=== PATIENT | male | born 1945 | race Caucasian/White ===

== ENCOUNTER → 2020-06-19 15:06 | Outpatient (BNVA) | payer BC, SELFPAY | PROVIDERS: PCP Internal Medicine; Visit Provider Urology | DX: N32.81 Overactive bladder (principal); N40.1 Benign prostatic hyperplasia with lower urinary tract symptoms; Z91.030 Bee allergy status; Z12.5 Encounter for screening for malignant neoplasm of prostate | CPT/HCPCS: 51798 ==

== ENCOUNTER → 2020-07-23 15:45 | Outpatient (BNVA) | payer BC, SELFPAY | PROVIDERS: PCP Internal Medicine; Referring Provider Internal Medicine; Visit Provider Urology | DX: Z76.89 Persons encountering health services in other specified circumstances (principal) ==

== ENCOUNTER 2020-08-12 15:25 | Outpatient (REF) | payer MEDICARE, SELFPAY ==
--- NOTE | 2020-08-12 16:40 | XR_ITS ---
EXAMINATION: XR CHEST CLINICAL INFORMATION: Nicotine dependence. COMPARISON: Chest x-ray 08/22/2019. CT chest 09/02/2018 TECHNIQUE: 2 views of the chest were obtained. FINDINGS: Stable multiple small calcified granulomas in the lung bilaterally. There is no acute change. There is no focal airspace opacities. No pulmonary vascular congestion. No pleural effusion. Heart size is normal. Cardiac and mediastinal contours are normal. Multilevel degenerative spondylosis spine XR/XR chest 2V IMPRESSION: No acute abnormality of chest.
== END 2020-08-12 15:26 | disposition home or self-care (01) ==
LOC: HO.XRAY 15:25
PROVIDERS: PCP Internal Medicine; Visit Provider Internal Medicine
DX: D86.0 Sarcoidosis of lung (principal); F17.200 Nicotine dependence, unspecified, uncomplicated; R05 Cough
CPT/HCPCS: 71046; 99212

== ENCOUNTER 2020-09-17 08:03 | Outpatient (REF) | payer MEDICARE, SELFPAY ==
[2020-09-17 11:21] LABS: Hematocrit 46.4 % (42-52); Hemoglobin 15.1 g/dl (14.0-18.0); Mean Corpuscular HGB Conc 32.5 g/dl (31.0-36.0); Mean Corpuscular Volume 89.2 fL (80-98); Mean Platelet Volume 10.3 fL (9.4-12.4); Platelet Count 238 X10*3/uL (160-400); Red Cell Distribution Width 13.3 % (11.0-16.0); White Blood Count 7.6 X10*3/uL (4.8-10.8)
[2020-09-17 11:22] LABS: Estimated Average Glucose 114 mg/dL; Hemoglobin A1C 150.0097 umol/L; Hemoglobin A1c % 5.6 %
[2020-09-17 12:30] LABS: Alanine Aminotransferase 28 U/L (0-40); Albumin Level 4.2 g/dL (3.5-5.0); Alkaline Phosphatase 69 U/L (39-117); Anion Gap 13 (12-20); Aspartate Amino Transferase 27 U/L (5-37); Bilirubin Total 0.8 mg/dL (0.0-1.0); Blood Urea Nitrogen 18 mg/dL (9-16); Calcium 8.7 mg/dL (8.4-10.2); Carbon Dioxide 27 mmol/L (22-29); Chloride 105 mmol/L (96-108); Cholesterol 174 mg/dL; Estimated Glomerular Filt Rate > 60; Glucose Fasting 113 mg/dL (60-99); HDL Cholesterol 43 mg/dL; LDL Cholesterol Calculated 108 mg/dl; Sodium 141 mmol/L (135-145); Total Protein 7.6 g/dL (6.5-8.0); Triglycerides 118 mg/dL
== END 2020-09-17 08:04 | disposition home or self-care (01) ==
LOC: HO.HMGCLDS 08:03
PROVIDERS: PCP Internal Medicine; Visit Provider Internal Medicine
DX: E78.5 Hyperlipidemia, unspecified (principal); R73.9 Hyperglycemia, unspecified; R05 Cough; D86.0 Sarcoidosis of lung
CPT/HCPCS: 36415; 80053; 80061; 83036; 85027

== ENCOUNTER 2020-11-20 10:51 | Outpatient (REF) | payer MEDICARE, SELFPAY ==
[2020-11-20 14:15] LABS: Alanine Aminotransferase 22 U/L (0-40); Albumin Level 4.1 g/dL (3.5-5.0); Alkaline Phosphatase 64 U/L (39-117); Anion Gap 16 (12-20); Aspartate Amino Transferase 24 U/L (5-37); Bilirubin Total 0.5 mg/dL (0.0-1.0); Blood Urea Nitrogen 16 mg/dL (9-16); Calcium 8.4 mg/dL (8.4-10.2); Carbon Dioxide 25 mmol/L (22-29); Chloride 102 mmol/L (96-108); Estimated Glomerular Filt Rate > 60; Glucose Random 95 mg/dL (60-115); Potassium 3.8 mmol/L (3.3-5.1); Sodium 139 mmol/L (135-145); Total Protein 7.2 g/dL (6.5-8.0)
== END 2020-11-20 10:52 | disposition home or self-care (01) ==
LOC: HO.HMGCLDS 10:51
PROVIDERS: PCP Internal Medicine; Visit Provider Internal Medicine
DX: I10 Essential (primary) hypertension (principal)
CPT/HCPCS: 36415; 80053

== ENCOUNTER → 2021-02-12 12:49 | Outpatient (BNVA) | payer MEDICARE, SELFPAY | PROVIDERS: PCP Internal Medicine; Visit Provider Urology | DX: N40.1 Benign prostatic hyperplasia with lower urinary tract symptoms (principal); N32.81 Overactive bladder | CPT/HCPCS: 51798; 99212 ==

== ENCOUNTER → 2021-03-10 13:04 | Outpatient (BNVA) | payer MEDICARE, SELFPAY | PROVIDERS: PCP Internal Medicine; Visit Provider Internal Medicine | DX: J44.9 Chronic obstructive pulmonary disease, unspecified (principal); R05 Cough; F17.200 Nicotine dependence, unspecified, uncomplicated | CPT/HCPCS: 99212 ==

== ENCOUNTER 2021-03-24 06:39 | Outpatient (REF) | payer MEDICARE, SELFPAY ==
[2021-03-24 11:52] LABS: Alanine Aminotransferase 21 U/L (0-40); Albumin Level 4.2 g/dL (3.5-5.0); Alkaline Phosphatase 63 U/L (39-117); Anion Gap 12 (12-20); Aspartate Amino Transferase 26 U/L (5-37); Blood Urea Nitrogen 16 mg/dL (9-16); Calcium 9.2 mg/dL (8.4-10.2); Carbon Dioxide 26 mmol/L (22-29); Chloride 106 mmol/L (96-108); Estimated Glomerular Filt Rate > 60; Glucose Fasting 100 mg/dL (60-99); Potassium 4.3 mmol/L (3.3-5.1); Sodium 140 mmol/L (135-145); Total Protein 7.4 g/dL (6.5-8.0)
[2021-03-24 11:53] LABS: Estimated Average Glucose 114 mg/dL; Hemoglobin A1c % 5.6 %
== END 2021-03-24 06:40 | disposition home or self-care (01) ==
LOC: HO.HMGCLDS 06:39
PROVIDERS: PCP Internal Medicine; Visit Provider Internal Medicine
DX: I10 Essential (primary) hypertension (principal); J44.9 Chronic obstructive pulmonary disease, unspecified; M25.512 Pain in left shoulder; R73.9 Hyperglycemia, unspecified
CPT/HCPCS: 36415; 80053; 83036

== ENCOUNTER 2021-04-11 10:00 | Outpatient (RCR) | payer MEDICARE, SELFPAY ==
--- NOTE | 2021-03-07 11:59 | MHC.PT.EP ---
[facility] [place] [facility] [place] [facility] [place] Office [address] Luciana Reyna [address] [phone] F: [phone] F: [phone] F: [phone] F: [phone] Physical Therapy Plan of Care Date of Evaluation: Date of Surgery: Diagnosis: L shoulder pain. Assessment: Pt is a 75 y/0 male referred to PT for eval and treat of L shoulder pain who presents with signs and sx consistent with L shoulder dysfunction resulting in decreased tolerance and ability to perform reaching a high shelf, dressing pullovers, performing yard work, reaching his neck and back for hygiene/ dressing and carrying objects of weight as well as disturbed sleep secondary to decreased L UE strength and ROM, decreased scapular and thoracic posture, increased tissue tension, TTP of anterior L shoulder and L mid trap area, and pain. Pt is deemed an appropriate candidate to receive skilled PT in order to address his physical limitations to improve his functional ability. Frequency and Duration: The patient will be seen 1 x / wk x 8 wks. Short Term Goals: initiate HEP with evidence of compliance. improve baseline pain with shoulder activity to < 5/10; initial 8/10. Card Checker Goals: I with HEP. Pt will be able to dress pullovers with managed pain; initial: 8/10. Symmetrical shoulder flexion achieved. Pt will be able to place objects on high shelf with managed Sx. Initial: unable. Treatment Plan: Modalities to reduce pain, spasms and effusion. Manual therapy to restore motion and function. Therapeutic exercise to improve strength and flexibility. Neuromuscular re-education for posture and balance. Therapeutic activities to return to functional activities of daily living. Electronically signed by: Andrew Cherry PT. Please sign and return to therapist. Thank you for your referral.
--- NOTE | 2021-04-11 11:17 | MHC.PT.DC ---
[facility] [place] Office [place] Office [place] Office [address] Luciana Reyna [address] [phone] F: [phone] F: [phone] F: [phone] F: [phone] Physical Therapy Discharge Report Diagnosis: L shoulder pain. Date of Surgery: Date of Evaluation: 03/07/21 Date of Discharge: 04/11/21 Treatments to Date: 6 Cancellations to Date: No Shows to Date: Discharge Status: Patient Elected to Stop Recommend MD Follow-up Discharge Summary: Mike was an active participant in therapy in clinic but inconsistent with HEP. Pt requested DC today and is considering orthopedic mgt for his symptom. pt was able to achieve his short term goal w/ some progress toward detention goals. pt has been educated regarding cont basic HEP. Electronically signed by: Andrew Cherry PT. Please sign and return to therapist. Thank you for your referral.
== END 2021-04-11 11:18 | disposition home or self-care (01) ==
LOC: HO.PTCHIC 10:00
PROVIDERS: PCP Internal Medicine; Visit Provider Internal Medicine
DX: M25.512 Pain in left shoulder (principal)
CPT/HCPCS: 97033; 97110; 97140; 97161

== ENCOUNTER 2021-04-18 10:37 | Outpatient (REF) | payer MEDICARE, SELFPAY ==
--- NOTE | ~2021-04-18 | XR_ITS ---
EXAMINATION: XR SHOULDER , LEFT CLINICAL INFORMATION: Pain COMPARISON: None available at the time of this dictation. TECHNIQUE: AP external rotation, Grashey, scapular Y, and axillary views of the shoulder. FINDINGS: BONES: There is no fracture or dislocation, no osteolytic or osteoblastic lesion. JOINTS: Glenohumeral joint is properly positioned. 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 SOFT TISSUE AND INCLUDED LUNG: Normal. XR/XR shoulder LT min 2V IMPRESSION: Except for mild DJD of the AC joint, exam is normal.
== END 2021-04-18 10:38 | disposition home or self-care (01) ==
LOC: HO.XRAY 10:37
PROVIDERS: PCP Internal Medicine; Visit Provider Physician Assistant
DX: M75.102 Unspecified rotator cuff tear or rupture of left shoulder, not specified as traumatic (principal)
CPT/HCPCS: 73030; 99202; J1040

== ENCOUNTER 2021-06-07 14:09 | Inpatient (IN) | payer MEDICARE, SELFPAY ==
[2021-06-07 14:46] VITALS: BP 135/72; PULSE 52; RESP 18; TEMP 36.9; O2SAT 99; BMI 29.6
--- NOTE | 2021-06-07 15:15 | PC.NURSE ---
[facility] contacted, PT was seen in the community and is voluntary [facility] bedsearch.
--- NOTE | 2021-06-07 15:52 | ED.PSYCH ---
HPI - Psych General Chief Complaint: Psychiatric Symptoms Stated Complaint: CRISIS Source: patient Mode of arrival: ambulatory Limitations: language barrier (Nicaraguan) History of Present Illness HPI Narrative: 76-year-old [place] male presents for anxiety, depression, and suicidal ideation with plan to hang himself. Patient stopped his psychiatric meds over the summer because he was unable to obtain a new psychiatrist, as his old psychiatrist retired. MD complaint: suicidal ideation and feels depressed Onset (ago): month(s) Duration: getting worse History of same: Yes Relieving factors: none Context: not taking psychiatric medications Associated psychiatric symptoms: depression, suicidal ideation and other (Insomnia) Treatments prior to arrival: placed on mental health hold If self harm: admits thoughts of self harm and has plan Related Data Home Medications Medication Instructions Recorded Confirmed latanoprost 0.005 % eye drops 1 drp OPHTHALMIC (EYE) BEDTIME 07/23/20 06/07/21 fluticasone propionate 50 2 spray INTRANASAL DAILY 05/22/21 06/07/21 mcg/actuation nasal spray,suspension nicotine 21 mg/24 hr daily 1 patch TRANSDERMAL DAILY 06/07/21 06/07/21 transdermal patch oxybutynin chloride 10 mg 10 mg PO BEDTIME 06/07/21 06/07/21 tablet,extended release 24 hr Previous Rx's Medication Instructions Recorded metoprolol succinate 100 mg 100 mg PO DAILY #90 tab 07/31/20 tablet,extended release 24 hr prazosin 2 mg capsule 2 mg PO BEDTIME #90 cap 07/31/20 citalopram 10 mg tablet 10 mg PO DAILY #90 tab 09/12/20 trazodone 100 mg tablet 200 mg PO BEDTIME #180 tab 09/12/20 ProAir HFA 90 mcg/actuation 2 inh INHALATION Q6H PRN #8.5 g NS 01/01/21 aerosol inhaler (albuterol sulfate) hydrochlorothiazide 25 mg tablet 25 mg PO QAM #90 tab 03/10/21 amlodipine 10 mg-benazepril 40 mg 1 cap PO DAILY #90 cap 04/17/21 capsule Allergies Allergy/AdvReac Type Severity Reaction Status Date / Time bee pollen [BEE STINGS] Allergy Severe ANAPHYLAXIS Verified 05/22/21 08:55 Review of Systems Review of Systems: Constitutional: No Fever, No Chills ENT/Mouth: No Ear Pain, No Nasal Congestion, No sore throat Eyes: No Eye Pain, No Swelling, No Redness Cardiovascular: No Chest Pain, No SOB Respiratory: No Cough, No Sputum, No Dyspnea Gastrointestinal: No Nausea, No Vomiting, No Diarrhea, No Hematochezia, No Melena Genitourinary: No Dysuria, No Urinary Frequency, No Hematuria Musculoskeletal: No Myalgias Skin: No Skin Lesions, No rash Neuro: No Weakness, No Numbness, No Paresthesias, No Dizziness, No Headache Psych: positive Anxiety, positive Depression, positive SI Heme/Lymph: No Lymphadenopathy Endocrine: No Polyuria, No Polydipsia Yes all other systems are reviewed and are negative PMFSH Past Medical History Attestation statement: The following information was validated with the patient. Source: old records reviewed Medical History Annual physical exam COPD (chronic obstructive pulmonary disease) Cough Depression ETOH abuse Hepatic steatosis History of alcohol abuse HTN (hypertension) Hyperglycemia Hyperlipemia Left shoulder pain Overweight Pulmonary sarcoidosis Smoker Surgical History H/O colonoscopy Social History Social History Housing: House Alcohol intake: unknown Patient Tobacco Use Status: Current everyday Tobacco user Tobacco use type: Cigarette Cigarettes Per Day: 2 e-Cigarette/Vaping Use: Never Used Use of substances other than those prescribed or required for medical reasons: Unknown Advance Directives: No Advance Directives Information Provided: Yes Advance Directives on File: No Current occupational status: retired Current occupation: rt handed Physical Exam Vital Signs: Vital Signs: Last Vital Signs Temp 98.5 F 06/07/21 14:46 Pulse 56 06/07/21 21:45 Resp 16 06/07/21 20:00 BP 141/71 H 06/07/21 21:45 Pulse Ox 99 06/07/21 14:46 Body Mass Index 29.6 Appearance: Alert. Oriented X3. Moderate psychiatric distress. Eyes: Pupils equal, round and reactive to light. Sclera nonicteric. ENT: Pharynx normal. Tardive tongue movements. Neck: Normal inspection. Neck supple. CVS: Normal heart rate and rhythm. Pulses normal. Respiratory: No respiratory distress. Breath sounds normal. Abdomen: Soft and nontender. Skin: Skin warm and dry. Normal skin color. Normal skin turgor. Extremities: No lower extremity edema. Moves all extremities against resistance. Gait well balanced well coordinated. Neuro: No motor deficit. No sensory deficit. Cranial nerves 2-12 intact. Course Course Course Narrative: 76-year-old male, [place]araguan speaking, able to understand some Luxembourger, is at bedside translating. Patient has not taken any psychiatric medications that were prescribed to him since summer, his psychiatrist retired and he was unable to obtain a new provider. states that he has not been able to sleep over the past month, he increasingly anxious and depressed. Patient reported to his that he had a plan to kill himself by hanging. N consult completed in the [facility], patient arrived on a Section 12 bed search. I ordered psychiatric consult to establish care so patient could possibly become an established patient to obtain his medications. Labs are unremarkable. Physician observation started at this time 1:00 a.[address]. sign out to Dr. Armendariz. MDM - Psych Differential Diagnosis Differential diagnosis: Likely acute psychosis, suicidal ideation, depression, acute anxiety and post-traumatic stress disorder Medical Records Attestation: I reviewed the patient's medical records. Lab Data Attestation: I reviewed the patient's lab results. Result diagrams: 06/07/21 16:11 06/07/21 16:11 Labs: Lab Results 06/07/21 06/07/21 06/07/21 Range/Units 16:11 16:11 16:11 WBC 7.8 (4.8-10.8) X10*3/uL RBC 4.76 (4.60-5.80) X10*6/uL Hgb 14.4 (14.0-18.0) g/dl Hct 41.0 L (42-52) % MCV 86.1 (80-98) fL MCH 30.3 (27.0-33.0) pg MCHC 35.1 (31.0-36.0) g/dl RDW 13.2 (11.0-16.0) % Plt Count 210 (160-400) X10*3/uL MPV 9.8 (9.4-12.4) fL Immature Gran % (Auto) 0.4 (0.0-0.4) % Neut % (Auto) 58.9 (45-73) % Lymph % (Auto) 30.2 (20-40) % [place] % (Auto) 8.1 (2-11) % Eos % (Auto) 1.9 (0-4) % Baso % (Auto) 0.5 (0-2) % Lymph # (Auto) 2.4 (1.2-4.9) X10*3/uL [place] # (Auto) 0.6 (0.1-1.2) X10*3/uL Eos # (Auto) 0.2 (0.0-0.4) X10*3/uL Baso # (Auto) 0.0 (0.0-0.2) X10*3/uL Abs Immat Gran (auto) 0.03 (0.00-0.03) X10*3/uL Absolute Neuts (auto) 4.6 (2.0-8.3) X10*3/uL Absolute Nucleated RBC 0.000 (0.0-0.012) X10*3/uL Nucleated RBC % (auto) 0.0 (0.0-0.2) /100WBC Sodium 138 (135-145) mmol/L Potassium 4.0 (3.3-5.1) mmol/L Chloride 106 (96-108) mmol/L Carbon Dioxide 22 (22-29) mmol/L Anion Gap 14 (12-20) BUN 22 H (9-16) mg/dL Creatinine 1.12 (0.5-1.4) mg/dL Estim Creat Clear Calc 61.5 Estimated GFR > 60 Random Glucose 119 H (60-115) mg/dL Calcium 9.3 (8.4-10.2) mg/dL Total Bilirubin 0.6 (0.0-1.0) mg/dL AST 21 (5-37) U/L ALT 23 (0-40) U/L Alkaline Phosphatase 63 (39-117) U/L Total Protein 7.2 (6.5-8.0) g/dL Albumin 4.0 (3.5-5.0) g/dL Urine Color Urine Appearance Urine pH (5.0-8.0) Ur Specific [place] (1.005-1.025) Urine Protein (NEG-TRACE) MG/DL Urine Glucose (UA) (NEG) MG/DL Urine Ketones (NEG) MG/DL Urine Blood (NEG) Urine Nitrite (NEG) Ur Leukocyte Esterase (NEG) Salicylates < 5.0 L (15-30) mg/dL Urine Opiates Screen (Not Detect) Urine Fentanyl Screen (Not Detect) Acetaminophen < 1 (<30) mcg/mL Ur Barbiturates Screen (Not Detect) Ur Phencyclidine Scrn (Not Detect) Ur Amphetamines Screen (Not Detect) U Benzodiazepines Scrn (Not Detect) Urine Cocaine Screen (Not Detect) U Marijuana (THC) Screen (Not Detect) Ethyl Alcohol < 10 mg/dL COVID-19 ([facility]) (Negative) COVID-19 Clin Com 06/07/21 06/07/21 06/08/21 Range/Units 16:11 17:24 00:30 WBC (4.8-10.8) X10*3/uL RBC (4.60-5.80) X10*6/uL Hgb (14.0-18.0) g/dl Hct (42-52) % MCV (80-98) fL MCH (27.0-33.0) pg MCHC (31.0-36.0) g/dl RDW (11.0-16.0) % Plt Count (160-400) X10*3/uL MPV (9.4-12.4) fL Immature Gran % (Auto) (0.0-0.4) % Neut % (Auto) (45-73) % Lymph % (Auto) (20-40) % [place] % (Auto) (2-11) % Eos % (Auto) (0-4) % Baso % (Auto) (0-2) % Lymph # (Auto) (1.2-4.9) X10*3/uL [place] # (Auto) (0.1-1.2) X10*3/uL Eos # (Auto) (0.0-0.4) X10*3/uL Baso # (Auto) (0.0-0.2) X10*3/uL Abs Immat Gran (auto) (0.00-0.03) X10*3/uL Absolute Neuts (auto) (2.0-8.3) X10*3/uL Absolute Nucleated RBC (0.0-0.012) X10*3/uL Nucleated RBC % (auto) (0.0-0.2) /100WBC Sodium (135-145) mmol/L Potassium (3.3-5.1) mmol/L Chloride (96-108) mmol/L Carbon Dioxide (22-29) mmol/L Anion Gap (12-20) BUN (9-16) mg/dL Creatinine (0.5-1.4) mg/dL Estim Creat Clear Calc Estimated GFR Random Glucose (60-115) mg/dL Calcium (8.4-10.2) mg/dL Total Bilirubin (0.0-1.0) mg/dL AST (5-37) U/L ALT (0-40) U/L Alkaline Phosphatase (39-117) U/L Total Protein (6.5-8.0) g/dL Albumin (3.5-5.0) g/dL Urine Color YELLOW Urine Appearance CLEAR Urine pH 6.0 (5.0-8.0) Ur Specific [place] <= 1.005 (1.005-1.025) Urine Protein NEG (NEG-TRACE) MG/DL Urine Glucose (UA) NEG (NEG) MG/DL Urine Ketones NEG (NEG) MG/DL Urine Blood NEG (NEG) Urine Nitrite NEG (NEG) Ur Leukocyte Esterase NEG (NEG) Salicylates (15-30) mg/dL Urine Opiates Screen Not Detected (Not Detect) Urine Fentanyl Screen Not Detected (Not Detect) Acetaminophen (<30) mcg/mL Ur Barbiturates Screen Not Detected (Not Detect) Ur Phencyclidine Scrn Not Detected (Not Detect) Ur Amphetamines Screen Not Detected (Not Detect) U Benzodiazepines Scrn Not Detected (Not Detect) Urine Cocaine Screen Not Detected (Not Detect) U Marijuana (THC) Screen Not Detected (Not Detect) Ethyl Alcohol mg/dL COVID-19 ([facility]) Negative (Negative) COVID-19 Clin Com See Note ECG Data Attestation: I personally reviewed and interpreted this ECG as follows: ECG interpretation date: 06/07/21 ECG interpretation time: 16:36 Prior ECG tracings: available for review Interpretation: Vent. rate 55 BPM GA interval 198 ms QRS duration 88 ms QT/QTc 472/451 ms P-R-T axes -9 53 42 Sinus bradycardia Otherwise normal ECG No previous ECGs available Prior EKG April 04, 2019. No significant changes. Discharge Plan Discharge Clinical Impression: Acute psychosis, Acute anxiety Depression Qualifiers: Depression Type: major depressive disorder Major depression recurrence: recurrent Active/Remission status: currently active Major depression episode severity: severe Psychotic features: without psychotic features Qualified Code(s): F33.2 - Major depressive disorder, recurrent severe without psychotic features Prescriptions: No Action metoprolol succinate 100 mg tablet extended release 24 hr 100 mg PO DAILY Qty: 90 RF: 3 prazosin 2 mg capsule 2 mg PO BEDTIME Qty: 90 RF: 3 albuterol sulfate [ProAir HFA] 90 mcg/actuation HFA aerosol inhaler 2 inh inhalation Q6H PRN (Reason: shortness of breath or wheezing) Qty: 8.5 RF: 2 hydrochlorothiazide 25 mg tablet 25 mg PO QAM Qty: 90 RF: 3 amlodipine-benazepril 10-40 mg capsule 1 cap PO DAILY Qty: 90 RF: 3 nicotine 21 mg/24 hr Patch 24 Hour 1 patch TRANSDERMAL DAILY RF: 0 oxybutynin chloride 10 mg tablet extended release 24hr 10 mg PO BEDTIME RF: 0 citalopram 10 mg tablet 10 mg PO DAILY Qty: 90 RF: 3 trazodone 100 mg tablet 200 mg PO BEDTIME Qty: 180 RF: 3 fluticasone propionate 50 mcg/actuation spray,suspension 2 spray intranasal DAILY RF: 0 latanoprost 0.005 % drops 1 drp ophthalmic (eye) BEDTIME RF: 0
--- NOTE | 2021-06-07 15:59 | ECG_ITS ---
Test Reason : Med clearance Blood Pressure : / mmHG Vent. Rate : 055 BPM Atrial Rate : 055 BPM P-R Int : 198 ms QRS Dur : 088 ms QT Int : 472 ms P-R-T Axes : -09 053 042 degrees QTc Int : 451 ms Sinus bradycardia Prolonged QT Borderline ECG No significant changes seen Referred By: Deborah Hdz Electronically Signed By:ERIC CARTER MD
[2021-06-07 16:16] LABS: MANUAL DIFF FLAG NO
[2021-06-07 16:18] LABS: Basophils Percent Auto 0.5 % (0-2); Eosinophils Absolute Auto 0.2 X10*3/uL (0.0-0.4); Eosinophils Percent Auto 1.9 % (0-4); Hemoglobin 14.4 g/dl (14.0-18.0); Imm Gran Abs Auto 0.03 X10*3/uL (0.00-0.03); Imm Gran Pct Auto 0.4 % (0.0-0.4); Lymphocytes Absolute Auto 2.4 X10*3/uL (1.2-4.9); Lymphocytes Percent Auto 30.2 % (20-40); Mean Corpuscular HGB Conc 35.1 g/dl (31.0-36.0); Mean Corpuscular Hemoglobin 30.3 pg (27.0-33.0); Mean Corpuscular Volume 86.1 fL (80-98); Mean Platelet Volume 9.8 fL (9.4-12.4); Monocytes Absolute Auto 0.6 X10*3/uL (0.1-1.2); Monocytes Percent Auto 8.1 % (2-11); Neutrophils Absolute Auto 4.6 X10*3/uL (2.0-8.3); Neutrophils Percent Auto 58.9 % (45-73); Platelet Count 210 X10*3/uL (160-400); Red Blood Count 4.76 X10*6/uL (4.60-5.80); Red Cell Distribution Width 13.2 % (11.0-16.0); White Blood Count 7.8 X10*3/uL (4.8-10.8)
[2021-06-07 16:32] LABS: COVID-19 Test Negative (Negative); IDNOW Serial# 08D9AD1C
[2021-06-07 16:33] LABS: Ethanol < 10 mg/dL
[2021-06-07 16:38] LABS: Alanine Aminotransferase 23 U/L (0-40); Alkaline Phosphatase 63 U/L (39-117); Anion Gap 14 (12-20); Aspartate Amino Transferase 21 U/L (5-37); Bilirubin Total 0.6 mg/dL (0.0-1.0); Blood Urea Nitrogen 22 mg/dL (9-16); Calcium 9.3 mg/dL (8.4-10.2); Carbon Dioxide 22 mmol/L (22-29); Chloride 106 mmol/L (96-108); Creatinine Clr Calc Pharmacy 61.5; Estimated Glomerular Filt Rate > 60; Glucose Random 119 mg/dL (60-115); Sodium 138 mmol/L (135-145); Total Protein 7.2 g/dL (6.5-8.0)
[2021-06-07 16:48] LABS: Acetaminophen LAB < 1 mcg/mL (<30); Salicylate < 5.0 mg/dL (15-30)
[2021-06-07 17:51] LABS: Amphetamine Screen Urine Not Detected (Not Detect); Barbiturates, Urine Not Detected (Not Detect); Benzodiazepines Screen Urine Not Detected (Not Detect); Cannabinoid Screen Urine Not Detected (Not Detect); Cocaine Screen Urine Not Detected (Not Detect); Fentanyl, urine Not Detected (Not Detect); Opiate Screen Urine Not Detected (Not Detect); Phencyclidine Screen Urine Not Detected (Not Detect)
[2021-06-07 20:00] VITALS: BP 141/71; PULSE 56; RESP 16
[2021-06-07] MEDS: traZODone HCL 100 MG TABLET 200 MG PO (20:43)
[2021-06-07 21:45] VITALS: BP 141/71; PULSE 56
[2021-06-07] MEDS: Prazosin HCL 1 MG CAPSULE 2 MG PO (21:45)
[2021-06-07] MEDS: Latanoprost 0.005 % Ophth Sol 2.5 ML DROPS 1 DROP EYE-BOTH (21:51)
[2021-06-08 00:44] LABS: Appearance Urine CLEAR; Color Urine YELLOW; Glucose Urine UA NEG (NEG); Leukocyte Esterase Urine NEG (NEG); Nitrite Urine NEG (NEG); Specific Gravity - Urine <= 1.005 (1.005-1.025); Urine Blood NEG (NEG); Urine Ketones NEG (NEG); Urine Protein NEG (NEG-TRACE)
[2021-06-08 06:46] VITALS: BP 140/70; PULSE 58; RESP 16; TEMP 37.2; O2SAT 97
--- NOTE | 2021-06-08 06:46 | PC.NURSE ---
Pt slept thru the night with occassional bathroom trips. steady gait, inpt bedsearch.
[2021-06-08 08:52] VITALS: BP 106/65; PULSE 72
[2021-06-08] MEDS: Nicotine 21 MG PATCH.TD24 TRANSDERMA (08:52)
[2021-06-08] MEDS: Metoprolol Succinate ER 100 MG TAB.ER.24H PO (08:52)
[2021-06-08] MEDS: Escitalopram Oxalate 5 MG TABLET PO (08:52)
[2021-06-08] MEDS: lisinopriL 40 MG TABLET PO (08:52)
[2021-06-08] MEDS: hydroCHLOROthiazide 25 MG TABLET PO (08:52)
[2021-06-08 08:53] VITALS: BP 106/65; PULSE 72
[2021-06-08] MEDS: amLODIPine Besylate 10 MG TABLET PO (08:53)
--- NOTE | 2021-06-08 11:24 | P.CNPS_ITS ---
History of Present Illness Date of Service: 06/08/21 Chief Complaint: PARANOIA Reason for Consult: medication Requesting physician: Deborah Hdz Sources of Information: patient interviewed, chart reviewed and crisis/core team assessment reviewed HPI Narrative: 76 y.o. Male who carries a diagnosis of schizoaffective disorder He presented to [facility] crisis at [address] [place] [address] after his called to request an assessment due to SI with plan to hang self with rope, paranoia, hyposomnia, and agitation in context of non-adherence to medication. Per , pt stopped his psychiatric meds over the summer and she has had to supervise him 15/03 as she worries about him harming himself or others, difficult to re-direct or calm. I evaluated the pt this morning with Latvian speaking park interpreter and upon interview he reports he is in the hospital because he has not been taking his medication for 6 months because his doctor retired. Says ?before, I was okay, I took latuda for my brain,? it has been ?very tough to find new doctor? but has an appointment with a new psychiatrist in [place] on July 30. Reports he needs to find a new medication because latuda is ?too expensive,? no longer covered by insurance. Reports he does not drink or smoke tobacco anymore since his doctor told him to quit a few yr ago, ?too much alcohol.? Says if he is going for a walk and sees ?lights are flashing, I feel scared,? thinks people are coming for him, but he doesnt know who. Says he sometimes sees a car outside his house with lights that go on and off during the day and it scares him. Reports his mood is ?depressed.? Sleep is ?okay,? thinks he gets about 5-6 hours of sleep. Energy in the day is low, feels ?tired.? Denies anger or agitation. Says he feels safe. I spoke with Mike?s , Chioma. She reports her was diagnosed with schizophrenia 30 yr ago and he has worsening anxiety and paranoia off his medication. Says when pt ?sees some lights in the neighborhood, he thinks people put the lights on to scare him.? He feels triggered ?when he sees people doing something or people touching him or coming close to him, its very painful.? He saw a napkin in their fence and perseverated on this, ?why did they put it there?? Per , ?something that is normal and nothing for him looks like something against him.? He asks to always keep blinds closed. She denies that pt is aggressive or violent but he has made statements such as ?im gonna take a brick and smash the door? of his neighbor?s house. Per , pt presents as energetic but ?sometimes he complains he is tired.? Sleep is disrupted by paranoid ideations, feeling ?scared? at night. Appetite and self care are good. Per , pt was non-adherent with psychiatry appointments during the pandemic, ran out of medication at the beginning of the summer and called Dr. disla but he said pt was already discharged. Reports ?he was doing good? on latuda, but since insurance got switched from [employer] to Medicare, it is no longer covered. She denies being concerned with pt?s memory and says when he is med adherent he as ?very little anxiety.?? Past Psychiatric History: Past medications: Celexa 10 mg QAM (last filled 05/05/21), prazosin 2 mg QHS (last filled 04/17/21), trazodone 200 mg QHS (last filled 04/07/21). Also reports he was on latuda, but has not had this in a year due to insurance not covering it, per he did very well on this medication. Remote hx of taking risperdal, zyprexa (metabolic side effects but did reasonably well), abilify, geodon, haldol, perphenazine 16 mg QHS, klonopin, effexor. -Hx of multiple psych hospitalizations, last at [facility] in 08/2020 for insomnia, paranoia, bizarre behaviors, and HI towards [facility] pharmacy staff. Hx of IPLOC at [facility] in 2018. -First inpatient admission was at [facility] in 12/1999, brought to the ED due to threatening to harm or possibly kill a co-worker with a hammer, had not been sleeping. 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 He was re-hospitalized at [facility] in 2006, brought in due to threatening neighbors, had arrived home from a walk to find his garage ?a mess? and believed his neighbors were responsible. Hx of alcohol abuse. -Per chart, pt had hx of difficulty getting along with people and maintaining employment due to conflict with coworkers i.e. thinking coworkers are making fun of him, playing tricks on him. -Hx of OP psychiatry, initially saw Dr. Daniel Chase and later saw Dr. Disla. He was discharged from Dr. Disla?s care due to poor attendance during the pandemic and Dr. Disla did not take him back, as he is set to retire. Medical Evaluation Reviewed: Yes [facility] Medical History Annual physical exam COPD (chronic obstructive pulmonary disease) Cough Depression ETOH abuse Hepatic steatosis History of alcohol abuse HTN (hypertension) Hyperglycemia Hyperlipemia Left shoulder pain Overweight Pulmonary sarcoidosis Smoker Narrative: -PCP is Dr. Mary Gonzalez, [facility] -Hx of hypertension. Surgical History H/O colonoscopy Social History: -Pt lives with , Servando ( 43 yrs). Housing is rep ortedly safe and stable and he is able to return. 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 -He was born in [place]. Has one brother in [place] and a 30-year-old daughter. Parents . -Graduated high school. 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 Substance History: -Tobacco: quit smoking cigarettes 1 week ago, had been 3 cigarettes a day -ETOH: reports hx of daily drinking but stopped a few yr ago because his doctor told him his liver was ?getting bigger and bigger. Trauma History: -Denies Diagnostics Vital Signs (24Hr): Vital Signs - 24 hr 06/07/21 14:46 06/07/21 20:00 06/07/21 21:45 Temperature 98.5 F Pulse Rate 52 56 56 Respiratory Rate 18 16 Blood Pressure 135/72 141/71 H 141/71 H Pulse Oximetry 99 06/08/21 06:46 06/08/21 08:52 06/08/21 08:53 Temperature 99 F Pulse Rate 58 72 72 Respiratory Rate 16 Blood Pressure 140/70 H 106/65 106/65 Pulse Oximetry 97 Body Mass Index 29.6 Labs Results: 06/07/21 16:11 06/07/21 16:11 Labs: Laboratory Results - last 48 hr 06/07/21 06/07/21 06/07/21 16:11 16:11 16:11 WBC 7.8 RBC 4.76 Hgb 14.4 Hct 41.0 L MCV 86.1 MCH 30.3 MCHC 35.1 RDW 13.2 Plt Count 210 MPV 9.8 Immature Gran % (Auto) 0.4 Neut % (Auto) 58.9 Lymph % (Auto) 30.2 [place] % (Auto) 8.1 Eos % (Auto) 1.9 Baso % (Auto) 0.5 Lymph # (Auto) 2.4 [place] # (Auto) 0.6 Eos # (Auto) 0.2 Baso # (Auto) 0.0 Abs Immat Gran (auto) 0.03 Absolute Neuts (auto) 4.6 Absolute Nucleated RBC 0.000 Nucleated RBC % (auto) 0.0 Sodium 138 Potassium 4.0 Chloride 106 Carbon Dioxide 22 Anion Gap 14 BUN 22 H Creatinine 1.12 Estim Creat Clear Calc 61.5 Estimated GFR > 60 Random Glucose 119 H Calcium 9.3 Total Bilirubin 0.6 AST 21 ALT 23 Alkaline Phosphatase 63 Total Protein 7.2 Albumin 4.0 Urine Color Urine Appearance Urine pH Ur Specific [place] Urine Protein Urine Glucose (UA) Urine Ketones Urine Blood Urine Nitrite Ur Leukocyte Esterase Salicylates < 5.0 L Urine Opiates Screen Urine Fentanyl Screen Acetaminophen < 1 Ur Barbiturates Screen Ur Phencyclidine Scrn Ur Amphetamines Screen U Benzodiazepines Scrn Urine Cocaine Screen U Marijuana (THC) Screen Ethyl Alcohol < 10 COVID-19 ([facility]) COVID-19 Clin Com 06/07/21 06/07/21 06/08/21 16:11 17:24 00:30 WBC RBC Hgb Hct MCV MCH MCHC RDW Plt Count MPV Immature Gran % (Auto) Neut % (Auto) Lymph % (Auto) [place] % (Auto) Eos % (Auto) Baso % (Auto) Lymph # (Auto) [place] # (Auto) Eos # (Auto) Baso # (Auto) Abs Immat Gran (auto) Absolute Neuts (auto) Absolute Nucleated RBC Nucleated RBC % (auto) Sodium Potassium Chloride Carbon Dioxide Anion Gap BUN Creatinine Estim Creat Clear Calc Estimated GFR Random Glucose Calcium Total Bilirubin AST ALT Alkaline Phosphatase Total Protein Albumin Urine Color YELLOW Urine Appearance CLEAR Urine pH 6.0 Ur Specific [place] <= 1.005 Urine Protein NEG Urine Glucose (UA) NEG Urine Ketones NEG Urine Blood NEG Urine Nitrite NEG Ur Leukocyte Esterase NEG Salicylates Urine Opiates Screen Not Detected Urine Fentanyl Screen Not Detected Acetaminophen Ur Barbiturates Screen Not Detected Ur Phencyclidine Scrn Not Detected Ur Amphetamines Screen Not Detected U Benzodiazepines Scrn Not Detected Urine Cocaine Screen Not Detected U Marijuana (THC) Screen Not Detected Ethyl Alcohol COVID-19 ([facility]) Negative COVID-19 Clin Com See Note Mental Status Exam Mental Status Exam Narrative: A&O. In hospital attire, good hygiene, normal body habitus. Lying in bed, reading a newspaper. Good eye contact, attentive. Appears to have oral/ facial involuntary movement, unclear etiology. Calm, cooperative, engaged. Non- pressured speech, spontaneous with regular rate and rhythm, normal volume and prosody. No prolonged speech latency or dysarthria. Mood is ?depressed,? affect is animated at times. Denies SI/SIB/HI upon inquiry. Denies A/VH but endorses paranoid delusional thought content. Thoughts are perseverative, persecutory. No known cognitive or memory impairment. Insight is fair and adequate, judgment is impaired. Medications Medications Current Medications Acetaminophen (Acetaminophen 325 Mg Tablet) 650 mg PO Q6H PRN PRN Reason: pain, headache Albuterol Sulfate (Albuterol Sulfate 90 Mcg 8 Gm Inhaler) 2 puff INHALE Q6H PRN PRN Reason: shortness of breath or wheezing Amlodipine Besylate (Amlodipine Besylate 10 Mg Tablet) 10 mg PO DAILY [facility] Last Admin: 06/08/21 08:53 Dose: 10 mg Documented by: Escitalopram Oxalate (Escitalopram Oxalate 5 Mg Tablet) 5 mg PO DAILY [facility] Last Admin: 06/08/21 08:52 Dose: 5 mg Documented by: Fluticasone Propionate (Fluticasone Propionate Nasal 16 Gm [place]) 2 spray NOSTRIL-B DAILY [facility] Last Admin: 06/08/21 08:54 Dose: Not Given Documented by: Hydrochlorothiazide (Hydrochlorothiazide 25 Mg Tablet) 25 mg PO DAILY [facility]; Protocol Last Admin: 06/08/21 08:52 Dose: 25 mg Documented by: Latanoprost (Latanoprost 0.005 % Ophth Susana 2.5 Ml Drops) 1 drop EYE-BOTH BEDTIME [facility] Last Admin: 06/07/21 21:51 Dose: 1 drop Documented by: Lisinopril (Lisinopril 40 Mg Tablet) 40 mg PO DAILY [facility]; Protocol Last Admin: 06/08/21 08:52 Dose: 40 mg Documented by: Metoprolol Succinate (Metoprolol Succinate Er 100 Mg Tab.Er.24h) 100 mg PO DAILY [facility]; Protocol Last Admin: 06/08/21 08:52 Dose: 100 mg Documented by: Nicotine (Nicotine 21 Mg Patch.Td24) 21 mg TRANSDERMA DAILY [facility] Last Admin: 06/08/21 08:52 Dose: 21 mg Documented by: Oxybutynin Chloride (Oxybutynin Chloride Er 5 Mg Tab.Er.24) 10 mg PO BEDTIME [facility] Last Admin: 06/07/21 20:41 Dose: 10 mg Documented by: Prazosin HCl (Prazosin Hcl 1 Mg Capsule) 2 mg PO BEDTIME [facility]; Protocol Last Admin: 06/07/21 21:45 Dose: 2 mg Documented by: Trazodone HCl (Trazodone Hcl 100 Mg Tablet) 200 mg PO BEDTIME [facility] Last Admin: 06/07/21 20:43 Dose: 200 mg Documented by: Allergies Allergies Allergy/AdvReac Type Severity Reaction Status Date / Time bee pollen [BEE STINGS] Allergy Severe ANAPHYLAXIS Verified 05/22/21 08:55 Assessment & Plan Assessment & Plan (1) Schizoaffective disorder, depressive type: Status: Acute Code(s): F25.1 - Schizoaffective disorder, depressive type Assessment and Plan: 76 y.o. Male who carries a diagnosis of bipolar I disorder. He presented to [facility] crisis at [address] [place] [address] after his called to request an assessment due to SI with plan to hang self with rope, paranoia, hyposomnia, and agitation in context of non-adherence to medication. Per , pt stopped his psychiatric meds over the summer. He was on latuda and had been stable on this but insurance is no longer covering and pt no longer has a psychiatrist due to missing appointments over the pandemic. ED provider restarted prazosin, escitalopram, and trazodone per pharmacy records. Will admit inpatient and re-start AAP. Reviewed past med trials, prior to latuda pt was on zyprexa, apparently res ponded well but had metabolic side effects. Plan: -Continue monitoring medically. Patient is currently medically cleared. -Patient cannot leave AGAINST MEDICAL ADVICE. -Care Team evaluation for bed search. initial treatments ordered collateral history obtained Greater than 50% of the session was spent on counseling and/or coordination of care
--- NOTE | 2021-06-08 11:38 | PC.NURSE ---
pt currently in shower
[2021-06-08 12:07] VITALS: BP 131/61; PULSE 57; RESP 18; TEMP 36.8; O2SAT 98
--- NOTE | 2021-06-08 14:18 | PC.NURSE ---
report given to s1
--- NOTE | 2021-06-08 15:14 | PC.NURSE ---
Report received. Pt resting comfortably in room at current, no complaints at this time, calm and cooperative. Awaiting pending transfer to S1.
[2021-06-08 18:00] VITALS: BP 150/72; PULSE 63; RESP 20; TEMP 36.8; O2SAT 97
[2021-06-08 20:34] VITALS: BP 150/72; PULSE 63
[2021-06-08] MEDS: Prazosin HCL 1 MG CAPSULE 2 MG PO (20:34)
[2021-06-08] MEDS: traZODone HCL 100 MG TABLET 200 MG PO (20:34)
[2021-06-08] MEDS: Latanoprost 0.005 % Ophth Sol 2.5 ML DROPS 1 DROP EYE-BOTH (20:35)
[2021-06-09] MEDS: hydrOXYzine HCL 25 MG TABLET PO (02:06)
[2021-06-09] MEDS: traZODone HCL 50 MG TABLET PO (02:06)
[2021-06-09] MEDS: Escitalopram Oxalate 5 MG TABLET PO (08:25)
[2021-06-09] MEDS: amLODIPine Besylate 10 MG TABLET PO (08:25)
[2021-06-09] MEDS: hydroCHLOROthiazide 25 MG TABLET PO (08:26)
[2021-06-09] MEDS: lisinopriL 40 MG TABLET PO (08:26)
[2021-06-09] MEDS: Metoprolol Succinate ER 100 MG TAB.ER.24H PO (08:26)
[2021-06-09 09:24] VITALS: BP 139/66; PULSE 69; RESP 18; TEMP 36.6; O2SAT 97
[2021-06-09] MEDS: Nicotine 21 MG PATCH.TD24 TRANSDERMA (12:02)
[2021-06-09] MEDS: Fluticasone Propionate Nasal 16 GM SPRAY 2 SPRAY NOSTRIL-B (12:03)
--- NOTE | 2021-06-09 13:04 | HO.PSYADMNOT ---
HPI Date of Service: 06/09/21 Chief Complaint: PARANOIA Sources of Information: patient interviewed, chart reviewed and crisis/core team assessment reviewed HPI Subjective Notes: Conditional Voluntary Narrative: The patient is a 76-year-old male, from [place], , with good social support referred from the crisis Center at in in [place] since his called crisis due to exacerbation of psychotic symptoms and he could not afford Latuda that used to work for him. As per the crisis assessment, the patient reports of paranoia, ideas of reference, sporadically during examinations and according to his , a sporadic disorganized behavior. He was assessed by crisis and transferring to this facility for psychiatric stabilization. On interview, the patient was pleasant and cooperative, he admitted that he has not been taking medications for several months since his insurance would not cover the Latuda and it was too expensive for him. Also he reported that he psychiatrist retired and he could not find another prescriber. The nursing staff reported that last night he could not sleep, he took trazodone 200 mg and Atarax and he barely slept. We discussed risks, benefits, side-effects and alternatives and he agreed to start a low dose of Zyprexa to target psychosis and poor sleep. He is fully aware of the possibility of metabolic syndrome. Past Psychiatric History: Past medications: Celexa 10 mg QAM (last filled 05/05/21), prazosin 2 mg QHS (last filled 04/17/21), trazodone 200 mg QHS (last filled 04/07/21). Also reports he was on latuda, but has not had this in a year due to insurance not covering it, per he did very well on this medication. Remote hx of taking risperdal, zyprexa (metabolic side effects but did reasonably well), abilify, geodon, haldol, perphenazine 16 mg QHS, klonopin, effexor. -Hx of multiple psych hospitalizations, last at [facility] in 08/2020 for insomnia, paranoia, bizarre behaviors, and HI towards [facility] pharmacy staff. Hx of IPLOC at [facility] in 2018. -First inpatient admission was at [facility] in 12/1999, brought to the ED due to threatening to harm or possibly kill a co-worker with a hammer, had not been sleeping. 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 He was re-hospitalized at [facility] in 2006, brought in due to threatening neighbors, had arrived home from a walk to find his garage ?a mess? and believed his neighbors were responsible. Hx of alcohol abuse. -Per chart, pt had hx of difficulty getting along with people and maintaining employment due to conflict with coworkers i.e. thinking coworkers are making fun of him, playing tricks on him. -Hx of OP psychiatry, initially saw Dr. Daniel Chase and later saw Dr. Ghosh. He was discharged from Dr. Ghosh?s care due to poor attendance during the pandemic and Dr. Ghosh did not take him back, as he is set to retire. Medical Evaluation Reviewed: Yes [facility] Medical History Annual physical exam COPD (chronic obstructive pulmonary disease) Cough Depression ETOH abuse Hepatic steatosis History of alcohol abuse HTN (hypertension) Hyperglycemia Hyperlipemia Left shoulder pain Overweight Pulmonary sarcoidosis Smoker Surgical History H/O colonoscopy Family History: Denies Social History: -Pt lives with , Servando ( 43 yrs). Housing is reportedly safe and stable and he is able to return. 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 -He was born in [place]. Has one brother in [place] and a 30-year-old daughter. Parents . -Graduated high school. 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 Substance History: Admitted past use of alcohol in the past Trauma History: -Denies Diagnostics Vital Signs (24Hr): Vital Signs - 24 hr 06/08/21 18:00 06/08/21 20:34 06/09/21 09:24 Temperature 98.3 F 97.8 F Pulse Rate 63 63 69 Respiratory Rate 20 18 Blood Pressure 150/72 H 150/72 H 139/66 Pulse Oximetry 97 97 Body Mass Index 29.6 Labs Results: 06/07/21 16:11 06/07/21 16:11 Labs: Laboratory Results - last 48 hr 06/07/21 06/07/21 06/07/21 16:11 16:11 16:11 WBC 7.8 RBC 4.76 Hgb 14.4 Hct 41.0 L MCV 86.1 MCH 30.3 MCHC 35.1 RDW 13.2 Plt Count 210 MPV 9.8 Immature Gran % (Auto) 0.4 Neut % (Auto) 58.9 Lymph % (Auto) 30.2 [place] % (Auto) 8.1 Eos % (Auto) 1.9 Baso % (Auto) 0.5 Lymph # (Auto) 2.4 [place] # (Auto) 0.6 Eos # (Auto) 0.2 Baso # (Auto) 0.0 Abs Immat Gran (auto) 0.03 Absolute Neuts (auto) 4.6 Absolute Nucleated RBC 0.000 Nucleated RBC % (auto) 0.0 Sodium 138 Potassium 4.0 Chloride 106 Carbon Dioxide 22 Anion Gap 14 BUN 22 H Creatinine 1.12 Estim Creat Clear Calc 61.5 Estimated GFR > 60 Random Glucose 119 H Calcium 9.3 Total Bilirubin 0.6 AST 21 ALT 23 Alkaline Phosphatase 63 Total Protein 7.2 Albumin 4.0 Urine Color Urine Appearance Urine pH Ur Specific [place] Urine Protein Urine Glucose (UA) Urine Ketones Urine Blood Urine Nitrite Ur Leukocyte Esterase Salicylates < 5.0 L Urine Opiates Screen Urine Fentanyl Screen Acetaminophen < 1 Ur Barbiturates Screen Ur Phencyclidine Scrn Ur Amphetamines Screen U Benzodiazepines Scrn Urine Cocaine Screen U Marijuana (THC) Screen Ethyl Alcohol < 10 COVID-19 ([facility]) COVID-19 Clin Com 06/07/21 06/07/21 06/08/21 16:11 17:24 00:30 WBC RBC Hgb Hct MCV MCH MCHC RDW Plt Count MPV Immature Gran % (Auto) Neut % (Auto) Lymph % (Auto) [place] % (Auto) Eos % (Auto) Baso % (Auto) Lymph # (Auto) [place] # (Auto) Eos # (Auto) Baso # (Auto) Abs Immat Gran (auto) Absolute Neuts (auto) Absolute Nucleated RBC Nucleated RBC % (auto) Sodium Potassium Chloride Carbon Dioxide Anion Gap BUN Creatinine Estim Creat Clear Calc Estimated GFR Random Glucose Calcium Total Bilirubin AST ALT Alkaline Phosphatase Total Protein Albumin Urine Color YELLOW Urine Appearance CLEAR Urine pH 6.0 Ur Specific [place] <= 1.005 Urine Protein NEG Urine Glucose (UA) NEG Urine Ketones NEG Urine Blood NEG Urine Nitrite NEG Ur Leukocyte Esterase NEG Salicylates Urine Opiates Screen Not Detected Urine Fentanyl Screen Not Detected Acetaminophen Ur Barbiturates Screen Not Detected Ur Phencyclidine Scrn Not Detected Ur Amphetamines Screen Not Detected U Benzodiazepines Scrn Not Detected Urine Cocaine Screen Not Detected U Marijuana (THC) Screen Not Detected Ethyl Alcohol COVID-19 ([facility]) Negative COVID-19 Clin Com See Note Meds/Allergies Meds Home Medications Acetaminophen (Acetaminophen 325 Mg Tablet) 650 mg PO Q6H PRN PRN Reason: pain, headache Al Hydroxide/Mg Hydroxide (Magnesium Hydrox/Alum Hydrox 30 Ml Oral.Susp) 30 ml PO Q6H PRN PRN Reason: Heartburn/Nausea Albuterol Sulfate (Albuterol Sulfate 90 Mcg 8 Gm Inhaler) 2 puff INHALE Q6H PRN PRN Reason: shortness of breath or wheezing Amlodipine Besylate (Amlodipine Besylate 10 Mg Tablet) 10 mg PO DAILY [facility] Last Admin: 06/09/21 08:25 Dose: 10 mg Documented by: Escitalopram Oxalate (Escitalopram Oxalate 5 Mg Tablet) 5 mg PO DAILY [facility] Last Admin: 06/09/21 08:25 Dose: 5 mg Documented by: Fluticasone Propionate (Fluticasone Propionate Nasal 16 Gm [place]) 2 spray NOSTRIL-B DAILY [facility] Last Admin: 06/09/21 12:03 Dose: 2 spray Documented by: Hydrochlorothiazide (Hydrochlorothiazide 25 Mg Tablet) 25 mg PO DAILY [facility]; Protocol Last Admin: 06/09/21 08:26 Dose: 25 mg Documented by: Hydroxyzine HCl (Hydroxyzine Hcl 25 Mg Tablet) 25 mg PO Q6H PRN PRN Reason: Anxiety Last Admin: 06/09/21 02:06 Dose: 25 mg Documented by: Latanoprost (Latanoprost 0.005 % Ophth Susana 2.5 Ml Drops) 1 drop EYE-BOTH BEDTIME [facility] Last Admin: 06/08/21 20:35 Dose: 1 drop Documented by: Lisinopril (Lisinopril 40 Mg Tablet) 40 mg PO DAILY [facility]; Protocol Last Admin: 06/09/21 08:26 Dose: 40 mg Documented by: Magnesium Hydroxide (Milk Of Magnesia 30 Ml Oral.Susp) 30 ml PO DAILY PRN PRN Reason: Constipation Metoprolol Succinate (Metoprolol Succinate Er 100 Mg Tab.Er.24h) 100 mg PO DAILY [facility]; Protocol Last Admin: 06/09/21 08:26 Dose: 100 mg Documented by: Nicotine (Nicotine 21 Mg Patch.Td24) 21 mg TRANSDERMA DAILY [facility] Last Admin: 06/09/21 12:02 Dose: 21 mg Documented by: Oxybutynin Chloride (Oxybutynin Chloride Er 5 Mg Tab.Er.24) 10 mg PO BEDTIME [facility] Last Admin: 06/08/21 20:35 Dose: 10 mg Documented by: Prazosin HCl (Prazosin Hcl 1 Mg Capsule) 2 mg PO BEDTIME [facility]; Protocol Last Admin: 06/08/21 20:34 Dose: 2 mg Documented by: Trazodone HCl (Trazodone Hcl 100 Mg Tablet) 200 mg PO BEDTIME [facility] Last Admin: 06/08/21 20:34 Dose: 200 mg Documented by: Trazodone HCl (Trazodone Hcl 50 Mg Tablet) 50 mg PO BEDTIME PRN PRN Reason: Insomnia Last Admin: 06/09/21 02:06 Dose: 50 mg Documented by: Allergies Allergies Allergy/AdvReac Type Severity Reaction Status Date / Time bee pollen [BEE STINGS] Allergy Severe ANAPHYLAXIS Verified 05/22/21 08:55 Mental Status Exam Mental Status Exam Patient Appearance: Well Grooomed Patient Orientation: Person and Situation Level of Consciousness: Awake and Appropriate Patient Behavior: Appropriate and Cooperative Mood Description: Calm Affect Description: Constricted Patient Cognition Impaired: No Ability to Follow Directions: Good Speech Pattern: Appropriate Hallucinations: None Delusions: Paranoid Ideation Thought Process: Goal Oriented and Linear Thought Content: positive for Circumstantial Depressive Symptoms: Increased Anxiety Judgement: Fair Assessment & Plan Assessment & Plan (1) Schizoaffective disorder, depressive type: Status: Acute Code(s): F25.1 - Schizoaffective disorder, depressive type Assessment and Plan: The patient is a 76-year-old male from [place], with good social support with a past history of schizoaffective disorder depressed type who was referred to the crisis Center due to exacerbation of psychotic symptoms in the context of not having a follow-up appointment with his psychiatrist and 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 He has been noncompliant with medications for more than a year. He was readmitted into this facility and he agreed on the plan below. Plan 1. Start Zyprexa 5 mg p.o. q.h.s. to target insomnia and psychosis. 2. Continue other medications. 3. Gather collateral information. Reason for continued inpatient stay Substantial Risk for: harm to self, harm to others, stable for discharge, rapid decompensation and med/psych decompensation
[2021-06-09 18:00] VITALS: BP 150/72; PULSE 69; RESP 16; TEMP 36.2; O2SAT 98
[2021-06-09] MEDS: OLANZapine 5 MG TABLET PO (20:40)
[2021-06-09 20:41] VITALS: BP 150/72; PULSE 59
[2021-06-09] MEDS: Prazosin HCL 1 MG CAPSULE 2 MG PO (20:41)
[2021-06-09] MEDS: traZODone HCL 100 MG TABLET 200 MG PO (20:42)
[2021-06-09] MEDS: Latanoprost 0.005 % Ophth Sol 2.5 ML DROPS 1 DROP EYE-BOTH (20:42)
[2021-06-10 06:00] VITALS: BP 141/66; PULSE 71; TEMP 34.1; O2SAT 98
[2021-06-10 07:32] LABS: Estimated Average Glucose 108 mg/dL; Hemoglobin A1c % 5.4 %
[2021-06-10 07:33] LABS: Anion Gap 10 (12-20); Blood Urea Nitrogen 19 mg/dL (9-16); Calcium 9.1 mg/dL (8.4-10.2); Carbon Dioxide 27 mmol/L (22-29); Chloride 108 mmol/L (96-108); Cholesterol 141 mg/dL; Creatinine Clr Calc Pharmacy 68.3; Estimated Glomerular Filt Rate > 60; Glucose Random 102 mg/dL (60-115); HDL Cholesterol 36 mg/dL; LDL Cholesterol Calculated 79 mg/dl; Potassium 4.2 mmol/L (3.3-5.1); Sodium 141 mmol/L (135-145); Triglycerides 133 mg/dL
[2021-06-10 08:29] VITALS: BP 141/66; PULSE 71
[2021-06-10] MEDS: Escitalopram Oxalate 5 MG TABLET PO (08:29)
[2021-06-10] MEDS: Metoprolol Succinate ER 100 MG TAB.ER.24H PO (08:29)
[2021-06-10] MEDS: hydroCHLOROthiazide 25 MG TABLET PO (08:29)
[2021-06-10 08:30] VITALS: BP 141/66; PULSE 71
[2021-06-10] MEDS: amLODIPine Besylate 10 MG TABLET PO (08:30)
[2021-06-10] MEDS: lisinopriL 40 MG TABLET PO (08:30)
[2021-06-10] MEDS: Nicotine 21 MG PATCH.TD24 TRANSDERMA (08:31)
[2021-06-10] MEDS: Fluticasone Propionate Nasal 16 GM SPRAY 2 SPRAY NOSTRIL-B (08:42)
[2021-06-10 09:06] VITALS: BP 141/66; PULSE 71; TEMP 35.7; O2SAT 98
--- NOTE | 2021-06-10 15:05 | HO.PSYCHPN ---
Subjective Subjective Date of Service: 06/10/21 Reason For Visit: PARANOIA Subjective Notes: Conditional Voluntary Interim History: The nursing staff reported patient slept well. On interview, the patient denies auditory hallucinations he is pleasant and cooperative Medication Compliance: Yes Side effects from medications: No Attending Groups: Intermittent Review of Systems Acute medical concerns: No Medical Review of Systems: unchanged Mental Status Exam Mental Status Exam Patient Appearance: Disheveled Patient Orientation: Person Level of Consciousness: Awake Patient Behavior: Cooperative Mood Description: Constricted Affect Description: Calm Ability to Follow Directions: Good Speech Pattern: Clear Hallucinations: Auditory Delusions: Paranoid Ideation Thought Process: Intact Thought Content: positive for Circumstantial Judgement: Fair Diagnostics Vital Signs (24Hr): Vital Signs - 24 hr 06/09/21 18:00 06/09/21 20:41 06/10/21 06:00 Temperature 97.1 F 93.3 F L Pulse Rate 69 59 71 Respiratory Rate 16 Blood Pressure 150/72 H 150/72 H 141/66 H Pulse Oximetry 98 98 06/10/21 08:29 06/10/21 08:30 06/10/21 09:06 Temperature 96.3 F L Pulse Rate 71 71 71 Respiratory Rate Blood Pressure 141/66 H 141/66 H 141/66 H Pulse Oximetry 98 Body Mass Index 29.6 Labs Results: 06/07/21 16:11 06/10/21 07:07 Labs: Laboratory Results - last 48 hr 06/10/21 06/10/21 07:07 07:07 Sodium 141 Potassium 4.2 Chloride 108 Carbon Dioxide 27 Anion Gap 10 L BUN 19 H Creatinine 1.01 Estim Creat Clear Calc 68.3 Estimated GFR > 60 Random Glucose 102 Estimat Average Glucose 108 Hemoglobin A1c % 5.4 Calcium 9.1 Triglycerides 133 Cholesterol 141 LDL Cholesterol, Calc 79 HDL Cholesterol 36 Medications Medications Current Medications Acetaminophen (Acetaminophen 325 Mg Tablet) 650 mg PO Q6H PRN PRN Reason: pain, headache Al Hydroxide/Mg Hydroxide (Magnesium Hydrox/Alum Hydrox 30 Ml Oral.Susp) 30 ml PO Q6H PRN PRN Reason: Heartburn/Nausea Albuterol Sulfate (Albuterol Sulfate 90 Mcg 8 Gm Inhaler) 2 puff INHALE Q6H PRN PRN Reason: shortness of breath or wheezing Amlodipine Besylate (Amlodipine Besylate 10 Mg Tablet) 10 mg PO DAILY [facility] Last Admin: 06/10/21 08:30 Dose: 10 mg Documented by: Escitalopram Oxalate (Escitalopram Oxalate 5 Mg Tablet) 5 mg PO DAILY [facility] Last Admin: 06/10/21 08:29 Dose: 5 mg Documented by: Fluticasone Propionate (Fluticasone Propionate Nasal 16 Gm [place]) 2 spray NOSTRIL-B DAILY [facility] Last Admin: 06/10/21 08:42 Dose: 2 spray Documented by: Hydrochlorothiazide (Hydrochlorothiazide 25 Mg Tablet) 25 mg PO DAILY [facility]; Protocol Last Admin: 06/10/21 08:29 Dose: 25 mg Documented by: Hydroxyzine HCl (Hydroxyzine Hcl 25 Mg Tablet) 25 mg PO Q6H PRN PRN Reason: Anxiety Last Admin: 06/09/21 02:06 Dose: 25 mg Documented by: Latanoprost (Latanoprost 0.005 % Ophth Susana 2.5 Ml Drops) 1 drop EYE-BOTH BEDTIME [facility] Last Admin: 06/09/21 20:42 Dose: 1 drop Documented by: Lisinopril (Lisinopril 40 Mg Tablet) 40 mg PO DAILY [facility]; Protocol Last Admin: 06/10/21 08:30 Dose: 40 mg Documented by: Magnesium Hydroxide (Milk Of Magnesia 30 Ml Oral.Susp) 30 ml PO DAILY PRN PRN Reason: Constipation Metoprolol Succinate (Metoprolol Succinate Er 100 Mg Tab.Er.24h) 100 mg PO DAILY [facility]; Protocol Last Admin: 06/10/21 08:29 Dose: 100 mg Documented by: Nicotine (Nicotine 21 Mg Patch.Td24) 21 mg TRANSDERMA DAILY [facility] Last Admin: 06/10/21 08:31 Dose: 21 mg Documented by: Olanzapine (Olanzapine 5 Mg Tablet) 5 mg PO BEDTIME [facility] Last Admin: 06/09/21 20:40 Dose: 5 mg Documented by: Oxybutynin Chloride (Oxybutynin Chloride Er 5 Mg Tab.Er.24) 10 mg PO BEDTIME [facility] Last Admin: 06/09/21 20:40 Dose: 10 mg Documented by: Prazosin HCl (Prazosin Hcl 1 Mg Capsule) 2 mg PO BEDTIME [facility]; Protocol Last Admin: 06/09/21 20:41 Dose: 2 mg Documented by: Trazodone HCl (Trazodone Hcl 100 Mg Tablet) 200 mg PO BEDTIME [facility] Last Admin: 06/09/21 20:42 Dose: 200 mg Documented by: Trazodone HCl (Trazodone Hcl 50 Mg Tablet) 50 mg PO BEDTIME PRN PRN Reason: Insomnia Last Admin: 06/09/21 02:06 Dose: 50 mg Documented by: Allergies Allergies Allergy/AdvReac Type Severity Reaction Status Date / Time bee pollen [BEE STINGS] Allergy Severe ANAPHYLAXIS Verified 05/22/21 08:55 Assessment & Plan Assessment & Plan (1) Schizoaffective disorder, depressive type: Status: Acute Code(s): F25.1 - Schizoaffective disorder, depressive type Assessment and Plan: The patient is a 76-year-old male from [place], with good social support with a past history of schizoaffective disorder depressed type who was referred to the crisis Center due to exacerbation of psychotic symptoms in the context of not having a follow-up appointment with his psychiatrist and 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 He has been noncompliant with medications for more than a year. He was readmitted into this facility and he agreed on the plan below. Plan 1. Start Zyprexa 5 mg p.o. q.h.s. to target insomnia and psychosis. 2. Continue other medications. 3. Gather collateral information. I spent minutes with the patient and/or on the patient floor today, greater than?50% of which was spent counseling/coordinating care. Reason for contiued inpatient stay Substantial Risk for: inability to function, rapid decompensation and med/psych decompensation
[2021-06-10 20:28] VITALS: PULSE 98; RESP 20; TEMP 36.3; O2SAT 92
[2021-06-10] MEDS: OLANZapine 5 MG TABLET PO (20:29)
[2021-06-10 20:30] VITALS: BP 174/79; PULSE 59
[2021-06-10] MEDS: Prazosin HCL 1 MG CAPSULE 2 MG PO (20:30)
[2021-06-10] MEDS: traZODone HCL 100 MG TABLET 200 MG PO (20:31)
[2021-06-10] MEDS: Latanoprost 0.005 % Ophth Sol 2.5 ML DROPS 1 DROP EYE-BOTH (20:32)
[2021-06-11 06:00] VITALS: BP 141/65; PULSE 67; RESP 16; TEMP 36.4; O2SAT 98
[2021-06-11] MEDS: Nicotine 21 MG PATCH.TD24 TRANSDERMA (08:25)
[2021-06-11 08:27] VITALS: BP 141/65; PULSE 67
[2021-06-11] MEDS: hydroCHLOROthiazide 25 MG TABLET PO (08:27)
[2021-06-11] MEDS: amLODIPine Besylate 10 MG TABLET PO (08:27)
[2021-06-11 08:28] VITALS: BP 141/65; PULSE 67
[2021-06-11] MEDS: lisinopriL 40 MG TABLET PO (08:28)
[2021-06-11] MEDS: Fluticasone Propionate Nasal 16 GM SPRAY 2 SPRAY NOSTRIL-B (08:28)
[2021-06-11 08:29] VITALS: BP 141/65; PULSE 67
[2021-06-11] MEDS: Metoprolol Succinate ER 100 MG TAB.ER.24H PO (08:29)
[2021-06-11] MEDS: Escitalopram Oxalate 5 MG TABLET PO (09:06)
--- NOTE | 2021-06-11 15:21 | HO.PSYCHPN ---
Subjective Subjective Date of Service: 06/11/21 Reason For Visit: PARANOIA Subjective Notes: Conditional Voluntary Interim History: The nursing staff reports that the patient has been pleasant and cooperative. Occupational therapy staff reported that her [place] score 12/30 in Chinese. On interview, the patient denies side effects with Zyprexa, he denies active auditory hallucinations or paranoia. His blood work showed normal hemoglobin A1c and cholesterol within normal limits. Medication Compliance: Yes Side effects from medications: No Attending Groups: No Review of Systems Acute medical concerns: No Medical Review of Systems: unchanged Mental Status Exam Mental Status Exam Patient Appearance: Well Grooomed Patient Orientation: Person, Place and Situation Level of Consciousness: Awake and Appropriate Patient Behavior: Cooperative Mood Description: Calm Affect Description: Calm Patient Cognition Impaired: No Ability to Follow Directions: Good Speech Pattern: Clear Memory Description: Intact Hallucinations: None Delusions: Not Present Thought Process: Goal Oriented Judgement: Fair Diagnostics Vital Signs (24Hr): Vital Signs - 24 hr 06/10/21 20:28 06/10/21 20:30 06/11/21 06:00 Temperature 97.4 F 97.6 F Pulse Rate 98 59 67 Respiratory Rate 20 16 Blood Pressure 174/79 H 141/65 H Pulse Oximetry 92 98 06/11/21 08:27 06/11/21 08:28 06/11/21 08:29 Temperature Pulse Rate 67 67 67 Respiratory Rate Blood Pressure 141/65 H 141/65 H 141/65 H Pulse Oximetry Body Mass Index 29.6 Labs Results: 06/07/21 16:11 06/10/21 07:07 Labs: Laboratory Results - last 48 hr 06/10/21 06/10/21 07:07 07:07 Sodium 141 Potassium 4.2 Chloride 108 Carbon Dioxide 27 Anion Gap 10 L BUN 19 H Creatinine 1.01 Estim Creat Clear Calc 68.3 Estimated GFR > 60 Random Glucose 102 Estimat Average Glucose 108 Hemoglobin A1c % 5.4 Calcium 9.1 Triglycerides 133 Cholesterol 141 LDL Cholesterol, Calc 79 HDL Cholesterol 36 Medications Medications Current Medications Acetaminophen (Acetaminophen 325 Mg Tablet) 650 mg PO Q6H PRN PRN Reason: pain, headache Al Hydroxide/Mg Hydroxide (Magnesium Hydrox/Alum Hydrox 30 Ml Oral.Susp) 30 ml PO Q6H PRN PRN Reason: Heartburn/Nausea Albuterol Sulfate (Albuterol Sulfate 90 Mcg 8 Gm Inhaler) 2 puff INHALE Q6H PRN PRN Reason: shortness of breath or wheezing Amlodipine Besylate (Amlodipine Besylate 10 Mg Tablet) 10 mg PO DAILY [facility] Last Admin: 06/11/21 08:27 Dose: 10 mg Documented by: Escitalopram Oxalate (Escitalopram Oxalate 5 Mg Tablet) 5 mg PO DAILY [facility] Last Admin: 06/11/21 09:06 Dose: 5 mg Documented by: Fluticasone Propionate (Fluticasone Propionate Nasal [address]) 2 spray NOSTRIL-B DAILY [facility] Last Admin: 06/11/21 08:28 Dose: 2 spray Documented by: Hydrochlorothiazide (Hydrochlorothiazide 25 Mg Tablet) 25 mg PO DAILY [facility]; Protocol Last Admin: 06/11/21 08:27 Dose: 25 mg Documented by: Hydroxyzine HCl (Hydroxyzine Hcl 25 Mg Tablet) 25 mg PO Q6H PRN PRN Reason: Anxiety Last Admin: 06/09/21 02:06 Dose: 25 mg Documented by: Latanoprost (Latanoprost 0.005 % Ophth Susana 2.5 Ml Drops) 1 drop EYE-BOTH BEDTIME [facility] Last Admin: 06/10/21 20:32 Dose: 1 drop Documented by: Lisinopril (Lisinopril 40 Mg Tablet) 40 mg PO DAILY [facility]; Protocol Last Admin: 06/11/21 08:28 Dose: 40 mg Documented by: Magnesium Hydroxide (Milk Of Magnesia 30 Ml Oral.Susp) 30 ml PO DAILY PRN PRN Reason: Constipation Metoprolol Succinate (Metoprolol Succinate Er 100 Mg Tab.Er.24h) 100 mg PO DAILY [facility]; Protocol Last Admin: 06/11/21 08:29 Dose: 100 mg Documented by: Nicotine (Nicotine 21 Mg Patch.Td24) 21 mg TRANSDERMA DAILY [facility] Last Admin: 06/11/21 08:25 Dose: 21 mg Documented by: Olanzapine (Olanzapine 5 Mg Tablet) 5 mg PO BEDTIME [facility] Last Admin: 06/10/21 20:29 Dose: 5 mg Documented by: Oxybutynin Chloride (Oxybutynin Chloride Er 5 Mg Tab.Er.24) 10 mg PO BEDTIME [facility] Last Admin: 06/10/21 20:29 Dose: 10 mg Documented by: Prazosin HCl (Prazosin Hcl 1 Mg Capsule) 2 mg PO BEDTIME [facility]; Protocol Last Admin: 06/10/21 20:30 Dose: 2 mg Documented by: Trazodone HCl (Trazodone Hcl 100 Mg Tablet) 200 mg PO BEDTIME [facility] Last Admin: 06/10/21 20:31 Dose: 200 mg Documented by: Trazodone HCl (Trazodone Hcl 50 Mg Tablet) 50 mg PO BEDTIME PRN PRN Reason: Insomnia Last Admin: 06/09/21 02:06 Dose: 50 mg Documented by: Allergies Allergies Allergy/AdvReac Type Severity Reaction Status Date / Time bee pollen [BEE STINGS] Allergy Severe ANAPHYLAXIS Verified 05/22/21 08:55 Assessment & Plan Assessment & Plan (1) Schizoaffective disorder, depressive type: Status: Acute Code(s): F25.1 - Schizoaffective disorder, depressive type Assessment and Plan: The patient is a 76-year-old male from [place], with good social support with a past history of schizoaffective disorder depressed type who was referred to the crisis Center due to exacerbation of psychotic symptoms in the context of not having a follow-up appointment with his psychiatrist and 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 He has been noncompliant with medications for more than a year. He was readmitted into this facility and he agreed on the plan below. Plan 1. Continue Zyprexa 5 mg p.o. q.h.s. to target insomnia and psychosis. 2. Continue other medications. 3. Gather collateral information. 4. Possible discharge for next Wednesday I spent minutes with the patient and/or on the patient floor today, greater than?50% of which was spent counseling/coordinating care. Reason for contiued inpatient stay Substantial Risk for: inability to function, rapid decompensation and med/psych decompensation
[2021-06-11 18:00] VITALS: BP 159/72; PULSE 62; RESP 19; TEMP 36.6; O2SAT 97
[2021-06-11 20:53] VITALS: BP 159/72; PULSE 62
[2021-06-11] MEDS: Prazosin HCL 1 MG CAPSULE 2 MG PO (20:53)
[2021-06-11] MEDS: traZODone HCL 100 MG TABLET 200 MG PO (20:55)
[2021-06-11] MEDS: OLANZapine 5 MG TABLET PO (20:55)
[2021-06-11] MEDS: Latanoprost 0.005 % Ophth Sol 2.5 ML DROPS 1 DROP EYE-BOTH (20:56)
[2021-06-12 06:00] VITALS: BP 119/64; PULSE 60; RESP 16; TEMP 36.1; O2SAT 97
[2021-06-12 07:00] VITALS: BMI 29.6
[2021-06-12] MEDS: hydroCHLOROthiazide 25 MG TABLET PO (09:13)
[2021-06-12 09:14] VITALS: BP 119/64; PULSE 60
[2021-06-12] MEDS: lisinopriL 40 MG TABLET PO (09:14)
[2021-06-12] MEDS: Metoprolol Succinate ER 100 MG TAB.ER.24H PO (09:14)
[2021-06-12 09:15] VITALS: BP 119/64; PULSE 60
[2021-06-12] MEDS: amLODIPine Besylate 10 MG TABLET PO (09:15)
[2021-06-12] MEDS: Escitalopram Oxalate 5 MG TABLET PO (09:15)
[2021-06-12] MEDS: Nicotine 21 MG PATCH.TD24 TRANSDERMA (09:16)
[2021-06-12] MEDS: Fluticasone Propionate Nasal 16 GM SPRAY 2 SPRAY NOSTRIL-B (09:19)
--- NOTE | 2021-06-12 12:04 | P.PNPSI_ITS ---
Subjective Subjective Date of Service: 06/12/21 Reason For Visit: PARANOIA Subjective Notes: Conditional Voluntary Interim History: The nursing staff reported that the patient slept well, he has good appetite and he is pretty independent. Occupational therapies reported that he is physically well and he has participated in some groups. There is minimal language barrier. The psychologist social scheduled a family meeting for tomorrow. On interview, the patient denies new symptoms he denies auditory hallucinations, he denies over sedation with Zyprexa. Medication Compliance: Yes Side effects from medications: No Attending Groups: Yes Review of Systems Acute medical concerns: No Medical Review of Systems: unchanged Mental Status Exam Mental Status Exam Patient Appearance: Well Grooomed Patient Orientation: Person and Situation Level of Consciousness: Awake and Appropriate Patient Behavior: Cooperative Mood Description: Constricted Affect Description: Constricted Patient Cognition Impaired: Yes Ability to Follow Directions: Good Speech Pattern: Clear Hallucinations: None Delusions: Not Present Thought Process: Goal Oriented and Linear Thought Content: positive for Circumstantial Judgement: Fair Diagnostics Vital Signs (24Hr): Vital Signs - 24 hr 06/11/21 18:00 06/11/21 20:53 06/12/21 06:00 Temperature 97.9 F 97.0 F Pulse Rate 62 62 60 Respiratory Rate 19 16 Blood Pressure 159/72 H 159/72 H 119/64 Pulse Oximetry 97 97 06/12/21 09:14 06/12/21 09:15 Temperature Pulse Rate 60 60 Respiratory Rate Blood Pressure 119/64 119/64 Pulse Oximetry Body Mass Index 29.6 Labs Results: 06/07/21 16:11 06/10/21 07:07 Medications Medications Current Medications Acetaminophen (Acetaminophen 325 Mg Tablet) 650 mg PO Q6H PRN PRN Reason: pain, headache Al Hydroxide/Mg Hydroxide (Magnesium Hydrox/Alum Hydrox 30 Ml Oral.Susp) 30 ml PO Q6H PRN PRN Reason: Heartburn/Nausea Albuterol Sulfate (Albuterol Sulfate 90 Mcg 8 Gm Inhaler) 2 puff INHALE Q6H PRN PRN Reason: shortness of breath or wheezing Amlodipine Besylate (Amlodipine Besylate 10 Mg Tablet) 10 mg PO DAILY [facility] Last Admin: 06/12/21 09:15 Dose: 10 mg Documented by: Escitalopram Oxalate (Escitalopram Oxalate 5 Mg Tablet) 5 mg PO DAILY [facility] Last Admin: 06/12/21 09:15 Dose: 5 mg Documented by: Fluticasone Propionate (Fluticasone Propionate Nasal 16 Gm [place]) 2 spray NOSTRIL-B DAILY [facility] Last Admin: 06/12/21 09:19 Dose: 2 spray Documented by: Hydrochlorothiazide (Hydrochlorothiazide 25 Mg Tablet) 25 mg PO DAILY [facility]; Protocol Last Admin: 06/12/21 09:13 Dose: 25 mg Documented by: Hydroxyzine HCl (Hydroxyzine Hcl 25 Mg Tablet) 25 mg PO Q6H PRN PRN Reason: Anxiety Last Admin: 06/09/21 02:06 Dose: 25 mg Documented by: Latanoprost (Latanoprost 0.005 % Ophth Susana 2.5 Ml Drops) 1 drop EYE-BOTH BEDTIME [facility] Last Admin: 06/11/21 20:56 Dose: 1 drop Documented by: Lisinopril (Lisinopril 40 Mg Tablet) 40 mg PO DAILY [facility]; Protocol Last Admin: 06/12/21 09:14 Dose: 40 mg Documented by: Magnesium Hydroxide (Milk Of Magnesia 30 Ml Oral.Susp) 30 ml PO DAILY PRN PRN Reason: Constipation Metoprolol Succinate (Metoprolol Succinate Er 100 Mg Tab.Er.24h) 100 mg PO DAILY [facility]; Protocol Last Admin: 06/12/21 09:14 Dose: 100 mg Documented by: Nicotine (Nicotine 21 Mg Patch.Td24) 21 mg TRANSDERMA DAILY [facility] Last Admin: 06/12/21 09:16 Dose: 21 mg Documented by: Olanzapine (Olanzapine 5 Mg Tablet) 5 mg PO BEDTIME [facility] Last Admin: 06/11/21 20:55 Dose: 5 mg Documented by: Oxybutynin Chloride (Oxybutynin Chloride Er 5 Mg Tab.Er.24) 10 mg PO BEDTIME [facility] Last Admin: 06/11/21 20:54 Dose: 10 mg Documented by: Prazosin HCl (Prazosin Hcl 1 Mg Capsule) 2 mg PO BEDTIME [facility]; Protocol Last Admin: 06/11/21 20:53 Dose: 2 mg Documented by: Trazodone HCl (Trazodone Hcl 100 Mg Tablet) 200 mg PO BEDTIME [facility] Last Admin: 06/11/21 20:55 Dose: 200 mg Documented by: Trazodone HCl (Trazodone Hcl 50 Mg Tablet) 50 mg PO BEDTIME PRN PRN Reason: Insomnia Last Admin: 06/09/21 02:06 Dose: 50 mg Documented by: Allergies Allergies Allergy/AdvReac Type Severity Reaction Status Date / Time bee pollen [BEE STINGS] Allergy Severe ANAPHYLAXIS Verified 05/22/21 08:55 Assessment & Plan Assessment & Plan (1) Schizoaffective disorder, depressive type: Status: Acute Code(s): F25.1 - Schizoaffective disorder, depressive type Assessment and Plan: The patient is a 76-year-old male from [place], with good social support with a past history of schizoaffective disorder depressed type who was referred to the crisis Center due to exacerbation of psychotic symptoms in the context of not having a follow-up appointment with his psychiatrist and 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 He has been noncompliant with medications for more than a year. He was readmitted into this facility and he agreed on the plan below. Plan 1. Continue Zyprexa 5 mg p.o. q.h.s. to target insomnia and psychosis. 2. Continue other medications. 3. Gather collateral information. 4. Possible discharge for next Wednesday I spent minutes with the patient and/or on the patient floor today, greater than?50% of which was spent counseling/coordinating care. Reason for contiued inpatient stay Substantial Risk for: inability to function, rapid decompensation and med/psych decompensation
[2021-06-12 19:45] VITALS: BP 137/63; PULSE 62; RESP 18; TEMP 36.8; O2SAT 97
[2021-06-12 20:29] VITALS: BP 137/65; PULSE 62
[2021-06-12] MEDS: traZODone HCL 100 MG TABLET 200 MG PO (20:29)
[2021-06-12] MEDS: OLANZapine 5 MG TABLET PO (20:29)
[2021-06-12] MEDS: Prazosin HCL 1 MG CAPSULE 2 MG PO (20:29)
[2021-06-12] MEDS: Latanoprost 0.005 % Ophth Sol 2.5 ML DROPS 1 DROP EYE-BOTH (20:31)
[2021-06-13] VITALS (7 sets, daily range): BP systolic 134–142; BP diastolic 67–84; PULSE 58–70; RESP 18; TEMP 36.6–37.1; O2SAT 97
[2021-06-13] MEDS: amLODIPine Besylate 10 MG TABLET PO (10:22)
[2021-06-13] MEDS: hydroCHLOROthiazide 25 MG TABLET PO (10:23)
[2021-06-13] MEDS: lisinopriL 40 MG TABLET PO (10:23)
[2021-06-13] MEDS: Nicotine 21 MG PATCH.TD24 TRANSDERMA (10:24)
[2021-06-13] MEDS: Metoprolol Succinate ER 100 MG TAB.ER.24H PO (10:29)
[2021-06-13] MEDS: Escitalopram Oxalate 5 MG TABLET PO (10:51)
[2021-06-13] MEDS: Fluticasone Propionate Nasal 16 GM SPRAY 2 SPRAY NOSTRIL-B (10:52)
--- NOTE | 2021-06-13 11:21 | HO.PSYCHPN ---
Subjective Subjective Date of Service: 06/13/21 Reason For Visit: PARANOIA Subjective Notes: Conditional Voluntary Interim History: The nursing staff has reported that the patient has been cooperative, denies delusions but he is anxious with very loud peers. The public health social worker arranged a family meeting with his and she agreed on the plan of a nearly discharge. This moment the patient denies new symptoms he is content with Zyprexa 5 mg p.o. q.h.s. under is no evidence of psychotic symptoms at this moment Medication Compliance: Yes Side effects from medications: No Attending Groups: Yes Review of Systems Acute medical concerns: No Medical Review of Systems: unchanged Review of Systems Review of Systems Yes all other systems are reviewed and are negative Mental Status Exam Mental Status Exam Patient Appearance: Well Grooomed Patient Orientation: Person, Place and Situation Level of Consciousness: Awake and Appropriate Patient Behavior: Appropriate and Cooperative Mood Description: Calm Affect Description: Constricted Patient Cognition Impaired: No Ability to Follow Directions: Good Speech Pattern: Clear Memory Description: Intact Hallucinations: None Delusions: Not Present Thought Process: Goal Oriented Thought Content: positive for Intact Judgement: Fair Diagnostics Vital Signs (24Hr): Vital Signs - 24 hr 06/12/21 19:45 06/12/21 20:29 06/13/21 06:00 Temperature 98.2 F 98 F Pulse Rate 62 62 70 Respiratory Rate 18 18 Blood Pressure 137/63 137/65 Pulse Oximetry 97 97 06/13/21 10:22 06/13/21 10:23 06/13/21 10:29 Temperature Pulse Rate 70 70 70 Respiratory Rate Blood Pressure 134/84 134/84 134/84 Pulse Oximetry Body Mass Index 29.6 Labs Results: 06/07/21 16:11 06/10/21 07:07 Medications Medications Current Medications Acetaminophen (Acetaminophen 325 Mg Tablet) 650 mg PO Q6H PRN PRN Reason: pain, headache Al Hydroxide/Mg Hydroxide (Magnesium Hydrox/Alum Hydrox 30 Ml Oral.Susp) 30 ml PO Q6H PRN PRN Reason: Heartburn/Nausea Albuterol Sulfate (Albuterol Sulfate 90 Mcg 8 Gm Inhaler) 2 puff INHALE Q6H PRN PRN Reason: shortness of breath or wheezing Amlodipine Besylate (Amlodipine Besylate 10 Mg Tablet) 10 mg PO DAILY [facility] Last Admin: 06/13/21 10:22 Dose: 10 mg Documented by: Escitalopram Oxalate (Escitalopram Oxalate 5 Mg Tablet) 5 mg PO DAILY [facility] Last Admin: 06/13/21 10:51 Dose: 5 mg Documented by: Fluticasone Propionate (Fluticasone Propionate Nasal 16 Gm [place]) 2 spray NOSTRIL-B DAILY [facility] Last Admin: 06/13/21 10:52 Dose: 2 spray Documented by: Hydrochlorothiazide (Hydrochlorothiazide 25 Mg Tablet) 25 mg PO DAILY [facility]; Protocol Last Admin: 06/13/21 10:23 Dose: 25 mg Documented by: Hydroxyzine HCl (Hydroxyzine Hcl 25 Mg Tablet) 25 mg PO Q6H PRN PRN Reason: Anxiety Last Admin: 06/09/21 02:06 Dose: 25 mg Documented by: Latanoprost (Latanoprost 0.005 % Ophth Susana 2.5 Ml Drops) 1 drop EYE-BOTH BEDTIME [facility] Last Admin: 06/12/21 20:31 Dose: 1 drop Documented by: Lisinopril (Lisinopril 40 Mg Tablet) 40 mg PO DAILY [facility]; Protocol Last Admin: 06/13/21 10:23 Dose: 40 mg Documented by: Magnesium Hydroxide (Milk Of Magnesia 30 Ml Oral.Susp) 30 ml PO DAILY PRN PRN Reason: Constipation Metoprolol Succinate (Metoprolol Succinate Er 100 Mg Tab.Er.24h) 100 mg PO DAILY [facility]; Protocol Last Admin: 06/13/21 10:29 Dose: 100 mg Documented by: Nicotine (Nicotine 21 Mg Patch.Td24) 21 mg TRANSDERMA DAILY [facility] Last Admin: 06/13/21 10:24 Dose: 21 mg Documented by: Olanzapine (Olanzapine 5 Mg Tablet) 5 mg PO BEDTIME [facility] Last Admin: 06/12/21 20:29 Dose: 5 mg Documented by: Oxybutynin Chloride (Oxybutynin Chloride Er 5 Mg Tab.Er.24) 10 mg PO BEDTIME [facility] Last Admin: 06/12/21 20:29 Dose: 10 mg Documented by: Prazosin HCl (Prazosin Hcl 1 Mg Capsule) 2 mg PO BEDTIME [facility]; Protocol Last Admin: 06/12/21 20:29 Dose: 2 mg Documented by: Trazodone HCl (Trazodone Hcl 100 Mg Tablet) 200 mg PO BEDTIME [facility] Last Admin: 06/12/21 20:29 Dose: 200 mg Documented by: Trazodone HCl (Trazodone Hcl 50 Mg Tablet) 50 mg PO BEDTIME PRN PRN Reason: Insomnia Last Admin: 06/09/21 02:06 Dose: 50 mg Documented by: Allergies Allergies Allergy/AdvReac Type Severity Reaction Status Date / Time bee pollen [BEE STINGS] Allergy Severe ANAPHYLAXIS Verified 05/22/21 08:55 Assessment & Plan Assessment & Plan (1) Schizoaffective disorder, depressive type: Status: Acute Code(s): F25.1 - Schizoaffective disorder, depressive type Assessment and Plan: The patient is a 76-year-old male from [place], with good social support with a past history of schizoaffective disorder depressed type who was referred to the crisis Center due to exacerbation of psychotic symptoms in the context of not having a follow-up appointment with his psychiatrist and 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 He has been noncompliant with medications for more than a year. He was readmitted into this facility and he agreed on the plan below. Plan 1. Continue Zyprexa 5 mg p.o. q.h.s. to target insomnia and psychosis. 2. Continue other medications. 3. Gather collateral information. 4. Diischarge for next Wednesday I spent minutes with the patient and/or on the patient floor today, greater than?50% of which was spent counseling/coordinating care. Reason for contiued inpatient stay Substantial Risk for: inability to function, rapid decompensation and med/psych decompensation
[2021-06-13] MEDS: Prazosin HCL 1 MG CAPSULE 2 MG PO (20:24)
[2021-06-13] MEDS: Latanoprost 0.005 % Ophth Sol 2.5 ML DROPS 1 DROP EYE-BOTH (20:24)
[2021-06-13] MEDS: OLANZapine 5 MG TABLET PO (20:25)
[2021-06-13] MEDS: traZODone HCL 100 MG TABLET 200 MG PO (20:25)
[2021-06-14 08:41] VITALS: BP 120/65; PULSE 65
[2021-06-14] MEDS: hydroCHLOROthiazide 25 MG TABLET PO (08:41)
[2021-06-14] MEDS: lisinopriL 40 MG TABLET PO (08:41)
[2021-06-14 08:42] VITALS: BP 120/65; PULSE 65
[2021-06-14] MEDS: amLODIPine Besylate 10 MG TABLET PO (08:42)
[2021-06-14] MEDS: Escitalopram Oxalate 5 MG TABLET PO (08:43)
[2021-06-14] MEDS: Fluticasone Propionate Nasal 16 GM SPRAY 2 SPRAY NOSTRIL-B (08:43)
[2021-06-14 08:54] VITALS: BP 120/65; PULSE 65; RESP 14; TEMP 36.9; O2SAT 97
[2021-06-14 09:02] VITALS: BP 120/65; PULSE 65
[2021-06-14] MEDS: Nicotine 21 MG PATCH.TD24 TRANSDERMA (09:02)
[2021-06-14] MEDS: Metoprolol Succinate ER 100 MG TAB.ER.24H PO (09:02)
--- NOTE | 2021-06-14 13:14 | HO.PSYCHPN ---
Subjective Subjective Date of Service: 06/14/21 Reason For Visit: PARANOIA Interim History: The nursing staff has reported that the patient has been cooperative, denies delusions. He is eager for DC Wednesday. He complains of chronic neck pain. Requested a cream for it. This moment the patient denies new symptoms he is content with Zyprexa 5 mg p.o. q.h.s. under is no evidence of psychotic symptoms at this moment Medication Compliance: Yes Side effects from medications: No Attending Groups: Yes Review of Systems Review of Systems Constitutional: No Fever, No Chills ENT/Mouth: No Ear Pain, No Nasal Congestion, No sore throat Eyes: No Eye Pain, No Swelling, No Redness Cardiovascular: No Chest Pain, No SOB Respiratory: No Cough, No Sputum, No Dyspnea Gastrointestinal: No Nausea, No Vomiting, No Diarrhea, No Hematochezia, No Melena Genitourinary: No Dysuria, No Urinary Frequency, No Hematuria Musculoskeletal: No Myalgias. Chronic neck pain Skin: No Skin Lesions, No rash Neuro: No Weakness, No Numbness, No Paresthesias, No Dizziness, No Headache Psych: positive Anxiety, positive Depression, positive SI Heme/Lymph: No Lymphadenopathy Endocrine: No Polyuria, No Polydipsia Yes all other systems are reviewed and are negative Mental Status Exam Mental Status Exam Narrative: A&O. good hygiene, normal body habitus. Good eye contact, attentive. Appears to have oral/ facial involuntary movement, unclear etiology. Calm, cooperative, engaged. Non-pressured speech, spontaneous with regular rate and rhythm, normal volume and prosody. No prolonged speech latency or dysarthria. Mood is ?good,? affect is full range. Denies SI/SIB/HI upon inquiry. Denies A/VH. Thoughts are not delusional. No known cognitive or memory impairment. Insight is fair and adequate. Patient Appearance: Well Grooomed Patient Orientation: Person, Place and Situation Level of Consciousness: Awake and Appropriate Patient Behavior: Appropriate and Cooperative Mood Description: Calm Affect Description: Constricted Patient Cognition Impaired: No Ability to Follow Directions: Good Speech Pattern: Clear Memory Description: Intact Judgement: Fair Diagnostics Vital Signs (24Hr): Vital Signs - 24 hr 06/13/21 20:23 06/13/21 20:24 06/14/21 08:41 Temperature 98.7 F Pulse Rate 58 58 65 Respiratory Rate 18 Blood Pressure 142/67 H 142/67 H 120/65 Pulse Oximetry 97 06/14/21 08:42 06/14/21 08:54 06/14/21 09:02 Temperature 98.5 F Pulse Rate 65 65 65 Respiratory Rate 14 Blood Pressure 120/65 120/65 120/65 Pulse Oximetry 97 Body Mass Index 29.6 Labs Results: 06/07/21 16:11 06/10/21 07:07 Medications Medications Current Medications Acetaminophen (Acetaminophen 325 Mg Tablet) 650 mg PO Q6H PRN PRN Reason: pain, headache Al Hydroxide/Mg Hydroxide (Magnesium Hydrox/Alum Hydrox 30 Ml Oral.Susp) 30 ml PO Q6H PRN PRN Reason: Heartburn/Nausea Albuterol Sulfate (Albuterol Sulfate 90 Mcg 8 Gm Inhaler) 2 puff INHALE Q6H PRN PRN Reason: shortness of breath or wheezing Amlodipine Besylate (Amlodipine Besylate 10 Mg Tablet) 10 mg PO DAILY [facility] Last Admin: 06/14/21 08:42 Dose: 10 mg Documented by: Escitalopram Oxalate (Escitalopram Oxalate 5 Mg Tablet) 5 mg PO DAILY [facility] Last Admin: 06/14/21 08:43 Dose: 5 mg Documented by: Fluticasone Propionate (Fluticasone Propionate Nasal 16 Gm [place]) 2 spray NOSTRIL-B DAILY [facility] Last Admin: 06/14/21 08:43 Dose: 2 spray Documented by: Hydrochlorothiazide (Hydrochlorothiazide 25 Mg Tablet) 25 mg PO DAILY [facility]; Protocol Last Admin: 06/14/21 08:41 Dose: 25 mg Documented by: Hydroxyzine HCl (Hydroxyzine Hcl 25 Mg Tablet) 25 mg PO Q6H PRN PRN Reason: Anxiety Last Admin: 06/09/21 02:06 Dose: 25 mg Documented by: Latanoprost (Latanoprost 0.005 % Ophth Susana 2.5 Ml Drops) 1 drop EYE-BOTH BEDTIME [facility] Last Admin: 06/13/21 20:24 Dose: 1 drop Documented by: Lisinopril (Lisinopril 40 Mg Tablet) 40 mg PO DAILY [facility]; Protocol Last Admin: 06/14/21 08:41 Dose: 40 mg Documented by: Magnesium Hydroxide (Milk Of Magnesia 30 Ml Oral.Susp) 30 ml PO DAILY PRN PRN Reason: Constipation Metoprolol Succinate (Metoprolol Succinate Er 100 Mg Tab.Er.24h) 100 mg PO DAILY [facility]; Protocol Last Admin: 06/14/21 09:02 Dose: 100 mg Documented by: Nicotine (Nicotine 21 Mg Patch.Td24) 21 mg TRANSDERMA DAILY [facility] Last Admin: 06/14/21 09:02 Dose: 21 mg Documented by: Olanzapine (Olanzapine 5 Mg Tablet) 5 mg PO BEDTIME [facility] Last Admin: 06/13/21 20:25 Dose: 5 mg Documented by: Oxybutynin Chloride (Oxybutynin Chloride Er 5 Mg Tab.Er.24) 10 mg PO BEDTIME [facility] Last Admin: 06/13/21 20:25 Dose: 10 mg Documented by: Prazosin HCl (Prazosin Hcl 1 Mg Capsule) 2 mg PO BEDTIME [facility]; Protocol Last Admin: 06/13/21 20:24 Dose: 2 mg Documented by: Trazodone HCl (Trazodone Hcl 100 Mg Tablet) 200 mg PO BEDTIME [facility] Last Admin: 06/13/21 20:25 Dose: 200 mg Documented by: Trazodone HCl (Trazodone Hcl 50 Mg Tablet) 50 mg PO BEDTIME PRN PRN Reason: Insomnia Last Admin: 06/09/21 02:06 Dose: 50 mg Documented by: Trolamine Salicylate/Aloe Vera (Trolamine Salicylate 10%/Aloe Cream 35.4 Gm) 1 appl TOPICAL TID PRN PRN Reason: NECK PAIN Allergies Allergies Allergy/AdvReac Type Severity Reaction Status Date / Time bee pollen [BEE STINGS] Allergy Severe ANAPHYLAXIS Verified 05/22/21 08:55 Assessment & Plan Assessment & Plan (1) Schizoaffective disorder, depressive type: Status: Acute Code(s): F25.1 - Schizoaffective disorder, depressive type Assessment and Plan: The patient is a 76-year-old male from [place], with good social support with a past history of schizoaffective disorder depressed type who was referred to the crisis Center due to exacerbation of psychotic symptoms. He has been noncompliant with medications for more than a year. He was readmitted into this facility and he agreed on the plan below. Plan Chronic neck pain will give Aspercreme. 1. Continue Zyprexa 5 mg p.o. q.h.s. to target insomnia and psychosis. 2. Continue other medications. Disposition per primary team I spent minutes with the patient and/or on the patient floor today, greater than?50% of which was spent counseling/coordinating care. Reason for contiued inpatient stay Substantial Risk for: harm to others, inability to function and rapid decompensation
[2021-06-14 20:31] VITALS: BP 149/73; PULSE 63; RESP 18; TEMP 37; O2SAT 98
[2021-06-14 20:33] VITALS: BP 149/73; PULSE 63
[2021-06-14] MEDS: traZODone HCL 100 MG TABLET 200 MG PO (20:33)
[2021-06-14] MEDS: Prazosin HCL 1 MG CAPSULE 2 MG PO (20:33)
[2021-06-14] MEDS: Latanoprost 0.005 % Ophth Sol 2.5 ML DROPS 1 DROP EYE-BOTH (20:35)
[2021-06-14] MEDS: OLANZapine 5 MG TABLET PO (20:35)
[2021-06-15 07:38] VITALS: BP 139/76; PULSE 69
[2021-06-15] MEDS: amLODIPine Besylate 10 MG TABLET PO (07:38)
[2021-06-15 07:39] VITALS: BP 139/76; PULSE 69
[2021-06-15] MEDS: Escitalopram Oxalate 5 MG TABLET PO (07:39)
[2021-06-15] MEDS: Metoprolol Succinate ER 100 MG TAB.ER.24H PO (07:39)
[2021-06-15] MEDS: hydroCHLOROthiazide 25 MG TABLET PO (07:39)
[2021-06-15 07:40] VITALS: BP 139/76; PULSE 69
[2021-06-15] MEDS: lisinopriL 40 MG TABLET PO (07:40)
[2021-06-15] MEDS: Fluticasone Propionate Nasal 16 GM SPRAY 2 SPRAY NOSTRIL-B (07:40)
[2021-06-15] MEDS: Nicotine 21 MG PATCH.TD24 TRANSDERMA (07:41)
[2021-06-15 08:49] VITALS: BP 139/76; PULSE 80; RESP 18; TEMP 37.1; O2SAT 16
--- NOTE | 2021-06-15 19:22 | HO.PSYCHPN ---
Subjective Subjective Date of Service: 06/15/21 Reason For Visit: PARANOIA Interim History: The nursing staff has reported that the patient has been cooperative, denies delusions. Doing well. No complaints today. Denies SI/HI. He is pleasant and cooperative. He is content with Zyprexa 5 mg p.o. q.h.s. with no evidence of psychotic symptoms at this moment Review of Systems Review of Systems Constitutional: No Fever, No Chills ENT/Mouth: No Ear Pain, No Nasal Congestion, No sore throat Eyes: No Eye Pain, No Swelling, No Redness Cardiovascular: No Chest Pain, No SOB Respiratory: No Cough, No Sputum, No Dyspnea Gastrointestinal: No Nausea, No Vomiting, No Diarrhea, No Hematochezia, No Melena Genitourinary: No Dysuria, No Urinary Frequency, No Hematuria Musculoskeletal: No Myalgias. Chronic neck pain Skin: No Skin Lesions, No rash Neuro: No Weakness, No Numbness, No Paresthesias, No Dizziness, No Headache Psych: positive Anxiety, positive Depression, positive SI Heme/Lymph: No Lymphadenopathy Endocrine: No Polyuria, No Polydipsia Yes all other systems are reviewed and are negative Mental Status Exam Mental Status Exam Narrative: A&O. good hygiene, normal body habitus. Good eye contact, attentive. Appears to have oral/ facial involuntary movement, unclear etiology. Calm, cooperative, engaged. Non-pressured speech, spontaneous with regular rate and rhythm, normal volume and prosody. No prolonged speech latency or dysarthria. Mood is ?good,? affect is full range. Denies SI/SIB/HI upon inquiry. Denies A/VH. Thoughts are not delusional. No known cognitive or memory impairment. Insight is fair and adequate. Patient Appearance: Well Grooomed Patient Orientation: Person, Place and Situation Level of Consciousness: Awake and Appropriate Patient Behavior: Appropriate and Cooperative Mood Description: Calm Affect Description: Constricted Patient Cognition Impaired: No Ability to Follow Directions: Good Speech Pattern: Clear Memory Description: Intact Diagnostics Vital Signs (24Hr): Vital Signs - 24 hr 06/14/21 20:31 06/14/21 20:33 06/15/21 07:38 Temperature 98.6 F Pulse Rate 63 63 69 Respiratory Rate 18 Blood Pressure 149/73 H 149/73 H 139/76 Pulse Oximetry 98 06/15/21 07:39 06/15/21 07:40 06/15/21 08:49 Temperature 98.7 F Pulse Rate 69 69 80 Respiratory Rate 18 Blood Pressure 139/76 139/76 139/76 Pulse Oximetry 16 L Body Mass Index 29.6 Labs Results: 06/07/21 16:11 06/10/21 07:07 Medications Medications Current Medications Acetaminophen (Acetaminophen 325 Mg Tablet) 650 mg PO Q6H PRN PRN Reason: pain, headache Al Hydroxide/Mg Hydroxide (Magnesium Hydrox/Alum Hydrox 30 Ml Oral.Susp) 30 ml PO Q6H PRN PRN Reason: Heartburn/Nausea Albuterol Sulfate (Albuterol Sulfate 90 Mcg 8 Gm Inhaler) 2 puff INHALE Q6H PRN PRN Reason: shortness of breath or wheezing Amlodipine Besylate (Amlodipine Besylate 10 Mg Tablet) 10 mg PO DAILY [facility] Last Admin: 06/15/21 07:38 Dose: 10 mg Documented by: Escitalopram Oxalate (Escitalopram Oxalate 5 Mg Tablet) 5 mg PO DAILY [facility] Last Admin: 06/15/21 07:39 Dose: 5 mg Documented by: Fluticasone Propionate (Fluticasone Propionate Nasal 16 Gm [place]) 2 spray NOSTRIL-B DAILY [facility] Last Admin: 06/15/21 07:40 Dose: 2 spray Documented by: Hydrochlorothiazide (Hydrochlorothiazide 25 Mg Tablet) 25 mg PO DAILY [facility]; Protocol Last Admin: 06/15/21 07:39 Dose: 25 mg Documented by: Hydroxyzine HCl (Hydroxyzine Hcl 25 Mg Tablet) 25 mg PO Q6H PRN PRN Reason: Anxiety Last Admin: 06/09/21 02:06 Dose: 25 mg Documented by: Latanoprost (Latanoprost 0.005 % Ophth Susana 2.5 Ml Drops) 1 drop EYE-BOTH BEDTIME [facility] Last Admin: 06/14/21 20:35 Dose: 1 drop Documented by: Lisinopril (Lisinopril 40 Mg Tablet) 40 mg PO DAILY [facility]; Protocol Last Admin: 06/15/21 07:40 Dose: 40 mg Documented by: Magnesium Hydroxide (Milk Of Magnesia 30 Ml Oral.Susp) 30 ml PO DAILY PRN PRN Reason: Constipation Metoprolol Succinate (Metoprolol Succinate Er 100 Mg Tab.Er.24h) 100 mg PO DAILY [facility]; Protocol Last Admin: 06/15/21 07:39 Dose: 100 mg Documented by: Nicotine (Nicotine 21 Mg Patch.Td24) 21 mg TRANSDERMA DAILY [facility] Last Admin: 06/15/21 07:41 Dose: 21 mg Documented by: Olanzapine (Olanzapine 5 Mg Tablet) 5 mg PO BEDTIME [facility] Last Admin: 06/14/21 20:35 Dose: 5 mg Documented by: Oxybutynin Chloride (Oxybutynin Chloride Er 5 Mg Tab.Er.24) 10 mg PO BEDTIME [facility] Last Admin: 06/14/21 20:33 Dose: 10 mg Documented by: Prazosin HCl (Prazosin Hcl 1 Mg Capsule) 2 mg PO BEDTIME [facility]; Protocol Last Admin: 06/14/21 20:33 Dose: 2 mg Documented by: Trazodone HCl (Trazodone Hcl 100 Mg Tablet) 200 mg PO BEDTIME [facility] Last Admin: 06/14/21 20:33 Dose: 200 mg Documented by: Trazodone HCl (Trazodone Hcl 50 Mg Tablet) 50 mg PO BEDTIME PRN PRN Reason: Insomnia Last Admin: 06/09/21 02:06 Dose: 50 mg Documented by: Trolamine Salicylate/Aloe Vera (Trolamine Salicylate 10%/Aloe Cream 35.4 Gm) 1 appl TOPICAL TID PRN PRN Reason: NECK PAIN Last Admin: 06/15/21 15:58 Dose: 1 appl Documented by: Allergies Allergies Allergy/AdvReac Type Severity Reaction Status Date / Time bee pollen [BEE STINGS] Allergy Severe ANAPHYLAXIS Verified 05/22/21 08:55 Assessment & Plan Assessment & Plan (1) Schizoaffective disorder, depressive type: Status: Acute Code(s): F25.1 - Schizoaffective disorder, depressive type Assessment and Plan: The patient is a 76-year-old male from [place], with good social support with a past history of schizoaffective disorder depressed type who was referred to the crisis Center due to exacerbation of psychotic symptoms. He has been noncompliant with medications for more than a year. He was readmitted into this facility and he agreed on the plan below. Plan Chronic neck pain will give Aspercreme. 1. Continue Zyprexa 5 mg p.o. q.h.s. to target insomnia and psychosis. 2. Continue other medications. Disposition per primary team I spent minutes with the patient and/or on the patient floor today, greater than?50% of which was spent counseling/coordinating care. Reason for contiued inpatient stay Substantial Risk for: inability to function and rapid decompensation
[2021-06-15] MEDS: traZODone HCL 100 MG TABLET 200 MG PO (20:05)
[2021-06-15] MEDS: OLANZapine 5 MG TABLET PO (20:06)
[2021-06-15 20:09] VITALS: BP 148/69; PULSE 62
[2021-06-15] MEDS: Latanoprost 0.005 % Ophth Sol 2.5 ML DROPS 1 DROP EYE-BOTH (20:09)
[2021-06-15] MEDS: Prazosin HCL 1 MG CAPSULE 2 MG PO (20:09)
[2021-06-15 20:55] VITALS: BP 148/69; PULSE 62; RESP 17; TEMP 36.7; O2SAT 97
[2021-06-16 06:00] VITALS: BP 145/72; PULSE 71; RESP 14; TEMP 36.4; O2SAT 96
--- NOTE | 2021-06-16 06:52 | P.DS_ITS ---
DS: Providers Provider Date of Service: 06/16/21 Date of admission: 06/08/21 15:03 Date of discharge: 06/16/21 Primary care physician: Mary Gonzalez MD Attending physician on discharge: Janak Ash DS: Diagnosis Discharge Diagnosis (1) Schizoaffective disorder, depressive type: Status: Acute DS: Medications Discharge Medications Home Medications: Home Medications Medication Instructions Recorded Confirmed latanoprost 0.005 % eye drops 1 drp OPHTHALMIC (EYE) BEDTIME 07/23/20 06/07/21 fluticasone propionate 50 2 spray INTRANASAL DAILY 05/22/21 06/07/21 mcg/actuation nasal spray,suspension nicotine 21 mg/24 hr daily 1 patch TRANSDERMAL DAILY 06/07/21 06/07/21 transdermal patch oxybutynin chloride 10 mg 10 mg PO BEDTIME 06/07/21 06/07/21 tablet,extended release 24 hr Previous Rx's Medication Instructions Recorded metoprolol succinate 100 mg 100 mg PO DAILY #90 tab 07/31/20 tablet,extended release 24 hr prazosin 2 mg capsule 2 mg PO BEDTIME #90 cap 07/31/20 citalopram 10 mg tablet 10 mg PO DAILY #90 tab 09/12/20 trazodone 100 mg tablet 200 mg PO BEDTIME #180 tab 09/12/20 ProAir HFA 90 mcg/actuation 2 inh INHALATION Q6H PRN #8.5 g NS 01/01/21 aerosol inhaler (albuterol sulfate) hydrochlorothiazide 25 mg tablet 25 mg PO QAM #90 tab 03/10/21 amlodipine 10 mg-benazepril 40 mg 1 cap PO DAILY #90 cap 04/17/21 capsule Mental Status Exam Mental Status Exam Patient Appearance: Well Grooomed Patient Orientation: Person and Situation Level of Consciousness: Awake and Appropriate Patient Behavior: Appropriate and Cooperative Mood Description: Calm Affect Description: Relaxed Patient Cognition Impaired: No Ability to Follow Directions: Good Speech Pattern: Clear Hallucinations: None Delusions: Not Present Thought Process: Goal Oriented and Linear Judgement: Fair Data Data Completed and Pending Completed studies during hospitalization [Text1]: 06/10/21 06/10/21 07:07 07:07 Sodium 141 Potassium 4.2 Chloride 108 Carbon Dioxide 27 Anion Gap 10 L BUN 19 H Creatinine 1.01 Estim Creat Clear Calc 68.3 Estimated GFR > 60 Random Glucose 102 Estimat Average Glucose 108 Hemoglobin A1c % 5.4 Calcium 9.1 Triglycerides 133 Cholesterol 141 LDL Cholesterol, Calc 79 HDL Cholesterol 36 DS: Summary Hospital Course Hospital Course: The patient was initially admitted for psychotic symptoms in the context of known compliance due to poor access to Latuda due to the high cost of the co- payment. The patient has not been taking antipsychotics for more than a year. Please see details of HPI on admission note regarding his psychosis. On admission, the patient reported sporadic auditory hallucinations, increased anxiety and paranoia. We discussed risks benefits, side-effects and alternatives and since the patient has tried Zyprexa in the past and the co- payment of his medications no he agreed to started. We started Zyprexa titrated up to 5 mg p.o. q.h.s. with no evidence of side effects and remark improvement of his psychosis. When he was admitted, with several family meetings, we used Bengali interpreters since the patient's Turkish was not very good. The patient improved, his psychotic symptoms resolved and he was able to contract for safety. He was content with Zyprexa. Since there were no safety concerns discharge planning was discussed Time spent discussing smoking cessation with patient: 3 to 10 minutes Status at Discharge Cognitive/behavioral status at discharge: At baseline Functional status at discharge: independent ambulation Overall status at discharge: patient is back to baseline Time Spent with Patient Time attestation: Total time spent providing and/or coordinating discharge services: Discharge Plan Discharge Patient Disposition: Home, Self-Care Discharge Diagnosis: Schizoaffective disorder Referrals: Vicki Nickerson LCSW [Other] - 06/20/21 5:00 pm (Your appointment with Vicki is 06/20/21 at 5:00PM. ) Sarah Reynolds [Other] - 07/30/21 (Your appointment with Sarah Reynolds is 07/30/21. ) Mary Gonzalez MD [Primary Care Provider] - 1 Week Discharge Medications: New olanzapine 5 mg Tablet 5 mg PO BEDTIME 30 Days Qty: 30 RF: 0 trazodone 100 mg Tablet 200 mg PO BEDTIME 30 Days Qty: 60 RF: 0 escitalopram oxalate 5 mg Tablet 5 mg PO DAILY 30 Days Qty: 30 RF: 0 Aspercreme with Aloe 10 % Cream 1 appl topical TID PRN (Reason: NECK PAIN) 30 Days Qty: 35.4 RF: 0 Continued metoprolol succinate 100 mg tablet extended release 24 hr 100 mg PO DAILY Qty: 90 RF: 3 hydrochlorothiazide 25 mg tablet 25 mg PO QAM Qty: 90 RF: 3 amlodipine-benazepril 10-40 mg capsule 1 cap PO DAILY Qty: 90 RF: 3 oxybutynin chloride 10 mg tablet extended release 24hr 10 mg PO BEDTIME RF: 0 nicotine 21 mg/24 hr Patch 24 Hour 1 patch TRANSDERMAL DAILY Qty: 28 RF: 0 albuterol sulfate [ProAir HFA] 90 mcg/actuation HFA aerosol inhaler 2 inh inhalation Q6H PRN (Reason: shortness of breath or wheezing) 30 Days Qty: 8.5 RF: 2 prazosin 2 mg capsule 2 mg PO BEDTIME Qty: 90 RF: 3 fluticasone propionate 50 mcg/actuation spray,suspension 2 spray intranasal DAILY RF: 0 latanoprost 0.005 % drops 1 drp ophthalmic (eye) BEDTIME RF: 0 Discontinued citalopram 10 mg tablet 10 mg PO DAILY Qty: 90 RF: 3 trazodone 100 mg tablet 200 mg PO BEDTIME Qty: 180 RF: 3 Discharge Orders: Discharge Order (Routine); Ordered 06/16/21 Ordered By: Janak Ash Diet: advance to usual diet Activity on Discharge: As tolerated Stand Alone Forms: Patient Portal Discharge page Care Plan Goals: Current team plans already achieved in the unit Health Concerns: Continue treatment with his outpatient PCP Plan of Treatment: The patient was referred to medication management as an outpatient. Assessment: The patient is an elderly male with a long history of schizoaffective disorder depressed type, who was admitted into the facility for exacerbation of psychosis in the context of noncompliance with Latuda. The co-payment of this medication was several 100 dollars and he could not afford it. We change to Zyprexa with for improvement. Since the patient did not have safety concerns discharge planning when discussed
[2021-06-16] MEDS: Nicotine 21 MG PATCH.TD24 TRANSDERMA (07:59)
[2021-06-16 08:00] VITALS: BP 145/72; PULSE 71; PULSE 72
[2021-06-16] MEDS: amLODIPine Besylate 10 MG TABLET PO (08:00)
[2021-06-16] MEDS: Metoprolol Succinate ER 100 MG TAB.ER.24H PO (08:00)
[2021-06-16] MEDS: hydroCHLOROthiazide 25 MG TABLET PO (08:00)
[2021-06-16 08:01] VITALS: BP 145/72; PULSE 71
[2021-06-16] MEDS: lisinopriL 40 MG TABLET PO (08:01)
[2021-06-16] MEDS: Escitalopram Oxalate 5 MG TABLET PO (08:01)
[2021-06-16] MEDS: Fluticasone Propionate Nasal 16 GM SPRAY 2 SPRAY NOSTRIL-B (08:21)
--- NOTE | 2021-06-16 17:34 | PC.NURSE ---
Patient and reviewed all d/c instructions together including medications and follow up appointments. All belongings were checked and accounted for. Patient and both verbalized understanding of instructions. Patient was dressed appropriately for d/c. Alert and Oriented. VSS. No c/o pain/discomfort. Patient stated he was glad to go home so my will do back rub. Patient and were escorted to front of hospital by staff member.
== END 2021-06-16 17:34 | disposition home or self-care (01) | DRG 885 ==
LOC: HO.ED 06-08 15:18 → HO.PGERI 06-08 15:21
PROVIDERS: Nurse Practitioner Family; Admitting Provider Psychiatry & Neurology Psychiatry; Emergency Provider Internal Medicine; PCP Internal Medicine; Visit Provider Psychiatry & Neurology Psychiatry
DX: F25.1 Schizoaffective disorder, depressive type (principal); R45.851 Suicidal ideations; F17.210 Nicotine dependence, cigarettes, uncomplicated; Z71.6 Tobacco abuse counseling; Z20.822 Contact with and (suspected) exposure to COVID-19; Z79.51 Long term (current) use of inhaled steroids; Z79.899 Other long term (current) drug therapy
CPT/HCPCS: 36415; 80048; 80053; 80061; 80143; 80179; 80307; 81003; 82077; 83036; 85025; 87635; 93005; 99285

== ENCOUNTER 2021-08-08 09:16 | Outpatient (REF) | payer MEDICARE, SELFPAY ==
[2021-08-08 10:48] LABS: Prostate Specific Antigen 0.18 ng/mL (<0.05-4.0)
== END 2021-08-08 09:17 | disposition home or self-care (01) ==
LOC: HO.LAB 09:16
PROVIDERS: PCP Internal Medicine; Visit Provider Urology
DX: Z12.5 Encounter for screening for malignant neoplasm of prostate (principal); N40.1 Benign prostatic hyperplasia with lower urinary tract symptoms
CPT/HCPCS: 36415; 84153

== ENCOUNTER → 2021-08-13 12:48 | Outpatient (BNVA) | payer MEDICARE, SELFPAY | PROVIDERS: PCP Internal Medicine; Visit Provider Urology | DX: N32.81 Overactive bladder (principal) | CPT/HCPCS: 51798; 99212 ==

== ENCOUNTER → 2021-09-09 10:55 | Outpatient (BNVA) | payer MEDICARE, SELFPAY | PROVIDERS: PCP Internal Medicine; Visit Provider Internal Medicine | DX: J44.9 Chronic obstructive pulmonary disease, unspecified (principal); R05.9 Cough, unspecified; F17.210 Nicotine dependence, cigarettes, uncomplicated | CPT/HCPCS: 99212 ==

== ENCOUNTER 2021-11-11 08:37 | Outpatient (REF) | payer MEDICARE, SELFPAY ==
[2021-11-11 11:42] LABS: Hematocrit 47.4 % (42.0-52.0); Hemoglobin 15.8 g/dl (14.0-18.0); Mean Corpuscular HGB Conc 33.3 g/dl (31.0-36.0); Mean Corpuscular Volume 87.1 fL (80.0-98.0); Mean Platelet Volume 10.5 fL (9.4-12.4); Platelet Count 212 X10*3/uL (160-400); Red Blood Count 5.44 X10*6/uL (4.60-5.80); Red Cell Distribution Width 13.5 % (11.0-16.0); White Blood Count 6.5 X10*3/uL (4.8-10.8)
[2021-11-11 11:58] LABS: Estimated Average Glucose 114 mg/dL; Hemoglobin A1c % 5.6 %
[2021-11-11 12:05] LABS: Alanine Aminotransferase 22 U/L (0-40); Albumin Level 4.1 g/dL (3.5-5.0); Alkaline Phosphatase 71 U/L (39-117); Anion Gap 14 (12-20); Aspartate Amino Transferase 21 U/L (5-37); Bilirubin Total 0.9 mg/dL (0.0-1.0); Blood Urea Nitrogen 16 mg/dL (9-16); Calcium 9.3 mg/dL (8.4-10.2); Carbon Dioxide 26 mmol/L (22-29); Chloride 106 mmol/L (96-108); Cholesterol 187 mg/dL; Estimated Glomerular Filt Rate > 60; Glucose Fasting 103 mg/dL (60-99); HDL Cholesterol 38 mg/dL; LDL Cholesterol Calculated 101 mg/dl; Sodium 142 mmol/L (135-145); Total Protein 7.5 g/dL (6.5-8.0); Triglycerides 244 mg/dL
== END 2021-11-11 08:38 | disposition home or self-care (01) ==
LOC: HO.HMGCLDS 08:37
PROVIDERS: PCP Internal Medicine; Visit Provider Internal Medicine
DX: E66.3 Overweight (principal); E78.5 Hyperlipidemia, unspecified; I10 Essential (primary) hypertension; R73.9 Hyperglycemia, unspecified
CPT/HCPCS: 36415; 80053; 80061; 83036; 85027

== ENCOUNTER → 2022-02-19 09:26 | Outpatient (BNVA) | payer MEDICARE, SELFPAY | PROVIDERS: PCP Internal Medicine; Visit Provider Urology | DX: N32.81 Overactive bladder (principal); N40.1 Benign prostatic hyperplasia with lower urinary tract symptoms; N13.8 Other obstructive and reflux uropathy | CPT/HCPCS: 99212 ==

== ENCOUNTER → 2022-03-03 11:11 | Outpatient (BNVA) | payer MEDICARE, SELFPAY | PROVIDERS: PCP Internal Medicine; Visit Provider Internal Medicine | DX: J44.9 Chronic obstructive pulmonary disease, unspecified (principal); R05.9 Cough, unspecified; F17.210 Nicotine dependence, cigarettes, uncomplicated | CPT/HCPCS: 99212 ==

== ENCOUNTER 2022-03-26 07:25 | Outpatient (REF) | payer MEDICARE, SELFPAY ==
[2022-03-26 11:47] LABS: Alanine Aminotransferase 23 U/L (0-40); Albumin Level 4.1 g/dL (3.5-5.0); Alkaline Phosphatase 67 U/L (39-117); Anion Gap 14 (12-20); Aspartate Amino Transferase 24 U/L (5-37); Bilirubin Total 0.7 mg/dL (0.0-1.0); Blood Urea Nitrogen 17 mg/dL (9-16); Calcium 8.7 mg/dL (8.4-10.2); Carbon Dioxide 24 mmol/L (22-29); Chloride 107 mmol/L (96-108); Cholesterol 163 mg/dL; Estimated Glomerular Filt Rate > 60; Glucose Fasting 111 mg/dL (60-99); HDL Cholesterol 38 mg/dL; LDL Cholesterol Calculated 87 mg/dl; Sodium 141 mmol/L (135-145); Total Protein 7.3 g/dL (6.5-8.0); Triglycerides 192 mg/dL
[2022-03-26 11:50] LABS: Estimated Average Glucose 111 mg/dL; Hemoglobin A1c % 5.5 %
[2022-03-26 11:52] LABS: PSA,Total (Free>4and<10) 0.13 ng/mL (0.00-4.00)
[2022-03-26 12:09] LABS: Creatinine Urine 120.97 mg/dL; Microalbum/Creatinine Ratio Ur 4.9 ug/mg cr
== END 2022-03-26 07:26 | disposition home or self-care (01) ==
LOC: HO.HMGCLDS 07:25
PROVIDERS: PCP Internal Medicine; Visit Provider Internal Medicine
DX: Z12.5 Encounter for screening for malignant neoplasm of prostate (principal); I10 Essential (primary) hypertension; R73.9 Hyperglycemia, unspecified; E78.5 Hyperlipidemia, unspecified
CPT/HCPCS: 36415; 80053; 80061; 82043; 83036; 84153

== ENCOUNTER → 2022-08-20 09:58 | Outpatient (BNVA) | payer MEDICARE, SELFPAY | PROVIDERS: PCP Internal Medicine; Visit Provider Urology | DX: N32.81 Overactive bladder (principal) | CPT/HCPCS: 51798; 99212 ==

== ENCOUNTER → 2022-09-07 11:17 | Outpatient (BNVA) | payer MEDICARE, SELFPAY | PROVIDERS: PCP Internal Medicine; Visit Provider Internal Medicine | DX: R05.9 Cough, unspecified (principal); J44.9 Chronic obstructive pulmonary disease, unspecified; D86.0 Sarcoidosis of lung; F17.210 Nicotine dependence, cigarettes, uncomplicated; Z79.899 Other long term (current) drug therapy | CPT/HCPCS: 99212 ==

== ENCOUNTER 2022-09-16 08:15 | Outpatient (REF) | payer MEDICARE, SELFPAY ==
[2022-09-16 12:08] LABS: Alanine Aminotransferase 33 U/L (0-40); Albumin Level 4.1 g/dL (3.5-5.0); Alkaline Phosphatase 61 U/L (39-117); Anion Gap 15 (12-20); Aspartate Amino Transferase 31 U/L (5-37); Bilirubin Total 0.8 mg/dL (0.0-1.0); Blood Urea Nitrogen 17 mg/dL (9-16); Calcium 9.2 mg/dL (8.4-10.2); Carbon Dioxide 25 mmol/L (22-29); Chloride 106 mmol/L (96-108); Cholesterol 179 mg/dL; Estimated Glomerular Filt Rate > 60; Glucose Fasting 101 mg/dL (60-99); HDL Cholesterol 38 mg/dL; LDL Cholesterol Calculated 95 mg/dl; Sodium 142 mmol/L (135-145); Total Protein 7.3 g/dL (6.5-8.0); Triglycerides 232 mg/dL
[2022-09-16 12:31] LABS: Estimated Average Glucose 111 mg/dL; Hemoglobin A1C 150.6251 umol/L; Hemoglobin A1c % 5.5 %
== END 2022-09-16 08:16 | disposition home or self-care (01) ==
LOC: HO.HMGCLDS 08:15
PROVIDERS: PCP Internal Medicine; Visit Provider Internal Medicine
DX: E66.3 Overweight (principal); I10 Essential (primary) hypertension; R73.9 Hyperglycemia, unspecified; E78.5 Hyperlipidemia, unspecified
CPT/HCPCS: 36415; 80053; 80061; 83036

== ENCOUNTER → 2023-02-18 10:16 | Outpatient (BNVA) | payer MEDICARE, SELFPAY | PROVIDERS: Visit Provider Urology | DX: N40.1 Benign prostatic hyperplasia with lower urinary tract symptoms (principal); N13.8 Other obstructive and reflux uropathy; N32.81 Overactive bladder; R35.1 Nocturia; Z79.01 Long term (current) use of anticoagulants | CPT/HCPCS: 51798; 99212 ==

== ENCOUNTER 2023-03-15 13:49 | Outpatient (AMB) | payer MEDICARE, SELFPAY ==
--- NOTE | 2023-03-15 13:50 | A.OFFVIS_ITS ---
Intake Vital Signs 03/15/23 13:51 Height 5 ft 8 in Weight 210 lb 8.663 oz BMI 32.0 BP 122/76 Blood Pressure Location Lt brachial Position Sitting Pulse 78 Pulse Source Pulse Oximeter Pulse Oximetry (%) 96 Oxygen Delivery Method Room Air Intake Visit Reasons: Cough follow-up Intake Note: Pt reports that everything is going well. Allergies bee pollen [BEE STINGS] Allergy (Severe, Verified 03/15/23 14:07) ANAPHYLAXIS Medication List - Last Reconciled 03/15/23 by Cortney Dominguez MD amlodipine-benazepril 10-40 mg 1 cap PO DAILY escitalopram oxalate 5 mg PO DAILY hydrochlorothiazide 25 mg PO QAM latanoprost 0.005% 1 drp ophthalmic (eye) BEDTIME metoprolol succinate ER 100 mg PO DAILY olanzapine 10 mg PO BEDTIME oxybutynin chloride ER 10 mg PO BEDTIME 90 days prazosin 6 mg PO BEDTIME ProAir HFA 90 mcg/actuation (albuterol sulfate) 2 inhalations inhalation Q6H PRN 30 days NS trazodone 200 mg (2 x 100 mg) PO BEDTIME 30 days trolamine salicylate-aloe vera 10 % (Aspercreme with Aloe) 1 appl topical TID PRN 30 days umeclidinium-vilanterol 62.5-25 mcg/actuation (Anoro Ellipta) 1 inh inhalation DAILY HPI Cough follow-up HPI Details This [age] years old very pleasant gentleman comes for his follow-up after 6 months. He continues to smoke 4-5 cigarettes a day with history of smoking throughout his adult life. He does have mild to moderate degree of obstructive airway disorder which is under controlled with the current medication. He has been using ANORO a lipped a 1 inhalation d, and ProAir only once in a while. He claims that breathing has remained. Very stable He is main complaint is only occasional cough without much mucus. He does get short of breath if he walks up stairs or walks fast on the level ground, but he usually walks at a slow pace anyway. [facility] Medical History Annual physical exam COPD (chronic obstructive pulmonary disease) Cough Depression ETOH abuse Hepatic steatosis History of alcohol abuse HTN (hypertension) Hyperglycemia Hyperlipemia Left shoulder pain Overweight Pulmonary sarcoidosis Smoker Surgical History H/O colonoscopy Social History Household Members: Spouse Housing: House Do you presently have visiting nurse or other home services: No Alcohol intake: unknown Patient Tobacco Use Status: Current everyday Tobacco user Tobacco use type: Cigarette Cigarettes Per Day: 5 e-Cigarette/Vaping Use: Never Used Second Hand Smoke Exposure: No service: No Current occupational status: retired Current occupation: rt handed Sexual orientation: Straight/Heterosexual Cognitive needs: No Hearing needs: No Vision needs: Yes Review of Systems Const All systems reviewed & are unremarkable except as noted in HPI and below Eyes Reports no additional complaints ENT Reports no additional complaints Card Denies chest pain, Denies irregular heart rhythm and Denies leg edema Resp Reports as per HPI GI Reports no additional complaints Reports urinary incontinence (CONTROLLED WITH MED) Skin/Breast Reports system reviewed and no additional complaints, except as documented Neuro Reports no additional complaints Psych Reports depression (MILD CONTROLLED) Endo Reports no additional complaints Physical Exam Vital Signs: Last Vital Signs Pulse 78 03/15/23 13:51 BP 122/76 03/15/23 13:51 Pulse Ox 96 03/15/23 13:51 Oxygen Delivery Method Room Air 03/15/23 13:51 BMI result Body Mass Index 32.0 Const General: comfortable, no acute distress, alert and awake Orientation/consciousness: patient oriented x3 HEENT Head: Yes normal to inspection General nose exam: No nasal polyps present and No nasal discharge present Face and sinus: Yes sinuses nontender Mouth: oropharynx normal Throat: Yes posterior oropharynx normal Eyes General: appearance normal, both eyes and all related structures Neck Neck: Yes normal visual inspection, Yes no lymphadenopathy, Yes trachea midline and Yes no JVD Thyroid: Thyroid normal Chest Chest palpation & inspection: normal inspection of the chest, normal palpation of entire chest wall and no tenderness Resp Other: PERCUSSION NOTE RESONANT, BREATH SOUNDS ARE EQUAL ON BOTH SIDES, MODERATELY DISTANT WITH PROLONGED EXPIRATORY PHASE. HAS A FEW WHEEZES ON THE RIGHT LOWER LOBE AREA . Cardio Palpation: normal PMI Rate: regular rate Rhythm: regular rhythm Heart sounds: no gallops and no murmurs Peripheral pulses: Peripheral pulses 2+ throughout GI Palpation (GI): Soft to palpation, nontender, No hepatosplenomegaly present and no masses Auscultation: normal bowel sounds Back/Spine/Pelvis Thoracic/Lumbar Spine: thoracic and lumbar spine normal to inspection Skin General skin exam: no rashes or lesions noted Neuro General: patient oriented x3 and no focal motor deficits Cranial nerves: Yes CN's II-XII intact bilaterally Extrem General: Yes normal to inspection, Yes no clubbing, cyanosis or edema and Yes no calf tenderness Psych Appearance: grossly normal and well kempt Speech and movement: Normal speech and movement present Assessment & Plan Assessment & Plan (1) Smoker: Comment: SMOKES ABOUT 5 CIGARETTES A DAY. TALKED TO HIM AT GREAT LENGTH. ADVISED TO QUIT COMPLETELY BUT HE WANTS TO SMOKE AT LEAST A FEW CIGARETTES PER DAY FOR HIS ENJOYMENT. LAST CHEST X-RAY IN JULY 2020 WAS NORMAL. HE IS INTERESTED IN JOINING THE ANNUAL LUNG SCREENING PROGRAM. Code(s): F17.200 - Nicotine dependence, unspecified, uncomplicated (2) Cough: Comment: MOSTLY AM COUGH , SECONDARY TO PHARYNGEAL IRRITATION BY, SMOKING AND ALSO MOUTH BREATHING DURING THE NIGHT. ADVISED TO USE SOME STEAM INHALATION IN THE SHOWER IN THE MORNING, USE PROAIR 2 PUFFS Q 4-6 HOURS P.R.N.IF COUGH IS PERSISTANT . ALSO ADD MUCINEX 400 MG B.I.D.. STRESSED THAT HE HAS TO QUIT SMOKING COMPLETELY BEFORE HIS COUGH WILL GO AWAY. Code(s): R05 - Cough (3) COPD (chronic obstructive pulmonary disease): Comment: MILD TO MODERATE DEGREE OF CHRONIC OBSTRUCTIVE PULMONARY DISEASE, SECONDARY TO HIS SMOKING. CURRENTLY SYMPTOMS ARE FAIRLY WELL CONTROLLED,EXCEPT FOR COUGH . TX: CONT. USING ANORO ELLIPTA 1 INHALATION DAILY.( SCRIPT RENEWED ) AND PROAIR 2 PUFFS Q 4-6 HOURS ONLY P.R.N. * NO NEED TO USE TRELEGY Code(s): J44.9 - Chronic obstructive pulmonary disease, unspecified (4) Pulmonary sarcoidosis: Comment: HE HAS MINIMAL, SARCOIDOSIS HAS REMAINED VERY STABLE OVER THE YEARS, NO EXTRA TREATMENT NEEDED. Code(s): D86.0 - Sarcoidosis of lung Orders: Referrals Thoracic Surgery Referral F17.200 - Nicotine dependence, unspecified, uncomplicated, J44.9 - Chronic obstructive pulmonary disease, unspecified Medications: New umeclidinium-vilanterol 62.5-25 mcg/actuation (Anoro Ellipta) 1 inh inhalation DAILY 60 ea 5RF COPD 30 days Coding Level of Care Code Est Pt Level 3 (16618) Diagnoses Smoker F17.200 Cough R05 COPD (chronic obstructive pulmonary disease) J44.9 Pulmonary sarcoidosis D86.0
[2023-03-15 13:51] VITALS: BP 122/76; PULSE 78; O2SAT 96; BMI 32.0
== END 2023-03-15 14:06 | disposition home or self-care (01) ==
PROVIDERS: PCP Internal Medicine; Visit Provider Internal Medicine
DX: F17.200 Nicotine dependence, unspecified, uncomplicated (principal); R05.9 Cough, unspecified; J44.9 Chronic obstructive pulmonary disease, unspecified; D86.0 Sarcoidosis of lung
CPT/HCPCS: 99213

== ENCOUNTER → 2023-03-15 13:49 | Outpatient (BNVA) | payer MEDICARE, SELFPAY | PROVIDERS: PCP Internal Medicine; Visit Provider Internal Medicine | DX: J44.9 Chronic obstructive pulmonary disease, unspecified (principal); R05.9 Cough, unspecified; D86.0 Sarcoidosis of lung; F17.210 Nicotine dependence, cigarettes, uncomplicated | CPT/HCPCS: 99212 ==

== ENCOUNTER 2023-03-17 08:02 | Outpatient (REF) | payer MEDICARE, SELFPAY ==
[2023-03-17 11:10] LABS: MANUAL DIFF FLAG NO
[2023-03-17 11:36] LABS: Basophils Percent Auto 0.6 % (0-2); Eosinophils Absolute Auto 0.2 X10*3/uL (0.0-0.4); Eosinophils Percent Auto 2.4 % (0-4); Hematocrit 46.4 % (42.0-52.0); Hemoglobin 15.3 g/dl (14.0-18.0); Imm Gran Abs Auto 0.02 X10*3/uL (0.00-0.03); Imm Gran Pct Auto 0.3 % (0.0-0.4); Lymphocytes Absolute Auto 2.6 X10*3/uL (1.2-4.9); Lymphocytes Percent Auto 39.1 % (20-40); Mean Corpuscular Hemoglobin 28.3 pg (27.0-33.0); Mean Corpuscular Volume 85.9 fL (80.0-98.0); Mean Platelet Volume 10.2 fL (9.4-12.4); Monocytes Absolute Auto 0.6 X10*3/uL (0.1-1.2); Neutrophils Absolute Auto 3.2 x10*3/uL (2.0-8.3); Neutrophils Percent Auto 48.6 % (45-73); Platelet Count 189 X10*3/uL (160-400); Red Cell Distribution Width 14.6 % (11.0-16.0); White Blood Count 6.6 X10*3/uL (4.8-10.8)
[2023-03-17 11:43] LABS: Estimated Average Glucose 114 mg/dL; Hemoglobin A1C 151.2387 umol/L; Hemoglobin A1c % 5.6 %
[2023-03-17 12:01] LABS: Alanine Aminotransferase 39 U/L (0-40); Albumin Level 4.2 g/dL (3.5-5.0); Alkaline Phosphatase 66 U/L (39-117); Anion Gap 11 (12-20); Aspartate Amino Transferase 36 U/L (5-37); Bilirubin Total 1.2 mg/dL (0.0-1.0); Blood Urea Nitrogen 20 mg/dL (9-16); Calcium 9.3 mg/dL (8.4-10.2); Carbon Dioxide 29 mmol/L (22-29); Chloride 104 mmol/L (96-108); Cholesterol 150 mg/dL; Estimated Glomerular Filt Rate > 60; Glucose Fasting 101 mg/dL (60-99); HDL Cholesterol 40 mg/dL; LDL Cholesterol Calculated 85 mg/dl; Potassium 4.2 mmol/L (3.3-5.1); Sodium 140 mmol/L (135-145); Total Protein 7.8 g/dL (6.5-8.0); Triglycerides 126 mg/dL
[2023-03-17 12:21] LABS: TSH reflex Free T4 2.45 uIU/mL (0.32-4.0)
== END 2023-03-17 08:03 | disposition home or self-care (01) ==
LOC: HO.HMGCLDS 08:02
PROVIDERS: PCP Internal Medicine; Visit Provider Internal Medicine
DX: D86.0 Sarcoidosis of lung (principal); E66.3 Overweight; E78.5 Hyperlipidemia, unspecified; I10 Essential (primary) hypertension; R73.9 Hyperglycemia, unspecified
CPT/HCPCS: 36415; 80053; 80061; 83036; 84443; 85025

== ENCOUNTER 2023-03-24 09:54 | Outpatient (AMB) | payer MEDICARE, SELFPAY ==
--- NOTE | 2023-03-24 09:58 | MHC.PC.OV ---
Vital Signs 03/24/23 10:01 BP 108/62 Blood Pressure Location Rt brachial Position Sitting Pulse 88 Pulse Source Pulse Oximeter Pulse Oximetry (%) 98 Oxygen Delivery Method Room Air Intake Visit Reasons: PE Allergies bee pollen [BEE STINGS] Allergy (Severe, Verified 03/24/23 10:00) ANAPHYLAXIS Medication List - Last Reconciled 03/24/23 by Mary Gonzalez MD amlodipine-benazepril 10-40 mg 1 cap PO DAILY escitalopram oxalate 5 mg PO DAILY hydrochlorothiazide 25 mg PO QAM latanoprost 0.005% 1 drp ophthalmic (eye) BEDTIME metoprolol succinate ER 100 mg PO DAILY olanzapine 10 mg PO BEDTIME oxybutynin chloride ER 10 mg PO BEDTIME 90 days prazosin 6 mg PO BEDTIME ProAir HFA 90 mcg/actuation (albuterol sulfate) 2 inhalations inhalation Q6H PRN 30 days NS trazodone 200 mg (2 x 100 mg) PO BEDTIME 30 days trolamine salicylate-aloe vera 10 % (Aspercreme with Aloe) 1 appl topical TID PRN 30 days umeclidinium-vilanterol 62.5-25 mcg/actuation (Anoro Ellipta) 1 inh inhalation DAILY umeclidinium-vilanterol 62.5-25 mcg/actuation (Anoro Ellipta) 1 inh inhalation DAILY 30 days Tobacco use date assessed: 09/24/22 Fall risk assessment: No Falls in past year Last assessed Fall Risk: 03/24/23 Dental Screening Dental Screen Date: 03/24/23 Did you have a dental visit in the last 12 months?: No Did you have a dental problem in the last 6 months where you did not have access to dental care?: No Was dental information given to patient?: No HPI PE HPI Details Pt presents for PE. PFSH Medical History Annual physical exam COPD (chronic obstructive pulmonary disease) Cough Depression ETOH abuse Hepatic steatosis History of alcohol abuse HTN (hypertension) Hyperglycemia Hyperlipemia Left shoulder pain Overweight Pulmonary sarcoidosis Smoker Surgical History H/O colonoscopy Social History Household Members: Spouse Housing: House Do you presently have visiting nurse or other home services: No Alcohol intake: unknown Patient Tobacco Use Status: Current everyday Tobacco user Tobacco use type: Cigarette Cigarettes Per Day: 5 e-Cigarette/Vaping Use: Never Used Second Hand Smoke Exposure: No service: No Current occupational status: retired Current occupation: rt handed Sexual orientation: Straight/Heterosexual Cognitive needs: No Hearing needs: No Vision needs: Yes Questionnaire Thrive Questionnaire Date Thrive assessed: 09/24/22 MADIHA-7 AMB Questionnaire MADIHA-7 Date MADIHA - 7 assessed: 09/24/22 Source: Developed by Drs. Willie Aggarwal, Paige Pierce, Anup Gan and colleagues, with an educational nadeem from [employer]. Review of Systems Const All systems reviewed & are unremarkable except as noted in HPI and below Reports no additional complaints Eyes Reports no additional complaints ENT Reports no additional complaints Card Reports no additional complaints Resp Reports no additional complaints GI Reports no additional complaints Reports no additional complaints Physical exam (Primary Care) Vital Signs: Last Vital Signs Pulse 88 03/24/23 10:01 BP 108/62 03/24/23 10:01 Pulse Ox 98 03/24/23 10:01 Oxygen Delivery Method Room Air 03/24/23 10:01 Tobacco/Smoking Status: Tobacco use Status Tobacco use date assessed 09/24/22 03/24/23 10:02 Patient Tobacco Use Status Current everyday Tobacco 03/24/23 10:02 Tobacco use type Cigarette 03/24/23 10:02 e-Cigarette/Vaping Use Never Used 03/24/23 10:02 Thrive Assessment: Date of Thrive Assessment Date Thrive assessed 09/24/22 03/24/23 10:02 Const General: no acute distress HENMT Ears: hearing grossly normal bilaterally Mouth: Normal oral and palatal mucosa present Neck Neck: Yes no lymphadenopathy and Yes supple Resp Effort & Inspection: normal respiratory effort Auscultation: clear to auscultation bilaterally Cardio Rhythm: regular rhythm Heart sounds: S1 normal heart sound present and S2 normal heart sound present GI Inspection: Yes normal to inspection Palpation (GI): Soft to palpation Percussion: Yes normal to percussion Auscultation: normal bowel sounds Assessment and Plan Assessment & Plan (1) Annual physical exam: Code(s): Z00.00 - Encounter for general adult medical examination without abnormal findings Plan: WELL-BALANCED AT AGO PHYSICAL ACTIVITY WEIGHT LOSS DISCUSSED WITH THE PATIENT. FOLLOW-UP IN 6 MONTHS WITH A FASTING LABS BEFORE (2) COPD (chronic obstructive pulmonary disease): Comment: MILD TO MODERATE DEGREE OF CHRONIC OBSTRUCTIVE PULMONARY DISEASE, SECONDARY TO HIS SMOKING. Code(s): J44.9 - Chronic obstructive pulmonary disease, unspecified Plan: CONT [place] (3) Hyperglycemia: Comment: ADA diet Code(s): R73.9 - Hyperglycemia, unspecified Plan: A1C is 5.6, cont ADA (4) Hyperlipemia: Code(s): E78.5 - Hyperlipidemia, unspecified Plan: cont low cholesterol diet Orders: Orders Comprehensive [place]. Panel Fast 6 Months E78.5 - Hyperlipidemia, unspecified, I10 - Essential (primary) hypertension, J44.9 - Chronic obstructive pulmonary disease, unspecified, N40.1 - Benign prostatic hyperplasia with lower urinary tract symptoms, R73.9 - Hyperglycemia, unspecified, Z00.00 - Encounter for general adult medical examination without abnormal findings Lipid Panel 6 Months E78.5 - Hyperlipidemia, unspecified, I10 - Essential (primary) hypertension, J44.9 - Chronic obstructive pulmonary disease, unspecified, N40.1 - Benign prostatic hyperplasia with lower urinary tract symptoms, R73.9 - Hyperglycemia, unspecified, Z00.00 - Encounter for general adult medical examination without abnormal findings PSA,Total (Free>4and<10) 6 Months E78.5 - Hyperlipidemia, unspecified, I10 - Essential (primary) hypertension, J44.9 - Chronic obstructive pulmonary disease, unspecified, N40.1 - Benign prostatic hyperplasia with lower urinary tract symptoms, R73.9 - Hyperglycemia, unspecified, Z00.00 - Encounter for general adult medical examination without abnormal findings Complete Blood Count Auto Diff 6 Months E78.5 - Hyperlipidemia, unspecified, I10 - Essential (primary) hypertension, J44.9 - Chronic obstructive pulmonary disease, unspecified, N40.1 - Benign prostatic hyperplasia with lower urinary tract symptoms, R73.9 - Hyperglycemia, unspecified, Z00.00 - Encounter for general adult medical examination without abnormal findings Hemoglobin A1c 6 Months E78.5 - Hyperlipidemia, unspecified, I10 - Essential (primary) hypertension, J44.9 - Chronic obstructive pulmonary disease, unspecified, N40.1 - Benign prostatic hyperplasia with lower urinary tract symptoms, R73.9 - Hyperglycemia, unspecified, Z00.00 - Encounter for general adult medical examination without abnormal findings UA w Microscopic 6 Months E78.5 - Hyperlipidemia, unspecified, I10 - Essential (primary) hypertension, J44.9 - Chronic obstructive pulmonary disease, unspecified, N40.1 - Benign prostatic hyperplasia with lower urinary tract symptoms, R73.9 - Hyperglycemia, unspecified, Z00.00 - Encounter for general adult medical examination without abnormal findings Medications: Discontinued umeclidinium-vilanterol 62.5-25 mcg/actuation (Anoro Ellipta) Discontinued Reason: Doctor's Order 1 inh inhalation DAILY 30 days 60 ea 5RF COPD Coding Level of Care Code Est Pt Prev Care >65y(26446) Diagnoses Annual physical exam Z00.00 COPD (chronic obstructive pulmonary disease) J44.9 Hyperglycemia R73.9 Hyperlipemia E78.5
[2023-03-24 10:01] VITALS: BP 108/62; PULSE 88; O2SAT 98
== END 2023-03-24 10:41 | disposition home or self-care (01) ==
PROVIDERS: Visit Provider Internal Medicine
DX: Z00.00 Encounter for general adult medical examination without abnormal findings (principal); J44.9 Chronic obstructive pulmonary disease, unspecified; R73.9 Hyperglycemia, unspecified; E78.5 Hyperlipidemia, unspecified
CPT/HCPCS: 99397

== ENCOUNTER 2023-05-07 13:09 | Outpatient (AMB) | payer MEDICARE, SELFPAY ==
--- NOTE | 2023-05-07 08:42 | A.OFFVIS_ITS ---
Intake Intake Visit Reasons: LDCT SD Allergies bee pollen [BEE STINGS] Allergy (Severe, Verified 03/24/23 10:00) ANAPHYLAXIS HPI LDCT SD HPI Details Initial visit for this 78yo smoker with a 28PYH. Patient has been smoking since age 21 for 57 years at 1/2ppd. Currently at 1/4ppd. . Denies marijuana use. Denies second hand smoke exposure. Denies exposure to chemicals or substances like asbestos. . Denies known family history of lung cancer. Denies personal history of cancers. Denies chest CT in last year. . Notes travel outside the [place]. [place], [place]. Denies recent respiratory illness or recent hospitalization for respiratory issues. Denies testing positive for COVID. Admits receiving COVID Vaccine. x 3. . History of sarcoidosis - stable not requiring treatment. Denies fever, chills, new/worsening cough, hemoptysis, hoarseness or dysphagia. Denies significant chest pain, significant dyspnea or unintentional weight loss. Patient Lung Cancer Screening Questionnaire reviewed with patient by provider. . Shared Decision Making Completed. Patient meets criteria. Discussed in detail with patient, the risk vs benefit of LDCT screening. Patient consents to proceed with scan. Discussed smoking cessation. [facility] Medical History (Updated 05/07/23 @ 13:19 by Shelby Don PA-C) Schizoaffective disorder, depressive type ETOH abuse HTN (hypertension) Hyperlipemia Pulmonary sarcoidosis COPD (chronic obstructive pulmonary disease) Nicotine dependence, cigarettes, uncomplicated Cough Hyperglycemia Overweight Hepatic steatosis Depression Painful arc syndrome of left shoulder Surgical History (Updated 05/07/23 @ 13:25 by Shelby Don PA-C) History of hernia repair History of cystoscopy H/O colonoscopy Social History (Updated 05/07/23 @ 13:19 by Shelby Don PA-C) Household Members: Spouse Housing: House Do you presently have visiting nurse or other home services: No Alcohol intake: unknown Patient Tobacco Use Status: Current everyday Tobacco user Tobacco use type: Cigarette Cigarettes Per Day: 5 Years Smoked: onset 21yo, 1/2ppd x 58yrs, now 1/4ppd, 28pyh e-Cigarette/Vaping Use: Never Used Second Hand Smoke Exposure: No service: No Current occupational status: retired Current occupation: rt handed Sexual orientation: Straight/Heterosexual Cognitive needs: No Hearing needs: No Vision needs: Yes Assessment & Plan Assessment & Plan (1) Nicotine dependence, cigarettes, uncomplicated: Comment: (current smoker - onset 21yo, 1/2ppd x 58yrs, now 1/4ppd, 28pyh) Code(s): F17.210 - Nicotine dependence, cigarettes, uncomplicated Plan: - SDM visit completed today in office. - Patient meets criteria for LDCT for lung cancer screening purposes and is asymptomatic. - Smoking cessation counseling offered. Patients can always call [phone]. - Will arrange for a LDCT scan of the chest for screening purposes at [facility]. - Risks, benefits, and alternatives were discussed in detail and the patient agrees to proceed. - Risks discussed include but are not limited to: radiation exposure, anxiety during testing and while awaiting results, false negatives, false positives and possibility of additional intervention such as further imaging or surgical procedures for benign disease. - Benefits are obviously detection of lung cancer at an early stage which can lead to improved outcomes. - Discussed the importance of screening program compliance with adherence to yearly LDCT scan as scheduled - or sooner interval scans for personalized screening regimen. - Discussed follow up plan. Our office will send a letter discussing results and if needed set up phone call and office visit based on CT findings. - Patient educated on results categorization and the management decisions for suspicious findings potentially found on the screening LDCT scan. Any patient with a Lung RADS score of 3 or 4 will be reviewed by a multidisciplinary team at [facility] to form a plan of action in regards to scan findings. - If further work up is warranted for a suspicious lung finding this will be followed by the Lung Cancer Screening program in conjunction with the Thoracic Surgery Department at [facility]. - A copy of the office note and LDCT will be sent to the patient's PCP - as well as documentation on any associated further plans of care. - Incidental findings on LDCT are the PCP's responsibility. These findings are indicated with an S finding on the LDCT Assessment. A note discussing the findings will be sent to the PCP who is then responsible for further management. - All questions answered.? Coding Level of Care Code Lung Cancer Screening [id number] Diagnoses Nicotine dependence, cigarettes, uncomplicated F17.210
== END 2023-05-07 13:46 | disposition home or self-care (01) ==
PROVIDERS: PCP Internal Medicine; Visit Provider Physician Assistant Medical
DX: F17.210 Nicotine dependence, cigarettes, uncomplicated (principal)
CPT/HCPCS: G0296

== ENCOUNTER 2023-05-07 13:29 | Outpatient (REF) | payer MEDICARE, SELFPAY ==
--- NOTE | ~2023-05-07 | CT_ITS ---
EXAMINATION: CT CHEST SCREENING CLINICAL INFORMATION: Nicotine dependence. Current smoker. COMPARISON: 09/02/2018. TECHNIQUE: Multidetector volumetric CT imaging of the chest is performed without contrast using low dose technique. Additional 2D coronal and sagittal reformatted images and axial 3D maximum intensity projection (MIP) images are generated on the CT workstation. This CT examination was performed using dose optimization techniques as appropriate, variously including the following: *Automated exposure control *Adjustment of mA and/or kV according to patient size (this includes techniques or standardized protocols for targeted exams where dose is matched to indication/reason for exam; i.e. extremities or head) *Use of iterative reconstruction technique DLP: 72 mGy-cm FINDINGS: LUNGS: The central airways are patent. No dense consolidation. There is dependent atelectasis. Numerous calcified granulomata are present. Scattered bronchial filling defects. There is some motion on the study which limits the evaluation. There are multiple noncalcified small pulmonary nodules again noted. 1. Right upper lobe 0.4 cm nodule on series 5 image 207. This is not definitively seen on prior. There are adjacent tree in bud nodular opacities in this area. 2. Clustered tree-in-bud nodular opacities of the left upper lobe measuring up to 0.5 cm on series 5 image 136. These are not clearly seen on prior due to motion on previous. 3. Right middle lobe 0.3 cm nodule on series 5 image 258. This is likely similar to previous, given the limitations of the studies. MEDIASTINUM: Prominent heart, unchanged. No pericardial effusion. There are prominent mediastinal lymph nodes. This is similar to prior. For instance there is a right paratracheal node measuring 1.3 cm on series 3 image 21. Prominent AP window nodes are present. Suspect prominent hilar lymph nodes as well. CORONARY ARTERY CALCIFICATION: Present. PLEURA: There is no pleural effusion. No pleural mass or thickening. No pneumothorax. AXILLA: No lymphadenopathy. UPPER ABDOMEN: Unremarkable OSSEOUS STRUCTURES: No acute or suspicious osseous abnormality. Mild degenerative changes throughout the spine. CT/CT lung screening IMPRESSION: 1. Multiple small pulmonary nodules are present. Some of these are not clearly seen on the prior study due to motion on the current study. Many of these are associated with tree-in-bud nodular opacities which could be infectious or inflammatory. 2. Prominent mediastinal and hilar lymph nodes are again noted, similar to prior. ASSESSMENT: Lung-RADS category 3: Probably Benign RECOMMENDATION: Short interval 6 month follow up low dose CT chest.
== END 2023-05-07 13:30 | disposition home or self-care (01) ==
LOC: HO.CT 13:29
PROVIDERS: PCP Internal Medicine; Visit Provider Physician Assistant Medical
DX: Z12.2 Encounter for screening for malignant neoplasm of respiratory organs (principal); F17.210 Nicotine dependence, cigarettes, uncomplicated
CPT/HCPCS: 71271; G0296

== ENCOUNTER 2023-09-02 11:41 | Outpatient (REF) | payer MEDICARE, SELFPAY ==
[2023-09-02 13:08] LABS: Appearance Urine Clear; Color Urine Yellow; Glucose Urine UA Negative (Negative); Leukocyte Esterase Urine Negative (Negative); Nitrite Urine Negative (Negative); PH 7.5 (5.0-9.0); Specific Gravity - Urine 1.015 (1.005-1.025); Urine Blood Negative (Negative); Urine Ketones Negative (Negative); Urine Protein Negative (Neg-Trace)
[2023-09-02 13:14] LABS: Bacteria Urine None Seen (None Seen); Hyaline Casts Urine 0-2 /LPF (0-2); RBC Urine 0-2 /HPF (0-2); Squamous Epithelial Cell Urine 0-2 /HPF (0-2); WBC Urine 0-5 /HPF (0-5)
== END 2023-09-02 11:42 | disposition home or self-care (01) ==
LOC: HO.HMGCLDS 11:41
PROVIDERS: PCP Internal Medicine; Visit Provider Urology
DX: N40.1 Benign prostatic hyperplasia with lower urinary tract symptoms (principal); N13.8 Other obstructive and reflux uropathy
CPT/HCPCS: 81001; 87086

== ENCOUNTER 2023-09-20 10:09 | Outpatient (AMB) | payer MEDICARE, SELFPAY ==
[2023-09-20 10:18] VITALS: BP 110/62; PULSE 78; O2SAT 93; BMI 34.4
--- NOTE | 2023-09-20 10:18 | MHC.OFFVIS ---
Intake Vital Signs 09/20/23 10:18 Height 5 ft 8 in Weight 225 lb 15.581 oz BMI 34.4 BP 110/62 Blood Pressure Location Lt brachial Position Sitting Pulse 78 Pulse Source Pulse Oximeter Pulse Oximetry (%) 93 Oxygen Delivery Method Room Air Intake Visit Reasons: cough Intake Note: pt is here for follow up ands states his cough is okay and is using Anoro once daily. 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 Allergies bee pollen [BEE STINGS] Allergy (Severe, Verified 09/20/23 10:46) ANAPHYLAXIS Medication List - Last Reconciled 09/20/23 by Cortney Dominguez MD amlodipine-benazepril 10-40 mg 1 cap PO DAILY escitalopram oxalate 5 mg PO DAILY hydrochlorothiazide 25 mg PO QAM latanoprost 0.005% 1 drp ophthalmic (eye) BEDTIME metoprolol succinate ER 100 mg PO DAILY olanzapine 10 mg PO BEDTIME oxybutynin chloride ER 10 mg PO BEDTIME 90 days prazosin 6 mg PO BEDTIME ProAir HFA 90 mcg/actuation (albuterol sulfate) 2 inhalations inhalation Q6H PRN 30 days NS trazodone 200 mg (2 x 100 mg) PO BEDTIME 30 days trolamine salicylate-aloe vera 10 % (Aspercreme with Aloe) 1 appl topical TID PRN 30 days umeclidinium-vilanterol 62.5-25 mcg/actuation (Anoro Ellipta) 1 inh inhalation DAILY Do you need a note to return to daycare/school/sports/work: No HPI cough HPI Details 78 YEARS OLD 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 FOR 6 MONTHS FOLLOW-UP HE IS BEING FOLLOWED FOR CHRONIC OBSTRUCTIVE PULMONARY DISEASE. OVERALL HAS BEEN VERY STABLE BUT STILL HAS MILD INTERMITTENT COUGH COUGH IS MOSTLY FOLLOWING SMOKING. HE HAS CUT WAY DOWN BUT STILL SMOKING 1-2 CIGARETTES A DAY. HE DENIES ANY WHEEZING.. HE USES ANORO ELLIPTA ONCE A DAY AND HAS NOT NEEDED TO USE THE RESCUE INHALER. [facility]LY [facility] Medical History Schizoaffective disorder, depressive type ETOH abuse HTN (hypertension) Hyperlipemia Pulmonary sarcoidosis COPD (chronic obstructive pulmonary disease) Nicotine dependence, cigarettes, uncomplicated Cough Hyperglycemia Overweight Hepatic steatosis Depression Painful arc syndrome of left shoulder Surgical History History of hernia repair History of cystoscopy H/O colonoscopy Social History Household Members: Spouse Housing: House Do you presently have visiting nurse or other home services: No Alcohol intake: unknown Comment: Amb. Indep. with steady gait. Patient Tobacco Use Status: Current everyday Tobacco user Tobacco use type: Cigarette Cigarettes Per Day: 1 Years Smoked: onset 21yo, 1/2ppd x 58yrs, now 1/4ppd, 28pyh e-Cigarette/Vaping Use: Never Used Second Hand Smoke Exposure: No service: No Current occupational status: retired Current occupation: rt handed Sexual orientation: Straight/Heterosexual Cognitive needs: No Hearing needs: No Vision needs: Yes Review of Systems Const All systems reviewed & are unremarkable except as noted in HPI and below Eyes Reports no additional complaints ENT Reports no additional complaints Card Denies chest pain, Denies irregular heart rhythm and Denies leg edema Resp Reports as per HPI GI Reports no additional complaints Reports urinary incontinence (CONTROLLED WITH MED) Skin/Breast Reports system reviewed and no additional complaints, except as documented Neuro Reports no additional complaints Psych Reports depression (MILD CONTROLLED) Endo Reports no additional complaints Physical Exam Vital Signs: Last Vital Signs Pulse 78 09/20/23 10:18 BP 110/62 09/20/23 10:18 Pulse Ox 93 09/20/23 10:18 Oxygen Delivery Method Room Air 09/20/23 10:18 BMI result Body Mass Index 34.4 Const General: comfortable, no acute distress, alert and awake Orientation/consciousness: patient oriented x3 HEENT Head: Yes normal to inspection General nose exam: No nasal polyps present and No nasal discharge present Face and sinus: Yes sinuses nontender Mouth: oropharynx normal Throat: Yes posterior oropharynx normal Eyes General: appearance normal, both eyes and all related structures Neck Neck: Yes normal visual inspection, Yes no lymphadenopathy, Yes trachea midline and Yes no JVD Thyroid: Thyroid normal Chest Chest palpation & inspection: normal inspection of the chest, normal palpation of entire chest wall and no tenderness Resp Other: PERCUSSION NOTE RESONANT, BREATH SOUNDS ARE EQUAL ON BOTH SIDES, MODERATELY DISTANT WITH PROLONGED EXPIRATORY PHASE. NO WHEEZES OR RHONCHI ARE HEARD TODAY. Cardio Palpation: normal PMI Rate: regular rate Rhythm: regular rhythm Heart sounds: no gallops and no murmurs Peripheral pulses: Peripheral pulses 2+ throughout GI Palpation (GI): Soft to palpation, nontender, No hepatosplenomegaly present and no masses Auscultation: normal bowel sounds Back/Spine/Pelvis Thoracic/Lumbar Spine: thoracic and lumbar spine normal to inspection Skin General skin exam: no rashes or lesions noted Neuro General: patient oriented x3 and no focal motor deficits Cranial nerves: Yes CN's II-XII intact bilaterally Extrem General: Yes normal to inspection, Yes no clubbing, cyanosis or edema and Yes no calf tenderness Psych Appearance: grossly normal and well kempt Speech and movement: Normal speech and movement present Assessment & Plan Assessment & Plan (1) COPD (chronic obstructive pulmonary disease): Comment: (Mild to moderate COPD - secondary to smoking) Remains well controlled and stable Code(s): J44.9 - Chronic obstructive pulmonary disease, unspecified Plan: TX: Anoro Ellipta 1 inhalation daily ProAir HFA 2 puffs Q 4-6 hours only p.r.n. (2) Cough: Comment: (mostly AM cougn, secondary to pharyngeal irritation by smoking and mouth breathing at night - Code(s): R05 - Cough Plan: Advised : Steam inhalation in AM shower advised - Use PROAIR 2 Puffs Q 4-6hrs P.R.N. if cough persists, add Mucinex 400mg BID, quit smoking) (3) Nicotine dependence, cigarettes, uncomplicated: Comment: (current smoker - onset 21yo, 1/2ppd x 57yrs, now 1/4ppd, 28pyh) Claims it is down to 1-2 cigarettes a day. Code(s): F17.210 - Nicotine dependence, cigarettes, uncomplicated Plan: Advise that he should quit completely. (4) Pulmonary sarcoidosis: Comment: (stable - no tx needed) Code(s): D86.0 - Sarcoidosis of lung Plan: as above Coding Level of Care Code Est Pt Level 3 (77601) Diagnoses COPD (chronic obstructive pulmonary disease) J44.9 Cough R05 Nicotine dependence, cigarettes, uncomplicated F17.210 Pulmonary sarcoidosis D86.0
== END 2023-09-20 10:55 | disposition home or self-care (01) ==
PROVIDERS: PCP Internal Medicine; Visit Provider Internal Medicine
DX: J44.9 Chronic obstructive pulmonary disease, unspecified (principal); R05.9 Cough, unspecified; F17.210 Nicotine dependence, cigarettes, uncomplicated; D86.0 Sarcoidosis of lung
CPT/HCPCS: 99213

== ENCOUNTER → 2023-09-20 10:09 | Outpatient (BNVA) | payer MEDICARE, SELFPAY | PROVIDERS: PCP Internal Medicine; Visit Provider Internal Medicine | DX: J44.9 Chronic obstructive pulmonary disease, unspecified (principal); R05.9 Cough, unspecified; D86.0 Sarcoidosis of lung; F17.210 Nicotine dependence, cigarettes, uncomplicated | CPT/HCPCS: 99212 ==

== ENCOUNTER 2023-09-21 07:07 | Outpatient (REF) | payer MEDICARE, SELFPAY ==
[2023-09-21 10:21] LABS: MANUAL DIFF FLAG NO
[2023-09-21 10:29] LABS: Appearance Urine Clear; Color Urine Yellow; Glucose Urine UA Negative (Negative); Leukocyte Esterase Urine Negative (Negative); Nitrite Urine Negative (Negative); Urine Blood Negative (Negative); Urine Ketones Negative (Negative); Urine Protein Negative (Neg-Trace)
[2023-09-21 10:39] LABS: Alanine Aminotransferase 29 U/L (0-40); Albumin Level 4.1 g/dL (3.5-5.0); Alkaline Phosphatase 56 U/L (39-117); Anion Gap 12 (12-20); Aspartate Amino Transferase 28 U/L (5-37); Bilirubin Total 0.8 mg/dL (0.0-1.0); Blood Urea Nitrogen 18 mg/dL (9-16); Calcium 9.2 mg/dL (8.4-10.2); Carbon Dioxide 27 mmol/L (22-29); Chloride 106 mmol/L (96-108); Cholesterol 147 mg/dL (<200); Estimated Glomerular Filt Rate > 60; Glucose Fasting 107 mg/dL (60-99); HDL Cholesterol 41 mg/dL (>40); LDL Cholesterol Calculated 87 mg/dL (<100); Potassium 3.8 mmol/L (3.3-5.1); Sodium 141 mmol/L (135-145); Total Protein 7.7 g/dL (6.5-8.0); Triglycerides 97 mg/dL (<150)
[2023-09-21 10:41] LABS: Bacteria Urine 4+ (None Seen); Basophils Absolute Auto 0.1 X10*3/uL (0.0-0.2); Basophils Percent Auto 0.8 % (0-2); Eosinophils Absolute Auto 0.2 X10*3/uL (0.0-0.4); Eosinophils Percent Auto 2.3 % (0-4); Hematocrit 46.6 % (42.0-52.0); Hemoglobin 15.2 g/dl (14.0-18.0); Hyaline Casts Urine 0-2 /LPF (0-2); Imm Gran Abs Auto 0.01 X10*3/uL (0.00-0.03); Imm Gran Pct Auto 0.2 % (0.0-0.4); Lymphocytes Absolute Auto 2.4 X10*3/uL (1.2-4.9); Lymphocytes Percent Auto 36.2 % (20-40); Mean Corpuscular HGB Conc 32.6 g/dl (31.0-36.0); Mean Corpuscular Hemoglobin 28.5 pg (27.0-33.0); Mean Corpuscular Volume 87.3 fL (80.0-98.0); Mean Platelet Volume 10.6 fL (9.4-12.4); Monocytes Absolute Auto 0.6 X10*3/uL (0.1-1.2); Monocytes Percent Auto 8.5 % (2-11); Neutrophils Absolute Auto 3.4 x10*3/uL (2.0-8.3); Platelet Count 199 X10*3/uL (160-400); RBC Urine 0-2 /HPF (0-2); Red Blood Count 5.34 X10*6/uL (4.60-5.80); Red Cell Distribution Width 13.9 % (11.0-16.0); Squamous Epithelial Cell Urine 0-2 /HPF (0-2); WBC Urine 0-5 /HPF (0-5); White Blood Count 6.6 X10*3/uL (4.8-10.8)
[2023-09-21 10:42] LABS: Estimated Average Glucose 114 mg/dL; Hemoglobin A1c % 5.6 % (<6.0)
[2023-09-21 11:03] LABS: PSA,Total (Free>4and<10) 0.14 ng/mL (0.00-4.00)
== END 2023-09-21 07:08 | disposition home or self-care (01) ==
LOC: HO.HMGCLDS 07:07
PROVIDERS: PCP Internal Medicine; Visit Provider Internal Medicine
DX: Z00.00 Encounter for general adult medical examination without abnormal findings (principal); J44.9 Chronic obstructive pulmonary disease, unspecified; R73.9 Hyperglycemia, unspecified; I10 Essential (primary) hypertension; E78.5 Hyperlipidemia, unspecified; N40.1 Benign prostatic hyperplasia with lower urinary tract symptoms; Z12.5 Encounter for screening for malignant neoplasm of prostate
CPT/HCPCS: 36415; 80053; 80061; 81001; 83036; 84153; 85025

== ENCOUNTER 2023-09-27 10:44 | Outpatient (AMB) | payer MEDICARE, SELFPAY ==
[2023-09-27 11:01] VITALS: BP 116/66; PULSE 56; O2SAT 96; BMI 33.8
--- NOTE | 2023-09-27 11:01 | A.OFFPC_ITS ---
Vital Signs 09/27/23 11:01 Height 5 ft 8 in Weight 222 lb BMI 33.8 BP 116/66 Blood Pressure Location Lt brachial Position Sitting Pulse 56 Pulse Source Pulse Oximeter Pulse Oximetry (%) 96 Oxygen Delivery Method Room Air Intake Visit Reasons: 6 Month follow up HTN Intake Note: Pt is here today for 6 months follow up visit on HTN. Allergies bee pollen [BEE STINGS] Allergy (Severe, Verified 09/27/23 11:01) ANAPHYLAXIS Medication List - Last Reconciled 09/27/23 by Mary Gonzalez MD amlodipine-benazepril 10-40 mg 1 cap PO DAILY escitalopram oxalate 5 mg PO DAILY hydrochlorothiazide 25 mg PO QAM latanoprost 0.005% 1 drp ophthalmic (eye) BEDTIME metoprolol succinate ER 100 mg PO DAILY olanzapine 10 mg PO BEDTIME oxybutynin chloride ER 10 mg PO BEDTIME 90 days prazosin 6 mg PO BEDTIME ProAir HFA 90 mcg/actuation (albuterol sulfate) 2 inhalations inhalation Q6H PRN 30 days NS trazodone 200 mg (2 x 100 mg) PO BEDTIME 30 days trolamine salicylate-aloe vera 10 % (Aspercreme with Aloe) 1 appl topical TID PRN 30 days umeclidinium-vilanterol 62.5-25 mcg/actuation (Anoro Ellipta) 1 inh inhalation DAILY Tobacco use date assessed: 09/27/23 Fall risk assessment: 1 Fall in past year Last assessed Fall Risk: 09/27/23 Dental Screening Dental Screen Date: 09/27/23 Did you have a dental visit in the last 12 months?: No Did you have a dental problem in the last 6 months where you did not have access to dental care?: No Was dental information given to patient?: Patient declined HPI 6 Month follow up HTN HPI Details Pt presents for f/u HTN and hyperlipid, controlled. COPD is stable on Anoro. Patient reports increased urinary frequency at night but denies dysuria, lower abdominal pain. Patient has an appointment in 2 weeks with his urologist. Patient follows up with a psychiatrist for schizoaffective disorder. [facility] Medical History Schizoaffective disorder, depressive type ETOH abuse HTN (hypertension) Hyperlipemia Pulmonary sarcoidosis COPD (chronic obstructive pulmonary disease) Nicotine dependence, cigarettes, uncomplicated Cough Hyperglycemia Overweight Hepatic steatosis Depression Painful arc syndrome of left shoulder Surgical History History of hernia repair History of cystoscopy H/O colonoscopy Social History Household Members: Spouse Housing: House Do you presently have visiting nurse or other home services: No Alcohol intake: unknown Comment: Amb. Indep. with steady gait. Patient Tobacco Use Status: Current everyday Tobacco user Tobacco use type: Cigarette Cigarettes Per Day: 1 Years Smoked: onset 21yo, 1/2ppd x 57yrs, now 1/4ppd, 28pyh e-Cigarette/Vaping Use: Never Used Second Hand Smoke Exposure: No service: No Current occupational status: retired Current occupation: rt handed Sexual orientation: Straight/Heterosexual Cognitive needs: No Hearing needs: No Vision needs: Yes Questionnaire PHQ-9 Over the last 2 weeks, how often have you been bothered by any of the following problems? 1. Little interest or pleasure in doing things: nearly every day 2. Feeling down, depressed, or hopeless: nearly every day 3. Trouble falling or staying asleep, or sleeping too much: several days 4. Feeling tired or having little energy: not at all 5. Poor appetite or overeating: not at all 6. Feeling bad about yourself - or that you are a failure or have let yourself or your family down: not at all 7. Trouble concentrating on things, such as reading the newspaper or watching television: more than half the days 8. Moving or speaking so slowly that other people could have noticed. Or the opposite - being so fidgety or restless that you have been moving around a lot more than usual: more than half the days 9. Thoughts that you would be better off or of hurting yourself in some way: not at all Total score: 11 Depression Screening Interpretation: Positive Depression Screening Done: Yes 16489 - PHQ-9 Billing: Yes Source: Developed by Drs. Willie Aggarwal, Paige Pierce, Anup Gan and colleagues, with an educational nadeem from [employer]. Thrive Questionnaire Date Thrive assessed: 09/27/23 I am a: Patient What is your living situation today?: I have a steady place to live Within the past 12 months, did the food you bought not last and you didn't have the money to get more?: Never true Within the past 12 months, did you worry whether your food would run out before you got money to buy more?: Never true Do you have trouble paying for medicines?: No Do you have trouble getting transportation to medical appointments?: No Do you have trouble paying your heating and electricity bill?: No Do you have trouble taking care of your child, family member or friend?: No Do you have trouble with day-to-day activities such as bathing, preparing meals, shopping, managing finances, etc.?: No Are you currently unemployed and looking for a job?: No Are you interested in more education?: No Please select the resources that you would like help with: None Currently or been in a relationship where the following occur: no concerns reported THRIVE Score: 0 AUDIT C Alcohol Use Questionnaire (AUDIT-C) 1. How often do you have a drink containing alcohol?: 2-3 times a week 2. How many drinks containing alcohol do you have on a typical day when you are drinking?: 1 or 2 3. How often do you have six or more drinks on one occasion?: Never Total Score: 3 MADIHA-7 AMB Questionnaire MADIHA-7 Date MADIHA - 7 assessed: 09/27/23 Feeling nervous, anxious, or on edge: 0 = Not at all Not being able to stop or control worryin = Not at all Worrying too much about different things: 0 = Not at all Trouble relaxin = Not at all Being so restless that it is hard to sit still: 0 = Not at all Becoming easily annoyed or irritable: 0 = Not at all Feeling afraid as if something awful might happen: 0 = Not at all Total MADIHA-7 score (0-4 normal; 5-9 mild; 10-14 moderate; 15-21 severe): 0 Source: Developed by Drs. Willie Aggarwal, Paige Pierce, Anup Gan and colleagues, with an educational nadeem from [employer] Review of Systems Const All systems reviewed & are unremarkable except as noted in HPI and below Reports no additional complaints Eyes Reports no additional complaints ENT Reports no additional complaints Card Reports no additional complaints Resp Reports no additional complaints GI Reports no additional complaints Reports no additional complaints Physical exam (Primary Care) Vital Signs: Last Vital Signs Pulse 56 09/27/23 11:01 BP 116/66 09/27/23 11:01 Pulse Ox 96 09/27/23 11:01 Oxygen Delivery Method Room Air 09/27/23 11:01 BMI result Body Mass Index 33.8 Tobacco/Smoking Status: Tobacco use Status Tobacco use date assessed 09/27/23 09/27/23 11:02 Patient Tobacco Use Status Current everyday Tobacco 09/27/23 11:02 Tobacco use type Cigarette 09/27/23 11:02 e-Cigarette/Vaping Use Never Used 09/27/23 11:02 PHQ-9: PHQ-9 Score PHQ-9: Total score 11 09/27/23 11:23 Depression Screening Interpretation: Positive Thrive Assessment: Date of Thrive Assessment Date Thrive assessed 09/27/23 09/27/23 11:23 Currently or been in a relationship where the following occur: no concerns reported Const General: no acute distress HENMT Head: Yes normal to inspection Face and sinus: Yes normal facial exam Throat: Yes posterior oropharynx normal Neck Neck: Yes no lymphadenopathy and Yes supple Resp Effort & Inspection: normal respiratory effort Auscultation: clear to auscultation bilaterally Cardio Rhythm: regular rhythm Heart sounds: S1 normal heart sound present and S2 normal heart sound present GI Inspection: Yes normal to inspection Palpation (GI): Soft to palpation Percussion: Yes normal to percussion Auscultation: normal bowel sounds Assessment and Plan Assessment & Plan (1) Schizoaffective disorder, depressive type: Comment: Follow-up with Psychiatry Code(s): F25.1 - Schizoaffective disorder, depressive type Plan: Continue current medications (2) COPD (chronic obstructive pulmonary disease): Comment: (Mild to moderate COPD - secondary to smoking) Remains well controlled and stable Code(s): J44.9 - Chronic obstructive pulmonary disease, unspecified Plan: Continue Anoro (3) HTN (hypertension): Code(s): I10 - Essential (primary) hypertension Plan: Continue current medications (4) Hyperlipemia: Code(s): E78.5 - Hyperlipidemia, unspecified Plan: Diet-controlled (5) Hyperglycemia: Comment: ADA diet Code(s): R73.9 - Hyperglycemia, unspecified Plan: A1c is 5.6, ADA diet increase exercise weight loss discussed with the patient follow-up in 6 months with a fasting labs before (6) Overactive bladder: Comment: Oxybutynin Code(s): N32.81 - Overactive bladder Plan: Follow-up with urology Orders: Orders Lipid Panel 6 Months E78.5 - Hyperlipidemia, unspecified, I10 - Essential (primary) hypertension, R73.9 - Hyperglycemia, unspecified Hemoglobin A1c 6 Months E78.5 - Hyperlipidemia, unspecified, I10 - Essential (primary) hypertension, R73.9 - Hyperglycemia, unspecified Comprehensive [place]. Panel Fast 6 Months E78.5 - Hyperlipidemia, unspecified, I10 - Essential (primary) hypertension, R73.9 - Hyperglycemia, unspecified Complete Blood Count Auto Diff 6 Months E78.5 - Hyperlipidemia, unspecified, I10 - Essential (primary) hypertension, R73.9 - Hyperglycemia, unspecified Coding Level of Care Code Est Pt Level 4 (17775) Diagnoses Schizoaffective disorder, depressive type F25.1 COPD (chronic obstructive pulmonary disease) J44.9 HTN (hypertension) I10 Hyperlipemia E78.5 Hyperglycemia R73.9 Overactive bladder N32.81
== END 2023-09-27 11:59 | disposition home or self-care (01) ==
PROVIDERS: PCP Internal Medicine; Visit Provider Internal Medicine
DX: F25.1 Schizoaffective disorder, depressive type (principal); J44.9 Chronic obstructive pulmonary disease, unspecified; I10 Essential (primary) hypertension; E78.5 Hyperlipidemia, unspecified; R73.9 Hyperglycemia, unspecified; N32.81 Overactive bladder
CPT/HCPCS: 99214

== ENCOUNTER 2023-10-19 09:49 | Outpatient (AMB) | payer MEDICARE, SELFPAY ==
--- NOTE | 2023-10-19 09:52 | MHC.OFFVIS ---
Intake Intake Visit Reasons: 6M PVR(Confirmed) Intake Note: Patient is Present for Follow Up PVR Urology Medication: Oxybutynin Antibiotic Allergies: None Blood Thinners: None Confirmed pharmacy: [facility] PVR: 24 Allergies bee pollen [BEE STINGS] Allergy (Severe, Verified 10/19/23 09:58) ANAPHYLAXIS HPI HPI Comments History of Present Illness Details Mike is a pleasant Thai gentleman. He is a patient of Dr. Llamas. He is seen for the following urologic conditions - lower urinary tract symptoms - combination obstructive and irritative Accompanied by Still remains on oxybutynin Nocturia up to 5 times at night dependent on what he drinks Discussed overactive bladder with potential use for Botox Given he is waking 5 times at night plus urgency during the day despite 10 mg oxybutynin will try to add Myrbetriq 25 Lower Urinary Tract Symptoms:??Predominant storage symptoms ?Current visit is for further evaluation of, lower urinary tract symptoms, predominate irritative storage symptoms ? Still smoking.?Current treatment includes oxybutynin 15 mg ? - 05/12 TUIP.?Prior treatments include 06/08 medication, alpha blockers, flomax/tamsulosin ? 07/09 alpha rich, terazosin 5mg, oxybutynin with dry mouth ?Prostate Symptom Score 07/09 Moderate (9-19), Bother 4 ? 10/12 , Moderate (9-19), Bother 3.?Symptoms include weak stream, nocturia (>2), and are progressing.?Results from testing include? cystoscopy? no abnormality seen 07/09 - small prostate, mild trabeculation ?Prior Prostate Score moderate.?PSA 06/08 , < 2.5, 04/13 0.13 ?Prostate volume 30-50gm.?Testing at next visit will include bladder scan [facility] Medical History Schizoaffective disorder, depressive type ETOH abuse HTN (hypertension) Hyperlipemia Pulmonary sarcoidosis COPD (chronic obstructive pulmonary disease) Nicotine dependence, cigarettes, uncomplicated Cough Hyperglycemia Overweight Hepatic steatosis Depression Painful arc syndrome of left shoulder Surgical History History of hernia repair History of cystoscopy H/O colonoscopy Social History Household Members: Spouse Housing: House Do you presently have visiting nurse or other home services: No Alcohol intake: unknown Comment: Amb. Indep. with steady gait. Patient Tobacco Use Status: Current everyday Tobacco user Tobacco use type: Cigarette Cigarettes Per Day: 1 Years Smoked: onset 21yo, 1/2ppd x 58yrs, now 1/4ppd, 28pyh e-Cigarette/Vaping Use: Never Used Second Hand Smoke Exposure: No service: No Current occupational status: retired Current occupation: rt handed Sexual orientation: Straight/Heterosexual Cognitive needs: No Hearing needs: No Vision needs: Yes Review of Systems Const Denies chills and Denies fever(s) Card Reports no additional complaints and Denies syncope Resp Denies cough GI Denies abdominal pain and Denies heartburn Reports as per HPI and Denies change in libido Neuro Denies syncope Psych Denies change in libido Endo Denies change in libido Physical Exam Const General: cooperative, healthy appearing, comfortable and no acute distress Orientation/consciousness: patient oriented x3 HEENT Face and sinus: Yes normal facial exam Mouth: moist mucous membranes Neck Neck: Yes normal visual inspection, Yes full ROM and Yes trachea midline Chest Chest palpation & inspection: normal inspection of the chest Resp Effort & Inspection: normal respiratory effort, able to speak in complete sentences and no respiratory distress GI Inspection: Yes normal to inspection Back/Spine/Pelvis Cervical Spine: normal cervical lordosis Thoracic/Lumbar Spine: thoracic and lumbar spine normal to inspection Skin General skin exam: no rashes or lesions noted Neuro General: patient oriented x3, gait normal, tone normal and moves all extremities Extrem General: Yes normal to inspection and Yes capillary refill normal Office Procedures Post Void Residual Post Residual Void Post Void Residual (PVR): 24 [id number] Void Residual by ultrasound Results AMB Urinalysis, Automated UA Leukoctes 0 Flynn/uL Last Edit by MADY Owen on 10/19/23 10:00 UA Nitrite Negative Last Edit by MADY Owen on 10/19/23 10:00 UA Urobilinogen 0.2 mg/dL Last Edit by Homa Allan, RMA on 10/19/23 10:00 UA Protein 0 mg/dL Last Edit by Homa Allan, RMA on 10/19/23 10:00 UA pH 6.0 Last Edit by Homa Allan, RMA on 10/19/23 10:00 UA Blood 0 Kennedy/uL Last Edit by Homa Allan, RMA on 10/19/23 10:00 UA Specific [place] 1.015 Last Edit by Homa Allan, RMA on 10/19/23 10:00 UA Ketone Negative Last Edit by Homa Allan, RMA on 10/19/23 10:00 UA Bilirubin 0 mg/dL Last Edit by Homa Allan, RMA on 10/19/23 10:00 UA Glucose 0 mg/dL Last Edit by Homa Allan, RMA on 10/19/23 10:00 Results Reviewed Results Reviewed: Laboratory Last Values Urine pH (Auto) 6.0 10/19/23 09:59 Specific [place] (Auto) 1.015 10/19/23 09:59 Urine Protein (Auto) 0 mg/dL 10/19/23 09:59 Glucose (UA)(Auto) 0 mg/dL 10/19/23 09:59 Urine Ketones (Auto) Negative 10/19/23 09:59 Urine Blood (Auto) 0 Kennedy/uL 10/19/23 09:59 Urine Nitrite (Auto) Negative 10/19/23 09:59 Urine Bilirubin (Auto) 0 mg/dL 10/19/23 09:59 Urine Urobilinogen (Auto) 0.2 mg/dL 10/19/23 09:59 Leukocyte Esterase (Auto) 0 Flynn/uL 10/19/23 09:59 Assessment & Plan Assessment & Plan (1) Overactive bladder: Comment: Oxybutynin Code(s): N32.81 - Overactive bladder (2) BPH loc w urin obs/LUTS: Code(s): N40.1 - Benign prostatic hyperplasia with lower urinary tract symptoms Plan Four month follow-up Orders: Orders AMB Urinalysis Automated Today Z13.9 - Encounter for screening, unspecified AMB Post Void Residual by ultrasound Today N40.1 - Benign prostatic hyperplasia with lower urinary tract symptoms Medications: New mirabegron ER 25 mg PO DAILY 30 tabs 3RF 30 days N32.81 - Overactive bladder Patient Instructions: Imaging studies, laboratory and physical exam results were discussed and reviewed in detail. No major barriers to patient understanding were identified. An opportunity to ask questions regarding the treatment plan was provided. All questions were answered. The patient expressed understanding and agreement with the above treatment plan. The patient is aware they should contact our office by phone for worsening of their current condition or the appearance of new urologic symptoms. Compliance is encouraged with any medications and followup testing that is ordered. It is a privilege to participate in the urologic care of your patient. If you have any questions or concerns regarding treatment for the above conditions, or other urologic issues, please do not hesitate to contact me. The office telephone contact is [phone]. This note is constructed using voice recognition software. While every effort has been made to ensure accuracy emergency management system director errors may have been included. Yours sincerely, Dr Van Reardon MD, [facility] - Urology Providers of Expert, Compassionate Care for the Genitourinary System Coding Level of Care Code Est Pt Level 4 (62624) Diagnoses Overactive bladder N32.81 BPH loc w urin obs/LUTS N40.1 CPT Codes Post Residual Void - PVR CPT Code: 44170-Phjf Void Residual by ultrasound ([id number])
== END 2023-10-19 10:30 | disposition home or self-care (01) ==
PROVIDERS: PCP Internal Medicine; Visit Provider Urology
DX: N32.81 Overactive bladder (principal); N40.1 Benign prostatic hyperplasia with lower urinary tract symptoms; Z13.9 Encounter for screening, unspecified
CPT/HCPCS: 99214

== ENCOUNTER → 2023-10-19 09:49 | Outpatient (BNVA) | payer MEDICARE, SELFPAY | PROVIDERS: PCP Internal Medicine; Visit Provider Urology | DX: N40.1 Benign prostatic hyperplasia with lower urinary tract symptoms (principal); N32.81 Overactive bladder | CPT/HCPCS: 51798; 81003; 99212 ==

== ENCOUNTER 2023-12-23 09:55 | Outpatient (REF) | payer MEDICARE, SELFPAY ==
--- NOTE | ~2023-12-23 | CT_ITS ---
EXAMINATION: CT CHEST SCREENING CLINICAL INFORMATION: Smoker. The patient is a current smoker with a 56 pack-year history of smoking. COMPARISON: CT chest 05/07/2023. X-ray chest 08/12/2020. TECHNIQUE: Multidetector volumetric CT imaging of the chest is performed on a Siemens SOMATOM Definition scanner without contrast using low dose technique. Additional 2D coronal and sagittal reformatted images and axial 3D maximum intensity projection (MIP) images are generated on the CT workstation. This CT examination was performed using dose optimization techniques as appropriate, variously including the following: *Automated exposure control. *Adjustment of mA and/or kV according to patient size (this includes techniques or standardized protocols for targeted exams where dose is matched to indication/reason for exam; i.e. extremities or head). *Use of iterative reconstruction technique. DLP: 68 mGy-cm FINDINGS: LUNGS: Emphysematous changes are seen along with marked bronchial thickening. Pulmonary Nodules: Multiple calcified pulmonary granulomas are seen. There is a single 4 mm pleural-based right lower lobe nodule that is unchanged (5:165 compare prior 5:201). Previously seen 5 mm right lower lobe nodule now measures 3 mm (5:180 compare prior 5:207). Multiple other pulmonary nodules are present which appear unchanged, none larger than 5 mm in size. Clustered tree-in-bud nodularity in the left upper lobe is unchanged with the largest nodules measuring 3 mm (5:126 compare prior 5:136). Clustered tree-in-bud opacities are also seen in the left lower lobe with the largest measuring 3 to 4 mm in size, unchanged from prior (5:207 compare prior 5:272). MEDIASTINUM: The heart is enlarged. Multiple small mediastinal lymph nodes are present but there is no adenopathy. Poor evaluation of the pulmonary lidia secondary to lack of IV contrast. CORONARY ARTERY CALCIFICATION: Mild. PLEURA: There is no pleural effusion. No pleural mass or thickening. Tiny areas of thin pleural calcification without associated masses seen at the right lung base are unchanged. AXILLA: No lymphadenopathy. UPPER ABDOMEN: There is hepatic steatosis. OSSEOUS STRUCTURES: Unremarkable. CT/CT lung screen follow up IMPRESSION: Multiple pulmonary nodules are present, none larger than 5 mm in size. Emphysema, bronchial thickening, cardiomegaly. ASSESSMENT: Lung-RADS category 2: Benign. RECOMMENDATION: Routine annual low-dose CT screening in 12 months.
== END 2023-12-23 09:56 | disposition home or self-care (01) ==
LOC: HO.CT 09:55
PROVIDERS: PCP Internal Medicine; Visit Provider Physician Assistant Medical
DX: R91.8 Other nonspecific abnormal finding of lung field (principal); F17.210 Nicotine dependence, cigarettes, uncomplicated
CPT/HCPCS: 71250

== ENCOUNTER 2024-02-17 09:39 | Outpatient (AMB) | payer MEDICARE, SELFPAY ==
--- NOTE | 2024-02-17 09:41 | MHC.OFFVIS ---
Intake Visit Reasons: 4M Med Review/PVR(myrbetriq) Intake Note: Patient is present for PVR(myrbetriq) and 4 month med review Urology Medication:oxybutynin,mirabegron Antibiotic Allergy:none Blood Thinner:none Last PVR:24ml Todays PVR: Inside Sales Consultant Required: No Allergies bee pollen [BEE STINGS] Allergy (Severe, Verified 02/17/24 09:46) ANAPHYLAXIS HPI Comments Details: Mike is a pleasant [place] gentleman. He is a patient of Dr. Llamas. He is seen for the following urologic conditions - lower urinary tract symptoms - combination obstructive and irritative Accompanied by Has remained on Myrbetriq and oxybutynin Waking 2 times at night, happy with current situation Transition to [facility] for insurance Many of his symptoms were secondary to alcohol consumption Lower Urinary Tract Symptoms:??Predominant storage symptoms ?Current visit is for further evaluation of, lower urinary tract symptoms, predominate irritative storage symptoms ? Still smoking.?Current treatment includes oxybutynin 15 mg ? - 05/12 TUIP.?Prior treatments include 06/08 medication, alpha blockers, flomax/tamsulosin ? 07/09 alpha rich, terazosin 5mg, oxybutynin with dry mouth ?Prostate Symptom Score 07/09 Moderate (9-19), Bother 4 ? 10/12 , Moderate (9-19), Bother 3.?Symptoms include weak stream, nocturia (>2), and are progressing.?Results from testing include? cystoscopy? no abnormality seen 07/09 - small prostate, mild trabeculation ?Prior Prostate Score moderate.?PSA 06/08 , < 2.5, 04/13 0.13 ?Prostate volume 30-50gm.?Testing at next visit will include bladder scan [facility] Medical History Schizoaffective disorder, depressive type ETOH abuse HTN (hypertension) Hyperlipemia Pulmonary sarcoidosis COPD (chronic obstructive pulmonary disease) Nicotine dependence, cigarettes, uncomplicated Cough Hyperglycemia Overweight Hepatic steatosis Depression Painful arc syndrome of left shoulder Surgical History History of hernia repair History of cystoscopy H/O colonoscopy Social History Household Members: Spouse Housing: House Do you presently have visiting nurse or other home services: No Alcohol intake: unknown Comment: Amb. Indep. with steady gait. Patient Tobacco Use Status: Current everyday Tobacco user Tobacco use type: Cigarette Cigarettes Per Day: 1 Years Smoked: onset 21yo, 1/2ppd x 57yrs, now 1/4ppd, 28pyh e-Cigarette/Vaping Use: Never Used Second Hand Smoke Exposure: No service: No Current occupational status: retired Current occupation: rt handed Sexual orientation: Straight/Heterosexual Cognitive needs: No Hearing needs: No Vision needs: Yes Review of Systems Const All systems reviewed & are unremarkable except as noted in HPI and below Reports no additional complaints Card Reports no additional complaints and Denies syncope Resp Reports no additional complaints GI Reports no additional complaints Reports as per HPI and Denies change in libido Musc Reports no additional complaints Neuro Denies syncope Psych Denies change in libido Endo Denies change in libido Physical Exam Telemedicine evaluation Appropriate responses Regular breathing rate and rhythm Const General: cooperative, healthy appearing, comfortable and no acute distress Orientation/consciousness: patient oriented x3 HEENT Head: Yes normal to inspection Ears: hearing grossly normal bilaterally Face and sinus: Yes normal facial exam Mouth: moist mucous membranes Eyes General: appearance normal, both eyes and all related structures Neck Neck: Yes normal visual inspection Chest Chest palpation & inspection: normal inspection of the chest Resp Effort & Inspection: normal respiratory effort and able to speak in complete sentences GI Inspection: Yes normal to inspection Back/Spine/Pelvis Cervical Spine: normal cervical lordosis Thoracic/Lumbar Spine: thoracic and lumbar spine normal to inspection Skin General skin exam: no rashes or lesions noted Neuro General: patient oriented x3, gait normal, tone normal and moves all extremities Extrem General: Yes normal to inspection and Yes capillary refill normal Results AMB Urinalysis, Automated UA Leukoctes 0 Flynn/uL Last Edit by OSMAR Lechuga on 02/17/24 09:59 UA Nitrite Negative Last Edit by OSMAR Lechuga on 02/17/24 09:59 UA Urobilinogen 0.2 mg/dL Last Edit by OSMAR Lechuga on 02/17/24 09:59 UA Protein 0 mg/dL Last Edit by OSMAR Lechuga on 02/17/24 09:59 UA pH 7.0 Last Edit by OSMAR Lechuga on 02/17/24 09:59 UA Blood 0 Kennedy/uL Last Edit by OSMAR Lechuga on 02/17/24 09:59 UA Specific [place] 1.015 Last Edit by OSMAR Lechuga on 02/17/24 09:59 UA Ketone Negative Last Edit by OSMAR Lechuga on 02/17/24 09:59 UA Bilirubin 0 mg/dL Last Edit by OSMAR Lechuga on 02/17/24 09:59 UA Glucose 0 mg/dL Last Edit by OSMAR Lechuga on 02/17/24 09:59 Results Reviewed Results Reviewed: Laboratory Last Values Urine pH (Auto) 7.0 02/17/24 09:57 Specific [place] (Auto) 1.015 02/17/24 09:57 Urine Protein (Auto) 0 mg/dL 02/17/24 09:57 Glucose (UA)(Auto) 0 mg/dL 02/17/24 09:57 Urine Ketones (Auto) Negative 02/17/24 09:57 Urine Blood (Auto) 0 Kennedy/uL 02/17/24 09:57 Urine Nitrite (Auto) Negative 02/17/24 09:57 Urine Bilirubin (Auto) 0 mg/dL 02/17/24 09:57 Urine Urobilinogen (Auto) 0.2 mg/dL 02/17/24 09:57 Leukocyte Esterase (Auto) 0 Flynn/uL 02/17/24 09:57 Assessment & Plan Assessment & Plan (1) Overactive bladder: Comment: Oxybutynin Code(s): N32.81 - Overactive bladder Category: Medical Plan Six-month follow-up PVR orifice Orders: Orders AMB Urinalysis Automated Today Z13.9 - Encounter for screening, unspecified Medications: Changed From mirabegron ER 25 mg PO DAILY 30 days 30 tabs 3RF To vibegron (Gemtesa) 75 mg PO DAILY 90 days 90 tabs 1RF Refilled oxybutynin chloride ER 10 mg PO BEDTIME 90 days 90 tabs 1RF N32.81 - Overactive bladder Patient Instructions: Imaging studies, laboratory and physical exam results were discussed and reviewed in detail. No major barriers to patient understanding were identified. An opportunity to ask questions regarding the treatment plan was provided. All questions were answered. The patient expressed understanding and agreement with the above treatment plan. The patient is aware they should contact our office by phone for worsening of their current condition or the appearance of new urologic symptoms. Compliance is encouraged with any medications and followup testing that is ordered. It is a privilege to participate in the urologic care of your patient. If you have any questions or concerns regarding treatment for the above conditions, or other urologic issues, please do not hesitate to contact me. The office telephone contact is [phone]. This note is constructed using voice recognition software. While every effort has been made to ensure accuracy capacitor inspector errors may have been included. Yours sincerely, Dr Van Raerdon MD, [facility] - Urology Providers of Expert, Compassionate Care for the Genitourinary System Coding Level of Care Code Est Pt Level 3 (00396) Diagnoses Overactive bladder N32.81
== END 2024-02-17 10:08 | disposition home or self-care (01) ==
PROVIDERS: PCP Internal Medicine; Visit Provider Urology
DX: Z13.9 Encounter for screening, unspecified (principal); N32.81 Overactive bladder
CPT/HCPCS: 99213

== ENCOUNTER → 2024-02-17 09:39 | Outpatient (BNVA) | payer MEDICARE, SELFPAY | PROVIDERS: PCP Internal Medicine; Visit Provider Urology | DX: N32.81 Overactive bladder (principal) | CPT/HCPCS: 81003; 99212 ==

== ENCOUNTER 2024-03-21 10:23 | Outpatient (AMB) | payer MEDICARE, SELFPAY ==
[2024-03-21 10:35] VITALS: BP 130/72; PULSE 72; O2SAT 97; BMI 33.3
--- NOTE | 2024-03-21 10:35 | MHC.OFFVIS ---
Vital Signs 03/21/24 10:35 Height 5 ft 8 in Weight 219 lb 5.759 oz BMI 33.3 BP 130/72 Blood Pressure Location Lt brachial Position Sitting Pulse 72 Pulse Source Pulse Oximeter Pulse Oximetry (%) 97 Oxygen Delivery Method Room Air Intake Visit Reasons: Cough Intake Note: pt is here for follow up and states his breathing is okay Internet Database Specialist Required: No Allergies bee pollen [BEE STINGS] Allergy (Severe, Verified 03/21/24 10:43) ANAPHYLAXIS Medication List - Last Reconciled 03/21/24 by Cortney Dominguez MD amlodipine-benazepril 10-40 mg 1 cap PO DAILY escitalopram oxalate 5 mg PO DAILY hydrochlorothiazide 25 mg PO QAM metoprolol succinate ER 100 mg PO DAILY mirabegron ER 25 mg PO DAILY olanzapine 10 mg PO BEDTIME oxybutynin chloride ER 10 mg PO BEDTIME 90 days prazosin 6 mg PO BEDTIME ProAir HFA 90 mcg/actuation (albuterol sulfate) 2 inhalations inhalation Q6H PRN 30 days NS trazodone 200 mg (2 x 100 mg) PO BEDTIME 30 days umeclidinium-vilanterol 62.5-25 mcg/actuation (Anoro Ellipta) 1 inh inhalation DAILY Do you need a note to return to daycare/school/sports/work: No HPI HPI Cough: Details: 78 YEARS OLD VERY 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 HE IS A [employer] SMOKER, HAS COPD, WHICH REMAINS WELL CONTROLLED. HE IS SMOKING BETWEEN 3-4 CIGARETTES A DAY, HE DOES HAVE INTERMITTENT COUGH , AND MILD SHORTNESS OF BREATH ON WALKING AROUND. WITH THE USE OF ANORO ELLIPTA ONCE A DAY HE HAS NOT NEEDED TO USE ANY RESCUE INHALER. HAD HIS CT SCAN OF THE CHEST IN DECEMBER OF THIS YEAR, AND IS ASKING IF HE HAS TO CONTINUE TO GETTING ANNUAL CT SCANS. [facility] Medical History Schizoaffective disorder, depressive type ETOH abuse HTN (hypertension) Hyperlipemia Pulmonary sarcoidosis COPD (chronic obstructive pulmonary disease) Nicotine dependence, cigarettes, uncomplicated Cough Hyperglycemia Overweight Hepatic steatosis Depression Painful arc syndrome of left shoulder Surgical History History of hernia repair History of cystoscopy H/O colonoscopy Social History Household Members: Spouse Housing: House Do you presently have visiting nurse or other home services: No Alcohol intake: unknown Comment: Amb. Indep. with steady gait. Patient Tobacco Use Status: Current everyday Tobacco user Tobacco use type: Cigarette Cigarettes Per Day: 1 Years Smoked: onset 21yo, 1/2ppd x 58yrs, now 1/4ppd, 28pyh e-Cigarette/Vaping Use: Never Used Second Hand Smoke Exposure: No service: No Current occupational status: retired Current occupation: rt handed Sexual orientation: Straight/Heterosexual Cognitive needs: No Hearing needs: No Vision needs: Yes Review of Systems Const All systems reviewed & are unremarkable except as noted in HPI and below Eyes Reports no additional complaints ENT Reports no additional complaints Card Denies chest pain, Denies irregular heart rhythm and Denies leg edema Resp Reports as per HPI GI Reports no additional complaints Reports urinary incontinence (CONTROLLED WITH MED) Skin/Breast Reports system reviewed and no additional complaints, except as documented Neuro Reports no additional complaints Psych Reports depression (MILD CONTROLLED) Endo Reports no additional complaints Physical Exam Vital Signs: Last Vital Signs Pulse 72 03/21/24 10:35 BP 130/72 03/21/24 10:35 Pulse Ox 97 03/21/24 10:35 Oxygen Delivery Method Room Air 03/21/24 10:35 BMI result Body Mass Index 33.3 Const General: comfortable, no acute distress, alert and awake Orientation/consciousness: patient oriented x3 HEENT Head: Yes normal to inspection General nose exam: No nasal polyps present and No nasal discharge present Face and sinus: Yes sinuses nontender Mouth: oropharynx normal Throat: Yes posterior oropharynx normal Eyes General: appearance normal, both eyes and all related structures Neck Neck: Yes normal visual inspection, Yes no lymphadenopathy, Yes trachea midline and Yes no JVD Thyroid: Thyroid normal Chest Chest palpation & inspection: normal inspection of the chest, normal palpation of entire chest wall and no tenderness Resp Other: PERCUSSION NOTE RESONANT, BREATH SOUNDS ARE EQUAL ON BOTH SIDES, MODERATELY DISTANT WITH PROLONGED EXPIRATORY PHASE. NO WHEEZES OR RHONCHI ARE HEARD TODAY. Cardio Palpation: normal PMI Rate: regular rate Rhythm: regular rhythm Heart sounds: no gallops and no murmurs Peripheral pulses: Peripheral pulses 2+ throughout GI Palpation (GI): Soft to palpation, nontender, No hepatosplenomegaly present and no masses Auscultation: normal bowel sounds Back/Spine/Pelvis Thoracic/Lumbar Spine: thoracic and lumbar spine normal to inspection Skin General skin exam: no rashes or lesions noted Neuro General: patient oriented x3 and no focal motor deficits Cranial nerves: Yes CN's II-XII intact bilaterally Extrem General: Yes normal to inspection, Yes no clubbing, cyanosis or edema and Yes no calf tenderness Psych Appearance: grossly normal and well kempt Speech and movement: Normal speech and movement present Results Reviewed Results Reviewed: LDCT, OF CHEST, IN DECEMBER 2023 , MULTIPLE PULMONARY NODULES BUT SMALLER THAN 5 MM. I REVIEWED THESE FINDINGS AND EXPLAINED TO THE PATIENT. Assessment & Plan Assessment & Plan (1) Nicotine dependence, cigarettes, uncomplicated: Comment: (current smoker - onset 21yo, 1/2ppd x 57yrs, now 1/4ppd, 28pyh) Claims it is down to 3-4 cigarettes a day. Code(s): F17.210 - Nicotine dependence, cigarettes, uncomplicated Category: Medical Plan: AGAIN TALKED TO HIM ABOUT QUITTING SMOKING COMPLETELY. IT SEEMS TO BE DIFFICULT IN HIS CASE, ADVISE THAT HE SHOULD AT LEAST CUT IT DOWN TO NO MORE THAN 2 CIGARETTES A DAY. CONTINUE HAVING ANNUAL LDCT SCAN OF LUNGS. (2) COPD (chronic obstructive pulmonary disease): Comment: (Mild to moderate COPD - secondary to smoking) Remains well controlled and stable on his current regimen. Code(s): J44.9 - Chronic obstructive pulmonary disease, unspecified Category: Medical Plan: ANORO ELLIPTA 1 INHALATION DAILY PROAIR HFA 2 PUFFS Q 4-6 HOURS ONLY P.R.N. (3) Pulmonary sarcoidosis: Comment: HE HAS PAST HISTORY OF PULMONARY FIBROSIS, CT SCAN OF THE CHEST DOES NOT SHOW ANY ACTIVE DISEASE. Code(s): D86.0 - Sarcoidosis of lung Category: Medical Plan: NO TREATMENT NEEDED Coding Level of Care Code Est Pt Level 3 (38620) Diagnoses Nicotine dependence, cigarettes, uncomplicated F17.210 COPD (chronic obstructive pulmonary disease) J44.9 Pulmonary sarcoidosis D86.0
== END 2024-03-21 10:53 | disposition home or self-care (01) ==
PROVIDERS: PCP Internal Medicine; Visit Provider Internal Medicine
DX: F17.210 Nicotine dependence, cigarettes, uncomplicated (principal); J44.9 Chronic obstructive pulmonary disease, unspecified; D86.0 Sarcoidosis of lung
CPT/HCPCS: 99213

== ENCOUNTER → 2024-03-21 10:23 | Outpatient (BNVA) | payer MEDICARE, SELFPAY | PROVIDERS: PCP Internal Medicine; Visit Provider Internal Medicine | DX: J44.9 Chronic obstructive pulmonary disease, unspecified (principal); D86.0 Sarcoidosis of lung; F17.210 Nicotine dependence, cigarettes, uncomplicated | CPT/HCPCS: 99212 ==

== ENCOUNTER 2024-03-27 08:54 | Outpatient (REF) | payer MEDICARE, SELFPAY ==
[2024-03-27 10:09] LABS: MANUAL DIFF FLAG NO
[2024-03-27 10:13] LABS: Basophils Absolute Auto 0.1 X10*3/uL (0.0-0.2); Basophils Percent Auto 0.9 % (0-2); Eosinophils Absolute Auto 0.1 X10*3/uL (0.0-0.4); Eosinophils Percent Auto 1.7 % (0-4); Hematocrit 46.2 % (42.0-52.0); Hemoglobin 15.6 g/dl (14.0-18.0); Imm Gran Abs Auto 0.02 X10*3/uL (0.00-0.03); Imm Gran Pct Auto 0.3 % (0.0-0.4); Lymphocytes Percent Auto 34.9 % (20-40); Mean Corpuscular HGB Conc 33.8 g/dl (31.0-36.0); Mean Corpuscular Hemoglobin 29.5 pg (27.0-33.0); Mean Corpuscular Volume 87.3 fL (80.0-98.0); Mean Platelet Volume 9.8 fL (9.4-12.4); Monocytes Absolute Auto 0.6 X10*3/uL (0.1-1.2); Monocytes Percent Auto 9.5 % (2-11); Neutrophils Absolute Auto 3.1 x10*3/uL (2.0-8.3); Neutrophils Percent Auto 52.7 % (45-73); Platelet Count 199 X10*3/uL (160-400); Red Blood Count 5.29 X10*6/uL (4.60-5.80); Red Cell Distribution Width 13.6 % (11.0-16.0); White Blood Count 5.8 X10*3/uL (4.8-10.8)
[2024-03-27 10:38] LABS: Alanine Aminotransferase 34 U/L (0-40); Albumin Level 4.2 g/dL (3.5-5.0); Alkaline Phosphatase 51 U/L (39-117); Anion Gap 12 (12-20); Aspartate Amino Transferase 31 U/L (5-37); Bilirubin Total 1.1 mg/dL (0.0-1.0); Blood Urea Nitrogen 16 mg/dL (9-16); Calcium 9.3 mg/dL (8.4-10.2); Carbon Dioxide 27 mmol/L (22-29); Chloride 107 mmol/L (96-108); Cholesterol 158 mg/dL (<200); Estimated Glomerular Filt Rate > 60; Glucose Fasting 114 mg/dL (60-99); HDL Cholesterol 38 mg/dL (>40); LDL Cholesterol Calculated 83 mg/dL (<100); Potassium 3.9 mmol/L (3.3-5.1); Sodium 142 mmol/L (135-145); Total Protein 7.5 g/dL (6.5-8.0); Triglycerides 185 mg/dL (<150)
[2024-03-27 10:50] LABS: Estimated Average Glucose 117 mg/dL; Hemoglobin A1c % 5.7 % (<6.0)
== END 2024-03-27 08:55 | disposition home or self-care (01) ==
LOC: HO.HMGCLDS 08:54
PROVIDERS: PCP Internal Medicine; Visit Provider Internal Medicine
DX: I10 Essential (primary) hypertension (principal); E78.5 Hyperlipidemia, unspecified; R73.9 Hyperglycemia, unspecified
CPT/HCPCS: 36415; 80053; 80061; 83036; 85025

== ENCOUNTER 2024-03-30 08:19 | Outpatient (AMB) | payer MEDICARE, SELFPAY ==
[2024-03-30 08:23] VITALS: BP 118/72; PULSE 55; O2SAT 98; BMI 33.1
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
== END 2024-03-30 09:10 | disposition home or self-care (01) ==
PROVIDERS: PCP Internal Medicine; Visit Provider Internal Medicine
DX: D86.0 Sarcoidosis of lung (principal); I10 Essential (primary) hypertension; J44.9 Chronic obstructive pulmonary disease, unspecified; E78.5 Hyperlipidemia, unspecified; Z00.00 Encounter for general adult medical examination without abnormal findings
CPT/HCPCS: 99397

== ENCOUNTER 2024-07-19 08:12 | Outpatient (REF) | payer MEDICARE, SELFPAY ==
[2024-07-19 09:57] LABS: Appearance Urine Clear; Color Urine Yellow; Glucose Urine UA Negative (Negative); Leukocyte Esterase Urine Negative (Negative); Nitrite Urine Negative (Negative); Specific Gravity - Urine 1.015 (1.005-1.025); Urine Blood Negative (Negative); Urine Ketones Negative (Negative); Urine Protein Negative (Neg-Trace)
[2024-07-19 10:02] LABS: Bacteria Urine None Seen (None Seen); Hyaline Casts Urine 0-2 /LPF (0-2); RBC Urine 0-2 /HPF (0-2); Squamous Epithelial Cell Urine 0-2 /HPF (0-2); WBC Urine 0-5 /HPF (0-5)
[2024-07-19 10:22] LABS: Alanine Aminotransferase 27 U/L (0-40); Anion Gap 14 (12-20); Aspartate Amino Transferase 27 U/L (5-37); Bilirubin Total 0.9 mg/dL (0.0-1.0); Blood Urea Nitrogen 18 mg/dL (9-16); Carbon Dioxide 25 mmol/L (22-29); Chloride 106 mmol/L (96-108); Estimated Glomerular Filt Rate > 60; Glucose Fasting 103 mg/dL (60-99); Potassium 3.8 mmol/L (3.3-5.1); Sodium 141 mmol/L (135-145); Total Protein 7.3 g/dL (6.5-8.0)
[2024-07-19 10:56] LABS: Alkaline Phosphatase 57 U/L (39-117)
== END 2024-07-19 08:13 | disposition home or self-care (01) ==
LOC: HO.HMGCLDS 08:12
PROVIDERS: PCP Internal Medicine; Visit Provider Internal Medicine
DX: Z00.00 Encounter for general adult medical examination without abnormal findings (principal); D86.0 Sarcoidosis of lung; E78.5 Hyperlipidemia, unspecified; I10 Essential (primary) hypertension; J44.9 Chronic obstructive pulmonary disease, unspecified
CPT/HCPCS: 36415; 80053; 81001

== ENCOUNTER 2024-07-27 09:23 | Outpatient (REF) | payer MEDICARE, SELFPAY ==
--- NOTE | ~2024-07-27 | XR_ITS ---
EXAMINATION: XR LUMBOSACRAL SPINE CLINICAL INFORMATION: Low back pain, unspecified M54.50. COMPARISON: CT Abdomen pelvis with contrast 09/02/2017 TECHNIQUE: Three views of the lumbosacral spine. FINDINGS: Normal alignment and lumbar lordosis with mild to moderate multilevel degenerative disc disease with prominent endplate osteophytes. No fracture. XR/XR lumbar spine 2-3V IMPRESSION: Mild to moderate multilevel degenerative disc disease. Electronically signed by: Sonido Guerra MD 09/06/2024 04:49 PM [facility]
== END 2024-07-27 09:24 | disposition home or self-care (01) ==
LOC: HO.HMGCX 09:23
PROVIDERS: PCP Internal Medicine; Visit Provider Internal Medicine
DX: M54.50 Low back pain, unspecified (principal); I10 Essential (primary) hypertension; E78.5 Hyperlipidemia, unspecified; R73.9 Hyperglycemia, unspecified; F25.1 Schizoaffective disorder, depressive type; D86.0 Sarcoidosis of lung; N40.1 Benign prostatic hyperplasia with lower urinary tract symptoms; N13.8 Other obstructive and reflux uropathy
CPT/HCPCS: 72100; 99212

== ENCOUNTER 2024-07-27 09:23 | Outpatient (AMB) | payer MEDICARE, SELFPAY ==
--- NOTE | 2024-07-27 09:28 | A.OFFPC_ITS ---
Vital Signs 07/27/24 09:29 Height 5 ft 8 in Weight 226 lb BMI 34.4 BP 108/66 Blood Pressure Location Lt brachial Position Sitting Pulse 71 Pulse Source Pulse Oximeter Pulse Oximetry (%) 96 Oxygen Delivery Method Room Air Intake Visit Reasons: 4m f/u Intake Note: Pt is here today for 4 months follow up visit. Allergies bee pollen [BEE STINGS] Allergy (Severe, Verified 07/27/24 09:31) ANAPHYLAXIS Medication List - Last Reconciled 07/27/24 by Mary Gonzalez MD amlodipine-valsartan 10-320 mg 1 tab PO DAILY escitalopram oxalate 5 mg PO DAILY hydrochlorothiazide 25 mg PO QAM metoprolol succinate ER 100 mg PO DAILY mirabegron ER 25 mg PO DAILY olanzapine 10 mg PO BEDTIME oxybutynin chloride ER 10 mg PO BEDTIME 90 days prazosin 6 mg PO BEDTIME ProAir HFA 90 mcg/actuation (albuterol sulfate) 2 inhalations inhalation Q6H PRN 30 days NS trazodone 200 mg (2 x 100 mg) PO BEDTIME 30 days umeclidinium-vilanterol 62.5-25 mcg/actuation (Anoro Ellipta) 1 inh inhalation DAILY 90 days Tobacco use date assessed: 07/27/24 Dental Screening Dental Screen Date: 03/30/24 HPI 4m f/u HPI Details Patient presents for the follow-up on hypertension COPD chronic depression stable on current medications. Patient complains of chronic lower back pain worse after a lifting or working in the garden. He denies pain radiating to lower extremities, change in bowel or bladder function, weakness or in extremities PFSH Medical History Schizoaffective disorder, depressive type ETOH abuse HTN (hypertension) Hyperlipemia Pulmonary sarcoidosis COPD (chronic obstructive pulmonary disease) Nicotine dependence, cigarettes, uncomplicated Cough Hyperglycemia Overweight Hepatic steatosis Depression Painful arc syndrome of left shoulder Surgical History History of hernia repair History of cystoscopy H/O colonoscopy Family History Father Glaucoma Mother No problems noted. Social History Household Members: Spouse Housing: House Do you presently have visiting nurse or other home services: No Alcohol intake: unknown Comment: Amb. Indep. with steady gait. Patient Tobacco Use Status: Current everyday Tobacco user Tobacco use type: Cigarette Cigarettes Per Day: 1 Years Smoked: onset 21yo, 1/2ppd x 58yrs, now 1/4ppd, 28pyh e-Cigarette/Vaping Use: Never Used Second Hand Smoke Exposure: No service: No Current occupational status: retired Current occupation: rt handed Sexual orientation: Straight/Heterosexual Cognitive needs: No Hearing needs: No Vision needs: Yes Questionnaire PHQ-9 Over the last 2 weeks, how often have you been bothered by any of the following problems? 4. Feeling tired or having little energy: several days Source: Developed by Drs. Willie Aggarwal, Paige Pierce, Anup Gan and colleagues, with an educational nadeem from [employer]. Thrive Questionnaire Date Thrive assessed: 03/30/24 I am a: Patient What is your living situation today?: I have a steady place to live Within the past 12 months, did the food you bought not last and you didn't have the money to get more?: Often true Within the past 12 months, did you worry whether your food would run out before you got money to buy more?: Never true Do you have trouble paying for medicines?: No Do you have trouble getting transportation to medical appointments?: No Do you have trouble paying your heating and electricity bill?: No Do you have trouble taking care of your child, family member or friend?: I choose not to answer this question Do you have trouble with day-to-day activities such as bathing, preparing meals, shopping, managing finances, etc.?: No Are you currently unemployed and looking for a job?: No Are you interested in more education?: No Please select the resources that you would like help with: None THRIVE Score: 1 MADIHA-7 AMB Questionnaire MADIHA-7 Date MADIHA - 7 assessed: 03/30/24 Source: Developed by Drs. Willie Aggarwal, Paige Pierce, Anup Gan and colleagues, with an educational nadeem from [employer]. Review of Systems Const All systems reviewed & are unremarkable except as noted in HPI and below Eyes Reports no additional complaints ENT Reports no additional complaints Card Reports no additional complaints Resp Reports no additional complaints GI Reports no additional complaints Reports no additional complaints Physical exam (Primary Care) Vital Signs: Last Vital Signs Pulse 71 07/27/24 09:29 BP 108/66 07/27/24 09:29 Pulse Ox 96 07/27/24 09:29 Oxygen Delivery Method Room Air 07/27/24 09:29 BMI result Body Mass Index 34.4 Tobacco/Smoking Status: Tobacco use Status Tobacco use date assessed 07/27/24 07/27/24 09:32 Patient Tobacco Use Status Current everyday Tobacco 07/27/24 09:32 Tobacco use type Cigarette 07/27/24 09:32 e-Cigarette/Vaping Use Never Used 07/27/24 09:32 Thrive Assessment: Date of Thrive Assessment Date Thrive assessed 03/30/24 07/27/24 09:32 Const General: no acute distress HENMT Head: Yes normal to inspection Mouth: Normal oral and palatal mucosa present Neck Neck: Yes supple Resp Effort & Inspection: normal respiratory effort Auscultation: clear to auscultation bilaterally Cardio Rhythm: regular rhythm Heart sounds: S1 normal heart sound present and S2 normal heart sound present GI Inspection: Yes normal to inspection Palpation (GI): Soft to palpation Percussion: Yes normal to percussion Auscultation: normal bowel sounds Back/Spine/Pelvis Other: There is decreased range of motion paraspinal tenderness in lower lumbar region, straight leg rising 90 degrees bilaterally Coding Level of Care Code Est Pt Level 4 (87295) Complex EM visit Add On G2211 Diagnoses Lower back pain M54.50 HTN (hypertension) I10 Hyperlipemia E78.5 Hyperglycemia R73.9 Schizoaffective disorder, depressive type F25.1 Pulmonary sarcoidosis D86.0 BPH loc w urin obs/LUTS N40.1 Assessment & Plan Assessment & Plan (1) Lower back pain: Code(s): M54.50 - Low back pain, unspecified Category: Medical Plan: For chronic lower back pain extra will be obtained patient was giving home exercises and will be referred to physical therapy if agrees (2) HTN (hypertension): Code(s): I10 - Essential (primary) hypertension Category: Medical Plan: Continue current medications (3) Hyperlipemia: Code(s): E78.5 - Hyperlipidemia, unspecified Category: Medical Plan: Continue low-cholesterol diet (4) Hyperglycemia: Comment: ADA diet Code(s): R73.9 - Hyperglycemia, unspecified Category: Medical Plan: Increase physical activity weight loss discussed with the patient follow-up in 4 months with a fasting labs before (5) Schizoaffective disorder, depressive type: Comment: Follow-up with Psychiatry Code(s): F25.1 - Schizoaffective disorder, depressive type Category: Medical Plan: Continue medications follow-up with psychiatry (6) Pulmonary sarcoidosis: Comment: HE HAS PAST HISTORY OF PULMONARY FIBROSIS, CT SCAN OF THE CHEST DOES NOT SHOW ANY ACTIVE DISEASE. Code(s): D86.0 - Sarcoidosis of lung Category: Medical Plan: Follows up with pulmonology (7) BPH loc w urin obs/LUTS: Code(s): N40.1 - Benign prostatic hyperplasia with lower urinary tract symptoms Category: Medical Plan: Check PSA Orders: Orders Comprehensive [place]. Panel Fast 4 Months E78.5 - Hyperlipidemia, unspecified, I10 - Essential (primary) hypertension, R73.9 - Hyperglycemia, unspecified Lipid Panel 4 Months E78.5 - Hyperlipidemia, unspecified, I10 - Essential (primary) hypertension, R73.9 - Hyperglycemia, unspecified Complete Blood Count Auto Diff 4 Months E78.5 - Hyperlipidemia, unspecified, I10 - Essential (primary) hypertension, R73.9 - Hyperglycemia, unspecified Hemoglobin A1c 4 Months N40.1 - Benign prostatic hyperplasia with lower urinary tract symptoms, R73.9 - Hyperglycemia, unspecified PSA,Total (Free>4and<10) 4 Months N40.1 - Benign prostatic hyperplasia with lower urinary tract symptoms, R73.9 - Hyperglycemia, unspecified XR lumbar spine 2-3V Today M54.50 - Low back pain, unspecified
[2024-07-27 09:29] VITALS: BP 108/66; PULSE 71; O2SAT 96; BMI 34.4
--- OUTSIDE RECORDS SUMMARY | 2024-08-02 00:51 | XMS_ITS ---
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 Name Role Phone Mary Gonzalez MD Primary Care Provider Unavaila Petr Zamarripa Unavailable [phone] Allergies No Known Allergies REASON FOR VISIT At Risk Footcare, Painful Nail(s) aggrevated by shoes and causing difficulty standing/walking., Open sore, Skin problem(s) Medications Medication SIG (Take, Route, Frequency, Duration) Notes Start Date End Date Status Myambutol Active traZODone HCl 100 MG 1 tablet at bedtime Orally Once a day for 30 day(s) 06/11/2020 Active Antibiotic Not-Takin g Ammonium Lactate 12 % 1 application Externally Twice a day for 30 days Active amLODIPine Besy-Benazepril HCl 10-40 MG as directed Orally 06/11/2020 Active ProAir HFA Active Prazosin HCl 2 MG 1 capsule at bedtime Orally Once a day for 30 day(s) 06/11/2020 Active oxyBUTYnin Active Metoprolol Succinate ER 100 MG 1 tablet Orally Once a day for 30 day(s) 06/11/2020 Active Latuda 80 MG 1 tablet with food Orally Once a day for 30 day(s) 06/11/2020 Active Latanoprost 0.005 % 1 drop into affected eye in the evening Ophthalmic Once a day Active hydroCHLOROthiazide 25 MG 1 tablet in th morning Orally Once a day for 30 day(s) Active Citalopram Hydrobromide 10 MG 1 tablet Orally Once a day for 30 day(s) 06/11/2020 Active Ciclopirox 8 % 1 application Externally Once a day Active Social History Tobacco Use: Social History Observation Description Date Details (start date - stop date) Current Smoker NA - NA Tobacco Use/Smoking Question Answer Notes Are you a: current smoker How often do you smoke cigarettes? every day How many cigarettes a day do you smoke? 6-10 Alcohol Screen Question Answer Notes Did you have a drink containing alcohol in the p ast year? No Points 0 Interpretation Negative Tobacco use other than smoking: Question Answer Notes Are you an other tobacco user? No Vital Signs Blood pressure systolic 120 mm Hg 01/28/20 24 Blood pressure diastolic 78 mm Hg 024 Height 5 ft 8 in in 01/28/2024 Weight 215 lbs 01/28/2024 BMI 32.69 kg/m2 01/28/2024 Procedures Procedure Date Ordered Date Performed Result Body Sit e 98027-ZQSREJX NAIL, 6 OR MORE 01/28/2024 N/A 76767-THTZ SKIN LESIONS, OVER 4 01/28/2024 N/A Encounters Encounter Location Date Provider Diagnosis [facility] [address] [address] 01/28/2024 Petr Mcelroy Atherosclerosis of [place] artery of both lower extremities, with unspecified presence of clinical manifestation I70.203 ; Ischemic ulcer of left foot, 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 ; Tinea unguium B35.1 ; Pain in right toe(s) M79.674 ; Pain in left toe(s) M79.675 and Xerosis of skin L85.3 Assessments Encounter Date Diagnosis (ICD Code) Assessment Notes Treatment Notes Treatment Clinical Notes Section Notes 01/28/2024 Atherosclerosis of [place] artery of both lower extremities, with unspecified presence of clinical manifestation (ICD-10 - I70.203) 01/28/2024 Ischemic ulcer of left foot, limited to breakdown of skin (ICD-10 - L97.521) 01/28/2024 Tinea unguium (ICD-10 - B35.1) 01/28/2024 Pain in right toe(s) (ICD-10 - M79.674) 01/28/2024 Pain in left toe(s) (ICD-10 - M79.675) 01/28/2024 Xerosis of skin (ICD-10 - L85.3) Plan Of Treatment Pending Test Test Name Order Date [id number]-[id number] NAIL, 6 OR MORE 01/28/2024 48353-NQEU SKIN LESIONS, OVER 4 01/28/20 24 Next Appt Details Follow Up: prn, Reason: Provider Name:Petr V Navi , 08/04/2024 10:00:00 AM, [address] [place], [address], Procedure Notes * Category Sub-Category Detail Notes Debride Nail 6-10 Nail debridement Nail debridem ent performed extensively to reduce/remove overall nail length, girth, thickness, subungual debris, and necrotic tissue, by manual and electrical means through the use of a nail nipper and/or dremel, to more viable healthy nail plate or bed tissue 1-5. Silver nitrate used for any petechial bleeding as necessary. Patient chooses, no pharmaceutical tx (59132) Keratoma Treatment Parring or Cutting o f Benign Hyperkeratotic Lesion(s) 84202 ( >4 Lesions) - The Benign hyperkeratotic lesions, as described above were pared, and/or cut utilizing a sterile #15 blade, tissue nippers, and/or dremel, Q8 Progress Notes * Mike LAMBDOB: [birth year] (78 yo M)Acc No.[id number]:01/28/2024 Progress Note Patient:?Mike Lamb Provider:?Petr Mcelroy DPM :1945???Age:78 Y???Sex:Male Imer e:01/28/2024 Address:[address] [place], [place] [id number] Pcp:Mary Gonzalez MD Subjective: * Chief Complaints: * ???At Risk FootcarePainful N ail(s) aggrevated by shoes and causing difficulty standing/walking.Open soreSkin problem(s) * HPI: ???At Risk footcare:?Pt States Last PCP Visit:?Date?12/13/2023 ???Skin problems:?Treatments:?medication ( AM Lactin ) , states adherence to recommended treatment application , Local care consisting of daily distilled water wound cleanse, topical antibiotic as recommended, application of sterile dressing, offloading/pressure reduction via rest, shoe modification, insert modification, accommodative padding, and surgical debridement.? * ROS:?General/Constitutional:?Nausea?denies.?Vomiting?denies.?Hunger Thirst?denies.?Loss appetite?denies.?Chills?denies.?Fatigue?denies.?Fever?denies.?Night Sweats?denies.?Unexplained weight loss?denies.?Unexplained weight gain?denies.?HEENTM:?Dentures?denies.?Dizziness?denies.?Glasses/contacts?denies.?Retinopathy?de nies.?Blurred/double vision?denies.?TMJ?denies.?Discharge/drainage?denies.?Implants?denies.?Sore throat?denies.?Dental implants?denies.?Hard of hearing ?denies.?Difficulty chewing/swallowing/speaking?denies.?Nose bleeds?denies.?Sore mouth?denies.?Respiratory:?On Oxygen?denies.?Pneumonia/pleurisy?denies.?Bronchitis?denies.?Emphysema?denies.?C oughing?denies.?Cough blood?denies.?Shortness of breath?denies.?Wheezing?denies.?Cardiovascular:?Pacemaker?denies.?MVP?denies.?WPW?denies.?CHF?denies.?Heart attack?denies.?Septal defect?denies.?Rapid beat?denies.?Chest pain ?denies.?Atrial Fib.?denies.?Murmur/Palpitations?denies.?Gastrointestinal:?Hemorrhoids?denies.?Stomach/Abdominal pain?denies.?Dark blood stool?denies.?Irritable bowel ?denies.?Constipation?denies.?Diarrhea?denies.?Hematology:?Swelling?admits.?Clots?denies.?Varicose Veins?denies.?Bruising?denies.?Bleeding problem?denies.?Genitourinary:?Blood urine?denies.?Frequent/Painfu/urination/bladder control?admits.?Kidney stones?denies.?Infection (UTI)?denies.?Nephropathy?denies.?sex trans dis (STD)?denies.?Prostate?denies.?Musculoskeletal:?Hammertoes?admits.?Bunions?denies.?Back Pain?denies.?Muscle Cramps/ Resting?admits.?Muscle cramps / walking?denies.?Generalized aches and pains?denies.?Weakness?denies.?Integ.:?Manzanares?denies.?Scars?denies.?Corns/calluses?admits.?Ingrown nails?admits.?Painful nails?admits.?Open Sores?denies.?Rashes?denies.?Neurologic:?Difficulty sleeping?denies.?Brain disorder?denies.?Numbness?denies.?Balance trouble?denies.?Confusion?denies.?Fainting/blackouts?denies.?Tingling?denies.?Tr emors?denies.? * Medical History:? * Surgical History:?Hernia 200 9biopsy Lip 02/26/21 * Hospitalization/Major Diagno stic Procedure:?[facility] - Anxiety 05/2021 * Family History:?Mother: dece ased, diagnosed with Unspecified essential hypertension.?Father: , diagnosed with Unspecified essential hypertension.? * Social History:?Tobacco Use:?Tobacco Use/Smoking?Are you a:?current smoker ?How often do you smoke cigarettes??every day ?How many cigarettes a day do you smoke??6-10 ?Tobacco use other than smoking?Are you an other tobacco user??No ???Drugs/Alcohol:?Drugs?Have you used drugs other than those for medical reasons in the past 12 months??No ?Alcohol Screen?Did you have a drink containing alcohol in the past year??No ?Points?0 ?Interpretation?Negative ???Miscellaneous:?no Caffeine, 1-2 cups per day. ?Children: yes. ?Exercise: yes, walking. ?Marital status: . 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 * Medications:?TakingMyambutol amLODIPine Besy-Benazepril HCl 10-40 MG Capsule as directed Orally Ciclopirox 8 % Solution 1 application Externally Once a dayCitalopram Hydrobromide 10 MG Tablet 1 tablet Orally Once a dayhydroCHLOROthiazide 25 MG Tablet 1 tablet in the morning Orally Once a dayLatanoprost 0.005 % Solution 1 drop into affected eye in the evening Ophthalmic Once a dayLatuda 80 MG Tablet 1 tablet with food Orally Once a dayMetoprolol Succinate ER 100 MG Tablet Extended Release 24 Hour 1 tablet Orally Once a dayoxyBUTYnin Prazosin HCl 2 MG Capsule 1 capsule at bedtime Orally Once a dayProAir HFA traZODone HCl 100 MG Tablet 1 tablet at bedtime Orally Once a dayAmmonium Lactate 12 % Cream 1 application Externally Twice a dayTaking Myambutol Taking amLODIPine Besy-Benazepril HCl 10-40 MG Capsule as directed Orally Taking Ciclopirox 8 % Solution 1 application Externally Once a dayTaking Citalopram Hydrobromide 10 MG Tablet 1 tablet Orally Once a dayTaking hydroCHLOROthiazide 25 MG Tablet 1 tablet in the morning Orally Once a dayTaking Latanoprost 0.005 % Solution 1 drop into affected eye in the evening Ophthalmic Once a dayTaking Latuda 80 MG Tablet 1 tablet with food Orally Once a dayTaking Metoprolol Succinate ER 100 MG Tablet Extended Release 24 Hour 1 tablet Orally Once a dayTaking oxyBUTYnin Taking Prazosin HCl 2 MG Capsule 1 capsule at bedtime Orally Once a dayTaking ProAir HFA Taking traZODone HCl 100 MG Tablet 1 tablet at bedtime Orally Once a dayTaking Ammonium Lactate 12 % Cream 1 application Externally Twice a dayNot-Taking/PRNAntibiotic Medication List reviewed and reconciled with the patientNot-Taking/PRN Antibiotic Medication List reviewed and reconciled with the patient * Allergies:?N.K.D.A.yes[Aller gies Verified] Objective: * Vitals:?Ht: 5 ft 8 in, Wt:21 5, BMI:32.69, Shoe size:8, BP:120/78 mm Hg. * Examination: ???Vascular: ?DP PULSES:? 0/4, B/L.?PT PULSES:? 1/4, B/L.?CAPILLARY FILL TIME:? delayed, all digits, B/L.?SKIN TEMPERTURE GRADIENT OF THE LOWER EXTERMITIES:? decreased, cool to cool, proximal to distal, B/L.?HAIR GROWTH/TEXTURE/ELASTICITY/TURGOR:? decreased, B/L.?PIGMENTATION:? rubrous, B/L.?EDEMA:? 1/4, non-pitting, without aching pain, B/L, Leg(s), Ankle(s).?Nails: ?NAILS are:?Elongated, overgrown, dystrophic, lytic, greater than 3mm thick, discolored and friable with crumbly malodorous subungual debris, with pain on palpation, TA, T1, T3, T4, T5, T6, T8, T9.?Dermatologic: ?SKIN FINDINGS:? Skin exam reveals Keratotic lesion(s) located at, SUB MTH (s), 1, B/L , SUB MTH (s), 5, B/L , Heel(s), B/L , Skin shows approximately 90-95% LESS, sign(s) of, dryness, scaling, in a stocking fashion, no fissure(s) present, B/L.?ULCER:?NOW shows complete re-epithelialization, Dorsal, T4, LEFT.? Assessment: * Assessment: 1.?Atherosclerosis of [place]qual[place] artery of both lower extremities, with unspecified presence of clinical manifestation - I70.203?2.?Ischemic ulcer of left foot, limited to breakdown of skin - L97.521 (Primary), Acute problem, Stable (1=3),Response to treatment - Improvement?3.?Tinea unguium - B35.1?4.?Pain in right toe(s) - M79.674?5.?Pain in left toe(s) - M79.675?6.?Xerosis of skin - L85.3, Acute problem, Stable (1=3),Response to treatment - Improvement? Plan: * Treatment: 2.?Tinea unguium?Procedure: [id number] NAIL, 6 OR MORE * Procedures:?Debride Nail 6-10:?Nail debridement?Nail debridement performed extensively to reduce/remove overall nail length, girth, thickness, subungual debris, and necrotic tissue, by manual and electrical means through the use of a nail nipper and/or dremel, to more viable healthy nail plate or bed tissue 1-5. Silver nitrate used for any petechial bleeding as necessary. Patient chooses, no pharmaceutical tx (03253).?Keratoma Treatment:?Parring or Cutting of Benign Hyperkeratotic Lesion(s)?36458 ( >4 Lesions) - The Benign hyperkeratotic lesions, as described above were pared, and/or cut utilizing a sterile #15 blade, tissue nippers, and/or dremel, Q8.? * Procedure Codes:?03660 DEBRI DE NAIL, 6 OR MORE, Modifiers: XS 94225 TRIM SKIN LESIONS, OVER 4, Modifiers: XS , Q8 * Preventive Medicine:? ??Counseling:?Discussion:?-13: Office or other outpatient visit for the evaluation and management of an established patient, which required a medically appropriate history and/or examination and LOW level of DECISION MAKING for: 1 STABLE ACUTE UNCOMPLICATED PROBLEM, 2 OR MORE MINOR PROBLEMS, OR 1 STABLE CHRONIC PROBLEM, THAT POSE(S) A LOW RISK FOR MORBIDITY/MORTALITY. The visit on the day of the encounter encompassed interpreting the data and educating the patient as to the nature of their condition, treatment options available according to their individual PMH, meds, allergies, and overall health/living conditions, as well as any potential risks or complications that may occur from a failure to adhere to, and participate in, the recommended course of therapy. The discussion included a complete verbal, and/or written explanation of the examination results, any x-rays taken, the proposed diagnosis, and outline of the treatment plan. A schedule for future care needs was also explained. The patient verbalized an understanding of the instructions at this time and agreed to be an active participant in their treatment. If the patient should think of any questions or concerns after the visit, I have encouraged the patient to call the office.?Ulcer:?PREVENTIVE STRATEGIES were reviewed with the patient to avoid recurrent ulceration. A set of verbal and written instructions regarding proper daily diabetic footcare techniques was discussed and dispensed. The patient is to pay close attention to skin hydration by maintaining proper moisturization through correct water consumption and consistent application of skin lotions/creams/ointments. They are also to perform regular visual and tactile foot inspections for any interruption in skin integrity including cracks, open lesions, and immediately report to the office any sign of infection such as redness/malodor/drainage/swelling. We discussed and recommended practices and procedures regarding regular shoe and insert evaluations for the presence of foreign bodies as well as for any irregular shoe or insert wear. We reinforced the importance for the patient to adhere to wearing their orthopedic shoes and pressure accommodative innersoles whenever walking. We stressed the significant value for the patient to remain consistent concerning their medically prescribed diet, participate in regular nonweight-bearing exercise (seated weights, exercise bike, or swimming), and keep their scheduled at risk foot care podiatric appointments. We also reviewed the possible role for additional Rx foot/leg bracing or surgical intervention when/if medically warranted.?Xerosis:?Given recent successful results to treatment, The patient is to cont the rx cream as directed.? * Follow Up:?prn * Images: * Sign off status: Completed Addendum: * ? true * Provider:?Petr Mcelroy DPM Date:?2023 Generated for Lisa cartwright/Vero/Jeancarlositting on:?08/02/2024 12:51 AM EST History and Physical Notes * HPI (History of Present Illness) Category Sub-Category Detail Notes Category Not es Skin problems Treatments: medication ( AM Lactin ) , states adherence to recommended treatment application , Local care consisting of daily distilled water wound cleanse, topical antibiotic as recommended, application of sterile dressing, offloading/pressure reduction via rest, shoe modification, insert modification, accommodative padding, and surgical debridement At Risk footcare Pt States Last PCP Visit: Date: 12/13/2023 Examination Category Sub-Category Detail Notes Category Not es Dermatologic SKIN FINDINGS: Skin exam reveal s Keratotic lesion(s) located at, SUB MTH (s), 1, B/L , SUB MTH (s), 5, B/L , Heel(s), B/L , Skin shows approximately 90-95% LESS, sign(s) of, dryness, scaling, in a stocking fashion, no fissure(s) present, B/L ULCER: NOW shows complete r e-epithelialization, Dorsal, T4, LEFT Vascular DP PULSES(B): 0/4, B/L PT PULSES(B): 1/4, B/L CAPILLARY FILL TIME: delayed, all digits , B/L TEMPERTURE GRADIENT(C): decreased, cool to cool, proximal to distal, B/L TROPHIC CONDITION-TEXTURE/ELASTICITY/TURGOR/HAIR GROWTH(B): decreased, B/L EDEMA(C): 1/4, non-pitting, wi thout aching pain, B/L, Leg(s), Ankle(s) PIGMENTATION: rubrous, B/L Nails NAILS are: Elongated, overg rown, dystrophic, lytic, greater than 3mm thick, discolored and friable with crumbly malodorous subungual debris, with pain on palpation, TA, T1, T3, T4, T5, T6, T8, T9
--- OUTSIDE RECORDS SUMMARY | 2024-08-02 00:51 | XMS_ITS ---
Author Organization [facility] Address [address] [place] [address] Care Team Providers Care Mica Miner Name Role Phone Mary Gonzalez MD Primary Care Provider Unavaila Petr Zamarripa Unavailable [phone] REASON FOR VISIT buy Formula 7 Encounters Encounter Location Date Provider Diagnosis [address] [address] 01/28/2024 Petr Mcelroy Plan Of Treatment Next Appt Details Provider Name:Petr Mcelroy , 08/04/2024 10:00:00 AM, [address] [place], [address], Progress Notes * Mike LAMBDOB: [birth year] (78 yo M)Acc No.[id number]:01/28/2024 Patient:?Mike Lamb :1945???Age:78 Y???Sex:Male Address:[address] [place] [address], [address] * true * Date:? Generated for Printi ng/Faxing/eTransmitting on:?08/02/2024 12:51 AM EST
--- OUTSIDE RECORDS SUMMARY | 2024-08-02 00:51 | XMS_ITS ---
Author Organization [facility] Address [address] [facility] [place] [address] Care Team Providers Care Ceramic Restorer Name Role Phone Mary Gonzalez MD Primary Care Provider Petr Fontanez Unavailable [phone] Allergies No Known Allergies REASON FOR VISIT At Risk Footcare, Painful Nail(s) aggrevated by shoes and causing difficulty standing/walking. Medications Medication SIG (Take, Route, Frequency, Duration) Notes Start Date End Date Status oxyBUTYnin Active Ammonium Lactate 12 % 1 application Externally Twice a day for 30 days Active traZODone HCl 100 MG 1 tablet at bedtime Orally Once a day for 30 day(s) 06/11/2020 Active ProAir HFA Active Prazosin HCl 2 MG 1 capsule at bedtime Orally Once a day for 30 day(s) 06/11/2020 Active hydroCHLOROthiazide 25 MG 1 tablet in morning Orally Once a day for 30 day(s) Active Citalopram Hydrobromide 10 MG 1 tablet Orally Once a day for 30 day(s) 06/11/2020 Active Metoprolol Succinate ER 100 MG 1 tablet Orally Once a day for 30 day(s) 06/11/2020 Active Latuda 80 MG 1 tablet with food Orally Once a day for 30 day(s) 06/11/2020 Active Latanoprost 0.005 % 1 drop into affected eye in the evening Ophthalmic Once a day Active Myambutol Active Antibiotic Not-Takin g Ciclopirox 8 % 1 application Externally Once a day Active amLODIPine Besy-Benazepril HCl 10-40 MG as directed Orally 06/11/2020 Active Social History Tobacco Use: Social History [...] Signs Blood pressure systolic 120 mm Hg 04/28/20 24 Blood pressure diastolic 78 mm Hg 024 Height 5 ft 8 in in 04/28/2024 Weight 215 lbs 04/28/2024 BMI 32.69 kg/m2 04/28/2024 Procedures Procedure Date Ordered Date Performed Result Body Sit e 41963-GIJGCUZ NAIL, 6 OR MORE 04/28/2024 N/A 21647-CKIL SKIN LESIONS, OVER 4 04/28/2024 N/A Encounters Encounter Location Date Provider Diagnosis [facility] [address] [address] 04/28/2024 Petr Mcelroy Atherosclerosis of [place] artery of both lower extremities, with unspecified presence of clinical manifestation I70.203 ; Tinea unguium B35.1 ; Pain in right toe(s) M79.674 and Pain in left toe(s) M79.675 Assessments Encounter Date Diagnosis (ICD Code) Assessment Notes Treatment Notes Treatment Clinical Notes Section Notes 04/28/2024 Atherosclerosis of [place] artery of both lower extremities, with unspecified presence of clinical manifestation (ICD-10 - I70.203) 04/28/2024 Tinea unguium (ICD-10 - B35.1) 04/28/2024 Pain in right toe(s) (ICD-10 - M79.674) 04/28/2024 Pain in left toe(s) (ICD-10 - M79.675) Plan Of Treatment Pending Test Test Name Order Date 43030-EVAAANU NAIL, 6 OR MORE 04/28/2024 64099-URWZ SKIN LESIONS, OVER 4 04/28/20 24 Next Appt Details Follow Up: prn, Reason: Provider Name:Petr Mcelroy , 08/04/2024 10:00:00 AM, [address] [place], [address], Procedure Notes * Category Sub-Category Detail Notes Debride Nail 6-10 Nail debridement Performance o f this nail treatment by a nonprofessional would put this patients foot and overall health at risk. Therefore, nail debridement was performed extensively to reduce/remove overall nail length, girth, thickness, subungual debris, and necrotic tissue, by manual and/or electrical means through the use of a nail nipper and/or dremel-type crystal grinder, to a more viable healthy nail plate or bed tissue 6-10. Silver nitrate used for any petechial bleeding as necessary. Definitive antifungal treatment options have been reviewed and discussed with the patient. The patient chooses, no pharmaceutical tx - 41144 Keratoma Treatment Parring or Cutting o f Benign Hyperkeratotic Lesion(s) (-57) More than 4 Lesions - The Benign hyperkeratotic lesions, as described above were pared, and/or cut utilizing a sterile 15 blade, tissue nippers, and/or dremel - 26764 , Q8 Progress Notes * Mike LAMBDOB: [birth year] (79 yo M)Acc No.[id number]:04/28/2024 Progress Note Patient:?Peter Lambzard Provider:Kevin Mcelroy DPM :1945???Age:79 Y???Sex:Male Imer e:04/28/2024 Address:[address] [place], [place] [id number] Pcp:Mary Gonzalez MD Subjective: * Chief Complaints: * ???At Risk FootcarePainful N ail(s) aggrevated by shoes and causing difficulty standing/walking. * HPI: ???At Risk footcare:?Pt States Last PCP Visit:?Date?04/14/2024 * ROS:?General/Constitutional:?Nausea?denies.?Vomiting?denies.?Hunger Thirst?denies.?Loss appetite?denies.?Chills?denies.?Fatigue?denies.?Fever?denies.?Night Sweats?denies.?Unexplained weight loss?denies.?Unexplained [...] 9biopsy Lip 02/26/21 * Hospitalization/Major Diagno stic Procedure:?C - Anxiety 05/2021 * Family History:?Mother: dece [...] yes, walking. ?Marital status: . 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 * Medications:?TakingMyambutol amLODIPine Besy-Benazepril HCl 10-40 MG [...] * Examination: ???Vascular: ?DP PULSES:? 0/4, B/L.?PT PULSES:?0/4, B/L.?CAPILLARY FILL TIME:? delayed, all digits, B/L.?SKIN TEMPERTURE GRADIENT OF THE LOWER EXTERMITIES:? decreased, cool to cool, proximal to distal, B/L.?HAIR GROWTH/TEXTURE/ELASTICITY/TURGOR:? decreased, B/L.?PIGMENTATION:? rubrous, B/L.?EDEMA:? 1/4, non-pitting, without aching pain, B/L, Leg(s), Ankle(s).?CLAUDICATION:?denies, B/L.?REST PAIN:?denies, B/L.?Nails: ?NAILS are:?Elongated, overgrown, dystrophic, lytic, greater than 3mm thick, discolored and friable with crumbly malodorous subungual debris, with pain on palpation, TA, T1, T3, T4, T5, T6, T8, T9.?Dermatologic: ?SKIN FINDINGS:? Skin exam reveals Keratotic lesion(s) located at, SUB MTH (s), 1, B/L , SUB MTH (s), 5, B/L , Heel(s), B/L.? Assessment: * Assessment: 1.?Tinea unguium - B35.1?2.? Atherosclerosis of [place] artery of both lower extremities, with unspecified presence of clinical manifestation - I70.203?3.?Pain in right toe(s) - M79.674?4.?Pain in left toe(s) - M79.675? Plan: * Treatment: 2.?Atherosclerosis of [place] artery of both lower extremities, with unspecified presence of clinical manifestation?Procedure: 41244-QQIF SKIN LESIONS, OVER 4 * Procedures:?Debride Nail 6-10:?Nail debridement?Performance of this nail treatment by a nonprofessional would put this patients foot and overall health at risk. Therefore, nail debridement was performed extensively to reduce/remove overall nail length, girth, thickness, subungual debris, and necrotic tissue, by manual and/or electrical means through the use of a nail nipper and/or dremel-type crystal grinder, to a more viable healthy nail plate or bed tissue 6-10. Silver nitrate used for any petechial bleeding as necessary. Definitive antifungal treatment options have been reviewed and discussed with the patient. The patient chooses, no pharmaceutical tx - 83958.?Keratoma Treatment:?Parring or Cutting of Benign Hyperkeratotic Lesion(s)?(-57) More than 4 Lesions - The Benign hyperkeratotic lesions, as described above were pared, and/or cut utilizing a sterile 15 blade, tissue nippers, and/or dremel - 93851 , Q8.? * Procedure Codes:?08121 DEBRI DE NAIL, 6 OR MORE, Modifiers: XS 65078 TRIM SKIN LESIONS, OVER 4, Modifiers: XS , Q8 * Follow Up:?prn * Images: * Sign off status: Completed true * Provider:?Petr Mcelroy DPM Date:?2023 Generated for Lisa cartwright/Vero/Katarina on:?08/02/2024 12:51 AM EST History and Physical Notes * HPI (History of Present Illness) Category Sub-Category Detail Notes Category Not es At Risk footcare Pt States Last PCP Visit: Date: 4 Examination Category Sub-Category Detail Notes Category Not es Dermatologic SKIN FINDINGS: Skin exam reveal s Keratotic lesion(s) located at, SUB MTH (s), 1, B/L , SUB MTH (s), 5, B/L , Heel(s), B/L Vascular DP PULSES(B): 0/4, B/L PT PULSES(B): 0/4, B/L CAPILLARY FILL TIME: delayed, all digits , B/L TEMPERTURE GRADIENT(C): decreased, cool to cool, proximal to distal, B/L TROPHIC CONDITION-TEXTURE/ELASTICITY/TURGOR/HAIR GROWTH(B): decreased, B/L EDEMA(C): 1/4, non-pitting, wi thout aching pain, B/L, Leg(s), Ankle(s) CLAUDICATION(C): denies, B/L REST PAIN: denies, B/L PIGMENTATION: rubrous, B/L Nails NAILS are: Elongated, overg rown, dystrophic, lytic, greater than 3mm thick, discolored and friable with crumbly malodorous subungual debris, with pain on palpation, TA, T1, T3, T4, T5, T6, T8, T9
--- OUTSIDE RECORDS SUMMARY | 2024-08-02 00:51 | XMS_ITS | Patient Health Record ---
Author Organization [facility] Address [address] [place] [address] Care Team Providers Care Preparator Name Role Phone Mary Gonzalez MD Primary Care Provider Unavaila Petr Zamarripa Unavailable [phone] Allergies No Known Allergies Reason For Referral No Information Medications Medication SIG (Take, Route, Frequency, Duration) Notes Start Date End Date Status Myambutol Active hydroCHLOROthiazide 25 MG 1 tablet in th e morning Orally Once a day for 30 day(s) Active Citalopram Hydrobromide 10 MG 1 tablet Orally Once a day for 30 day(s) 06/11/2020 Active Ciclopirox 8 % 1 application Externally Once a day Active amLODIPine Besy-Benazepril HCl 10-40 MG as directed Orally 06/11/2020 Active oxyBUTYnin Active Metoprolol Succinate ER 100 MG 1 tablet Orally Once a day for 30 day(s) 06/11/2020 Active Latuda 80 MG 1 tablet with food Orally Once a day for 30 day(s) 06/11/2020 Active Latanoprost 0.005 % 1 drop into affected eye in the evening Ophthalmic Once a day Active Ammonium Lactate 12 % 1 application Externally Twice a day for 30 days Active traZODone HCl 100 MG 1 tablet at bedtime Orally Once a day for 30 day(s) 06/11/2020 Active ProAir HFA Active Prazosin HCl 2 MG 1 capsule at bedtime Orally Once a day for 30 day(s) 06/11/2020 Active Antibiotic Not-Takin g Immunizations Vaccine Route Administration Date Status Comme nts COVID-19 Pfizer BioNTech Vaccine Unknown 06/25/2021 Administered 1st 11/28/20 2nd 12/19/20 Influenza Unknown 05/26/2022 Administered Social History Tobacco Use: Social History Observation [...] Are you an other tobacco user? No Problems Problem Type SNOMED Code ICD Code Onset Dates Problem Status W/U Status Risk Notes Problem Atherosclerosis of [place] arteries of the extremities ([id number]) Atherosclerosis of [place] artery of both lower extremities, with unspecified presence of clinical manifestation (I70.203) Active confirmed Vital Signs Blood pressure diastolic 78 mm Hg 04/28/2024 Height 5 ft 8 in in 04/28/2024 Blood pressure systolic 120 mm Hg 04/28/2024 Weight 215 lbs 04/28/2024 BMI 32.69 kg/m2 04/28/2024 Procedures Procedure Date Ordered Date Performed Result Body Sit e 06577-WUPJQON NAIL, 6 OR MORE 10/22/2023 N/A 43611- Debride <25 sq cm 10/22/2023 N/A 55471-VXYP SKIN LESIONS, OVER 4 10/22/2023 N/A 93876-OCCOYLY NAIL, 6 OR MORE 01/28/2024 N/A 58932-LCTY SKIN LESIONS, OVER 4 01/28/2024 N/A 03491-GSJSYOW NAIL, 6 OR MORE 04/28/2024 N/A 11760-CFRY SKIN LESIONS, OVER 4 04/28/2024 N/A Encounters Encounter Location Date Provider Diagnosis [facility] [address] [place] [address] 10/22/2023 Petr Mcelroy Atherosclerosis of [place] artery of both lower extremities, with unspecified presence of clinical manifestation I70.203 ; Tinea unguium B35.1 ; Pain in right toe(s) M79.674 ; Pain in left toe(s) M79.675 ; Ischemic ulcer of left foot, 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 and Xerosis of skin L85.[address] [address] 01/28/2024 Petr Mcelroy Atherosclerosis of [place] artery of both lower extremities, with unspecified presence of clinical manifestation I70.203 ; Ischemic ulcer of left foot, 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 ; Tinea unguium B35.1 ; Pain in right toe(s) M79.674 ; Pain in left toe(s) M79.675 and Xerosis of skin L85.[address] [address] 04/28/2024 Petr Mcelroy Atherosclerosis of [place] artery of both lower extremities, with unspecified presence of clinical manifestation I70.203 ; Tinea unguium B35.1 ; Pain in right toe(s) M79.674 and Pain in left toe(s) M79.[address] [address] 08/24/2023 Petr Mcelroy [address] [address] 01/28/2024 Petr Mcelroy Assessments Encounter Date Diagnosis (ICD Code) Assessment Notes Treatment Notes Treatment Clinical Notes Section Notes 10/22/2023 Tinea unguium (ICD-10 - B35.1) 10/22/2023 Atherosclerosis of [place] artery of both lower extremities, with unspecified presence of clinical manifestation (ICD-10 - I70.203) 01/28/2024 Atherosclerosis of sob[place] artery of both lower extremities, with unspecified presence of clinical manifestation (ICD-10 - I70.203) 01/28/2024 Ischemic ulcer of left foot, limited to breakdown of skin (ICD-10 - L97.521) 04/28/2024 Tinea unguium (ICD-10 - B35.1) 04/28/2024 Atherosclerosis of sob[place] artery of both lower extremities, with unspecified presence of clinical manifestation (ICD-10 - I70.203) 04/28/2024 Pain in right toe(s) (ICD-10 - M79.674) 01/28/2024 Tinea unguium (ICD-10 - B35.1) 10/22/2023 Pain in right toe(s) (ICD-10 - M79.674) 10/22/2023 Pain in left toe(s) (ICD-10 - M79.675) 04/28/2024 Pain in left toe(s) (ICD-10 - M79.675) 01/28/2024 Pain in right toe(s) (ICD-10 - M79.674) 01/28/2024 Pain in left toe(s) (ICD-10 - M79.675) 10/22/2023 Ischemic ulcer of left foot, limited to breakdown of skin (ICD-10 - L97.521) Response to treatment Patient Educated with: WOUND CARE INSTRUCTIONS. pdf (WOUND CARE INSTRUCTIONS. pdf) 01/28/2024 Xerosis of skin (ICD-10 - L85.3) 10/22/2023 Xerosis of skin (ICD-10 - L85.3) Plan Of Treatment Pending Test Test Name Order Date 66751-VQWAZPW NAIL, 6 OR MORE 08/27/2020 95195-SNESEBZ NAIL, 6 OR MORE 11/26/2020 95068-PQBYDUM NAIL, 6 OR MORE 02/28/2021 56037-WEHVAJM NAIL, 6 OR MORE 05/30/2021 86432-RMUJLOB NAIL, 6 OR MORE 09/02/2021 90873-KZYXYBJ NAIL, 6 OR MORE 12/02/2021 05525-LCTMBFT NAIL, 6 OR MORE 03/06/2022 34777-VQDNTJJ NAIL, 6 OR MORE 06/09/2022 70883-KUKPAHV NAIL, 6 OR MORE 09/15/2022 06418-TBFQGUA NAIL, 6 OR MORE 12/15/2022 95321-ZCXPPEA NAIL, 6 OR MORE 03/16/2023 49042-KCYWAQS NAIL, 6 OR MORE 06/15/2023 23068-MMJLEEW NAIL, 6 OR MORE 10/22/2023 53394-WLEBMMH NAIL, 6 OR MORE 01/28/2024 38779-FKNQVLM NAIL, 6 OR MORE 04/28/2024 72576- Debride <25 sq cm 10/22/2023 18683-XNAN SKIN LESIONS, OVER 4 04/28/20 77736-BVNV SKIN LESIONS, OVER 4 01/28/20 24 65066-QJKD SKIN LESIONS, OVER 4 10/22/19 23923-FEMI SKIN LESIONS, OVER 4 06/15/20 37862-NVIL SKIN LESIONS, OVER 4 03/16/20 23 17216-GTAC SKIN LESIONS, OVER 4 12/16/19 25169-RZGH SKIN LESIONS, OVER 4 09/15/19 Next Appt Details Provider Name:Petr Mcelroy , 08/04/2024 10:00:00 AM, [address] [place] [address], [address], Insurance Providers Payer Name Payer Address Payer Phone Subscriber Number Group Number Insured Name Patient Relationship to Insured Coverage Start Date Coverage End Date A[employer] Medicare Complete [address] [address] [place] [address] [id number] Mike Higgins Self - patient is the insured Medical (General) History Medical History History ICD Code Depression High blood pressure Vascular Phlebitis fungus Surgical History Surgery Date(Month/Year) Hernia 2009 biopsy Lip 02/26/21 Hospitalization History Reason Date(Month/Year) [facility] [place] - Anxiety 05/2021
== END 2024-07-27 10:01 | disposition home or self-care (01) ==
PROVIDERS: PCP Internal Medicine; Visit Provider Internal Medicine
DX: M54.50 Low back pain, unspecified (principal); F25.1 Schizoaffective disorder, depressive type; D86.0 Sarcoidosis of lung; I10 Essential (primary) hypertension; E78.5 Hyperlipidemia, unspecified; R73.9 Hyperglycemia, unspecified; N40.1 Benign prostatic hyperplasia with lower urinary tract symptoms

== ENCOUNTER 2024-08-01 09:34 | Outpatient (AMB) | payer MEDICARE, SELFPAY ==
--- NOTE | 2024-08-01 09:42 | A.OFFVIS_ITS ---
Intake Visit Reasons: 6M PVR Follow Up Intake Note: Patient is present for 6M/PVR Urology Medication:OXYBUTYNIN,MIRABEGRON Antibiotic Allergy:NONE Blood Thinner:NONE Last PVR:24ML'S Todays PVR: Director Data Analytics Required: No Allergies bee pollen [BEE STINGS] Allergy (Severe, Verified 08/01/24 09:43) ANAPHYLAXIS HPI Comments Details: Mike is a pleasant [place]ian gentleman. He is a patient of Dr. Llamas. He is seen for the following urologic conditions - lower urinary tract symptoms - combination obstructive and irritative Accompanied by Has remained on Myrbetriq and oxybutynin PVR 24 cc Does wake 4 times at night Controlled during the day Continue current medications Lower Urinary Tract Symptoms:??Predominant storage symptoms ?Current visit is for further evaluation of, lower urinary tract symptoms, predominate irritative storage symptoms ? Still smoking.?Current treatment includes oxybutynin 15 mg ? - 05/12 TUIP.?Prior treatments include 06/08 medication, alpha blockers, flomax/tamsulosin ? 07/09 alpha rich, terazosin 5mg, oxybutynin with dry mouth ?Prostate Symptom Score 07/09 Moderate (9-19), Bother 4 ? 10/12 , Moderate (9-19), Bother 3.?Symptoms include weak stream, nocturia (>2), and are progressing.?Results from testing include? cystoscopy? no abnormality seen 07/09 - small prostate, mild trabeculation ?Prior Prostate Score moderate.?PSA 06/08 , < 2.5, 04/13 0.13 ?Prostate volume 30-50gm.?Testing at next visit will include bladder scan [facility] Medical History Schizoaffective disorder, depressive type ETOH abuse HTN (hypertension) Hyperlipemia Pulmonary sarcoidosis COPD (chronic obstructive pulmonary disease) Nicotine dependence, cigarettes, uncomplicated Cough Hyperglycemia Overweight Hepatic steatosis Depression Painful arc syndrome of left shoulder Surgical History History of hernia repair History of cystoscopy H/O colonoscopy Family History Father Glaucoma Mother No problems noted. Social History Household Members: Spouse Housing: House Do you presently have visiting nurse or other home services: No Alcohol intake: unknown Comment: Amb. Indep. with steady gait. Patient Tobacco Use Status: Current everyday Tobacco user Tobacco use type: Cigarette Cigarettes Per Day: 1 Years Smoked: onset 21yo, 1/2ppd x 58yrs, now 1/4ppd, 28pyh e-Cigarette/Vaping Use: Never Used Second Hand Smoke Exposure: No service: No Current occupational status: retired Current occupation: rt handed Sexual orientation: Straight/Heterosexual Cognitive needs: No Hearing needs: No Vision needs: Yes Review of Systems Const Denies chills and Denies fever(s) Card Reports no additional complaints and Denies syncope Resp Denies cough GI Denies abdominal pain and Denies heartburn Reports as per HPI and Denies change in libido Neuro Denies syncope Psych Denies change in libido Endo Denies change in libido Physical Exam Const General: cooperative, healthy appearing, comfortable and no acute distress Orientation/consciousness: patient oriented x3 HEENT Face and sinus: Yes normal facial exam Mouth: moist mucous membranes Neck Neck: Yes normal visual inspection, Yes full ROM and Yes trachea midline Chest Chest palpation & inspection: normal inspection of the chest Resp Effort & Inspection: normal respiratory effort, able to speak in complete sentences and no respiratory distress GI Inspection: Yes normal to inspection Back/Spine/Pelvis Cervical Spine: normal cervical lordosis Thoracic/Lumbar Spine: thoracic and lumbar spine normal to inspection Skin General skin exam: no rashes or lesions noted Neuro General: patient oriented x3, gait normal, tone normal and moves all extremities Extrem General: Yes normal to inspection and Yes capillary refill normal Results AMB Urinalysis, Automated UA Leukoctes 0 Flynn/uL Last Edit by OSMAR Lechuga on 08/01/24 10:05 UA Nitrite Negative Last Edit by OSMAR Lechuga on 08/01/24 10:05 UA Urobilinogen 0.2 mg/dL Last Edit by OSMAR Lechuga on 08/01/24 10:0 5 UA Protein 0 mg/dL Last Edit by OSMAR Lechuga on 08/01/24 10:05 UA pH 6.0 Last Edit by OSMAR Lechuga on 08/01/24 10:05 UA Blood 0 Kennedy/uL Last Edit by OSMAR Lechuga on 08/01/24 10:05 UA Specific Goodspring 1.015 Last Edit by OSMAR Lechuga on 08/01/24 10: 05 UA Ketone Negative Last Edit by OSMAR Lechuga on 08/01/24 10:05 UA Bilirubin 0 mg/dL Last Edit by OSMAR Lechuga on 08/01/24 10:05 UA Glucose 0 mg/dL Last Edit by OSMAR Lechuga on 08/01/24 10:05 Results Reviewed Results Reviewed: Laboratory Last Values Urine pH (Auto) 6.0 08/01/24 10:04 Specific Goodspring (Auto) 1.015 08/01/24 10:04 Urine Protein (Auto) 0 mg/dL 08/01/24 10:04 Glucose (UA)(Auto) 0 mg/dL 08/01/24 10:04 Urine Ketones (Auto) Negative 08/01/24 10:04 Urine Blood (Auto) 0 Kennedy/uL 08/01/24 10:04 Urine Nitrite (Auto) Negative 08/01/24 10:04 Urine Bilirubin (Auto) 0 mg/dL 08/01/24 10:04 Urine Urobilinogen (Auto) 0.2 mg/dL 08/01/24 10:04 Leukocyte Esterase (Auto) 0 Flynn/uL 08/01/24 10:04 Assessment & Plan Assessment & Plan (1) Overactive bladder: Comment: Oxybutynin Code(s): N32.81 - Overactive bladder Category: Medical (2) BPH loc w urin obs/LUTS: Code(s): N40.1 - Benign prostatic hyperplasia with lower urinary tract symptoms Category: Medical Plan Six-month follow-up Orders: Orders AMB Urinalysis Automated Today Z13.9 - Encounter for screening, unspecified Medications: Refilled oxybutynin chloride ER 10 mg PO BEDTIME 90 days 90 tabs 1RF N32.81 - Overactive bladder mirabegron ER 25 mg PO DAILY 90 tabs 1RF Patient Instructions: Imaging studies, laboratory and physical exam results were discussed and reviewed in detail. No major barriers to patient understanding were identified. An opportunity to ask questions regarding the treatment plan was provided. All questions were answered. The patient expressed understanding and agreement with the above treatment plan. The patient is aware they should contact our office by phone for worsening of their current condition or the appearance of new urologic symptoms. Compliance is encouraged with any medications and followup testing that is ordered. It is a privilege to participate in the urologic care of your patient. If you have any questions or concerns regarding treatment for the above conditions, or other urologic issues, please do not hesitate to contact me. The office telephone contact is [phone]. This note is constructed using voice recognition software. While every effort has been made to ensure accuracy enterprise resource planner errors may have been included. Yours sincerely, Dr Van Reardon MD, [facility]rology Providers of Expert, Compassionate Care for the Genitourinary System Coding Level of Care Code Est Pt Level 3 (26050) Diagnoses Overactive bladder N32.81 BPH loc w urin obs/LUTS N40.1
== END 2024-08-01 10:19 | disposition home or self-care (01) ==
PROVIDERS: PCP Internal Medicine; Visit Provider Urology
DX: N32.81 Overactive bladder (principal); N40.1 Benign prostatic hyperplasia with lower urinary tract symptoms; Z13.9 Encounter for screening, unspecified
CPT/HCPCS: 99213

== ENCOUNTER → 2024-08-01 09:34 | Outpatient (BNVA) | payer MEDICARE, SELFPAY | PROVIDERS: PCP Internal Medicine; Visit Provider Urology | DX: N40.1 Benign prostatic hyperplasia with lower urinary tract symptoms (principal); N32.81 Overactive bladder | CPT/HCPCS: 81003; 99212 ==

== ENCOUNTER 2024-09-21 10:24 | Outpatient (AMB) | payer BC, SELFPAY ==
--- NOTE | 2024-09-21 10:37 | A.OFFVIS_ITS ---
Vital Signs 09/21/24 10:38 Height 5 ft 8 in Weight 223 lb 12.307 oz BMI 34.0 BP 110/70 Blood Pressure Location Lt brachial Position Sitting Pulse 64 Pulse Source Pulse Oximeter Pulse Oximetry (%) 96 Oxygen Delivery Method Room Air Intake Visit Reasons: Cough Intake Note: pt is here for follow up and states some coughing with some short of breath Chemistry Technologist Required: No Allergies bee pollen [BEE STINGS] Allergy (Severe, Verified 09/26/24 09:02) ANAPHYLAXIS Medication List - Last Reconciled 09/26/24 by Cortney Dominguez MD amlodipine-valsartan 10-320 mg 1 tab PO DAILY escitalopram oxalate 5 mg PO DAILY hydrochlorothiazide 25 mg PO QAM metoprolol succinate ER 100 mg PO DAILY mirabegron ER 25 mg PO DAILY olanzapine 10 mg PO BEDTIME oxybutynin chloride ER 10 mg PO BEDTIME 90 days prazosin 6 mg PO BEDTIME ProAir HFA 90 mcg/actuation (albuterol sulfate) 2 inhalations inhalation Q6H PRN 30 days NS trazodone 200 mg (2 x 100 mg) PO BEDTIME 30 days umeclidinium-vilanterol 62.5-25 mcg/actuation (Anoro Ellipta) 1 inh inhalation DAILY 90 days Do you need a note to return to daycare/school/sports/work: No HPI HPI Cough: Details: This 79 years old gentleman is here for his routine 4 months follow-up. He is quite pleasant and happy, denies any significant complaint of cough. He still gets short of breath on walking up hill or if he walks fast. Has had no recent respiratory infection. Continue to use his Anoro Ellipta once a day and ProAir only once in a while. PENDING SALE TO [facility] Medical History Schizoaffective disorder, depressive type ETOH abuse HTN (hypertension) Hyperlipemia Pulmonary sarcoidosis COPD (chronic obstructive pulmonary disease) Nicotine dependence, cigarettes, uncomplicated Cough Hyperglycemia Overweight Hepatic steatosis Depression Painful arc syndrome of left shoulder Surgical History History of hernia repair History of cystoscopy H/O colonoscopy Family History Father Glaucoma Mother No problems noted. Social History Household Members: Spouse Housing: House Do you presently have visiting nurse or other home services: No Alcohol intake: unknown Comment: Amb. Indep. with steady gait. Patient Tobacco Use Status: Current everyday Tobacco user Tobacco use type: Cigarette Cigarettes Per Day: 3 Years Smoked: onset 21yo, 1/2ppd x 58yrs, now 1/4ppd, 28pyh e-Cigarette/Vaping Use: Never Used Second Hand Smoke Exposure: No service: No Current occupational status: retired Current occupation: rt handed Sexual orientation: Straight/Heterosexual Cognitive needs: No Hearing needs: No Vision needs: Yes Review of Systems Const All systems reviewed & are unremarkable except as noted in HPI and below Eyes Reports no additional complaints ENT Reports no additional complaints Card Denies chest pain, Denies irregular heart rhythm and Denies leg edema Resp Reports as per HPI GI Reports no additional complaints Reports urinary incontinence (CONTROLLED WITH MED) Skin/Breast Reports system reviewed and no additional complaints, except as documented Neuro Reports no additional complaints Psych Reports depression (MILD CONTROLLED) Endo Reports no additional complaints Physical Exam Vital Signs: Last Vital Signs Pulse 64 09/21/24 10:38 BP 110/70 09/21/24 10:38 Pulse Ox 96 09/21/24 10:38 Oxygen Delivery Method Room Air 09/21/24 10:38 BMI result Body Mass Index 34.0 Const General: comfortable, no acute distress, alert and awake Orientation/consciousness: patient oriented x3 HEENT Head: Yes normal to inspection General nose exam: No nasal polyps present and No nasal discharge present Face and sinus: Yes sinuses nontender Mouth: oropharynx normal Throat: Yes posterior oropharynx normal Eyes General: appearance normal, both eyes and all related structures Neck Neck: Yes normal visual inspection, Yes no lymphadenopathy, Yes trachea midline and Yes no JVD Thyroid: Thyroid normal Chest Chest palpation & inspection: normal inspection of the chest, normal palpation of entire chest wall and no tenderness Resp Other: PERCUSSION NOTE RESONANT, BREATH SOUNDS ARE EQUAL ON BOTH SIDES, MODERATELY DISTANT WITH PROLONGED EXPIRATORY PHASE. LUNGS ARE CLEAR BUT BREATH SOUNDS ARE DISTANT . Cardio Palpation: normal PMI Rate: regular rate Rhythm: regular rhythm Heart sounds: no gallops and no murmurs Peripheral pulses: Peripheral pulses 2+ throughout GI Palpation (GI): Soft to palpation, nontender, No hepatosplenomegaly present and no masses Auscultation: normal bowel sounds Back/Spine/Pelvis Thoracic/Lumbar Spine: thoracic and lumbar spine normal to inspection Skin General skin exam: no rashes or lesions noted Neuro General: patient oriented x3 and no focal motor deficits Cranial nerves: Yes CN's II-XII intact bilaterally Extrem General: Yes normal to inspection, Yes no clubbing, cyanosis or edema and Yes no calf tenderness Psych Appearance: grossly normal and well kempt Speech and movement: Normal speech and movement present Assessment & Plan Assessment & Plan (1) COPD (chronic obstructive pulmonary disease): Comment: (Mild to moderate COPD - secondary to smoking) Remains well controlled and stable on his current regimen. Code(s): J44.9 - Chronic obstructive pulmonary disease, unspecified Category: Medical Plan: CONTINUE TO USE ANORO ELLIPTA 1 INHALATION DAILY. PROAIR HFA 2 PUFFS Q 6 HOURS ONLY P.R.N. (2) Pulmonary sarcoidosis: Comment: HE HAS PAST HISTORY OF PULMONARY FIBROSIS, CT SCAN OF THE CHEST DOES NOT SHOW ANY ACTIVE DISEASE. Code(s): D86.0 - Sarcoidosis of lung Category: Medical Plan: NO ACTIVE TREATMENT FOR THIS (3) Nicotine dependence, cigarettes, uncomplicated: Comment: (current smoker - onset 21yo, 1/2ppd x 57yrs, now 1/4ppd, 28pyh) Claims it is down to 3-4 cigarettes a day. Code(s): F17.210 - Nicotine dependence, cigarettes, uncomplicated Category: Medical Plan: COUNSELED TO KEEP THE CIGARETTES AT MINIMAL. HE IS NOT MOTIVATED TO STOP COMPLETELY. Coding Level of Care Code Est Pt Level 3 (70186) Diagnoses COPD (chronic obstructive pulmonary disease) J44.9 Pulmonary sarcoidosis D86.0 Nicotine dependence, cigarettes, uncomplicated F17.210
[2024-09-21 10:38] VITALS: BP 110/70; PULSE 64; O2SAT 96; BMI 34.0
--- OUTSIDE RECORDS SUMMARY | 2024-09-21 13:56 | XMS_ITS | Patient Health Record ---
Author Organization [facility] Address [address] [place] [address] Care Team Providers Care Nutrition Internship Name Role Phone Mary Gonzalez MD Primary Care Provider Unavaila Petr Zamarripa Unavailable [phone] Allergies No Known Allergies Reason For Referral No Information Medications Medication SIG (Take, Route, Frequency, Duration) Notes Start Date End Date Status Latuda 80 MG 1 tablet with food Orally Once a day for 30 day(s) 06/11/2020 Active Latanoprost 0.005 % 1 drop into affected eye in the evening Ophthalmic Once a day Not-Taking oxyBUTYnin Active Metoprolol Succinate ER 100 MG 1 tablet Orally Once a day for 30 day(s) 06/11/2020 Active ProAir HFA Active Prazosin HCl 2 MG 1 capsule at bedtime Orally Once a day for 30 day(s) 06/11/2020 Active amLODIPine Besy-Benazepril HCl 10-40 MG as directed Orally 06/11/2020 Active Ammonium Lactate 12 % 1 application Externally Twice a day for 30 days Active Myambutol Not-Taking traZODone HCl 100 MG 1 tablet at bedtime Orally Once a day for 30 day(s) 06/11/2020 Active Ciclopirox 8 % 1 application Externally Once a day Not-Taking Antibiotic Not-Takin g hydroCHLOROthiazide 25 MG 1 tablet in th e morning Orally Once a day for 30 day(s) Active Citalopram Hydrobromide 10 MG 1 tablet Orally Once a day for 30 day(s) 06/11/2020 Active Immunizations Vaccine Route Administration Date Status Comme nts COVID-19 [employer] Vaccine Unknown 06/25/2021 Administered 1st 11/28/20 [...] W/U Status Risk Notes Problem Atherosclerosis of [place] arteries of the extremities ([id number]) Atherosclerosis of [place] artery of both lower extremities, with unspecified presence of clinical manifestation (I70.203) Active confirmed Problem Benign essential hypertension (7763518) Essential hypertension (I10) Active confirmed Vital Signs Blood pressure diastolic 80 mm Hg 08/04/2024 Height 5 ft 8 in in 08/04/2024 Blood pressure systolic 120 mm Hg 08/04/2024 Weight 215 lbs 08/04/2024 BMI 32.69 kg/m2 08/04/2024 Procedures Procedure Date Ordered Date Performed Result Body Sit e 05423-IHMRBUW NAIL, 6 OR MORE 10/22/2023 N/A 99142- Debride <25 sq cm 10/22/2023 N/A 79571-CQFR SKIN LESIONS, OVER 4 10/22/2023 N/A 58023-DLPMXVH NAIL, 6 OR MORE 01/28/2024 N/A 79343-FROA SKIN LESIONS, OVER 4 01/28/2024 N/A 29354-TMISBRB NAIL, 6 OR MORE 04/28/2024 N/A 73859-QSSH SKIN LESIONS, OVER 4 04/28/2024 N/A 61809-NDRAIIB NAIL, 6 OR MORE 08/04/2024 N/A 48173-MGAN SKIN LESIONS, OVER 4 08/04/2024 N/A Encounters Encounter Location Date Provider Diagnosis [facility] [address] [place] [address] 10/22/2023 Petr Mcelroy Atherosclerosis of 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 artery of both lower extremities, with unspecified presence of clinical manifestation I70.203 ; Tinea unguium B35.1 ; Pain in right toe(s) M79.674 and Pain in left toe(s) M79.[address] [address] 08/04/2024 Petr Mcelroy Atherosclerosis of [place] artery of both lower extremities, with unspecified presence of clinical manifestation I70.203 ; Tinea unguium B35.1 ; Pain in right toe(s) M79.674 and Pain in left toe(s) M79.[address] [address] 01/28/2024 Petr Mcelroy Assessments Encounter Date Diagnosis (ICD Code) Assessment Notes Treatment Notes Treatment Clinical Notes Section Notes 10/22/2023 Tinea unguium (ICD-10 - B35.1) 10/22/2023 Atherosclerosis of [place] artery of both lower extremities, with unspecified presence of clinical manifestation (ICD-10 - I70.203) 01/28/2024 Atherosclerosis of [place] artery of both lower extremities, with unspecified presence of clinical manifestation (ICD-10 - I70.203) 01/28/2024 Ischemic ulcer of left foot, limited to breakdown of skin (ICD-10 - L97.521) 04/28/2024 Tinea unguium (ICD-10 - B35.1) 04/28/2024 Atherosclerosis of [place] artery of both lower extremities, with unspecified presence of clinical manifestation (ICD-10 - I70.203) 08/04/2024 Tinea unguium (ICD-10 - B35.1) 08/04/2024 Atherosclerosis of [place] artery of both lower extremities, with unspecified presence of clinical manifestation (ICD-10 - I70.203) 04/28/2024 Pain in right toe(s) (ICD-10 - M79.674) 08/04/2024 Pain in right toe(s) (ICD-10 - M79.674) 01/28/2024 Tinea unguium (ICD-10 - B35.1) 10/22/2023 Pain in right toe(s) (ICD-10 - M79.674) 10/22/2023 Pain in left toe(s) (ICD-10 - M79.675) 04/28/2024 Pain in left toe(s) (ICD-10 - M79.675) 08/04/2024 Pain in left toe(s) (ICD-10 - M79.675) [...] Treatment Pending Test Test Name Order Date 12492-QEKWYZI NAIL, 6 OR MORE 08/27/2020 38800-JAUQSHL NAIL, 6 OR MORE 11/26/2020 08622-CFQPCQF NAIL, 6 OR MORE 02/28/2021 26877-DUSBYNG NAIL, 6 OR MORE 05/30/2021 50710-HHJNBRH NAIL, 6 OR MORE 09/02/2021 62956-UPBPOOO NAIL, 6 OR MORE 12/02/2021 72375-RRUMVVX NAIL, 6 OR MORE 03/06/2022 10524-EXRHOJS NAIL, 6 OR MORE 06/09/2022 79938-NAUOJQS NAIL, 6 OR MORE 09/15/2022 11135-CULHCUW NAIL, 6 OR MORE 12/15/2022 75449-JVTPMJN NAIL, 6 OR MORE 03/16/2023 86147-LNYOZHH NAIL, 6 OR MORE 06/15/2023 45303-IMBJQMF NAIL, 6 OR MORE 10/22/2023 72336-BVZZAON NAIL, 6 OR MORE 01/28/2024 94522-QSWBUFC NAIL, 6 OR MORE 04/28/2024 99651-NDUXLDQ NAIL, 6 OR MORE 08/04/2024 77743- Debride <25 sq cm 10/22/2023 01988-JBBK SKIN LESIONS, OVER 4 08/04/20 24 65581-USJC SKIN LESIONS, OVER 4 04/28/20 24 39261-WAYS SKIN LESIONS, OVER 4 01/28/20 24 84672-QMWR SKIN LESIONS, OVER 4 10/22/19 24 63036-OAFJ SKIN LESIONS, OVER 4 06/15/20 23 92348-HNZP SKIN LESIONS, OVER 4 03/16/20 23 61176-MSVW SKIN LESIONS, OVER 4 12/16/19 23 00896-IXAO SKIN LESIONS, OVER 4 09/15/19 23 Next Appt Details Provider Name:Petr Mcelroy , 11/07/2024 10:00:00 AM, [address] [place] [address], [phone], Insurance Providers Payer Name Payer Address Payer Phone Subscriber Number Group Number Insured Name Patient Relationship to Insured Coverage Start Date Coverage End Date A[employer] Medicare Complete [address] [address] [place] [address] [phone] [id number] Mike Higgins Self - patient is the insured Medical (General) History Medical History History ICD Code Depression High blood pressure Vascular Phlebitis fungus Surgical History Surgery Date(Month/Year) Hernia 2009 biopsy Lip 02/26/21 Hospitalization History Reason Date(Month/Year) [facility] [place] - Anxiety 05/2021
--- OUTSIDE RECORDS SUMMARY | 2024-09-21 13:56 | XMS_ITS ---
Author Organization [facility] Address [address] [place] [address] Care Team Providers Care Stem Cleaning Machine Feeder Name Role Phone Mary Gonzalez MD Primary Care Provider Unavaila Petr Zamarripa Unavailable [phone] REASON FOR VISIT buy Formula 7 Encounters Encounter Location Date Provider Diagnosis [address] [address] 01/28/2024 Petr Mcelroy Plan Of Treatment Next Appt Details Provider Name:Petr Mcelroy , 11/07/2024 10:00:00 AM, [address] [place], [address], Progress Notes * Mike LAMBDOB: [birth year] (78 yo M)Acc No.[id number]:01/28/2024 Patient:?Mike Lamb :1945???Age:78 Y???Sex:Male Address:[address] [place] [address], [address] * true * Date:? Generated for Printi ng/Faxing/eTransmitting on:?09/21/2024 01:56 PM EST
--- OUTSIDE RECORDS SUMMARY | 2024-09-21 13:56 | XMS_ITS ---
Author Organization [facility] Address [address] [facility] [place] [address] Care Team Providers Care Basin Operator Name Role Phone Mary Gonzalez MD Primary Care Provider Petr Fontanez Unavailable [phone] Allergies No Known Allergies REASON FOR VISIT [...] an other tobacco user? No Vital Signs Height 5 ft 8 in in 04/28/2024 Weight 215 lbs 04/28/2024 BMI 32.69 kg/m2 04/28/2024 Blood pressure systolic 120 mm Hg 04/28/20 24 Blood pressure diastolic 78 mm Hg 024 Procedures Procedure Date Ordered Date Performed Result Body Sit e 78864-IMGYOGF NAIL, 6 OR MORE 04/28/2024 N/A 85967-YLLU SKIN LESIONS, OVER 4 04/28/2024 N/A Encounters Encounter Location Date Provider Diagnosis [facility] [address] [address] 04/28/2024 Petr Mcelroy Atherosclerosis of [place] artery of both lower extremities, with unspecified presence of clinical manifestation I70.203 ; Tinea unguium B35.1 ; Pain in right toe(s) M79.674 and Pain in left toe(s) M79.675 Assessments Encounter Date Diagnosis (ICD Code) Assessment Notes Treatment Notes Treatment Clinical Notes Section Notes 04/28/2024 Atherosclerosis of [place] artery of both lower extremities, with unspecified presence of clinical manifestation (ICD-10 - I70.203) 04/28/2024 Tinea unguium (ICD-10 - B35.1) 04/28/2024 Pain in right toe(s) (ICD-10 - M79.674) 04/28/2024 Pain in left toe(s) (ICD-10 - M79.675) Plan Of Treatment Pending Test Test Name Order Date 63495-NAENDWU NAIL, 6 OR MORE 04/28/2024 71752-VFQR SKIN LESIONS, OVER 4 04/28/20 24 Next Appt Details Follow Up: prn, Reason: Provider Name:Petr Mcelroy , 11/07/2024 10:00:00 AM, [address] [place], [address], Procedure Notes * Category Sub-Category Detail Notes Debride Nail 6-10 Nail debridement Performance o f this nail treatment by a nonprofessional would put this patients foot and overall health at risk. Therefore, nail debridement was performed extensively to reduce/remove overall nail length, girth, thickness, subungual debris, and necrotic tissue, by manual and/or electrical means through the use of a nail nipper and/or dremel-type tool grinder set up operator gear, to a more viable healthy nail plate or bed tissue 6-10. Silver nitrate used for any petechial bleeding as necessary. Definitive antifungal treatment options have been reviewed and discussed with the patient. The patient chooses, no pharmaceutical tx - 19254 Keratoma Treatment Parring or Cutting o f Benign Hyperkeratotic Lesion(s) (-57) More than 4 Lesions - The Benign hyperkeratotic lesions, as described above were pared, and/or cut utilizing a sterile 15 blade, tissue nippers, and/or dremel - 42420 , Q8 Progress Notes * Mike LAMBDOB: [birth year] (79 yo M)Acc No.[id number]:04/28/2024 Progress Note Patient:?Peter Lambzard Provider:Kevin Mcelroy DPM :1945???Age:79 Y???Sex:Male Imer e:04/28/2024 Address:[address] [place], [place] [id number] Pcp:Mary Gonzalez MD Subjective: * Chief Complaints: [...] yes, walking. ?Marital status: . ?Occupation: Retired-, [employer]. * Medications:?TakingMyambutol amLODIPine Besy-Benazepril HCl 10-40 MG [...] Assessment: 1.?Tinea unguium - B35.1?2.? Atherosclerosis of [place] artery of both lower extremities, with unspecified presence of clinical manifestation - I70.203?3.?Pain in right toe(s) - M79.674?4.?Pain in left toe(s) - M79.675? Plan: * Treatment: 2.?Atherosclerosis of [place] artery of both lower extremities, with unspecified presence of clinical manifestation?Procedure: 56507-ATJU SKIN LESIONS, OVER 4 * Procedures:?Debride Nail 6-10:?Nail debridement?Performance of this nail treatment by a nonprofessional would put this patients foot and overall health at risk. Therefore, nail debridement was performed extensively to reduce/remove overall nail length, girth, thickness, subungual debris, and necrotic tissue, by manual and/or electrical means through the use of a nail nipper and/or dremel-type tool grinder set up operator gear, to a more viable healthy nail plate or bed tissue 6-10. Silver nitrate used for any petechial bleeding as necessary. Definitive antifungal treatment options have been reviewed and discussed with the patient. The patient chooses, no pharmaceutical tx - 19895.?Keratoma Treatment:?Parring or Cutting of Benign Hyperkeratotic Lesion(s)?(-57) More than 4 Lesions - The Benign hyperkeratotic lesions, as described above were pared, and/or cut utilizing a sterile 15 blade, tissue nippers, and/or dremel - 16956 , Q8.? * Procedure Codes:?78042 DEBRI DE NAIL, 6 OR MORE, Modifiers: XS 99279 TRIM SKIN LESIONS, OVER 4, Modifiers: XS , Q8 * Follow Up:?prn * Images: * Sign off status: Completed true * Provider:?Petr Mcelroy DPM Date:?2023 Generated for Lisa cartwright/Vero/Katarina on:?09/21/2024 01:56 PM EST History and Physical Notes * HPI (History of Present Illness) Category Sub-Category Detail Notes Category Not es At Risk footcare Pt States Last PCP Visit: Date: 4 Examination Category Sub-Category Detail Notes Category Not es Dermatologic SKIN FINDINGS: Skin exam reveal s Keratotic lesion(s) located at, SUB MTH (s), 1, B/L , SUB MTH (s), 5, B/L , Heel(s), B/L Vascular DP PULSES (B): 0/4, B/L PT PULSES (B): 0/4, B/L CAPILLARY FILL TIME: delayed, all digits , B/L TEMPERTURE GRADIENT (C): decreased, cool to cool, proximal to distal, B/L TROPHIC CONDITION-TEXTURE/ELASTICITY/TURGOR/HAIR GROWTH (B): decreased, B/L EDEMA (C): 1/4, non-pitting, wi thout aching pain, B/L, Leg(s), Ankle(s) CLAUDICATION (C): denies, B/L REST PAIN: denies, B/L PIGMENTATION: rubrous, B/L Nails NAILS are: Elongated, overg rown, dystrophic, lytic, greater than 3mm thick, discolored and friable with crumbly malodorous subungual debris, with pain on palpation, TA, T1, T3, T4, T5, T6, T8, T9
--- OUTSIDE RECORDS SUMMARY | 2024-09-21 13:57 | XMS_ITS ---
Author Organization [facility] Address [address] [facility] [place] [address] Care Team Providers Care Veterinarian Poultry Name Role Phone Mary Gonzalez MD Primary Care Provider Petr Fontanez Unavailable [phone] Allergies No Known Allergies REASON FOR VISIT At Risk Footcare, Painful Nail(s) aggrevated by shoes and causing difficulty standing/walking. Medications Medication SIG (Take, Route, Frequency, Duration) Notes Start Date End Date Status oxyBUTYnin Active ProAir HFA Active Prazosin HCl 2 MG 1 capsule at bedtime Orally Once a day for 30 day(s) 06/11/2020 Active Ammonium Lactate 12 % 1 [...] the evening Ophthalmic Once a day Not-Taking Metoprolol Succinate ER 100 MG 1 tablet Orally Once a day for 30 day(s) 06/11/2020 Active hydroCHLOROthiazide 25 MG 1 tablet in e morning Orally Once a day for 30 day(s) Active Citalopram Hydrobromide 10 MG 1 tablet Orally Once a day for 30 day(s) 06/11/2020 Active amLODIPine Besy-Benazepril HCl 10-40 MG as directed Orally 06/11/2020 Active Myambutol Not-Taking Ciclopirox 8 % 1 application Externally Once a day Not-Taking Antibiotic Not-[place] g Social History Tobacco Use: Social History Observation Description Date Details (start date - stop date) Current Smoker NA - NA Tobacco Use/Smoking Question Answer Notes Are you a: current smoker How often do you smoke cigarettes? every day How many cigarettes a day do you smoke? 6-10 Tobacco use other than smoking: Question Answer Notes Are you an other tobacco user? No Problems Problem Type SNOMED Code ICD Code Onset Dates Problem Status W/U Status Risk Notes Problem Benign essential hypertension (2574543) Essential hypertension (I10) Active confirmed Vital Signs Height 5 ft 8 in in 08/04/2024 Weight 215 lbs 08/04/2024 BMI 32.69 kg/m2 08/04/2024 Blood pressure systolic 120 mm Hg 08/04/20 24 Blood pressure diastolic 80 mm Hg 024 Procedures Procedure Date Ordered Date Performed Result Body Sit e 30632-PNHYGTM NAIL, 6 OR MORE 08/04/2024 N/A 46970-KGBJ SKIN LESIONS, OVER 4 08/04/2024 N/A Encounters Encounter Location Date Provider Diagnosis [facility] [address] [place] [address] 08/04/2024 Petr Mcelroy Atherosclerosis of [place] artery of both lower extremities, with unspecified presence of clinical manifestation I70.203 ; Tinea unguium B35.1 ; Pain in right toe(s) M79.674 and Pain in left toe(s) M79.675 Assessments Encounter Date Diagnosis (ICD Code) Assessment Notes Treatment Notes Treatment Clinical Notes Section Notes 08/04/2024 Atherosclerosis of [place] artery of both lower extremities, with unspecified presence of clinical manifestation (ICD-10 - I70.203) 08/04/2024 Tinea unguium (ICD-10 - B35.1) 08/04/2024 Pain in right toe(s) (ICD-10 - M79.674) 08/04/2024 Pain in left toe(s) (ICD-10 - M79.675) Plan Of Treatment Pending Test Test Name Order Date 39830-CSMYIBP NAIL, 6 OR MORE 08/04/2024 98940-SOUM SKIN LESIONS, OVER 4 08/04/20 24 Next Appt Details Follow Up: prn, Reason: Provider Name:Petr Mcelroy , 11/07/2024 10:00:00 AM, [address] [place] [address], [phone], Procedure Notes * Category Sub-Category Detail Notes Debride Nail 6-10 Nail debridement Due to the cl inical pathology outlined in the exam findings, performance of this nail treatment is medically necessary as its management by an unskilled/untrained nonprofessional would put this patients foot and overall health at risk. Therefore, debridement to affected nail(s), as described in exam ( TA, T1, T3, T4, T5, T6, T8, T9), was performed exclusively by the physician of record to reduce/remove overall nail length, girth, thickness, subungual debris, and necrotic tissue, by manual and/or electrical means through the use of a nail nipper and/or dremel-type gear grinder, to a more viable healthy nail plate or bed tissue 6-10 nails in total. Silver nitrate was used for any petechial bleeding as necessary. Definitive antifungal treatment options, both pharmaceutical and surgical, have been reviewed and discussed with the patient. The patient solely prefers the use of intermittent/as needed professional debridement services for their nail condition and understands the need for additional periodic treatments to maintain effectiveness in symptomatic relief - 30317 Keratoma Treatment Parring or Cutting o f Benign Hyperkeratotic Lesion(s) (-57) More than 4 Lesions - Due to the at risk nature of the patients medical condition as documented in the exam findings, performance of this keratoderma treatment is medically necessary as its management by an unskilled/untrained nonprofessional would put this patients foot and overall health at risk. Therefore, the benign hyperkeratotic lesions, ( 6) in total, locations as stated and described in the exam ( SUB MTH (s), 1, B/L , SUB MTH (s), 5, B/L ,Plantar, Heel(s), B/L), were pared, and/or cut utilizing a sterile 15 blade, tissue nippers, and/or power dremel instrumentation by the physician of record - 07534, Q8 Progress Notes * Mike LAMBDOB: [birth year] (79 yo M)Acc No.[id number]:08/04/2024 Progress Note Patient:Mike ADDISON Provider:?Petr Mcelroy DPM :1945???Age:79 Y???Sex:Male Imer e:08/04/2024 Address:[address] [place], [place] [id number] Pcp:Mary Gonzalez MD Subjective: * Chief Complaints: * ???At Risk FootcarePainful N ail(s) aggrevated by shoes and causing difficulty standing/walking. * HPI: ???At Risk footcare:?Pt States Last PCP Visit:?Date?07/24/2024 * ROS:?General/Constitutional:?Nausea?denies.?Vomiting?denies.?Hunger Thirst?denies.?Loss appetite?denies.?Chills?denies.?Fatigue?denies.?Fever?denies.?Night Sweats?denies.?Unexplained weight loss?denies.?Unexplained [...] than smoking?Are you an other tobacco user??No ???Miscellaneous:?Caffeine: no, 1-2 cups per day. ?Children: yes. ?Exercise: yes, walking. ?Marital status: . ?Occupation: Retired-, [employer]. * Medications:?TakingamLODIPin e Besy-Benazepril HCl 10-40 MG Capsule as directed Orally Citalopram Hydrobromide 10 MG Tablet 1 tablet Orally Once a day hydroCHLOROthiazide 25 MG Tablet 1 tablet in the morning Orally Once a day Latuda 80 MG Tablet 1 tablet with food Orally Once a day Metoprolol Succinate ER 100 MG Tablet Extended Release 24 Hour 1 tablet Orally Once a day oxyBUTYnin Prazosin HCl 2 MG Capsule 1 capsule at bedtime Orally Once a day ProAir HFA traZODone HCl 100 MG Tablet 1 tablet at bedtime Orally Once a day Ammonium Lactate 12 % Cream 1 application Externally Twice a day Taking amLODIPine Besy-Benazepril HCl 10-40 MG Capsule as directed Orally Taking Citalopram Hydrobromide 10 MG Tablet 1 tablet Orally Once a day Taking hydroCHLOROthiazide 25 MG Tablet 1 tablet in the morning Orally Once a day Taking Latuda 80 MG Tablet 1 tablet with food Orally Once a day Taking Metoprolol Succinate ER 100 MG Tablet Extended Release 24 Hour 1 tablet Orally Once a day Taking oxyBUTYnin Taking Prazosin HCl 2 MG Capsule 1 capsule at bedtime Orally Once a day Taking ProAir HFA Taking traZODone HCl 100 MG Tablet 1 tablet at bedtime Orally Once a day Taking Ammonium Lactate 12 % Cream 1 application Externally Twice a day Not-Taking/PRNMyambutol Ciclopirox 8 % Solution 1 application Externally Once a day Latanoprost 0.005 % Solution 1 drop into affected eye in the evening Ophthalmic Once a day Antibiotic Medication List reviewed and reconciled with the patientNot-Taking/PRN Myambutol Not-Taking/PRN Ciclopirox 8 % Solution 1 application Externally Once a day Not-Taking/PRN Latanoprost 0.005 % Solution 1 drop into affected eye in the evening Ophthalmic Once a day Not-Taking/PRN Antibiotic Medication List reviewed and reconciled with the patient * Allergies:?N.K.D.A.yes[Aller gies Verified] Objective: * Vitals:?Ht: 5 ft 8 in, Wt:21 5, BMI: 32.69, Shoe size:8, BP:120/80mm Hg, Wt-k.52 kg. * Examination: ???Vascular: ?DP PULSES(B):? 0/4, B/L.?PT PULSES(B):?0/4, B/L.?CAPILLARY FILL TIME:? delayed, all digits, B/L.?TROPHIC CONDITION-TEXTURE/ELASTICITY/TURGOR/HAIR GROWTH(B):? decreased,?with sparse to absent hair growth, B/L.?TEMPERTURE GRADIENT(C):? decreased, cool to cool, proximal to distal, B/L.?PIGMENTATION:? rubrous, B/L.?EDEMA(C):? 1/4, non-pitting, without aching pain, B/L, Leg(s), Ankle(s).?CLAUDICATION(C):?denies, B/L.?REST PAIN:?denies, B/L.?Nails: ?NAILS are:?Elongated, overgrown, dystrophic, lytic, greater than 3mm thick, discolored and friable with crumbly malodorous subungual debris, with pain on palpation, TA, T1, T3, T4, T5, T6, T8, T9, all other nails not described with characteristics as possessing mycosis are elongated, overgrown, and dystrophic.?Dermatologic: ?SKIN FINDINGS:? Skin exam reveals Keratotic lesion(s) located at, SUB MTH (s), 1, B/L , SUB MTH (s), 5, B/L ,Plantar, Heel(s), B/L.? Assessment: * Assessment: 1.?Tinea unguium - B35.1???2 .?Atherosclerosis of [place] artery of both lower extremities, with unspecified presence of clinical manifestation - I70.203 (Primary)???3.?Pain in right toe(s) - M79.674???4.?Pain in left toe(s) - M79.675??? Plan: * Treatment: 2.?Tinea unguium?Procedure: 44282-BRSPIBJ NAIL, 6 OR MORE * Procedures:?Debride Nail 6-10:?Nail debridement?Due to the clinical pathology outlined in the exam findings, performance of this nail treatment is medically necessary as its management by an unskilled/untrained nonprofessional would put this patients foot and overall health at risk. Therefore, debridement to affected nail(s), as described in exam (?TA,?T1,?T3,?T4,?T5,?T6,?T8,?T9), was performed exclusively by the physician of record to reduce/remove overall nail length, girth, thickness, subungual debris, and necrotic tissue, by manual and/or electrical means through the use of a nail nipper and/or dremel-type gear grinder, to a more viable healthy nail plate or bed tissue 6- 10 nails in total. Silver nitrate was used for any petechial bleeding as necessary. Definitive antifungal treatment options, both pharmaceutical and surgical, have been reviewed and discussed with the patient. The patient solely prefers the use of intermittent/as needed professional debridement services for their nail condition and understands the need for additional periodic treatments to maintain effectiveness in symptomatic relief - 96424.?Keratoma Treatment:?Parring or Cutting of Benign Hyperkeratotic Lesion(s)?(-57) More than 4 Lesions - Due to the at risk nature of the patients medical condition as documented in the exam findings, performance of this keratoderma treatment is medically necessary as its management by an unskilled/untrained nonprofessional would put this patients foot and overall health at risk. Therefore, the benign hyperkeratotic lesions, ( 6) in total, locations as stated and described in the exam (?SUB MTH (s),?1,?B/L?,?SUB MTH (s),?5,?B/L?,Plantar,?Heel(s),?B/L), were pared, and/or cut utilizing a sterile 15 blade, tissue nippers, and/or power dremel instrumentation by the physician of record - 08420, Q8.? * Procedure Codes:?66316 DEBRI DE NAIL, 6 OR MORE, Modifiers: XS 39355 TRIM SKIN LESIONS, OVER 4, Modifiers: XS , Q8 * Follow Up:?prn * Images: * Sign off status: Completed true * Provider:?Petr Mcelroy DPM Date:?2023 Generated for Lisa cartwright/Vero/Katarina on:?09/21/2024 01:56 PM EST History and Physical Notes * HPI (History of Present Illness) Category Sub-Category Detail Notes Category Not es At Risk footcare Pt States Last PCP Visit: Date: Examination Category Sub-Category Detail Notes Category Not es Dermatologic SKIN FINDINGS: Skin exam reveal s Keratotic lesion(s) located at, SUB MTH (s), 1, B/L , SUB MTH (s), 5, B/L ,Plantar, Heel(s), B/L Vascular DP PULSES (B): 0/4, B/L PT PULSES (B): 0/4, B/L CAPILLARY FILL TIME: delayed, all digits , B/L TEMPERTURE GRADIENT (C): decreased, cool to cool, proximal to distal, B/L TROPHIC CONDITION-TEXTURE/ELASTICITY/TURGOR/HAIR GROWTH (B): decreased, with sparse to absent hair gr owth, B/L EDEMA (C): 1/4, non-pitting, wi thout aching pain, B/L, Leg(s), Ankle(s) CLAUDICATION (C): denies, B/L REST PAIN: denies, B/L PIGMENTATION: rubrous, B/L Nails NAILS are: Elongated, overg rown, dystrophic, lytic, greater than 3mm thick, discolored and friable with crumbly malodorous subungual debris, with pain on palpation, TA, T1, T3, T4, T5, T6, T8, T9, all other nails not described with characteristics as possessing mycosis are elongated, overgrown, and dystrophic
== END 2024-09-21 11:11 | disposition home or self-care (01) ==
PROVIDERS: PCP Internal Medicine; Visit Provider Internal Medicine
DX: J44.9 Chronic obstructive pulmonary disease, unspecified (principal); D86.0 Sarcoidosis of lung; F17.210 Nicotine dependence, cigarettes, uncomplicated
CPT/HCPCS: 99213

== ENCOUNTER 2024-10-13 10:51 | Outpatient (AMB) | payer BC, SELFPAY ==
--- NOTE | 2024-10-13 10:53 | A.OFFVIS_ITS ---
Vital Signs 10/13/24 10:59 Height 5 ft 8 in Weight 224 lb 2 oz BMI 34.1 BP 112/57 L Blood Pressure Location Lt brachial Position Sitting Pulse 96 Pulse Source Pulse Oximeter Pulse Oximetry (%) 97 Oxygen Delivery Method Room Air Intake Visit Reasons: Other intervertebral disc degeneration Intake Note: Pain today 9/10 Roller Mill Operator Required: Yes Roller Mill Operator Language: Bruneian Roller Mill Operator Services: Roller Mill Operator Offered & Declined Roller Mill Operator Name: Spouse Servando Accompanied by: Spouse Allergies bee pollen [BEE STINGS] Allergy (Severe, Verified 09/26/24 09:02) ANAPHYLAXIS Medication List - Last Reconciled 10/13/24 by LOUISE Abernathy amlodipine-valsartan 10-320 mg 1 tab PO DAILY escitalopram oxalate 5 mg PO DAILY hydrochlorothiazide 25 mg PO QAM lurasidone 20 mg PO DAILY metoprolol succinate ER 100 mg PO DAILY mirabegron ER 25 mg PO DAILY olanzapine 5 mg PO BEDTIME oxybutynin chloride ER 10 mg PO BEDTIME 90 days prazosin 6 mg PO BEDTIME ProAir HFA 90 mcg/actuation (albuterol sulfate) 2 inhalations inhalation Q6H PRN 30 days NS trazodone 200 mg (2 x 100 mg) PO BEDTIME 30 days umeclidinium-vilanterol 62.5-25 mcg/actuation (Anoro Ellipta) 1 inh inhalation DAILY 90 days HPI HPI Other intervertebral disc degeneration: Details: Patient is a pleasant 79 years old Bruneian and limited Sammarinese speaking male with history of chronic low back pain, lumbar degenerative disc disease and spondylosis, depression, alcohol abuse and schizoaffective disorder, presents today for low back pain. Denies any recent or past trauma, injury or falls. Patient attributes back pain due to arthritis, garden work and lifting. Back pain is predominantly axial and discogenic with occasional radiation into lower extremities. Pain is present with activities and walking which he rates 9/10 and less severe with rest or lying on his back, rated 2/10. Patient has been managing his pain with topical izis-yzu-tgyysni pain relief creams and occasional Tylenol or Ibuprofen. To this point he has not tried any dedicated c onservative treatment in the forms of physical therapy, chiropractic, acupuncture or injections. Patient is interested to pursue physical therapy as initial steps. Denies any fever or chills, abdominal or groin pain, weakness, footdrop, bladder or bowel dysfunction or saddle anesthesia. Location: Lower back pain with occasional radiation into BLE Duration: Chronic pain for few years Characteristics of symptom or complaint: Aching, stabbing, sharp, stinging, pulling, tiring, radiating, sore, heavy Aggravating or associated factors: Movements, bending, lifting, twisting, ADLs, garden work, cold weather Relieving factors: Ibuprofen, Tylenol, OTC topical creams, heat therapy, rest Treatment: [facility] History Schizoaffective disorder, depressive type ETOH abuse HTN (hypertension) Hyperlipemia Pulmonary sarcoidosis COPD (chronic obstructive pulmonary disease) Nicotine dependence, cigarettes, uncomplicated Cough Hyperglycemia Overweight Hepatic steatosis Depression Painful arc syndrome of left shoulder Surgical History History of hernia repair History of cystoscopy H/O colonoscopy Family History Father Glaucoma Mother No problems noted. Social History (Updated 10/13/24 @ 10:56 by Alexandra Kern) Household Members: Spouse Housing: House Do you presently have visiting nurse or other home services: No Alcohol intake: current Alcohol intake frequency: 0-2 drinks per day Alcohol type: hard liquor Comment: Amb. Indep. with steady gait. Patient Tobacco Use Status: Current everyday Tobacco user Tobacco use type: Cigarette Cigarettes Per Day: 3 Years Smoked: onset 21yo, 1/2ppd x 57yrs, now 1/4ppd, 28pyh e-Cigarette/Vaping Use: Never Used Second Hand Smoke Exposure: No service: No Current occupational status: retired Current occupation: rt handed Sexual orientation: Straight/Heterosexual Cognitive needs: No Hearing needs: No Vision needs: Yes Review of Systems Const All systems reviewed & are unremarkable except as noted in HPI and below Physical Exam Vital Signs: Last Vital Signs Pulse 96 10/13/24 10:59 BP 112/57 L 10/13/24 10:59 Pulse Ox 97 10/13/24 10:59 Oxygen Delivery Method Room Air 10/13/24 10:59 BMI result Body Mass Index 34.1 General: Appears afebrile. Alert and oriented. Mood and affect appropriate. Follows and participates in conversation appropriately. Respiratory effort is unlabored. No cough. Able to transition from sit to stand unassisted. Ambulates with bilaterally normal heel strike and toe off. General: Yes no CVA tenderness Back/Spine/Pelvis Other: Limited lumbar ROM due to pain. Lumbar flexion and extension reproduce mild to moderate pain. Demonstrates 5/5 strength of quadriceps bilaterally as well as flexion/dorsiflexion of bilateral feet against resistance. 2+ pedal pulses bilaterally. Straight leg rise with dorsiflexion is negative bilaterally. +1 patellar and achilles reflexes bilaterally. Facet loading test positive bilaterally. Sonal sign, Antwan?s and Stinchfield tests are negative bilaterally. No groin pain with I/E hip rotations. Valsalva maneuver negative. Back: no CVA tenderness Cervical Spine: cervical ROM normal, No cervical muscular tenderness and No Cervical spine tenderness Thoracic/Lumbar Spine: thoracic and lumbar spine normal to inspection, No Thoracic/lumbar spine scar(s), Lasegue's sign negative, straight leg raise negative bilaterally, pain with thoraco-lumbar ROM, thoraco-lumbar ROM limited, No thoracic spinal tenderness and lumbar spinal tenderness (L4-S1) Pelvis: no buttock tenderness Sacroiliac joints: bilaterally (mild) tender to palpation Extrem General: Yes capillary refill normal, Yes no clubbing, cyanosis or edema and Yes no calf tenderness Results Reviewed Results Reviewed: XR LUMBOSACRAL SPINE 07/27/24 CLINICAL INFORMATION: Low back pain, unspecified M54.50. COMPARISON: CT Abdomen pelvis with contrast 09/02/2017 TECHNIQUE: Three views of the lumbosacral spine. FINDINGS: Normal alignment and lumbar lordosis with mild to moderate multilevel degenerative disc disease with prominent endplate osteophytes. No fracture. IMPRESSION: Mild to moderate multilevel degenerative disc disease. CT scan abdomen and pelvis 09/02/2017 OSSEOUS STRUCTURES: Degenerative spondylosis spine. There is bridging osteophytes of lower thoracic spine and nonbridging endplate spurring of the lumbar spine. Assessment & Plan Assessment & Plan (1) Lower back pain: Code(s): M54.50 - Low back pain, unspecified Category: Medical (2) Lumbar degenerative disc disease: Code(s): M51.369 - Other intervertebral disc degeneration, lumbar region without mention of lumbar back pain or lower extremity pain Category: Medical (3) Lumbar spondylosis: Code(s): M47.816 - Spondylosis without myelopathy or radiculopathy, lumbar region Category: Medical Plan Discussed interventional treatments for chronic low back pain with facetogenic and discogenic pain components, including diagnostic versus therapeutic injections, neuromodulation with Sprint PNS trial and lumbar medial branch RFA procedures. Informational pamphlets provided to patient and family. Patient is hesitant towards interventional treatments at this time and wishes to proceed with physical therapy. Script for PT provided today. All questions and concerns have been answered and patient agreed with the treatment plan. Follow-up in 6-8 weeks?to see response to physical therapy, if no response to physical therapy will consider further interventional strategy. Orders: Orders PT Evaluation and Treatment Today M47.816 - Spondylosis without myelopathy or radiculopathy, lumbar region, M51.369 - Other intervertebral disc degeneration, lumbar region without mention of lumbar back pain or lower extremity pain, M54.50 - Low back pain, unspecified Coding Level of Care Code New Pt Level 4 (79360) Complex EM visit Add On G2211 Diagnoses Lower back pain M54.50 Lumbar degenerative disc disease M51.369 Lumbar spondylosis M47.816
[2024-10-13 10:59] VITALS: BP 112/57; PULSE 96; O2SAT 97; BMI 34.1
--- OUTSIDE RECORDS SUMMARY | 2024-10-13 11:55 | XMS_ITS ---
Author Organization [facility] Address [address] [facility] [place] [address] Care Team Providers Care Freight Delivery Driver Name Role Phone Mary Gonzalez MD Primary Care Provider Petr Fontanez Unavailable [phone] Allergies No Known Allergies REASON FOR VISIT [...] Status Risk Notes Problem Benign essential hypertension (8750238) Essential hypertension (I10) Active confirmed Vital Signs Height 5 ft 8 in in 08/04/2024 Weight 215 lbs 08/04/2024 BMI 32.69 kg/m2 08/04/2024 Blood pressure systolic 120 mm Hg 08/04/20 24 Blood pressure diastolic 80 mm Hg 024 Procedures Procedure Date Ordered Date Performed Result Body Sit e 26560-WURSNUR NAIL, 6 OR MORE 08/04/2024 N/A 97794-OLHV SKIN LESIONS, OVER 4 08/04/2024 N/A Encounters Encounter Location Date Provider Diagnosis [facility] [address] [place] [address] 08/04/2024 Petr Mcelroy Atherosclerosis of [place] artery of both lower extremities, with unspecified presence of clinical manifestation I70.203 ; Tinea unguium B35.1 ; Pain in right toe(s) M79.674 and Pain in left toe(s) M79.675 Assessments Encounter Date Diagnosis (ICD Code) Assessment Notes Treatment Notes Treatment Clinical Notes Section Notes 08/04/2024 Atherosclerosis of [place] artery of both lower extremities, with unspecified presence of clinical manifestation (ICD-10 - I70.203) 08/04/2024 Tinea unguium (ICD-10 - B35.1) 08/04/2024 Pain in right toe(s) (ICD-10 - M79.674) 08/04/2024 Pain in left toe(s) (ICD-10 - M79.675) Plan Of Treatment Pending Test Test Name Order Date 13212-TCGFQBE NAIL, 6 OR MORE 08/04/2024 14622-VZLW SKIN LESIONS, OVER 4 08/04/20 24 Next Appt Details Follow Up: prn, Reason: Provider Name:Petr Mcelroy , 12/26/2024 10:45:00 AM, [address] [place] [address], [phone], Procedure Notes * Category Sub-Category Detail [...] use of a nail nipper and/or dremel-type facing grinder, to a more viable healthy nail [...] to maintain effectiveness in symptomatic relief - 19500 Keratoma Treatment Parring or Cutting o f [...] instrumentation by the physician of record - 77440, Q8 Progress Notes * Mike LAMBDOB: [birth year] (79 yo M)Acc No.[id number]:08/04/2024 Progress Note Patient:Mike ADDISON Provider:?Petr Mcelroy DPM :1945???Age:79 Y???Sex:Male Imer e:08/04/2024 Address:[address] [place], [place] [id number] Pcp:Mary Gonzalez MD Subjective: * Chief Complaints: [...] yes, walking. ?Marital status: . 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 * Medications:?TakingamLODIPin e Besy-Benazepril HCl 10-40 MG [...] Assessment: 1.?Tinea unguium - B35.1???2 .?Atherosclerosis of [place] artery of both lower extremities, with unspecified presence of clinical manifestation - I70.203 (Primary)???3.?Pain in right toe(s) - M79.674???4.?Pain in left toe(s) - M79.675??? Plan: * Treatment: 2.?Tinea unguium?Procedure: 61424-TXNOYUA NAIL, 6 OR MORE * Procedures:?Debride Nail [...] use of a nail nipper and/or dremel-type facing grinder, to a more viable healthy nail [...] to maintain effectiveness in symptomatic relief - 51178.?Keratoma Treatment:?Parring or Cutting of Benign Hyperkeratotic Lesion(s)?(-57) [...] instrumentation by the physician of record - 43633, Q8.? * Procedure Codes:?62401 DEBRI DE NAIL, 6 OR MORE, Modifiers: XS 27212 TRIM SKIN LESIONS, OVER 4, Modifiers: XS , Q8 * Follow Up:?prn * Images: * Sign off status: Completed true * Provider:?Petr Mcelroy DPM Date:?2023 Generated for Lisa cartwright/Vero/Katarina on:?10/13/2024 11:55 AM EST History and Physical Notes * [...]
--- OUTSIDE RECORDS SUMMARY | 2024-10-13 11:55 | XMS_ITS ---
Author Organization [facility] Address [address] [place] [address] Care Team Providers Care Potato Chip Cooker Machine Name Role Phone Mary Gonzalez MD Primary Care Provider Petr Fontanez Unavailable [phone] Allergies No Known Allergies REASON FOR VISIT [...] Ordered Date Performed Result Body Sit e 36273-SQIZOGT NAIL, 6 OR MORE 04/28/2024 N/A 45395-VSXK SKIN LESIONS, OVER 4 04/28/2024 N/A Encounters Encounter Location Date Provider Diagnosis [facility] [address] [address] 04/28/2024 Petr Mcelroy Atherosclerosis of ione artery of both lower extremities, with unspecified presence of clinical manifestation I70.203 ; Tinea unguium B35.1 ; Pain in right toe(s) M79.674 and Pain in left toe(s) M79.675 Assessments Encounter Date Diagnosis (ICD Code) Assessment Notes Treatment Notes Treatment Clinical Notes Section Notes 04/28/2024 Atherosclerosis of ione artery of both lower extremities, with unspecified presence of clinical manifestation (ICD-10 - I70.203) 04/28/2024 Tinea unguium (ICD-10 - B35.1) 04/28/2024 Pain in right toe(s) (ICD-10 - M79.674) 04/28/2024 Pain in left toe(s) (ICD-10 - M79.675) Plan Of Treatment Pending Test Test Name Order Date 50162-IIOKESR NAIL, 6 OR MORE 04/28/2024 64092-HYHL SKIN LESIONS, OVER 4 04/28/20 24 Next Appt Details Follow Up: prn, Reason: Provider Name:Petr Mcelroy , 12/26/2024 10:45:00 AM, [address] [place], [address], Procedure Notes * Category Sub-Category Detail Notes Debride Nail 6-10 Nail debridement Performance o f this nail treatment by a nonprofessional would put this patients foot and overall health at risk. Therefore, nail debridement was performed extensively to reduce/remove overall nail length, girth, thickness, subungual debris, and necrotic tissue, by manual and/or electrical means through the use of a nail nipper and/or dremel-type steel grinder, to a more viable healthy nail plate or bed tissue 6-10. Silver nitrate used for any petechial bleeding as necessary. Definitive antifungal treatment options have been reviewed and discussed with the patient. The patient chooses, no pharmaceutical tx - 22615 Keratoma Treatment Parring or Cutting o f Benign Hyperkeratotic Lesion(s) (-57) More than 4 Lesions - The Benign hyperkeratotic lesions, as described above were pared, and/or cut utilizing a sterile 15 blade, tissue nippers, and/or dremel - 70429 , Q8 Progress Notes * Mike LAMBDOB: [birth year] (79 yo M)Acc No.[id number]:04/28/2024 Progress Note Patient:?Peter Lambzard Provider:Kevin Mcelroy DPM :1945???Age:79 Y???Sex:Male Imer e:04/28/2024 Address:[address] [place], [place] [id number] Pcp:Mary Gonzalez MD Subjective: * Chief Complaints: [...] yes, walking. ?Marital status: . 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 * Medications:?TakingMyambutol amLODIPine Besy-Benazepril HCl 10-40 MG [...] Assessment: 1.?Tinea unguium - B35.1?2.? Atherosclerosis of ione artery of both lower extremities, with unspecified presence of clinical manifestation - I70.203?3.?Pain in right toe(s) - M79.674?4.?Pain in left toe(s) - M79.675? Plan: * Treatment: 2.?Atherosclerosis of ione artery of both lower extremities, with unspecified presence of clinical manifestation?Procedure: 63392-WWEV SKIN LESIONS, OVER 4 * Procedures:?Debride Nail 6-10:?Nail debridement?Performance of this nail treatment by a nonprofessional would put this patients foot and overall health at risk. Therefore, nail debridement was performed extensively to reduce/remove overall nail length, girth, thickness, subungual debris, and necrotic tissue, by manual and/or electrical means through the use of a nail nipper and/or dremel-type steel grinder, to a more viable healthy nail plate or bed tissue 6-10. Silver nitrate used for any petechial bleeding as necessary. Definitive antifungal treatment options have been reviewed and discussed with the patient. The patient chooses, no pharmaceutical tx - 48973.?Keratoma Treatment:?Parring or Cutting of Benign Hyperkeratotic Lesion(s)?(-57) More than 4 Lesions - The Benign hyperkeratotic lesions, as described above were pared, and/or cut utilizing a sterile 15 blade, tissue nippers, and/or dremel - 50000 , Q8.? * Procedure Codes:?39576 DEBRI DE NAIL, 6 OR MORE, Modifiers: XS 64164 TRIM SKIN LESIONS, OVER 4, Modifiers: XS [...]
--- OUTSIDE RECORDS SUMMARY | 2024-10-13 11:55 | XMS_ITS ---
Author Organization [facility] Address [address] [place] [address] Care Team Providers Care Draw Off Worker Name Role Phone Mary Gonzalez MD Primary Care Provider Unavaila Petr Zamarripa [phone] REASON FOR VISIT rs from 11/07/24 Encounters Encounter Location Date Provider Diagnosis [address] [address] 09/21/2024 Petr Mcelroy Plan Of Treatment Next Appt Details Provider Name:Petr Mcelroy , 12/26/2024 10:45:00 AM, [address] [place], [address], Progress Notes * Mike LAMBDOB: [birth year] (79 yo M)Acc No.[id number]:09/21/2024 Patient:?Mike LAMB :1945???Age:79 Y???Sex:Male Address:[address] [place] [address], [address] * true * Date:? Generated for Printi ng/Favivieng/eTransmitting on:?10/13/2024 11:55 AM EST
--- OUTSIDE RECORDS SUMMARY | 2024-10-13 11:55 | XMS_ITS | Patient Health Record ---
Author Organization [facility] Address [address] [facility] [place] [address] Care Team Providers Care Print Developer Name Role Phone Mary Gonzalez MD Primary Care Provider Unavaila Petr Zamraripa Unavailable [phone] Allergies No Known Allergies Reason For Referral [...] Route Administration Date Status Comme nts COVID-19 [employer] Vaccine Unknown 06/25/2021 Administered 1st 11/28/20 [...] W/U Status Risk Notes Problem Atherosclerosis of chitina arteries of the extremities (640292630096345) Atherosclerosis of chitina artery of both lower extremities, with unspecified presence of clinical manifestation (I70.203) Active confirmed Problem Benign essential hypertension (5498120) Essential hypertension (I10) Active confirmed Vital Signs Blood pressure diastolic 80 mm Hg 08/04/2024 Height 5 ft 8 in in 08/04/2024 Blood pressure systolic 120 mm Hg 08/04/2024 Weight 215 lbs 08/04/2024 BMI 32.69 kg/m2 08/04/2024 Procedures Procedure Date Ordered Date Performed Result Body Sit e 20901-AHYXBAL NAIL, 6 OR MORE 10/22/2023 N/A 66021- Debride <25 sq cm 10/22/2023 N/A 82655-FNOK SKIN LESIONS, OVER 4 10/22/2023 N/A 13579-RTSMUVP NAIL, 6 OR MORE 01/28/2024 N/A 15344-HGJW SKIN LESIONS, OVER 4 01/28/2024 N/A 84468-IETWEKE NAIL, 6 OR MORE 04/28/2024 N/A 41176-QGCR SKIN LESIONS, OVER 4 04/28/2024 N/A 21263-CNTHQHC NAIL, 6 OR MORE 08/04/2024 N/A 40625-BUZH SKIN LESIONS, OVER 4 08/04/2024 N/A Encounters Encounter Location Date Provider Diagnosis [facility] [address] [place] [address] 10/22/2023 Petr Mcelroy Atherosclerosis of chitina artery of both lower extremities, with unspecified presence of clinical manifestation I70.203 ; Tinea unguium B35.1 ; Pain in right toe(s) M79.674 ; Pain in left toe(s) M79.675 ; Ischemic ulcer of left foot, 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 and Xerosis of skin L85.[address] [address] 01/28/2024 Petr Mcelroy Atherosclerosis of chitina artery of both lower extremities, with unspecified presence of clinical manifestation I70.203 ; Ischemic ulcer of left foot, 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 ; Tinea unguium B35.1 ; Pain in right toe(s) M79.674 ; Pain in left toe(s) M79.675 and Xerosis of skin L85.[address] [address] 04/28/2024 Petr Mcelroy Atherosclerosis of chitina artery of both lower extremities, with unspecified presence of clinical manifestation I70.203 ; Tinea unguium B35.1 ; Pain in right toe(s) M79.674 and Pain in left toe(s) M79.[address] [address] 08/04/2024 Petr Mcelroy Atherosclerosis of chitina artery of both lower extremities, with unspecified presence of clinical manifestation I70.203 ; Tinea unguium B35.1 ; Pain in right toe(s) M79.674 and Pain in left toe(s) M79.[address] [address] 01/28/2024 Petr Mcelroy [address] [address] 09/21/2024 Petr Mcelroy Assessments Encounter Date Diagnosis (ICD Code) Assessment Notes Treatment Notes Treatment Clinical Notes Section Notes 10/22/2023 Tinea unguium (ICD-10 - B35.1) 10/22/2023 Atherosclerosis of chitina artery of both lower extremities, with unspecified presence of clinical manifestation (ICD-10 - I70.203) 01/28/2024 Atherosclerosis of chitina artery of both lower extremities, with unspecified presence of clinical manifestation (ICD-10 - I70.203) 01/28/2024 Ischemic ulcer of left foot, limited to breakdown of skin (ICD-10 - L97.521) 04/28/2024 Tinea unguium (ICD-10 - B35.1) 04/28/2024 Atherosclerosis of chitina artery of both lower extremities, with unspecified presence of clinical manifestation (ICD-10 - I70.203) 08/04/2024 Tinea unguium (ICD-10 - B35.1) 08/04/2024 Atherosclerosis of chitina artery of both lower extremities, with unspecified [...] Treatment Pending Test Test Name Order Date 76090-CCGXTZY NAIL, 6 OR MORE 08/27/2020 07589-HTJDDGN NAIL, 6 OR MORE 11/26/2020 08817-DCTQNMB NAIL, 6 OR MORE 02/28/2021 91200-TICVWCK NAIL, 6 OR MORE 05/30/2021 69418-NBUOBJX NAIL, 6 OR MORE 09/02/2021 96917-DDGRNYX NAIL, 6 OR MORE 12/02/2021 03230-DGTRVYU NAIL, 6 OR MORE 03/06/2022 10927-VYHCAOK NAIL, 6 OR MORE 06/09/2022 99197-IMJEPZL NAIL, 6 OR MORE 09/15/2022 22950-RKXQHWL NAIL, 6 OR MORE 12/15/2022 95966-DIJWWWN NAIL, 6 OR MORE 03/16/2023 00045-MHUQQOT NAIL, 6 OR MORE 06/15/2023 89269-DMNKFSN NAIL, 6 OR MORE 10/22/2023 07983-OUTMMBJ NAIL, 6 OR MORE 01/28/2024 55956-HRMNTMF NAIL, 6 OR MORE 04/28/2024 85354-LSOORMH NAIL, 6 OR MORE 08/04/2024 62876- Debride <25 sq cm 10/22/2023 61924-XMCH SKIN LESIONS, OVER 4 08/04/20 24 37923-OSNI SKIN LESIONS, OVER 4 04/28/20 24 62764-FDUV SKIN LESIONS, OVER 4 01/28/20 24 86929-WFXZ SKIN LESIONS, OVER 4 10/22/19 24 30180-PNHV SKIN LESIONS, OVER 4 06/15/20 23 45042-ZZOE SKIN LESIONS, OVER 4 03/16/20 23 08849-PLTQ SKIN LESIONS, OVER 4 12/16/19 23 84136-FGMC SKIN LESIONS, OVER 4 09/15/19 23 Next Appt Details Provider Name:Petr Mcelroy , 12/26/2024 10:45:00 AM, [address] [facility], [place], [address], Insurance Providers Payer Name Payer Address Payer Phone Subscriber Number Group Number Insured Name Patient Relationship to Insured Coverage Start Date Coverage End Date [employer] Medicare Complete [address] [address] [place] [address] [phone] [id number] Mike Higgins Self - patient is the insured Medical (General) History Medical History History ICD Code Depression High blood pressure Vascular Phlebitis fungus Surgical History Surgery Date(Month/Year) Hernia 2008 biopsy Lip 02/26/21 Hospitalization History Reason Date(Month/Year) [facility] [place] Anxiety 05/2021
== END 2024-10-13 11:23 | disposition home or self-care (01) ==
PROVIDERS: PCP Internal Medicine; Referring Provider Internal Medicine; Visit Provider Nurse Practitioner Family
DX: M54.50 Low back pain, unspecified (principal); M51.369 Other intervertebral disc degeneration, lumbar region without mention of lumbar back pain or lower extremity pain; M47.816 Spondylosis without myelopathy or radiculopathy, lumbar region
CPT/HCPCS: 99204

== ENCOUNTER → 2024-10-13 10:51 | Outpatient (BNVA) | payer BC, SELFPAY | PROVIDERS: PCP Internal Medicine; Referring Provider Internal Medicine; Visit Provider Nurse Practitioner Family ==

== ENCOUNTER 2024-11-20 07:06 | Outpatient (REF) | payer MEDICARE, SELFPAY ==
[2024-11-20 10:00] LABS: MANUAL DIFF FLAG NO
[2024-11-20 10:12] LABS: Basophils Percent Auto 0.6 % (0-2); Eosinophils Absolute Auto 0.1 X10*3/uL (0.0-0.4); Eosinophils Percent Auto 1.3 % (0-4); Hematocrit 44.8 % (42.0-52.0); Hemoglobin 15.1 g/dl (14.0-18.0); Imm Gran Abs Auto 0.02 X10*3/uL (0.00-0.03); Imm Gran Pct Auto 0.3 % (0.0-0.4); Lymphocytes Absolute Auto 2.5 X10*3/uL (1.2-4.9); Lymphocytes Percent Auto 35.9 % (20-40); Mean Corpuscular HGB Conc 33.7 g/dl (31.0-36.0); Mean Corpuscular Hemoglobin 29.3 pg (27.0-33.0); Monocytes Absolute Auto 0.6 X10*3/uL (0.1-1.2); Monocytes Percent Auto 8.6 % (2-11); Neutrophils Absolute Auto 3.7 x10*3/uL (2.0-8.3); Neutrophils Percent Auto 53.3 % (45-73); Platelet Count 203 X10*3/uL (160-400); Red Blood Count 5.15 X10*6/uL (4.60-5.80); Red Cell Distribution Width 13.9 % (11.0-16.0); White Blood Count 6.9 X10*3/uL (4.8-10.8)
[2024-11-20 10:42] LABS: Estimated Average Glucose 123 mg/dL; Hemoglobin A1c % 5.9 % (<6.0)
[2024-11-20 10:43] LABS: Alanine Aminotransferase 28 U/L (0-40); Alkaline Phosphatase 59 U/L (39-117); Anion Gap 11 (12-20); Aspartate Amino Transferase 29 U/L (5-37); Bilirubin Total 0.9 mg/dL (0.0-1.0); Blood Urea Nitrogen 18 mg/dL (9-16); Calcium 8.9 mg/dL (8.4-10.2); Carbon Dioxide 29 mmol/L (22-29); Chloride 105 mmol/L (96-108); Cholesterol 130 mg/dL (<200); Estimated Glomerular Filt Rate > 60; Glucose Fasting 105 mg/dL (60-99); HDL Cholesterol 39 mg/dL (>40); LDL Cholesterol Calculated 69 mg/dL (<100); Potassium 4.1 mmol/L (3.3-5.1); Sodium 141 mmol/L (135-145); Total Protein 7.4 g/dL (6.5-8.0); Triglycerides 114 mg/dL (<150)
[2024-11-20 10:58] LABS: PSA,Total (Free>4and<10) 0.13 ng/mL (0.00-4.00)
== END 2024-11-20 07:07 | disposition home or self-care (01) ==
LOC: HO.HMGCLDS 07:06
PROVIDERS: PCP Internal Medicine; Visit Provider Internal Medicine
DX: I10 Essential (primary) hypertension (principal); E78.5 Hyperlipidemia, unspecified; R73.9 Hyperglycemia, unspecified; N40.1 Benign prostatic hyperplasia with lower urinary tract symptoms; N13.8 Other obstructive and reflux uropathy; Z12.5 Encounter for screening for malignant neoplasm of prostate
CPT/HCPCS: 36415; 80053; 80061; 83036; 84153; 85025

== ENCOUNTER 2024-11-27 09:51 | Outpatient (AMB) | payer MEDICARE, SELFPAY ==
[2024-11-27 10:05] VITALS: BP 120/76; PULSE 50; RESP 18; TEMP 36.5; O2SAT 97; BMI 33.9
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
--- OUTSIDE RECORDS SUMMARY | 2024-11-27 11:30 | XMS_ITS ---
Author Organization [facility] Address [address] [place] [address] Care Team Providers Care Dewaterer Operator Name Role Phone Mary Gonzalez MD Primary Care Provider Unavaila Petr Zamarripa [phone] REASON FOR VISIT rs from 11/07/24 Encounters Encounter Location Date Provider Diagnosis [address] [address] 09/21/2024 Petr Mcelroy Plan Of Treatment Next Appt Details Provider Name:Petr Mcelroy , 12/26/2024 10:45:00 AM, [address] [place] [address], [phone], Progress Notes * Mike LAMBDOB: [birth year] (79 yo M)Acc No.[id number]:09/21/2024 Patient:?Mike LAMB :1945???Age:79 Y???Sex:Male Address:[address] [place] [address], [address] * true * Date:? Generated for Printi ng/Faxing/eTransmitting on:?11/27/2024 11:30 AM EDT
--- OUTSIDE RECORDS SUMMARY | 2024-11-27 11:31 | XMS_ITS ---
Author Organization [facility] Address [address] [facility] [place] [address] Care Team Providers Care Horser Up Name Role Phone Mary Gonzalez MD Primary Care Provider Petr Fontanez Unavailable [phone] Allergies No Known Allergies REASON FOR VISIT [...] Status Risk Notes Problem Benign essential hypertension (8710188) Essential hypertension (I10) Active confirmed Vital Signs Height 5 ft 8 in in 08/04/2024 Weight 215 lbs 08/04/2024 BMI 32.69 kg/m2 08/04/2024 Blood pressure systolic 120 mm Hg 08/04/20 24 Blood pressure diastolic 80 mm Hg 024 Procedures Procedure Date Ordered Date Performed Result Body Sit e 91883-WGFDIEN NAIL, 6 OR MORE 08/04/2024 N/A 35447-XJNA SKIN LESIONS, OVER 4 08/04/2024 N/A Encounters Encounter Location Date Provider Diagnosis [facility] [place] [address] [place] [address] 08/04/2024 Petr Mcelroy Atherosclerosis of upper mattaponi artery of both lower extremities, with unspecified presence of clinical manifestation I70.203 ; Tinea unguium B35.1 ; Pain in right toe(s) M79.674 and Pain in left toe(s) M79.675 Assessments Encounter Date Diagnosis (ICD Code) Assessment Notes Treatment Notes Treatment Clinical Notes Section Notes 08/04/2024 Atherosclerosis of upper mattap[place] artery of both lower extremities, with unspecified presence of clinical manifestation (ICD-10 - I70.203) 08/04/2024 Tinea unguium (ICD-10 - B35.1) 08/04/2024 Pain in right toe(s) (ICD-10 - M79.674) 08/04/2024 Pain in left toe(s) (ICD-10 - M79.675) Plan Of Treatment Pending Test Test Name Order Date 55238-DSLLDRO NAIL, 6 OR MORE 08/04/2024 80410-OITG SKIN LESIONS, OVER 4 08/04/20 24 Next Appt Details Follow Up: prn, Reason: Provider Name:Petr Mcelroy , 12/26/2024 10:45:00 AM, [address] [place] [address], [phone], Procedure Notes * Category Sub-Category Detail [...] use of a nail nipper and/or dremel-type roll contour grinder, to a more viable healthy nail [...] to maintain effectiveness in symptomatic relief - 72832 Keratoma Treatment Parring or Cutting o f [...] instrumentation by the physician of record - 72913, Q8 Progress Notes * Mike LAMBDOB: [birth year] (79 yo M)Acc No.[id number]:08/04/2024 Progress Note Patient:Mike ADDISON Provider:?Petr Mcelroy DPM :1945???Age:79 Y???Sex:Male Imer e:08/04/2024 Address:[address] [place], [place] [id number] Pcp:Mary Gonzalez MD Subjective: * Chief Complaints: [...] yes, walking. ?Marital status: . 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 * Medications:?TakingamLODIPin e Besy-Benazepril HCl 10-40 MG [...] Assessment: 1.?Tinea unguium - B35.1???2 .?Atherosclerosis of upper mattaponi artery of both lower extremities, with unspecified presence of clinical manifestation - I70.203 (Primary)???3.?Pain in right toe(s) - M79.674???4.?Pain in left toe(s) - M79.675??? Plan: * Treatment: 2.?Tinea unguium?Procedure: 93047-OXKRNKI NAIL, 6 OR MORE * Procedures:?Debride Nail [...] use of a nail nipper and/or dremel-type roll contour grinder, to a more viable healthy nail [...] to maintain effectiveness in symptomatic relief - 66467.?Keratoma Treatment:?Parring or Cutting of Benign Hyperkeratotic Lesion(s)?(-57) [...] instrumentation by the physician of record - 15596, Q8.? * Procedure Codes:?77114 DEBRI DE NAIL, 6 OR MORE, Modifiers: XS 98120 TRIM SKIN LESIONS, OVER 4, Modifiers: XS , Q8 * Follow Up:?prn * Images: * Sign off status: Completed true * Provider:?Petr Mcelroy DPM Date:?2023 Generated for Lisa cartwright/Vero/Katarina on:?11/27/2024 11:31 AM EDT History and Physical Notes * HPI (History [...]
== END 2024-11-27 10:54 | disposition home or self-care (01) ==
LOC: HO.HMCC 09:52
PROVIDERS: PCP Internal Medicine; Visit Provider Internal Medicine
DX: F25.1 Schizoaffective disorder, depressive type (principal); D86.0 Sarcoidosis of lung; J44.9 Chronic obstructive pulmonary disease, unspecified; E78.5 Hyperlipidemia, unspecified; R73.9 Hyperglycemia, unspecified; I10 Essential (primary) hypertension; Z23 Encounter for immunization

== ENCOUNTER → 2024-11-27 09:51 | Outpatient (BNVA) | payer MEDICARE, SELFPAY | PROVIDERS: PCP Internal Medicine; Visit Provider Internal Medicine | DX: I10 Essential (primary) hypertension (principal); E78.5 Hyperlipidemia, unspecified; J44.9 Chronic obstructive pulmonary disease, unspecified; F25.1 Schizoaffective disorder, depressive type; D86.0 Sarcoidosis of lung; R73.9 Hyperglycemia, unspecified; F17.210 Nicotine dependence, cigarettes, uncomplicated; Z23 Encounter for immunization; Z79.899 Other long term (current) drug therapy | CPT/HCPCS: 90471; 90677; 96127; 99212 ==

== ENCOUNTER 2024-12-14 13:00 | Outpatient (RCR) | payer MEDICARE, SELFPAY ==
--- NOTE | 2024-11-21 12:00 | MHC.PT.EP ---
[facility] [place] Office [place] Office [place] Office [address] Luciana Reyna [address] [phone] F: [phone] F: [phone] F: [phone] F: [phone] Physical Therapy Plan of Care Date of Evaluation: 11/21/24 Date of Surgery: Diagnosis: low back pain Assessment: Patient is a 79 year old R handed Martiniquais speaking male who presents with s/s consistent with low back pain. He is retired but enjoys staying active around the house. Patient past medical history includes COPD, HTN, bipolar disorder, and ETOH abuse among other comorbidities. Current impairments include pain, flexibility, posture, ROM, strength, activity tolerance and functional mobility. Functional limitations include decreased ability to stand, walk, lift, bend, shovel and perform household and outdoor chores. Patient is motivated with good rehab potential. Skilled PT will address impairments and functional limitations in order to achieve goals. Frequency and Duration: The patient will be seen 2x/week for 5 weeks Short Term Goals: I with HEP -2 weeks AROM rotation 75% and pain free - 3 weeks 90/90 lacking < 30 b/l - 3 weeks Penitentiary Goals: Oswestry 16% or less - 5 weeks Max pain with daily activities /10 - 5 weeks TTP absent in b/l paraspinals - 5 weeks Able to stand/walk/sit > 1 hour without increased pain - 5 weeks Treatment Plan: Modalities to reduce pain, spasms and effusion. Manual therapy to restore motion and function. Therapeutic exercise to improve strength and flexibility. Neuromuscular re-education for posture and balance. Therapeutic activities to return to functional activities of daily living. Electronically signed by: Chava Chance, PT Please sign and return to therapist. Thank you for your referral.
--- NOTE | 2025-03-02 08:14 | MHC.PT.DC ---
[facility] [place] Office [place] Office [place] Office [address] Luciana Reyna [address] [phone] F: [phone] F: [phone] F: [phone] F: [phone] Physical Therapy Discharge Report Diagnosis: low back pain Date of Surgery: Date of Evaluation: 11/21/24 Date of Discharge: Treatments to Date: 6 Cancellations to Date: No Shows to Date: Discharge Status: Improved Function Independent with HEP Discharge Summary: 12/14/24: pt issued updated HEP. no adverse reactions. s/s stable but with minimal progress. we did discuss lifting mechanics as was his concern. we will d/c to HEP at this time. 12/12/24: pt has been feeling similar at start of PT. without much symptomatic change. i encouraged him to be consistent with HEP. we will discuss plan NV. 12/07; Pt experience dizziness getting off up stepper. Discussed standing first before moving due to pressure changes. Pt performed exs with no increase in pain. 12/05; Pt conts with decreased royt in sit and s/l position. No pain after exs. 11/30;Pt translated today. Instructed HS in sit and supine and instructed him to perform these instead of his ex on the floor. Rosy exs well. NV balance 11/28; Pt rosy exs with v/c and demonstrations. wasn't here today. Pt does a HS exs on floor with bouncing to touch his toes. He demonstrated to me and was told him to DC ex. Patient is a 79 year old R handed Albanian speaking male who presents with s/s consistent with low back pain. He is retired but enjoys staying active around the house. Patient past medical history includes COPD, HTN, bipolar disorder, and ETOH abuse among other comorbidities. Current impairments include pain, flexibility, posture, ROM, strength, activity tolerance and functional mobility. Functional limitations include decreased ability to stand, walk, lift, bend, shovel and perform household and outdoor chores. Patient is motivated with good rehab potential. Skilled PT will address impairments and functional limitations in order to achieve goals. Electronically signed by: Chava Chance, PT Please sign and return to therapist. Thank you for your referral.
== END 2025-03-02 08:15 | disposition home or self-care (01) ==
LOC: HO.PTCHIC 13:00
PROVIDERS: PCP Internal Medicine; Visit Provider Nurse Practitioner Family
DX: M54.50 Low back pain, unspecified (principal); M51.369 Other intervertebral disc degeneration, lumbar region without mention of lumbar back pain or lower extremity pain; M47.816 Spondylosis without myelopathy or radiculopathy, lumbar region
CPT/HCPCS: 97110; 97163

== ENCOUNTER 2025-01-30 09:49 | Outpatient (AMB) | payer MEDICARE, SELFPAY ==
--- NOTE | 2025-01-30 10:00 | MHC.OFFVIS ---
Intake Visit Reasons: Six-month follow-up PVR office Intake Note: Patient is present for 6M/PVR Urology Medication:SILDENAFIL,OXYBUTYNIN,MIRABEGRON Antibiotic Allergy:NONE Blood Thinner:NONE Last PVR:24ML'S Todays PVR:0ML'S Scheduling Assistant Required: No Allergies bee pollen [BEE STINGS] Allergy (Severe, Verified 01/30/25 10:03) ANAPHYLAXIS HPI Comments Details: Mike is a pleasant Vietnamese gentleman. He is a patient of Dr. Llamas. He is seen for the following urologic conditions - lower urinary tract symptoms - combination obstructive and irritative Accompanied by Has remained on Myrbetriq and oxybutynin Today's PVR 0 cc, prior PVR 24 cc Does wake 4 times at night - discussed elevating legs in the afternoon to allow lower leg drainage Controlled during the day Continue current medications PSA low. Does not need to be checked again. Lower Urinary Tract Symptoms:??Predominant storage symptoms ?Current visit is for further evaluation of, lower urinary tract symptoms, predominate irritative storage symptoms ? Still smoking.?Current treatment includes oxybutynin 15 mg ? - 05/12 TUIP.?Prior treatments include 06/08 medication, alpha blockers, flomax/tamsulosin ? 07/09 alpha rich, terazosin 5mg, oxybutynin with dry mouth ?Prostate Symptom Score 07/09 Moderate (9-19), Bother 4 ? 10/12 , Moderate (9-19), Bother 3.?Symptoms include weak stream, nocturia (>2), and are progressing.?Results from testing include? cystoscopy? no abnormality seen 07/09 - small prostate, mild trabeculation ?Prior Prostate Score moderate.?PSA 06/08 , < 2.5, 04/13 0.13 ?Prostate volume 30-50gm.?Testing at next visit will include bladder scan [facility] Medical History Schizoaffective disorder, depressive type ETOH abuse HTN (hypertension) Hyperlipemia Pulmonary sarcoidosis COPD (chronic obstructive pulmonary disease) Nicotine dependence, cigarettes, uncomplicated Cough Hyperglycemia Overweight Hepatic steatosis Depression Painful arc syndrome of left shoulder Surgical History History of hernia repair History of cystoscopy H/O colonoscopy Family History Father Glaucoma Mother No problems noted. Social History Household Members: Spouse Housing: House Do you presently have visiting nurse or other home services: No Alcohol intake: current Alcohol intake frequency: 0-2 drinks per day Alcohol type: hard liquor Comment: Amb. Indep. with steady gait. Patient Tobacco Use Status: Current everyday Tobacco user Tobacco use type: Cigarette Cigarettes Per Day: 3 Years Smoked: onset 21yo, 1/2ppd x 58yrs, now 1/4ppd, 28pyh e-Cigarette/Vaping Use: Never Used Second Hand Smoke Exposure: No service: No Current occupational status: retired Current occupation: rt handed Sexual orientation: Straight/Heterosexual Cognitive needs: No Hearing needs: No Vision needs: Yes Review of Systems Const Denies chills and Denies fever(s) Card Reports no additional complaints and Denies syncope Resp Denies cough GI Denies abdominal pain and Denies heartburn Reports as per HPI and Denies change in libido Neuro Denies syncope Psych Denies change in libido Endo Denies change in libido Physical Exam Const General: cooperative, healthy appearing, comfortable and no acute distress Orientation/consciousness: patient oriented x3 HEENT Face and sinus: Yes normal facial exam Mouth: moist mucous membranes Neck Neck: Yes normal visual inspection, Yes full ROM and Yes trachea midline Chest Chest palpation & inspection: normal inspection of the chest Resp Effort & Inspection: normal respiratory effort, able to speak in complete sentences and no respiratory distress GI Inspection: Yes normal to inspection Back/Spine/Pelvis Cervical Spine: normal cervical lordosis Thoracic/Lumbar Spine: thoracic and lumbar spine normal to inspection Skin General skin exam: no rashes or lesions noted Neuro General: patient oriented x3, gait normal, tone normal and moves all extremities Extrem General: Yes normal to inspection and Yes capillary refill normal Office Procedures Post Void Residual Post Residual Void Post Void Residual (PVR): 0 82869-Jvls Void Residual by ultrasound Results AMB Urinalysis, Automated UA Leukoctes 0 Flynn/uL Last Edit [facility] 01/30/[facility] 10:09 UA Nitrite Negative Last Edit by Ankush Smith, [facility] on 01/30/25 10:09 UA Urobilinogen 0.2 mg/dL Last Edit [facility] on 01/30/25 10:09 UA Protein 0 mg/dL Last Edit by Ankush Smith, [facility] on 01/30/25 10:09 UA pH 6.0 Last Edit by [facility]ush Smith, [facility] on 01/30/25 10:09 UA Blood 0 Kennedy/uL Last Edit by Ankush Smith, [facility] on 01/30/25 10:09 UA Specific [place] 1.015 Last Edit by Ankush Smith, [facility] on 01/30/25 10:09 UA Ketone Negative Last Edit by Ankush Smith, [facility] on 01/30/25 10:09 UA Bilirubin 0 mg/dL Last Edit by Ankush Smith [facility] on 01/30/25 10:09 UA Glucose 0 mg/dL Last Edit by Ankush Smith [facility] on 01/30/25 10:09 Results Reviewed Results Reviewed: Laboratory Last Values Urine pH (Auto) 6.0 01/30/25 10:08 Specific [place] (Auto) 1.015 01/30/25 10:08 Urine Protein (Auto) 0 mg/dL 01/30/25 10:08 Glucose (UA)(Auto) 0 mg/dL 01/30/25 10:08 Urine Ketones (Auto) Negative 01/30/25 10:08 Urine Blood (Auto) 0 Kennedy/uL 01/30/25 10:08 Urine Nitrite (Auto) Negative 01/30/25 10:08 Urine Bilirubin (Auto) 0 mg/dL 01/30/25 10:08 Urine Urobilinogen (Auto) 0.2 mg/dL 01/30/25 10:08 Leukocyte Esterase (Auto) 0 Flynn/uL 01/30/25 10:08 Assessment & Plan Assessment & Plan (1) Overactive bladder: Comment: Oxybutynin Code(s): N32.81 - Overactive bladder Category: Medical (2) BPH loc w urin obs/LUTS: Code(s): N40.1 - Benign prostatic hyperplasia with lower urinary tract symptoms Category: Medical Plan Continue current medications Orders: Orders AMB Urinalysis Automated Today Z13.9 - Encounter for screening, unspecified Medications: Refilled oxybutynin chloride ER 10 mg PO BEDTIME 90 days 90 tabs 1RF N32.81 - Overactive bladder mirabegron ER 25 mg PO DAILY 90 tabs 1RF Patient Instructions: This note is constructed using voice recognition software. While every effort has been made to ensure accuracy inspector technician errors may have been included. Imaging studies, laboratory and physical exam results were discussed and reviewed in detail. No major barriers to patient understanding were identified. An opportunity to ask questions regarding the treatment plan was provided. All questions were answered. The patient expressed understanding and agreement with the above treatment plan. The patient is aware they should contact our office by phone for worsening of their current condition or the appearance of new urologic symptoms. Compliance is encouraged with any medications and followup testing that is ordered. It is a privilege to participate in the urologic care of your patient. If you have any questions or concerns regarding treatment for the above conditions, or other urologic issues, please do not hesitate to contact me. The office telephone contact is [phone]. Sincerely, Dr Van Reardon MD, [facility] - Urology Compassionate Specialist Care for the Genitourinary System Coding Level of Care Code Est Pt Level 3 (03010) Complex EM visit Add On G2211 Diagnoses Overactive bladder N32.81 BPH loc w urin obs/LUTS N40.1 CPT Codes Post Residual Void - PVR CPT Code: 68202-Vdrj Void Residual by ultrasound ([id number])
--- OUTSIDE RECORDS SUMMARY | 2025-01-30 11:00 | XMS_ITS | Patient Health Record ---
Author Organization [facility] Address [address] [place] [address] Care Team Providers Care Automobile Leasing Supervisor Name Role Phone Mary Gonzalez MD Primary Care Provider Unavaila Petr Zamarripa Unavailable [phone] Allergies No Known Allergies Reason For Referral No Information Medications Medication SIG (Take, Route, Frequency, Duration) Notes Start Date End Date Status Ammonium Lactate 12 % 1 application Externally [...] the evening Ophthalmic Once a day Not-Taking ruLXOJVyls-Icsvlshdz-PBJA 10-320-25 MG 1 tablet Orally Once a day Active Ciclopirox 8 % 1 application Externally Once a day Not-Taking Lurasidone HCl Activ e Myambutol Not-Taking oxyBUTYnin Active Metoprolol Succinate ER 100 MG 1 tablet Orally Once a day for 30 day(s) 06/11/2020 Active Latuda 80 MG 1 tablet with food Orally Once a day for 30 day(s) 06/11/2020 Not-Taking Antibiotic Not-Takin g Immunizations Vaccine Route Administration Date Status Comme nts COVID-19 Pfizer BioNTech Vaccine Unknown 06/25/2021 Administered 1st 11/28/20 2nd 12/19/20 Influenza Unknown 05/26/2022 Administered Social History Tobacco Use: Social History Observation Description Date Details (start date - stop date) Current Smoker 12/22/1976 - NA Tobacco use other than smoking: Question Answer Notes Are you an other tobacco user? No Tobacco Control (Standard) Question Answer Notes Tobacco use: Current smoker When did you start smoking? 12/22/1976 How often do you smoke cigarettes? Every day How many cigarettes a day do you smoke? 6-10 How soon after you wake up d o you smoke your first cigarette? 6-30 minutes Are you interested in quitting? Thinking about q uitting Additional Findings: Tobacco user Modera te cigarette smoker (10-19 cigs/day) AUDIT-C (Standard) Question Answer Notes Did you have a drink contain ing alcohol in the past year? Yes How often did you have a dri nk containing alcohol in the past year? 2 to 3 times a week (3 points) How many drinks did you have on a typical day when you were drinking in the past year? 3 or 4 drinks (1 point) How often did you have six o r more drinks on one occasion in the past year? 2 to 4 times a month (2 points) Points 6 Interpretation Positive Problems Problem Type SNOMED Code ICD Code Onset Dates Problem Status W/U Status Risk Notes Problem Atherosclerosis of the [place] arteries of the extremities ([id number]) Atherosclerosis of the [place] artery of both lower extremities, with unspecified presence of clinical manifestation (I70.203) Active confirmed Vital Signs Blood pressure diastolic 60 mm Hg 12/26/2024 Height 5 ft 8 in in 12/26/2024 Blood pressure systolic 130 mm Hg 12/26/2024 Weight 213 lbs 12/26/2024 BMI 32.38 kg/m2 12/26/2024 Procedures Procedure Date Ordered Date Performed Result Body Sit e 98053-BALDSKG NAIL, 6 OR MORE 04/28/2024 N/A 61312-WWCB SKIN LESIONS, OVER 4 04/28/2024 N/A 32976-RNJPQDQ NAIL, 6 OR MORE 08/04/2024 N/A 90571-BYKM SKIN LESIONS, OVER 4 08/04/2024 N/A 30296-VIFSDPH NAIL, 6 OR MORE 12/26/2024 N/A 97773-SHGU SKIN LESIONS, OVER 4 12/26/2024 N/A Encounters Encounter Location Date Provider Diagnosis [address] [address] 04/28/2024 Petr Mcelroy Atherosclerosis of the [place] artery of both lower extremities, with unspecified presence of clinical manifestation I70.203 ; Tinea unguium B35.1 ; Pain in right toe(s) M79.674 and Pain in left toe(s) M79.[address] [address] 08/04/2024 Petr Mcelroy Atherosclerosis of the [place] artery of both lower extremities, with unspecified presence of clinical manifestation I70.203 ; Tinea unguium B35.1 ; Pain in right toe(s) M79.674 and Pain in left toe(s) M79.[address] [address] 12/26/2024 Petr Mcelroy Atherosclerosis of the [place] artery of both lower extremities, with unspecified presence of clinical manifestation I70.203 ; Tinea unguium B35.1 ; Pain in right toe(s) M79.674 and Pain in left toe(s) M79.[address] [address] 09/21/2024 Petr Mcelroy Assessments Encounter Date Diagnosis (ICD Code) Assessment Notes Treatment Notes Treatment Clinical Notes Section Notes 04/28/2024 Tinea unguium (ICD-10 - B35.1) 04/28/2024 Atherosclerosis of the [place] artery of both lower extremities, with unspecified presence of clinical manifestation (ICD-10 - I70.203) 08/04/2024 Tinea unguium (ICD-10 - B35.1) 08/04/2024 Atherosclerosis of the [place] artery of both lower extremities, with unspecified presence of clinical manifestation (ICD-10 - I70.203) 12/26/2024 Tinea unguium (ICD-10 - B35.1) 12/26/2024 Atherosclerosis of the [place] artery of both lower extremities, with unspecified presence of clinical manifestation (ICD-10 - I70.203) 12/26/2024 Pain in right toe(s) (ICD-10 - M79.674) 04/28/2024 Pain in right toe(s) (ICD-10 - M79.674) 08/04/2024 Pain in right toe(s) (ICD-10 - M79.674) 04/28/2024 Pain in left toe(s) (ICD-10 - M79.675) 12/26/2024 Pain in left toe(s) (ICD-10 - M79.675) 08/04/2024 Pain in left toe(s) (ICD-10 - M79.675) Plan Of Treatment Pending Test Test Name Order Date 64647-HYRNLNU NAIL, 6 OR MORE 08/27/2020 47312-OZTMFQL NAIL, 6 OR MORE 11/26/2020 77567-ZOYLXLQ NAIL, 6 OR MORE 02/28/2021 37824-PFDNSWE NAIL, 6 OR MORE 05/30/2021 11770-YBQHVUT NAIL, 6 OR MORE 09/02/2021 92103-WXWBSVU NAIL, 6 OR MORE 12/02/2021 95811-XMGSANM NAIL, 6 OR MORE 03/06/2022 53890-RTFHKCY NAIL, 6 OR MORE 06/09/2022 62578-DQEDVXD NAIL, 6 OR MORE 09/15/2022 38911-KNDTXOA NAIL, 6 OR MORE 12/15/2022 92672-LAUJCAW NAIL, 6 OR MORE 03/16/2023 24832-HKJUTOB NAIL, 6 OR MORE 06/15/2023 22048-LDLVPXK NAIL, 6 OR MORE 10/22/2023 02131-JCHQWEQ NAIL, 6 OR MORE 01/28/2024 69381-NGRJNZS NAIL, 6 OR MORE 04/28/2024 82020-EWVYMMD NAIL, 6 OR MORE 08/04/2024 73955-RIRHWKM NAIL, 6 OR MORE 12/26/2024 09641- Debride <25 sq cm 10/22/2023 54297-AAUK SKIN LESIONS, OVER 4 12/27/19 62251-QVWX SKIN LESIONS, OVER 4 08/04/20 04429-LOJJ SKIN LESIONS, OVER 4 09/06/20 24 01776-DZFD SKIN LESIONS, OVER 4 01/28/20 24 10843-WVSB SKIN LESIONS, OVER 4 10/22/19 28424-NXXT SKIN LESIONS, OVER 4 06/15/20 85599-DYWM SKIN LESIONS, OVER 4 03/16/20 23 87251-SQHH SKIN LESIONS, OVER 4 12/16/19 84853-EBUV SKIN LESIONS, OVER 4 09/15/19 Next Appt Details Provider Name:Petr Mcelroy , 03/30/2025 09:30:00 AM, [address] [place] [address], [phone], Insurance Providers Payer Name Payer Address Payer Phone Subscriber Number Group Number Insured Name Patient Relationship to Insured Coverage Start Date Coverage End Date [employer] 65 Medicare Preferred [address] [place] [address] [id number] Mike Higgins Self - patient is the insured Medical (General) History Medical History History ICD Code Depression High blood pressure Vascular Phlebitis fungus Surgical History Surgery Date(Month/Year) Hernia 2009 biopsy Lip 02/26/21 Hospitalization History Reason Date(Month/Year) C - Anxiety 05/2021
== END 2025-01-30 10:43 | disposition home or self-care (01) ==
LOC: HO.HUSH 09:50
PROVIDERS: PCP Internal Medicine; Visit Provider Urology
DX: N32.81 Overactive bladder (principal); N40.1 Benign prostatic hyperplasia with lower urinary tract symptoms; Z13.9 Encounter for screening, unspecified
CPT/HCPCS: 99213; G2211

== ENCOUNTER → 2025-01-30 09:49 | Outpatient (BNVA) | payer MEDICARE, SELFPAY | PROVIDERS: PCP Internal Medicine; Visit Provider Urology | DX: N40.1 Benign prostatic hyperplasia with lower urinary tract symptoms (principal); N13.8 Other obstructive and reflux uropathy; N32.81 Overactive bladder | CPT/HCPCS: 51798; 81003; 99212 ==

== ENCOUNTER 2025-03-20 10:12 | Outpatient (REF) | payer BC, SELFPAY ==
--- NOTE | ~2025-03-20 | XR_ITS ---
EXAMINATION: XR CHEST 2 VIEWS HISTORY: J40 - Bronchitis, not specified as acute or chronic COMPARISON: Comparison is made with the prior examination dated 08/12/2020. FINDINGS: PA and lateral views of the chest are submitted. The lungs are expanded and clear. There is no pleural effusion, pneumothorax, or pulmonary vascular congestion. The heart is mildly enlarged. The aorta is calcified. There is degenerative disc disease of the spine. XR/XR chest 2V IMPRESSION: Mild cardiomegaly. Clear lungs. Electronically signed by: Willie Lawson MD 03/20/2025 11:21 AM EDT
== END 2025-03-20 10:13 | disposition home or self-care (01) ==
LOC: HO.XRAY 10:12
PROVIDERS: PCP Internal Medicine; Visit Provider Internal Medicine
DX: D86.0 Sarcoidosis of lung (principal); R05.8 Other specified cough; J44.89 Other specified chronic obstructive pulmonary disease; R06.02 Shortness of breath; I10 Essential (primary) hypertension; F17.210 Nicotine dependence, cigarettes, uncomplicated; Z79.3 Long term (current) use of hormonal contraceptives; Z79.899 Other long term (current) drug therapy; Z79.52 Long term (current) use of systemic steroids
CPT/HCPCS: 71046

== ENCOUNTER 2025-03-20 10:12 | Outpatient (AMB) | payer BC, SELFPAY ==
[2025-03-20 10:36] VITALS: BP 102/60; PULSE 67; O2SAT 99; BMI 32.0
--- NOTE | 2025-03-20 10:36 | MHC.OFFVIS ---
Vital Signs 03/20/25 10:36 Height 5 ft 8 in Weight 210 lb 8.663 oz BMI 32.0 BP 102/60 Blood Pressure Location Lt brachial Position Sitting Pulse 67 Pulse Source Pulse Oximeter Pulse Oximetry (%) 99 Oxygen Delivery Method Room Air Intake Visit Reasons: Cough Intake Note: pt is here for follow up and still has a dry hacky cough that is all day, and all night. Allergies bee pollen (BEE STINGS) Allergy (Severe, Verified 03/20/25 10:46) ANAPHYLAXIS Medication List - Last Reconciled 03/20/25 by Cortney Dominguez MD amlodipine-valsartan 10-320 mg 1 tab PO DAILY Anoro Ellipta 62.5-25 mcg/actuation (umeclidinium-vilanterol) 1 inh inhalation DAILY NS cholecalciferol (vitamin D3) 25 mcg PO DAILY escitalopram oxalate 5 mg PO DAILY [fish oil 1,200 daily] hydrochlorothiazide 25 mg PO QAM lurasidone 60 mg PO DAILY magnesium 400 mg PO DAILY metoprolol succinate ER 100 mg PO DAILY mirabegron ER 25 mg PO DAILY oxybutynin chloride ER 10 mg PO BEDTIME 90 days prazosin 4 mg PO BEDTIME ProAir HFA 90 mcg/actuation (albuterol sulfate) 2 inhalations inhalation Q6H PRN 30 days NS sildenafil (Viagra) 50 mg PO DAILY PRN trazodone 200 mg (2 x 100 mg) PO BEDTIME 30 days turmeric root extract 1,000 mg PO DAILY Do you need a note to return to daycare/school/sports/work: No HPI HPI Cough: Details: 79 YEARS OLD VERY PLEASANT AND HAPPY GOING GENTLEMAN. HAS PAST DIAGNOSIS OF PULMONARY SARCOIDOSIS WHICH HAS REMAINED IN ACTIVE. HE IS AN ONGOING SMOKER, CLAIMS THAT HE SMOKES ONLY 2 CIGARETTES A DAY BUT THE INDICATES THAT IT IS MORE THAN THAT. HE DOES HAVE CHRONIC OBSTRUCTIVE PULMONARY DISEASE , WITH ONGOING COUGH AND SLIGHT SHORTNESS OF BREATH. HE USES ANORO ELLIPTA 1 INHALATION DAILY, DOES NOT HAVE ANY RESCUE INHALER ON HAND, HAS BEEN DOING OKAY. BUT NOW FOR THE LAST 1 OR 2 WEEKS HE IS HAVING INCREASED COUGH AND FEELS MORE CONGESTED IN THE UPPER AIRWAYS, HE HAS DIFFICULTY IN EXPECTORATING AND WHEN HE DOES HE BRINGS UP YELLOWISH PHLEGM. DENIES FEVER OR CHILLS. PFSH Medical History Bronchitis Schizoaffective disorder, depressive type ETOH abuse HTN (hypertension) Hyperlipemia Pulmonary sarcoidosis COPD (chronic obstructive pulmonary disease) Nicotine dependence, cigarettes, uncomplicated Cough Hyperglycemia Overweight Hepatic steatosis Depression Painful arc syndrome of left shoulder Surgical History History of hernia repair History of cystoscopy H/O colonoscopy Family History Father Glaucoma Mother No problems noted. Social History Household Members: Spouse Housing: House Do you presently have visiting nurse or other home services: No Alcohol intake: current Alcohol intake frequency: 0-2 drinks per day Alcohol type: hard liquor Comment: Amb. Indep. with steady gait. Patient Tobacco Use Status: Current everyday Tobacco user Tobacco use type: Cigarette Cigarettes Per Day: 2 Years Smoked: onset 21yo, 1/2ppd x 57yrs, now 1/4ppd, 28pyh e-Cigarette/Vaping Use: Never Used Second Hand Smoke Exposure: No service: No Current occupational status: retired Current occupation: rt handed Sexual orientation: Straight/Heterosexual Cognitive needs: No Hearing needs: No Vision needs: Yes Review of Systems Const All systems reviewed & are unremarkable except as noted in HPI and below Eyes Reports no additional complaints ENT Reports no additional complaints Card Denies chest pain, Denies irregular heart rhythm and Denies leg edema Resp Reports as per HPI GI Reports no additional complaints Reports urinary incontinence (CONTROLLED WITH MED) Skin/Breast Reports system reviewed and no additional complaints, except as documented Neuro Reports no additional complaints Psych Reports depression (MILD CONTROLLED) Endo Reports no additional complaints Physical Exam Vital Signs: Last Vital Signs Pulse 67 03/20/25 10:36 BP 102/60 03/20/25 10:36 Pulse Ox 99 03/20/25 10:36 Oxygen Delivery Method Room Air 03/20/25 10:36 BMI result Body Mass Index 32.0 Const General: comfortable, no acute distress, alert and awake Orientation/consciousness: patient oriented x3 HEENT Head: Yes normal to inspection General nose exam: No nasal polyps present and No nasal discharge present Face and sinus: Yes sinuses nontender Mouth: oropharynx normal Throat: Yes posterior oropharynx normal Eyes General: appearance normal, both eyes and all related structures Neck Neck: Yes normal visual inspection, Yes no lymphadenopathy, Yes trachea midline and Yes no JVD Thyroid: Thyroid normal Chest Chest palpation & inspection: normal inspection of the chest, normal palpation of entire chest wall and no tenderness Resp Other: PERCUSSION NOTE RESONANT, BREATH SOUNDS ARE EQUAL ON BOTH SIDES, MODERATELY DISTANT WITH PROLONGED EXPIRATORY PHASE. HAS RASPY SOUNDS IN THE UPPER CHEST. Cardio Palpation: normal PMI Rate: regular rate Rhythm: regular rhythm Heart sounds: no gallops and no murmurs Peripheral pulses: Peripheral pulses 2+ throughout GI Palpation (GI): Soft to palpation, nontender, No hepatosplenomegaly present and no masses Auscultation: normal bowel sounds Back/Spine/Pelvis Thoracic/Lumbar Spine: thoracic and lumbar spine normal to inspection Skin General skin exam: no rashes or lesions noted Neuro General: patient oriented x3 and no focal motor deficits Cranial nerves: Yes CN's II-XII intact bilaterally Extrem General: Yes normal to inspection, Yes no clubbing, cyanosis or edema and Yes no calf tenderness Psych Appearance: grossly normal and well kempt Speech and movement: Normal speech and movement present Assessment & Plan Assessment & Plan (1) Pulmonary sarcoidosis: Comment: HE HAS PAST HISTORY OF PULMONARY FIBROSIS, CT SCAN OF THE CHEST DOES NOT SHOW ANY ACTIVE DISEASE. Code(s): D86.0 - Sarcoidosis of lung Category: Medical Plan: HE IS BEING MONITORED REGULARLY BUT HAS HAD NO ACTIVE DISEASE. (2) COPD (chronic obstructive pulmonary disease): Comment: (Mild to moderate COPD - secondary to smoking) Remains well controlled and stable on his current regimen. However increased cough and congestion for the last 10 days. Without any fever or chills. Has hard time in expectorating, and every now and then he is able to bring up some yellowish phlegm. Code(s): J44.9 - Chronic obstructive pulmonary disease, unspecified Category: Medical Plan: Continue Anoro Ellipta 1 inhalation daily Also prescribed albuterol HFA to use 2 puffs. Q.6 hours PRN Advised to stop smoking because each time he smokes it irritates his bronchial to. Will treat him with a short course of doxycycline 100 bid x 7 days Chest x-ray ordered to rule out any acute pneumonia. (3) Cough: Comment: (mostly AM cougn, secondary to pharyngeal irritation by smoking and mouth breathing at night - As noted under COPD he is having increased cough for the last 10-12 days, Seems to have active tracheobronchitis . Code(s): R05 - Cough Category: Medical Plan: A course of doxycycline 100 b.i.d. for 7 days . Urged him to stop smoking completely or at least cut it down to 2 cigarettes a day (4) Bronchitis: Comment: Increased cough and chest congestion for the last 10-12 days isc/w low-grade tracheobronchitis Code(s): J40 - Bronchitis, not specified as acute or chronic Category: Medical Plan: As under COPD (5) Nicotine dependence, cigarettes, uncomplicated: Comment: (current smoker - onset 21yo, 1/2ppd x 57yrs, now 1/4ppd, 28pyh) Claims it is down to 3-4 cigarettes a day. BUT ACCORDING TO IS MORE THAN THAT. Code(s): F17.210 - Nicotine dependence, cigarettes, uncomplicated Category: Medical Plan: AGAIN URGED TO STOP SMOKING COMPLETELY OR AT LEAST CUT DOWN TO NO MORE THAN 2 CIGARETTES A DAY Orders: Orders XR chest 2V Today D86.0 - Sarcoidosis of lung, J40 - Bronchitis, not specified as acute or chronic, J44.9 - Chronic obstructive pulmonary disease, unspecified, R05 - Cough Coding Level of Care Code Est Pt Level 4 (31686) Diagnoses Pulmonary sarcoidosis D86.0 COPD (chronic obstructive pulmonary disease) J44.9 Cough R05 Bronchitis J40 Nicotine dependence, cigarettes, uncomplicated F17.210
--- OUTSIDE RECORDS SUMMARY | 2025-03-20 11:03 | XMS_ITS | Patient Health Record ---
Author Organization [facility] Address [address] [place] [place] [address] Care Team Providers Care Environmental Maintenance Worker Name Role Phone Mary Gonzalez MD Primary Care Provider Klebera Petr Zamarripa Unavailable [phone] Allergies No Known Allergies Reason For Referral No Information Medications Medication SIG (Take, Route, Frequency, Duration) Notes Start Date End Date Status Ammonium Lactate 12 % 1 application Externally Twice a day; Duration: 30 days Active traZODone HCl 100 MG 1 tablet at bedtime Orally Once a day; Duration: 30 day(s) 06/11/2020 Active ProAir HFA Active Prazosin HCl 2 MG 1 capsule at bedtime Orally Once a day; Duration: 30 day(s) 06/11/2020 Active hydroCHLOROthiazide 25 MG 1 tablet in th e morning Orally Once a day; Duration: 30 day(s) Active Citalopram Hydrobromide 10 MG 1 tablet Orally Once a day; Duration: 30 day(s) 06/11/2020 Active Latanoprost 0.005 % 1 drop into affected eye in the evening Ophthalmic Once a day Not-Taking mbWBZDDyin-Otkwnnvlr-ZESR 10-320-25 MG 1 tablet Orally Once a day Active Ciclopirox 8 % 1 application Externally Once a day Not-Taking Lurasidone HCl Activ e Myambutol Not-Taking oxyBUTYnin Active Metoprolol Succinate ER 100 MG 1 tablet Orally Once a day; Duration: 30 day(s) 06/11/2020 Active Latuda 80 MG 1 tablet with food Orally Once a day; Duration: 30 day(s) 06/11/2020 Not-Taking Antibiotic Not-Takin g Immunizations Vaccine Route Administration Date Status Comme nts Influenza Unknown 05/26/2022 Administered COVID-19 Pfizer BioNTech Vaccine Unknown 06/25/2021 Administered 1st 11/28/20 2nd 12/19/20 Social History Tobacco Use: Social History Observation [...] Problem Status W/U Status Risk Notes Problem Bilateral atherosclerosis of arteries of lower limbs (disorder) ([id number] ) Atherosclerosis of [place] artery of both lower extremities, with unspecified presence of clinical manifestation (I70.203) Active confirmed Vital Signs Blood pressure diastolic 60 mm Hg 12/26/2024 Height 5 ft 8 in in 12/26/2024 Blood pressure systolic 130 mm Hg 12/26/2024 Weight 213 lbs 12/26/2024 BMI 32.38 kg/m2 12/26/2024 Procedures Procedure Date Ordered Date Performed Result Body Sit e 34617-XYAXWOA NAIL, 6 OR MORE 04/28/2024 N/A 71157-BNKJ SKIN LESIONS, OVER 4 04/28/2024 N/A 38766-QOFRCQP NAIL, 6 OR MORE 08/04/2024 N/A 28426-VDFC SKIN LESIONS, OVER 4 08/04/2024 N/A 93044-RVVHGXU NAIL, 6 OR MORE 12/26/2024 N/A 15175-ZDMR SKIN LESIONS, OVER 4 12/26/2024 N/A Encounters Encounter Location Date Provider Diagnosis [address] [address] 04/28/2024 Petr Mcelroy Atherosclerosis of [place] artery of both lower extremities, with unspecified presence of clinical manifestation I70.203 ; Tinea unguium B35.1 ; Pain in right toe(s) M79.674 and Pain in left toe(s) M79.[address] [address] 08/04/2024 Petr Mcelroy Atherosclerosis of [place] artery of both lower extremities, with unspecified presence of clinical manifestation I70.203 ; Tinea unguium B35.1 ; Pain in right toe(s) M79.674 and Pain in left toe(s) M79.[address] [address] 12/26/2024 Petr Mcelroy Atherosclerosis of [place] artery of both lower extremities, with unspecified presence of clinical manifestation I70.203 ; Tinea unguium B35.1 ; Pain in right toe(s) M79.674 and Pain in left toe(s) M79.[address] [address] 09/21/2024 Petr Mcelroy Assessments Encounter Date Diagnosis (ICD Code) Assessment Notes Treatment Notes Treatment Clinical Notes Section Notes 04/28/2024 Tinea unguium (ICD-10 - B35.1) 04/28/2024 Atherosclerosis of [place] artery of both lower extremities, with unspecified presence of clinical manifestation (ICD-10 - I70.203) 08/04/2024 Tinea unguium (ICD-10 - B35.1) 08/04/2024 Atherosclerosis of [place] artery of both lower extremities, with unspecified presence of clinical manifestation (ICD-10 - I70.203) 12/26/2024 Tinea unguium (ICD-10 - B35.1) 12/26/2024 Atherosclerosis of [place] artery of both lower extremities, with unspecified [...] Treatment Pending Test Test Name Order Date 27099-JXMIMXL NAIL, 6 OR MORE 08/27/2020 70589-APNEDOZ NAIL, 6 OR MORE 11/26/2020 07423-IWOAFCK NAIL, 6 OR MORE 02/28/2021 06384-XMYWNHP NAIL, 6 OR MORE 05/30/2021 11936-ORWJKQE NAIL, 6 OR MORE 09/02/2021 00849-WPZYWYJ NAIL, 6 OR MORE 12/02/2021 98998-SJJIPKD NAIL, 6 OR MORE 03/06/2022 61277-UWZUUYQ NAIL, 6 OR MORE 06/09/2022 53226-QDSXLHM NAIL, 6 OR MORE 09/15/2022 04021-RUKNFBV NAIL, 6 OR MORE 12/15/2022 45697-ZZPTYHV NAIL, 6 OR MORE 03/16/2023 96822-OKPDMME NAIL, 6 OR MORE 06/15/2023 92042-SYNUXZS NAIL, 6 OR MORE 10/22/2023 52006-CDYWAES NAIL, 6 OR MORE 01/28/2024 42114-ZTDEYOD NAIL, 6 OR MORE 04/28/2024 70296-LVVTUEY NAIL, 6 OR MORE 08/04/2024 55124-NOJRJWS NAIL, 6 OR MORE 12/26/2024 05582- Debride <25 sq cm 10/22/2023 54772-AMUQ SKIN LESIONS, OVER 4 12/27/19 38920-GTSC SKIN LESIONS, OVER 4 12/13/20 24 03101-CCNC SKIN LESIONS, OVER 4 04/28/20 24 52654-LJUG SKIN LESIONS, OVER 4 01/28/20 24 69195-WMEC SKIN LESIONS, OVER 4 10/22/19 24 74716-OPVI SKIN LESIONS, OVER 4 06/15/20 23 13469-OENH SKIN LESIONS, OVER 4 03/16/20 23 50374-LYQC SKIN LESIONS, OVER 4 12/16/19 31350-FRKS SKIN LESIONS, OVER 4 09/15/19 Next Appt Details Provider Name:Petr Mcelroy , 03/30/2025 09:30:00 AM, [address] [place] [address], [phone], Insurance Providers Payer Name Payer Address Payer Phone Subscriber Number Group Number Insured Name Patient Relationship to Insured Coverage Start Date Coverage End Date [facility] 65 Medicare Preferred [address] [place] [address] [id number] Mike Higgins Self - patient is the insured Medical (General) History Medical History History ICD Code Depression High blood pressure Vascular Phlebitis fungus Surgical History Surgery Date(Month/Year) Hernia 2009 biopsy Lip 02/26/21 Hospitalization History Reason Date(Month/Year) C - Anxiety 05/2021
== END 2025-03-20 10:56 | disposition home or self-care (01) ==
LOC: HO.HPS 10:13
PROVIDERS: PCP Internal Medicine; Visit Provider Internal Medicine
DX: D86.0 Sarcoidosis of lung (principal); J44.9 Chronic obstructive pulmonary disease, unspecified; R05.9 Cough, unspecified; J40 Bronchitis, not specified as acute or chronic; F17.210 Nicotine dependence, cigarettes, uncomplicated
CPT/HCPCS: 99214

== ENCOUNTER → 2025-03-20 11:01 | Outpatient (BNV) | payer BC, SELFPAY | PROVIDERS: PCP Internal Medicine; Visit Provider Radiology Diagnostic Radiology | DX: J40 Bronchitis, not specified as acute or chronic (principal) | CPT/HCPCS: 71046 ==

== ENCOUNTER 2025-04-14 06:34 | Outpatient (REF) | payer BC, SELFPAY ==
--- OUTSIDE RECORDS SUMMARY | 2025-04-14 06:37 | XMS_ITS | Patient Health Record ---
[facility] Organization [facility] Address [address] [facility] [place] [address] Care Team Providers Care Event Organizer Name Role Phone Mary Gonzalez MD Primary Care Provider Unavaila Petr Zamarripa Unavailable [phone] Allergies No Known Allergies Reason For Referral No Information Medications Medication SIG (Take, Route, Frequency, Duration) Notes Start Date End Date Status Metoprolol Succinate ER 100 MG 1 tablet Orally Once a day; Duration: 30 day(s) 06/11/2020 Active Latuda 80 MG 1 tablet with food Orally Once a day; Duration: 30 day(s) 06/11/2020 Not-Taking hydroCHLOROthiazide 25 MG 1 tablet in e morning Orally Once a day; Duration: 30 day(s) Active Antibiotic Not-Takin g Citalopram Hydrobromide 10 MG 1 tablet Orally Once a day; Duration: 30 day(s) 06/11/2020 Active Latanoprost 0.005 % 1 drop into affected eye in the evening Ophthalmic Once a day Not-Taking Prazosin HCl 2 MG 1 capsule at bedtime Orally Once a day; Duration: 30 day(s) 06/11/2020 Active oxyBUTYnin Active ProAir HFA Active opVBQAKgaa-Ftramxpza-BLRA 10-320-25 MG 1 tablet Orally Once a day Active Ciclopirox 8 % 1 application Externally Once a day Not-Taking Lurasidone HCl Activ e Myambutol Not-Taking Ammonium Lactate 12 % 1 application Externally Twice a day; Duration: 30 days Active traZODone HCl 100 MG 1 tablet at bedtime Orally Once a day; Duration: 30 day(s) 06/11/2020 Active Immunizations Vaccine Route Administration Date Status Comme nts Influenza Unknown 05/26/2022 Administered Influenza Unknown 05/23/2024 Administered COVID-19 Pfizer BioNTech Vaccine Unknown 06/25/2021 [...] atherosclerosis of arteries of lower limbs (disorder) ([id number] ) Atherosclerosis of [place] artery of both lower extremities, with unspecified presence of clinical manifestation (I70.203) Active confirmed Vital Signs Blood pressure diastolic 60 mm Hg 03/30/2025 Height 5 ft 8 in in 03/30/2025 Blood pressure systolic 130 mm Hg 03/30/2025 Weight 213 lbs 03/30/2025 BMI 32.38 kg/m2 03/30/2025 Procedures Procedure Date Ordered Date Performed Result Body Sit e 65843-AJBSIKM NAIL, 6 OR MORE 04/28/2024 N/A 47010-SBCG SKIN LESIONS, OVER 4 04/28/2024 N/A 43991-SAUOIIN NAIL, 6 OR MORE 08/04/2024 N/A 22102-OWKS SKIN LESIONS, OVER 4 08/04/2024 N/A 46403-DHOTUMW NAIL, 6 OR MORE 12/26/2024 N/A 43301-NWKR SKIN LESIONS, OVER 4 12/26/2024 N/A 77480-ZJKZXVI NAIL, 6 OR MORE 03/30/2025 N/A 56743-HHQB SKIN LESIONS, OVER 4 03/30/2025 N/A Encounters Encounter Location Date Provider Diagnosis [address] [address] 04/28/2024 Petrfelicita Mcelroy Atherosclerosis of [place] artery of both lower extremities, with unspecified presence of clinical manifestation I70.203 ; Tinea unguium B35.1 ; Pain in right toe(s) M79.674 and Pain in left toe(s) M79.[address] [address] 08/04/2024 Petrfelicita DashNavi Atherosclerosis of [place] artery of both lower extremities, with unspecified presence of clinical manifestation I70.203 ; Tinea unguium B35.1 ; Pain in right toe(s) M79.674 and Pain in left toe(s) M79.[address] [address] 12/26/2024 Petr Mcelroy Atherosclerosis of [place] artery of both lower extremities, with unspecified presence of clinical manifestation I70.203 ; Tinea unguium B35.1 ; Pain in right toe(s) M79.674 and Pain in left toe(s) M79.[address] [address] 03/30/2025 Petr Navi Atherosclerosis of [place] artery of both lower extremities, with unspecified presence of clinical manifestation I70.203 ; Tinea unguium B35.1 ; Pain in right toe(s) M79.674 and Pain in left toe(s) M79.[address] [address] 09/21/2024 Petr Mcelroy Assessments Encounter Date Diagnosis (ICD Code) Assessment Notes Treatment Notes Treatment Clinical Notes Section Notes 04/28/2024 Tinea unguium (ICD-10 - B35.1) 04/28/2024 Atherosclerosis of [place] artery of both lower extremities, with unspecified presence of clinical manifestation (ICD-10 - I70.203) 08/04/2024 Tinea unguium (ICD-10 - B35.1) 08/04/2024 Atherosclerosis of [place] artery of both lower extremities, with unspecified presence of clinical manifestation (ICD-10 - I70.203) 12/26/2024 Tinea unguium (ICD-10 - B35.1) 12/26/2024 Atherosclerosis of [place] artery of both lower extremities, with unspecified presence of clinical manifestation (ICD-10 - I70.203) 03/30/2025 Tinea unguium (ICD-10 - B35.1) 03/30/2025 Atherosclerosis of [place] artery of both lower extremities, with unspecified presence of clinical manifestation (ICD-10 - I70.203) 12/26/2024 Pain in right toe(s) (ICD-10 - M79.674) 03/30/2025 Pain in right toe(s) (ICD-10 - M79.674) 04/28/2024 Pain in right toe(s) (ICD-10 - M79.674) 08/04/2024 Pain in right toe(s) (ICD-10 - M79.674) 04/28/2024 Pain in left toe(s) (ICD-10 - M79.675) 12/26/2024 Pain in left toe(s) (ICD-10 - M79.675) 08/04/2024 Pain in left toe(s) (ICD-10 - M79.675) 03/30/2025 Pain in left toe(s) (ICD-10 - M79.675) Plan Of Treatment Pending Test Test Name Order Date 40319-TZSEZJX NAIL, 6 OR MORE 08/27/2020 54489-MFBWMXM NAIL, 6 OR MORE 11/26/2020 33885-EXUPGDF NAIL, 6 OR MORE 02/28/2021 00744-XZIBRJS NAIL, 6 OR MORE 05/30/2021 28037-XCUGVTZ NAIL, 6 OR MORE 09/02/2021 91148-DRPWZCE NAIL, 6 OR MORE 12/02/2021 60334-YQYYWTR NAIL, 6 OR MORE 03/06/2022 69582-CMGCXGZ NAIL, 6 OR MORE 06/09/2022 07013-FOAAHQC NAIL, 6 OR MORE 09/15/2022 78465-WUASSOD NAIL, 6 OR MORE 12/15/2022 24983-POVOCGO NAIL, 6 OR MORE 03/16/2023 95496-LRVDLCA NAIL, 6 OR MORE 06/15/2023 54925-OHNWNRD NAIL, 6 OR MORE 10/22/2023 18390-FLBEOED NAIL, 6 OR MORE 01/28/2024 93475-TODTXIM NAIL, 6 OR MORE 04/28/2024 06945-XECNFKQ NAIL, 6 OR MORE 08/04/2024 79739-FJZIRXJ NAIL, 6 OR MORE 12/26/2024 07690-ENMVQYX NAIL, 6 OR MORE 03/30/2025 19593- Debride <25 sq cm 10/22/2023 49051-MJON SKIN LESIONS, OVER 4 03/30/20 25 52174-UXUM SKIN LESIONS, OVER 4 12/27/19 25 20406-VBER SKIN LESIONS, OVER 4 08/04/20 24 06423-POZJ SKIN LESIONS, OVER 4 04/28/20 24 18360-HBVP SKIN LESIONS, OVER 4 01/28/20 24 12166-WLJJ SKIN LESIONS, OVER 4 10/22/19 24 07209-IJBQ SKIN LESIONS, OVER 4 06/15/20 23 52750-DTUB SKIN LESIONS, OVER 4 03/16/20 23 23338-TGBY SKIN LESIONS, OVER 4 12/16/19 23 22822-BLCD SKIN LESIONS, OVER 4 09/15/19 Next Appt Details Provider Name:Petr Freddy Mcelroy , 07/17/2025 10:30:00 AM, [address] [facility], [place], [address], Insurance Providers Payer Name Payer Address Payer Phone Subscriber Number Group Number Insured Name Patient Relationship to Insured Coverage Start Date Coverage End Date [facility] 65 Medicare [address] [place] [address] [id number] Mike Higgins Self - patient is the insured Medical (General) History Medical History History ICD Code Depression High blood pressure Vascular Phlebitis fungus Surgical History Surgery Date(Month/Year) Hernia 2008 biopsy Lip 02/26/21 Hospitalization History Reason Date(Month/Year) [facility] [place] - Anxiety 05/2021
[2025-04-14 11:08] LABS: MANUAL DIFF FLAG NO
[2025-04-14 11:15] LABS: Hematocrit 43.7 % (42.0-52.0); Hemoglobin 14.6 g/dl (14.0-18.0); Imm Gran Abs Auto 0.02 X10*3/uL (0.00-0.03); Imm Gran Pct Auto 0.3 % (0.0-0.4); Lymphocytes Absolute Auto 2.2 X10*3/uL (1.2-4.9); Mean Corpuscular HGB Conc 33.4 g/dl (31.0-36.0); Mean Corpuscular Hemoglobin 29.6 pg (27.0-33.0); Mean Corpuscular Volume 88.6 fL (80.0-98.0); NRBC Abs Auto 0.000 X10*3/uL (0.0-0.012); NRBC Pct Auto 0.0 /100WBC (0.0-0.2); Platelet Count 213 X10*3/uL (160-400); Red Blood Count 4.93 X10*6/uL (4.60-5.80); White Blood Count 6.9 X10*3/uL (4.8-10.8)
[2025-04-14 11:47] LABS: Hemoglobin A1C 161.8394 umol/L; Total Hemoglobin (HGBA1C) 3870.5096 umol/L
[2025-04-14 11:58] LABS: Alanine Aminotransferase 24 U/L (0-40); Albumin Level 4.1 g/dL (3.5-5.0); Alkaline Phosphatase 57 U/L (39-117); Anion Gap 14 (12-20); Aspartate Amino Transferase 35 U/L (5-37); Blood Urea Nitrogen 19 mg/dL (9-16); Calcium 8.8 mg/dL (8.4-10.2); Carbon Dioxide 27 mmol/L (22-29); Chloride 104 mmol/L (96-108); Cholesterol 135 mg/dL (<200); Estimated Glomerular Filt Rate 56; HDL Cholesterol 39 mg/dL (>40); Potassium 4.1 mmol/L (3.3-5.1); Sodium 141 mmol/L (135-145); Total Protein 7.3 g/dL (6.5-8.0); Triglycerides 83 mg/dL (<150)
[2025-04-14 12:18] LABS: Prostate Specific Antigen 0.17 ng/mL (<0.05-4.0)
== END 2025-04-14 06:35 | disposition home or self-care (01) ==
LOC: HO.HMGCLDS 06:34
PROVIDERS: Urology; PCP Internal Medicine; Visit Provider Internal Medicine
DX: Z12.5 Encounter for screening for malignant neoplasm of prostate (principal); F25.1 Schizoaffective disorder, depressive type; D86.0 Sarcoidosis of lung; J44.9 Chronic obstructive pulmonary disease, unspecified; E78.5 Hyperlipidemia, unspecified; R73.9 Hyperglycemia, unspecified; I10 Essential (primary) hypertension
CPT/HCPCS: 36415; 80053; 80061; 82043; 82570; 83036; 84153; 85025

== ENCOUNTER 2025-04-19 09:54 | Outpatient (AMB) | payer MEDICARE, SELFPAY ==
--- OUTSIDE RECORDS SUMMARY | 2024-11-07 06:00 | XMS_ITS ---
Author Organization [facility] Address [address] [place] [address] Care Team Providers Care Splitter Operator Name Role Phone Mary Gonzalez MD Primary Care Provider Unavaila Petr Zamarripa Unavailable [phone] Encounters Encounter Location Date Provider Diagnosis [address] [address] 11/07/2024 Petr Mcelroy Plan Of Treatment Next Appt Details Provider Name:Petr Mcelroy , 07/17/2025 10:30:00 AM, [address] [place], [address], Progress Notes * Mike LAMBDOB: [birth year] (80 yo M)Acc No.[id number]:11/07/2024 Progress Note Patient: Terell ARREOLAMike Yang Provider: Margie Mcelroy DPM :1945 A ge:79 Y S ex:Male Date:11/07/2024 Address:[address] [place], [place] [id number] Pcp:Mary Gonzalez MD Subjective: * Chief Complaints: [...] 0 11/07/2024 Generated for Lisa Mcbride on: 0 04/19/2025 11:02 AM EDT
[2025-04-19 10:07] VITALS: BP 106/64; PULSE 64; RESP 20; TEMP 36.8; O2SAT 98; BMI 32.2
--- NOTE | 2025-04-19 10:07 | A.OFFPC_ITS ---
Vital Signs 04/19/25 10:07 Height 5 ft 8 in Weight 212 lb BMI 32.2 BP 106/64 Blood Pressure Location Rt brachial Position Sitting Respiration 20 Pulse 64 Pulse Source Pulse Oximeter Temp 98.2 F Temp Source Oral Pulse Oximetry (%) 98 Oxygen Delivery Method Room Air Intake Visit Reasons: Annual PE Intake Note: Pt is here today for PE. Allergies bee pollen (BEE STINGS) Allergy (Severe, Verified 04/19/25 10:30) ANAPHYLAXIS Medication List - Last Reconciled 04/19/25 by Mary Gonzalez MD albuterol sulfate 90 mcg/actuation (Ventolin HFA) 2 puffs inhalation Q4-6H PRN 30 days amlodipine-valsartan 10-320 mg 1 tab PO DAILY Anoro Ellipta 62.5-25 mcg/actuation (umeclidinium-vilanterol) 1 inh inhalation DAILY NS cholecalciferol (vitamin D3) 25 mcg PO DAILY escitalopram oxalate 5 mg PO DAILY [fish oil 1,200 daily] hydrochlorothiazide 25 mg PO QAM latanoprost 0.005% 1 drp ophthalmic (eye) DAILY lurasidone 60 mg PO DAILY magnesium 400 mg PO DAILY metoprolol succinate ER 100 mg PO DAILY mirabegron ER 25 mg PO DAILY oxybutynin chloride ER 10 mg PO BEDTIME 90 days prazosin 4 mg PO BEDTIME ProAir HFA 90 mcg/actuation (albuterol sulfate) 2 inhalations inhalation Q6H PRN 30 days NS sildenafil (Viagra) 50 mg PO DAILY PRN trazodone 200 mg (2 x 100 mg) PO BEDTIME 30 days turmeric root extract 1,000 mg PO DAILY Tobacco use date assessed: 04/19/25 Fall risk assessment: No Falls in past year Last assessed Fall Risk: 04/19/25 Dental Screening Dental Screen Date: 04/19/25 Did you have a dental visit in the last 12 months?: No Did you have a dental problem in the last 6 months where you did not have access to dental care?: No Was dental information given to patient?: Patient declined HPI Annual PE HPI Details Patient presents for physical PFSH Medical History Bronchitis Schizoaffective disorder, depressive type ETOH abuse HTN (hypertension) Hyperlipemia Pulmonary sarcoidosis COPD (chronic obstructive pulmonary disease) Nicotine dependence, cigarettes, uncomplicated Cough Hyperglycemia Overweight Hepatic steatosis Depression Painful arc syndrome of left shoulder Surgical History History of hernia repair History of cystoscopy H/O colonoscopy Family History Father Glaucoma Mother No problems noted. Social History Household Members: Spouse Housing: House Do you presently have visiting nurse or other home services: No Alcohol intake: current Alcohol intake frequency: 0-2 drinks per day Alcohol type: hard liquor Comment: Amb. Indep. with steady gait. Patient Tobacco Use Status: Current everyday Tobacco user Tobacco use type: Cigarette Cigarettes Per Day: 2 Years Smoked: onset 21yo, 1/2ppd x 57yrs, now 1/4ppd, 28pyh e-Cigarette/Vaping Use: Never Used Second Hand Smoke Exposure: No service: No Current occupational status: retired Current occupation: rt handed Sexual orientation: Straight/Heterosexual Cognitive needs: No Hearing needs: No Vision needs: Yes Questionnaire PHQ-9 Over the last 2 weeks, how often have you been bothered by any of the following problems? 1. Little interest or pleasure in doing things: more than half the days 2. Feeling down, depressed, or hopeless: several days 3. Trouble falling or staying asleep, or sleeping too much: several days 4. Feeling tired or having little energy: more than half the days 5. Poor appetite or overeating: not at all 6. Feeling bad about yourself - or that you are a failure or have let yourself or your family down: several days 7. Trouble concentrating on things, such as reading the newspaper or watching television: several days 8. Moving or speaking so slowly that other people could have noticed. Or the opposite - being so fidgety or restless that you have been moving around a lot more than usual: more than half the days 9. Thoughts that you would be better off or of hurting yourself in some way: more than half the days Total score: 12 Depression Screening Interpretation: Positive (Patient is established with Psychiatry and Psychology) Depression Screening Follow-up: Existing condition and In treatment Depression Screening Done: Yes 71438 - PHQ-9 Billing: Yes Source: Developed by Drs. Willie Aggarwal, Anup Martinez and colleagues, with an educational nadeem from [employer]. Thrive Questionnaire Date Thrive assessed: 04/19/25 I am a: Patient What is your living situation today?: I have a steady place to live Within the past 12 months, did the food you bought not last and you didn't have the money to get more?: Never true Within the past 12 months, did you worry whether your food would run out before you got money to buy more?: Never true Do you have trouble paying for medicines?: No Do you have trouble getting transportation to medical appointments?: No Do you have trouble paying your heating and electricity bill?: No Do you have trouble taking care of your child, family member or friend?: No Do you have trouble with day-to-day activities such as bathing, preparing meals, shopping, managing finances, etc.?: No Are you currently unemployed and looking for a job?: No Are you interested in more education?: No Please select the resources that you would like help with: None THRIVE Score: 0 MADIHA-7 AMB Questionnaire MADIHA-7 Date MADIHA - 7 assessed: 04/19/25 Feeling nervous, anxious, or on edge: 1 = Several days Not being able to stop or control worryin = Several days Worrying too much about different things: 1 = Several days Trouble relaxin = Several days Being so restless that it is hard to sit still: 2 = More than half the days Becoming easily annoyed or irritable: 3 = Nearly every day Feeling afraid as if something awful might happen: 1 = Several days Total MADIHA-7 score (0-4 normal; 5-9 mild; 10-14 moderate; 15-21 severe): 10 Source: Developed by Drs. Willie Aggarwal, Anup Martinez and colleagues, with an educational nadeem from [employer]. MADIHA-7 Assessment Billing MADIHA-7 Assessment Tool: MADIHA-7 Assessment 91164 Review of Systems Const All systems reviewed & are unremarkable except as noted in HPI and below Eyes Reports no additional complaints ENT Reports no additional complaints Card Reports no additional complaints Resp Reports no additional complaints GI Reports no additional complaints Reports no additional complaints Physical exam (Primary Care) Vital Signs: Last Vital Signs Temp 98.2 F 04/19/25 10:07 Pulse 64 04/19/25 10:07 Resp 20 04/19/25 10:07 BP 106/64 04/19/25 10:07 Pulse Ox 98 04/19/25 10:07 Oxygen Delivery Method Room Air 04/19/25 10:07 BMI result Body Mass Index 32.2 Tobacco/Smoking Status: Tobacco use Status Tobacco use date assessed 04/19/25 04/19/25 10:36 Patient Tobacco Use Status Current everyday Tobacco 04/19/25 10:07 Tobacco use type Cigarette 04/19/25 10:07 e-Cigarette/Vaping Use Never Used 04/19/25 10:07 PHQ-9: PHQ-9 Score PHQ-9: Total score 12 04/19/25 10:36 Depression Screening Interpretation: Positive (Patient is established with Psychiatry and Psychology) Depression Screening Follow-up: Existing condition and In treatment Thrive Assessment: Date of Thrive Assessment Date Thrive assessed 04/19/25 04/19/25 10:36 Const General: no acute distress HENMT Head: Yes normal to inspection Ears: TM's normal bilaterally Mouth: Normal oral and palatal mucosa present Eyes General: appearance normal, both eyes and all related structures Neck Neck: Yes no lymphadenopathy and Yes supple Resp Effort & Inspection: normal respiratory effort Auscultation: clear to auscultation bilaterally Cardio Rhythm: regular rhythm Heart sounds: S1 normal heart sound present and S2 normal heart sound present GI Inspection: Yes normal to inspection Palpation (GI): Soft to palpation Percussion: Yes normal to percussion Auscultation: normal bowel sounds Extrem Other: 1+ pitting edema bilaterally Coding Level of Care Code Est Pt Prev Care >65y(02352) Diagnoses Pulmonary sarcoidosis D86.0 COPD (chronic obstructive pulmonary disease) J44.9 Hyperglycemia R73.9 Schizoaffective disorder, depressive type F25.1 HTN (hypertension) I10 Nicotine dependence, cigarettes, uncomplicated F17.210 Additional Codes MADIHA-7 Assessment Billing - MADIHA-7 Assessment Tool: MADIHA-7 Assessment 67794 ([id number]) PHQ-9 - 68283 - PHQ-9 Billing: Yes ([id number]) Assessment & Plan Assessment & Plan (1) Pulmonary sarcoidosis: Comment: HE HAS PAST HISTORY OF PULMONARY FIBROSIS, CT SCAN OF THE CHEST DOES NOT SHOW ANY ACTIVE DISEASE. Code(s): D86.0 - Sarcoidosis of lung Category: Medical Plan: Follow-up with pulmonology continue Anoro (2) COPD (chronic obstructive pulmonary disease): Comment: (Mild to moderate COPD - secondary to smoking) Remains well controlled and stable on his current regimen. However increased cough and congestion for the last 10 days. Without any fever or chills. Has hard time in expectorating, and every now and then he is able to bring up some yellowish phlegm. Code(s): J44.9 - Chronic obstructive pulmonary disease, unspecified Category: Medical Plan: Continue Anoro tobacco quitting discussed with the patient (3) Hyperglycemia: Comment: ADA diet Code(s): R73.9 - Hyperglycemia, unspecified Category: Medical Plan: A1c is 6.0. ADA diet increase exercise weight loss discussed with the patient follow-up in 6 months with a fasting labs before (4) Schizoaffective disorder, depressive type: Comment: Follow-up with Psychiatry Code(s): F25.1 - Schizoaffective disorder, depressive type Category: Medical Plan: Follow-up with psychiatry continue current medications (5) HTN (hypertension): Code(s): I10 - Essential (primary) hypertension Category: Medical Plan: Continue current medications (6) Nicotine dependence, cigarettes, uncomplicated: Comment: (current smoker - onset 21yo, 1/2ppd x 57yrs, now 1/4ppd, 28pyh) Claims it is down to 3-4 cigarettes a day. BUT ACCORDING TO IS MORE THAN THAT. Code(s): F17.210 - Nicotine dependence, cigarettes, uncomplicated Category: Medical Plan: Tobacco quitting discussed Orders: Orders Comprehensive [place]. Panel Fast 1 Year D86.0 - Sarcoidosis of lung, J44.9 - Chronic obstructive pulmonary disease, unspecified, R73.9 - Hyperglycemia, un specified Lipid Panel 1 Year D86.0 - Sarcoidosis of lung, J44.9 - Chronic obstructive pulmonary disease, unspecified, R73.9 - Hyperglycemia, unspecified Complete Blood Count Auto Diff 1 Year D86.0 - Sarcoidosis of lung, J44.9 - Chronic obstructive pulmonary disease, unspecified, R73.9 - Hyperglycemia, unspecified Hemoglobin A1c 1 Year D86.0 - Sarcoidosis of lung, J44.9 - Chronic obstructive pulmonary disease, unspecified, R73.9 - Hyperglycemia, unspecified Medications: Discontinued umeclidinium-vilanterol 62.5-25 mcg/actuation (Anoro Ellipta) Discontinued Reason: Doctor's Order 1 inh inhalation DAILY 90 days 60 ea 5RF copd
--- OUTSIDE RECORDS SUMMARY | 2025-04-19 11:03 | XMS_ITS | Patient Health Record ---
Author Organization [facility] Address [address] [facility] [place] [address] Care Team Providers Care Traffic Control Operator Name Role Phone Mary Gonzalez MD Primary Care Provider Unavaila Petr Zamarripa Unavailable [phone] Allergies No Known Allergies Reason For Referral [...] 06/11/2020 Active oxyBUTYnin Active ProAir HFA Active peEXDJRleb-Injlujrzw-YMOZ 10-320-25 MG 1 tablet Orally Once a [...] atherosclerosis of arteries of lower limbs (disorder) ([id number] ) Atherosclerosis of [place] artery of both lower extremities, with unspecified presence of clinical manifestation (I70.203) Active confirmed Vital Signs Blood pressure diastolic 60 mm Hg 03/30/2025 Height 5 ft 8 in in 03/30/2025 Blood pressure systolic 130 mm Hg 03/30/2025 Weight 213 lbs 03/30/2025 BMI 32.38 kg/m2 03/30/2025 Procedures Procedure Date Ordered Date Performed Result Body Sit e 30397-WAPGCKA NAIL, 6 OR MORE 04/28/2024 N/A 95396-RBUG SKIN LESIONS, OVER 4 04/28/2024 N/A 63778-SKYPKBF NAIL, 6 OR MORE 08/04/2024 N/A 51801-ZYZB SKIN LESIONS, OVER 4 08/04/2024 N/A 02070-HXXGLXN NAIL, 6 OR MORE 12/26/2024 N/A 36599-PDUM SKIN LESIONS, OVER 4 12/26/2024 N/A 88579-ECWKAJN NAIL, 6 OR MORE 03/30/2025 N/A 03594-SXVA SKIN LESIONS, OVER 4 03/30/2025 N/A Encounters Encounter Location Date Provider Diagnosis [address] [address] 04/28/2024 Petrfelicita Mcelroy Atherosclerosis of [place] artery of both lower extremities, with unspecified presence of clinical manifestation I70.203 ; Tinea unguium B35.1 ; Pain in right toe(s) M79.674 and Pain in left toe(s) M79.[address] [address] 08/04/2024 Petrfelicita DashNavi Atherosclerosis of [place] artery of both lower extremities, with unspecified presence of clinical manifestation I70.203 ; Tinea unguium B35.1 ; Pain in right toe(s) M79.674 and Pain in left toe(s) M79.[address] [address] 12/26/2024 Petr Mcelroy Atherosclerosis of [place] artery of both lower extremities, with unspecified presence of clinical manifestation I70.203 ; Tinea unguium B35.1 ; Pain in right toe(s) M79.674 and Pain in left toe(s) M79.[address] [address] 03/30/2025 Petr Navi Atherosclerosis of [place] artery of both lower extremities, with unspecified presence of clinical manifestation I70.203 ; Tinea unguium B35.1 ; Pain in right toe(s) M79.674 and Pain in left toe(s) M79.[address] [address] 09/21/2024 Petr Mcelroy Assessments Encounter Date Diagnosis (ICD Code) Assessment Notes Treatment Notes Treatment Clinical Notes Section Notes 04/28/2024 Tinea unguium (ICD-10 - B35.1) 04/28/2024 Atherosclerosis of [place] artery of both lower extremities, with unspecified presence of clinical manifestation (ICD-10 - I70.203) 08/04/2024 Tinea unguium (ICD-10 - B35.1) 08/04/2024 Atherosclerosis of [place] artery of both lower extremities, with unspecified presence of clinical manifestation (ICD-10 - I70.203) 12/26/2024 Tinea unguium (ICD-10 - B35.1) 12/26/2024 Atherosclerosis of [place] artery of both lower extremities, with unspecified presence of clinical manifestation (ICD-10 - I70.203) 03/30/2025 Tinea unguium (ICD-10 - B35.1) 03/30/2025 Atherosclerosis of [place] artery of both lower extremities, with unspecified [...] Treatment Pending Test Test Name Order Date 37982-IRMQHIJ NAIL, 6 OR MORE 08/27/2020 85730-FQBWGPE NAIL, 6 OR MORE 11/26/2020 26764-CEAQAVG NAIL, 6 OR MORE 02/28/2021 70876-MJXPEOJ NAIL, 6 OR MORE 05/30/2021 83172-IQNIFOY NAIL, 6 OR MORE 09/02/2021 41444-WVQIHNP NAIL, 6 OR MORE 12/02/2021 97561-XAQPNKB NAIL, 6 OR MORE 03/06/2022 20945-VZAOBHH NAIL, 6 OR MORE 06/09/2022 16718-MQXXTJY NAIL, 6 OR MORE 09/15/2022 63723-MQNADLF NAIL, 6 OR MORE 12/15/2022 39179-LHBOLRG NAIL, 6 OR MORE 03/16/2023 73781-ONVXQJT NAIL, 6 OR MORE 06/15/2023 14300-LSEBSSE NAIL, 6 OR MORE 10/22/2023 48329-WMCPVBA NAIL, 6 OR MORE 01/28/2024 35535-OWKOHXJ NAIL, 6 OR MORE 04/28/2024 88862-IRJRRQH NAIL, 6 OR MORE 08/04/2024 04603-BXYELXX NAIL, 6 OR MORE 12/26/2024 37332-TANBEVZ NAIL, 6 OR MORE 03/30/2025 28161- Debride <25 sq cm 10/22/2023 03046-JMRM SKIN LESIONS, OVER 4 03/30/20 25 15834-GRAI SKIN LESIONS, OVER 4 12/27/19 25 95242-RPSH SKIN LESIONS, OVER 4 08/04/20 24 22716-QNHG SKIN LESIONS, OVER 4 04/28/20 24 65937-NEGM SKIN LESIONS, OVER 4 01/28/20 24 85523-ILPY SKIN LESIONS, OVER 4 10/22/19 24 71081-NVMA SKIN LESIONS, OVER 4 06/15/20 23 35409-TEVY SKIN LESIONS, OVER 4 03/16/20 23 87719-BVOH SKIN LESIONS, OVER 4 12/16/19 23 19400-FQPX SKIN LESIONS, OVER 4 09/15/19 Next Appt Details Provider Name:Petr Freddy Mcelroy , 07/17/2025 10:30:00 AM, [address] [facility], [place], [address], Insurance Providers Payer Name Payer Address Payer Phone Subscriber Number Group Number Insured Name Patient Relationship to Insured Coverage Start Date Coverage End Date [facility] 65 Medicare [address] [place] [address] [id number] Mike Higgins Self - patient is the insured Medical (General) History Medical History History ICD Code Depression High blood pressure Vascular Phlebitis fungus Surgical History Surgery Date(Month/Year) Hernia 2008 biopsy Lip 02/26/21 Hospitalization History Reason Date(Month/Year) [facility] [place] - Anxiety 05/2021
== END 2025-04-19 11:15 | disposition home or self-care (01) ==
LOC: HO.HMCC 09:55
PROVIDERS: PCP Internal Medicine; Visit Provider Internal Medicine
DX: Z00.00 Encounter for general adult medical examination without abnormal findings (principal); J44.9 Chronic obstructive pulmonary disease, unspecified; F25.1 Schizoaffective disorder, depressive type; D86.0 Sarcoidosis of lung; R73.9 Hyperglycemia, unspecified; I10 Essential (primary) hypertension; F17.210 Nicotine dependence, cigarettes, uncomplicated

== ENCOUNTER → 2025-04-19 09:54 | Outpatient (BNVA) | payer MEDICARE, SELFPAY | PROVIDERS: PCP Internal Medicine; Visit Provider Internal Medicine | DX: D86.0 Sarcoidosis of lung (principal); J44.9 Chronic obstructive pulmonary disease, unspecified; R73.9 Hyperglycemia, unspecified; F25.1 Schizoaffective disorder, depressive type; I10 Essential (primary) hypertension; F17.210 Nicotine dependence, cigarettes, uncomplicated | CPT/HCPCS: 96127; 99397 ==

== ENCOUNTER 2025-07-12 09:56 | Outpatient (AMB) | payer BC, SELFPAY ==
--- OUTSIDE RECORDS SUMMARY | 2024-11-07 05:00 | XMS_ITS ---
Author Organization [facility] Address [address] [place] [address] Care Team Providers Care Dietitian Research Name Role Phone Mary Gonzalez MD Primary Care Provider Unavaila Petr Zamarripa Unavailable [phone] Encounters Encounter Location Date Provider Diagnosis [facility] [address] [place] [address] 11/07/2024 Petr Mcelroy Plan Of Treatment Next Appt Details Provider Name:Petr Mcelroy , 10/30/2025 10:00:00 AM, [address] [place], [address], Progress Notes * Mike LAMBDOB: [birth year] (80 yo M)Acc No.[id number]:11/07/2024 Progress Note Patient: Terell ARREOLAMike Yang Provider: Margie Mcelroy DPM :1945 A ge:79 Y S ex:Male Date:11/07/2024 Address:[address] [place], [place] [id number] Pcp:Mary Gonzalez MD Subjective: * Chief Complaints: [...] 0 11/07/2024 Generated for Lisa Mcbride on: 1 09/11/2024 02:34 PM EST
[2025-07-12 10:16] VITALS: BP 94/64; PULSE 52; O2SAT 98; BMI 32.0
--- NOTE | 2025-07-12 10:16 | A.OFFVIS_ITS ---
Vital Signs 07/12/25 10:16 Height 5 ft 8 in Weight 210 lb 8.663 oz BMI 32.0 BP 94/64 Blood Pressure Location Lt brachial Position Sitting Pulse 52 Pulse Source Pulse Oximeter Pulse Oximetry (%) 98 Oxygen Delivery Method Room Air Intake Visit Reasons: Cough Intake Note: pt is here for follow up and states he feels good, he is the same Flap Lining Binder Required: No Telecommunications Administrator: Telecommunications Administrator offered & declined Allergies bee pollen (BEE STINGS) Allergy (Severe, Verified 07/12/25 10:40) ANAPHYLAXIS Medication List - Last Reconciled 07/12/25 by Cortney Dominguez MD albuterol sulfate 90 mcg/actuation (Ventolin HFA) 2 puffs inhalation Q4-6H PRN 30 days amlodipine-valsartan 10-320 mg 1 tab PO DAILY Anoro Ellipta 62.5-25 mcg/actuation (umeclidinium-vilanterol) 1 inh inhalation DAILY NS cholecalciferol (vitamin D3) 25 mcg PO DAILY escitalopram oxalate 5 mg PO DAILY [fish oil 1,200 daily] hydrochlorothiazide 25 mg PO QAM latanoprost 0.005% 1 drp ophthalmic (eye) DAILY lurasidone 60 mg PO DAILY magnesium 400 mg PO DAILY metoprolol succinate ER 100 mg PO DAILY mirabegron ER 25 mg PO DAILY oxybutynin chloride ER 10 mg PO BEDTIME 90 days prazosin 4 mg PO BEDTIME ProAir HFA 90 mcg/actuation (albuterol sulfate) 2 inhalations inhalation Q6H PRN 30 days NS sildenafil (Viagra) 50 mg PO DAILY PRN trazodone 200 mg (2 x 100 mg) PO BEDTIME 30 days turmeric root extract 1,000 mg PO DAILY Do you need a note to return to daycare/school/sports/work: No HPI HPI Cough: Details: 80 years old very pleasant gentleman comes for follow-up after 4 months. He is happy to tell me that he is smoking only 1 cigarette a day, He still does have mild intermittent cough but this is less than before. No acute attacks of wheezing. But has some shortness of breath if he climbs stairs or walks fast. He uses Anoro Ellipta 1 inhalation daily regularly and uses Ventolin only once in a while., needs a new prescription. [facility] Medical History Bronchitis Schizoaffective disorder, depressive type ETOH abuse HTN (hypertension) Hyperlipemia Pulmonary sarcoidosis COPD (chronic obstructive pulmonary disease) Nicotine dependence, cigarettes, uncomplicated Cough Hyperglycemia Overweight Hepatic steatosis Depression Painful arc syndrome of left shoulder Surgical History History of hernia repair History of cystoscopy H/O colonoscopy Family History Father Glaucoma Mother No problems noted. Social History Household Members: Spouse Housing: House Do you presently have visiting nurse or other home services: No Alcohol intake: current Alcohol intake frequency: 0-2 drinks per day Alcohol type: hard liquor Comment: Amb. Indep. with steady gait. Patient Tobacco Use Status: Current everyday Tobacco user Tobacco use type: Cigarette Cigarettes Per Day: 1 Years Smoked: onset 21yo, 1/2ppd x 58yrs, now 1/4ppd, 28pyh e-Cigarette/Vaping Use: Never Used Second Hand Smoke Exposure: No service: No Current occupational status: retired Current occupation: rt handed Sexual orientation: Straight/Heterosexual Cognitive needs: No Hearing needs: No Vision needs: Yes Review of Systems Const All systems reviewed & are unremarkable except as noted in HPI and below Eyes Reports no additional complaints ENT Reports no additional complaints Card Denies chest pain, Denies irregular heart rhythm and Denies leg edema Resp Reports as per HPI GI Reports no additional complaints Reports urinary incontinence (CONTROLLED WITH MED) Skin/Breast Reports system reviewed and no additional complaints, except as documented Neuro Reports no additional complaints Psych Reports depression (MILD CONTROLLED) Endo Reports no additional complaints Physical Exam Vital Signs: Last Vital Signs Pulse 52 07/12/25 10:16 BP 94/64 07/12/25 10:16 Pulse Ox 98 07/12/25 10:16 Oxygen Delivery Method Room Air 07/12/25 10:16 BMI result Body Mass Index 32.0 Const General: comfortable, no acute distress, alert and awake Orientation/consciousness: patient oriented x3 HEENT Head: Yes normal to inspection General nose exam: No nasal polyps present and No nasal discharge present Face and sinus: Yes sinuses nontender Mouth: oropharynx normal Throat: Yes posterior oropharynx normal Eyes General: appearance normal, both eyes and all related structures Neck Neck: Yes normal visual inspection, Yes no lymphadenopathy, Yes trachea midline and Yes no JVD Thyroid: Thyroid normal Chest Chest palpation & inspection: normal inspection of the chest, normal palpation of entire chest wall and no tenderness Resp Other: PERCUSSION NOTE RESONANT, BREATH SOUNDS ARE EQUAL ON BOTH SIDES, MODERATELY DISTANT WITH PROLONGED EXPIRATORY PHASE. NO WHEEZES RHONCHI OR CREPITATIONS ARE HEARD TODAY. Cardio Palpation: normal PMI Rate: regular rate Rhythm: regular rhythm Heart sounds: no gallops and no murmurs Peripheral pulses: Peripheral pulses 2+ throughout GI Palpation (GI): Soft to palpation, nontender, No hepatosplenomegaly present and no masses Auscultation: normal bowel sounds Back/Spine/Pelvis Thoracic/Lumbar Spine: thoracic and lumbar spine normal to inspection Skin General skin exam: no rashes or lesions noted Neuro General: patient oriented x3 and no focal motor deficits Cranial nerves: Yes CN's II-XII intact bilaterally Extrem General: Yes normal to inspection, Yes no clubbing, cyanosis or edema and Yes no calf tenderness Psych Appearance: grossly normal and well kempt Speech and movement: Normal speech and movement present Results Reviewed Results Reviewed: CHEST XRAY,, 03/20/2025 IMPRESSION: Mild cardiomegaly. Clear lungs. Electronically signed by: Willie Lawson MD 03/20/2025 11:21 AM EDT Assessment & Plan Assessment & Plan (1) COPD (chronic obstructive pulmonary disease): Comment: (Mild to moderate COPD - secondary to smoking) Remains well controlled and stable on his current regimen. Cough is less since he has cut down the smoking. Code(s): J44.9 - Chronic obstructive pulmonary disease, unspecified Category: Medical Plan: Continue Anoro Ellipta 1 inhalation daily Ventolin HFA 2 puffs Q 4-6 hours only p.r.n. for persistent cough or wheezing (2) Cough: Comment: (mostly AM cougn, secondary to pharyngeal irritation by smoking and mouth breathing at night - Cough is definitely much less since he has cut down the smoking to only 1 cigarette a day. Code(s): R05 - Cough Category: Medical Plan: Commended for cutting down smoking and advise that he should quit completely (3) Nicotine dependence, cigarettes, uncomplicated: Comment: (current smoker - onset 21yo, 1/2ppd x 57yrs, now 1/4ppd, 28pyh) Claims it is down to only 1 cigarette a day . Code(s): F17.210 - Nicotine dependence, cigarettes, uncomplicated Category: Medical Plan: Commended for trying to quit smoking. Continue annual lung screening program. (4) Pulmonary sarcoidosis: Comment: HE HAS PAST HISTORY OF PULMONARY SARCOIDOSIS , CT SCAN OF THE CHEST DOES NOT SHOW ANY ACTIVE DISEASE. Code(s): D86.0 - Sarcoidosis of lung Category: Medical Plan: Explained to him that he does not have any active sarcoidosis in the lungs. Coding Level of Care Code Est Pt Level 3 (66938) Diagnoses COPD (chronic obstructive pulmonary disease) J44.9 Cough R05 Nicotine dependence, cigarettes, uncomplicated F17.210 Pulmonary sarcoidosis D86.0
--- OUTSIDE RECORDS SUMMARY | 2025-07-12 14:34 | XMS_ITS | Patient Health Record ---
Author Organization [facility] Address [address] [place] [address] Care Team Providers Care Educational Aid Name Role Phone Mary Gonzalez MD Primary Care Provider Unavaila Petr Zamarripa Unavailable [phone] Allergies No Known Allergies Reason For Referral No Information Medications Medication SIG (Take, Route, Frequency, Duration) Notes Start Date End Date Status oxyBUTYnin Active Prazosin HCl 2 MG 1 capsule at bedtime Orally Once a day; Duration: 30 day(s) 06/11/2020 Active ProAir HFA Active traZODone HCl 100 MG 1 tablet at bedtime Orally Once a day; Duration: 30 day(s) 06/11/2020 Active Ammonium Lactate 12 % 1 application Externally Twice a day; Duration: 30 days Active Latuda 80 MG 1 tablet with food Orally Once a day; Duration: 30 day(s) 06/11/2020 Not-Taking Lurasidone HCl Activ e Myambutol Not-Taking rrKAPBCmzc-Gsflegidv-AJMQ 10-320-25 MG 1 tablet Orally Once a day Active Ciclopirox 8 % 1 application Externally Once a day Not-Taking Citalopram Hydrobromide 10 MG 1 tablet Orally Once a day; Duration: 30 day(s) 06/11/2020 Active Latanoprost 0.005 % 1 drop into affected eye in the evening Ophthalmic Once a day Active hydroCHLOROthiazide 25 MG 1 tablet in e morning Orally Once a day; Duration: 30 day(s) Active Antibiotic Not-Takin g Metoprolol Succinate ER 100 MG 1 tablet Orally Once a day; Duration: 30 day(s) 06/11/2020 Active Immunizations Vaccine Route Administration Date Status Comme nts Influenza Unknown 05/26/2022 Administered Influenza Unknown 05/23/2024 Administered Influenza Unknown 05/23/2025 Administered COVID-19 Pfizer BioNTech Vaccine Unknown 06/25/2021 [...] atherosclerosis of arteries of lower limbs (disorder) (01789169360528793 ) Atherosclerosis of [place] artery of both lower extremities, with unspecified presence of clinical manifestation (I70.203) Active confirmed Vital Signs Blood pressure diastolic 64 mm Hg 07/06/2025 Height 5 ft 8 in in 07/06/2025 Blood pressure systolic 129 mm Hg 07/06/2025 Weight 204 lbs 07/06/2025 BMI 31.01 kg/m2 07/06/2025 Procedures Procedure Date Ordered Date Performed Result Body Sit e 77230-QCIOOLB NAIL, 6 OR MORE 08/04/2024 N/A 44861-OTHF SKIN LESIONS, OVER 4 08/04/2024 N/A 81386-WJPNXTP NAIL, 6 OR MORE 12/26/2024 N/A 14978-JQSA SKIN LESIONS, OVER 4 12/26/2024 N/A 58838-DONAWMB NAIL, 6 OR MORE 03/30/2025 N/A 95890-IFDS SKIN LESIONS, OVER 4 03/30/2025 N/A 83121-FLTCMGB NAIL, 6 OR MORE 07/06/2025 N/A 15718-XKOA SKIN LESIONS, OVER 4 07/06/2025 N/A Encounters Encounter Location Date Provider Diagnosis [address] [address] 08/04/2024 Petr Mcelroy Atherosclerosis of [place] artery of both lower extremities, with unspecified presence of clinical manifestation I70.203 ; Tinea unguium B35.1 ; Pain in right toe(s) M79.674 and Pain in left toe(s) M79.[address] [address] 12/26/2024 Petr Mcelroy Atherosclerosis of [place] artery of both lower extremities, with unspecified presence of clinical manifestation I70.203 ; Tinea unguium B35.1 ; Pain in right toe(s) M79.674 and Pain in left toe(s) M79.[address] [address] 03/30/2025 Petr Mcelroy Atherosclerosis of [place] artery of both lower extremities, with unspecified presence of clinical manifestation I70.203 ; Tinea unguium B35.1 ; Pain in right toe(s) M79.674 and Pain in left toe(s) M79.[address] [address] 07/06/2025 Petrfelicita Mcelroy Atherosclerosis of [place] artery of both lower extremities, with unspecified presence of clinical manifestation I70.203 ; Tinea unguium B35.1 ; Pain in right toe(s) M79.674 and Pain in left toe(s) M79.[address] [address] 09/21/2024 Petr Navi Assessments Encounter Date Diagnosis (ICD Code) Assessment Notes Treatment Notes Treatment Clinical Notes Section Notes 08/04/2024 Tinea unguium (ICD-10 - B35.1) 08/04/2024 Atherosclerosis of [place] artery of both lower extremities, with unspecified presence of clinical manifestation (ICD-10 - I70.203) 12/26/2024 Tinea unguium (ICD-10 - B35.1) 12/26/2024 Atherosclerosis of [place] artery of both lower extremities, with unspecified presence of clinical manifestation (ICD-10 - I70.203) 03/30/2025 Tinea unguium (ICD-10 - B35.1) 03/30/2025 Atherosclerosis of [place] artery of both lower extremities, with unspecified presence of clinical manifestation (ICD-10 - I70.203) 07/06/2025 Tinea unguium (ICD-10 - B35.1) 07/06/2025 Atherosclerosis of [place] artery of both lower extremities, with unspecified presence of clinical manifestation (ICD-10 - I70.203) 07/06/2025 Pain in right toe(s) (ICD-10 - M79.674) 12/26/2024 Pain in right toe(s) (ICD-10 - M79.674) 03/30/2025 Pain in right toe(s) (ICD-10 - M79.674) 08/04/2024 Pain in right toe(s) (ICD-10 - M79.674) 12/26/2024 Pain in left toe(s) (ICD-10 - M79.675) 08/04/2024 Pain in left toe(s) (ICD-10 - M79.675) 03/30/2025 Pain in left toe(s) (ICD-10 - M79.675) 07/06/2025 Pain in left toe(s) (ICD-10 - M79.675) Plan Of Treatment Pending Test Test Name Order Date 76515-IZEMUEQ NAIL, 6 OR MORE 08/27/2020 07165-EDLPTZD NAIL, 6 OR MORE 11/26/2020 76822-DHHERCZ NAIL, 6 OR MORE 02/28/2021 57657-UETATCZ NAIL, 6 OR MORE 05/30/2021 32822-YVILLLV NAIL, 6 OR MORE 09/02/2021 60624-UHITZIY NAIL, 6 OR MORE 12/02/2021 82698-VBJQVZC NAIL, 6 OR MORE 03/06/2022 98864-ZAHJABS NAIL, 6 OR MORE 06/09/2022 80292-MZVNRCB NAIL, 6 OR MORE 09/15/2022 01752-AQGPHYY NAIL, 6 OR MORE 12/15/2022 72870-IDEYUBS NAIL, 6 OR MORE 03/16/2023 96221-HOJNVNW NAIL, 6 OR MORE 06/15/2023 08061-FZPNDQF NAIL, 6 OR MORE 10/22/2023 42959-AYZPXET NAIL, 6 OR MORE 01/28/2024 37571-MEVBTHS NAIL, 6 OR MORE 04/28/2024 57882-TWNMEYR NAIL, 6 OR MORE 08/04/2024 45479-LVGQYSO NAIL, 6 OR MORE 12/26/2024 01647-IJOTODT NAIL, 6 OR MORE 03/30/2025 89369-CUGZQTZ NAIL, 6 OR MORE 07/06/2025 41570- Debride <25 sq cm 10/22/2023 13124-BUZP SKIN LESIONS, OVER 4 07/06/20 25 01540-FFEB SKIN LESIONS, OVER 4 03/30/20 25 69191-UDMN SKIN LESIONS, OVER 4 12/27/19 25 00618-FJNH SKIN LESIONS, OVER 4 08/04/20 24 08656-WYOM SKIN LESIONS, OVER 4 04/28/20 24 47494-MJSK SKIN LESIONS, OVER 4 01/28/20 24 44605-PONI SKIN LESIONS, OVER 4 10/22/19 24 60760-RBAG SKIN LESIONS, OVER 4 06/15/20 23 65414-RRBS SKIN LESIONS, OVER 4 03/16/20 23 84086-XHEE SKIN LESIONS, OVER 4 12/16/19 23 69896-QLEF SKIN LESIONS, OVER 4 09/15/19 Next Appt Details Provider Name:Petr Mcelroy , 10/30/2025 10:00:00 AM, [address], [place], [address], Insurance Providers Payer Name Payer Address Payer Phone Subscriber Number Group Number Insured Name Patient Relationship to Insured Coverage Start Date Coverage End Date BlueCare 65 Medicare Preferred [address] [place] [address] [phone] [id number] Mike Higgins Self - patient is the insured Medical (General) History Medical History History ICD Code Depression High blood pressure Vascular Phlebitis fungus Surgical History Surgery Date(Month/Year) Hernia 2008 biopsy Lip 02/26/21 Hospitalization History Reason Date([place] [facility] [place]
== END 2025-07-12 10:40 | disposition home or self-care (01) ==
LOC: HO.HPS 09:57
PROVIDERS: PCP Internal Medicine; Visit Provider Internal Medicine
DX: J44.9 Chronic obstructive pulmonary disease, unspecified (principal); R05.9 Cough, unspecified; F17.210 Nicotine dependence, cigarettes, uncomplicated; D86.0 Sarcoidosis of lung
CPT/HCPCS: 99213

== ENCOUNTER 2025-07-13 13:17 | Outpatient (REF) | payer MEDICARE, SELFPAY ==
--- OUTSIDE RECORDS SUMMARY | 2024-11-07 05:00 | XMS_ITS ---
Author Organization [facility] Address [address] [place] [address] Care Team Providers Care Cisco Network Architect Name Role Phone Mary Gonzalez MD Primary Care Provider Unavaila Petr Zamarripa Unavailable [phone] Encounters Encounter Location Date Provider Diagnosis [facility] [address] [place] [address] 11/07/2024 Petr Mcelroy Plan Of Treatment Next Appt Details Provider Name:Petr Mcelroy , 10/30/2025 10:00:00 AM, [address] [place], [address], Progress Notes * Mike LAMBDOB: [birth year] (80 yo M)Acc No.[id number]:11/07/2024 Progress Note Patient: Terell ARREOLAMike Yang Provider: Margie Mcelroy DPM :1945 A ge:79 Y S ex:Male Date:11/07/2024 Address:[address] [place], [place] [address] Pcp:Mary Gonzalez MD Subjective: * Chief Complaints: * * Medical History: Objective: * Vitals: Assessment: Plan: * Treatment: * Images: * The named appointment provid er may or may not be the originator of this progress note, and it is not deemed complete until electronically signed by the appointment provider. Sign off status: Pending * Provider: Margie Mcelroy DPM Date: 0 11/07/2024 Generated for Lisa Mcbride on: 09/12/2024 01:35 PM EST
--- NOTE | ~2025-07-13 | XR_ITS ---
EXAMINATION: XR BILATERAL HIPS WITH AP PELVIS CLINICAL INFORMATION: M25.551 - Pain in right hip COMPARISON: None available. TECHNIQUE: AP view of the pelvis and 2 views of each hip were obtained. FINDINGS: Left hip: Mild arthritis. No acute fracture or dislocation. Mild symphysis pubis degeneration. No suspicious soft tissue findings. SI joint is intact. Right hip: Mild hip arthritis. Small chronic ossification along the lateral aspect of the joint. No acute fracture or dislocation. SI joint is intact. No suspicious soft tissue findings. XR/XR hips VINAYAK min 3V IMPRESSION: Mild bilateral hip osteoarthritis. Electronically signed by: Will Cordero MD 07/13/2025 02:02 PM BEKA
--- OUTSIDE RECORDS SUMMARY | 2025-07-13 13:35 | XMS_ITS | Patient Health Record ---
[facility] Address [address] [place] [address] Care Team Providers Care Transitional Care Liaison Name Role Phone Mary Gonzalez MD Primary Care Provider Unavaila Petr Zamarripa Unavailable [phone] Allergies No Known Allergies Reason For Referral [...] Not-Taking Lurasidone HCl Activ e Myambutol Not-Taking lmCIPYQzur-Faxaayzhf-YTUZ 10-320-25 MG 1 tablet Orally Once a [...] atherosclerosis of arteries of lower limbs (disorder) ([id number] ) Atherosclerosis of [place] artery of both lower extremities, with unspecified presence of clinical manifestation (I70.203) Active confirmed Vital Signs Blood pressure diastolic 64 mm Hg 07/06/2025 Height 5 ft 8 in in 07/06/2025 Blood pressure systolic 129 mm Hg 07/06/2025 Weight 204 lbs 07/06/2025 BMI 31.01 kg/m2 07/06/2025 Procedures Procedure Date Ordered Date Performed Result Body Sit e 63611-MWKCFEN NAIL, 6 OR MORE 08/04/2024 N/A 74638-BHFG SKIN LESIONS, OVER 4 08/04/2024 N/A 19964-BWMSXAO NAIL, 6 OR MORE 12/26/2024 N/A 35290-HXQV SKIN LESIONS, OVER 4 12/26/2024 N/A 24394-DMUUMCW NAIL, 6 OR MORE 03/30/2025 N/A 61737-TOOP SKIN LESIONS, OVER 4 03/30/2025 N/A 83695-CTKCLFT NAIL, 6 OR MORE 07/06/2025 N/A 59333-HKBC SKIN LESIONS, OVER 4 07/06/2025 N/A Encounters Encounter Location Date Provider Diagnosis [address] [address] 08/04/2024 Petr Mcelroy Atherosclerosis of [place] artery of both lower extremities, with unspecified presence of clinical manifestation I70.203 ; Tinea unguium B35.1 ; Pain in right toe(s) M79.674 and Pain in left toe(s) M79.[address] [address] 12/26/2024 Petr Mcelroy Atherosclerosis of [place] artery of both lower extremities, with unspecified presence of clinical manifestation I70.203 ; Tinea unguium B35.1 ; Pain in right toe(s) M79.674 and Pain in left toe(s) M79.[address] [address] 03/30/2025 Petr Mcelroy Atherosclerosis of [place] artery of both lower extremities, with unspecified presence of clinical manifestation I70.203 ; Tinea unguium B35.1 ; Pain in right toe(s) M79.674 and Pain in left toe(s) M79.[address] [address] 07/06/2025 Petrfelicita Mcelroy Atherosclerosis of [place] artery of both lower extremities, with unspecified presence of clinical manifestation I70.203 ; Tinea unguium B35.1 ; Pain in right toe(s) M79.674 and Pain in left toe(s) M79.[address] [address] 09/21/2024 Petr Navi Assessments Encounter Date Diagnosis [...] unguium (ICD-10 - B35.1) 07/06/2025 Atherosclerosis of [place] artery of both lower [...] Treatment Pending Test Test Name Order Date 24679-BDOSHAP NAIL, 6 OR MORE 08/27/2020 71778-RYQROWK NAIL, 6 OR MORE 11/26/2020 49828-PJJDRNV NAIL, 6 OR MORE 02/28/2021 64253-BEHXEZC NAIL, 6 OR MORE 05/30/2021 69141-LYNGSEX NAIL, 6 OR MORE 09/02/2021 41602-JBSCSNX NAIL, 6 OR MORE 12/02/2021 36590-UPMKCWN NAIL, 6 OR MORE 03/06/2022 83603-NKLTTRJ NAIL, 6 OR MORE 06/09/2022 98018-VNGMULT NAIL, 6 OR MORE 09/15/2022 09628-PSCGQKE NAIL, 6 OR MORE 12/15/2022 33427-WEGSJJD NAIL, 6 OR MORE 03/16/2023 36372-ABKIQSM NAIL, 6 OR MORE 06/15/2023 93509-QLRCCLK NAIL, 6 OR MORE 10/22/2023 28631-WIZIOUC NAIL, 6 OR MORE 01/28/2024 18017-SWZBXLP NAIL, 6 OR MORE 04/28/2024 11020-KXBSVYX NAIL, 6 OR MORE 08/04/2024 12467-NKHFTNT NAIL, 6 OR MORE 12/26/2024 24122-APCDSZV NAIL, 6 OR MORE 03/30/2025 64079-TNIFEYO NAIL, 6 OR MORE 07/06/2025 98143- Debride <25 sq cm 10/22/2023 32163-LUAN SKIN LESIONS, OVER 4 07/06/20 25 45313-HUGZ SKIN LESIONS, OVER 4 03/30/20 25 51906-CYUS SKIN LESIONS, OVER 4 12/27/19 25 19227-IDFO SKIN LESIONS, OVER 4 08/04/20 24 71611-QDHM SKIN LESIONS, OVER 4 04/28/20 24 22594-IANH SKIN LESIONS, OVER 4 01/28/20 24 47861-AGOJ SKIN LESIONS, OVER 4 10/22/19 24 47748-MPNQ SKIN LESIONS, OVER 4 06/15/20 23 97609-JFQJ SKIN LESIONS, OVER 4 03/16/20 23 06068-DAFZ SKIN LESIONS, OVER 4 12/16/19 23 37662-SHEM SKIN LESIONS, OVER 4 09/15/19 Next Appt Details Provider Name:Petr Mcelroy , 10/30/2025 10:00:00 AM, [address] [facility] [address], [place], [address], Insurance Providers Payer Name Payer Address Payer Phone Subscriber Number Group Number Insured Name Patient Relationship to Insured Coverage Start Date Coverage End Date BlueCare 65 Medicare Preferred [address] [place] [address] [phone] [id number] Mike Higgins Self - patient is the insured Medical (General) History Medical History History ICD Code Depression High blood pressure Vascular Phlebitis fungus Surgical History Surgery Date(Month/Year) Hernia 2008 biopsy Lip 02/26/21 Hospitalization History Reason Date(Month/Year) [facility] [place] - Anxiety 05/2021
== END 2025-07-13 13:18 | disposition home or self-care (01) ==
LOC: HO.HMGCX 13:17
PROVIDERS: PCP Internal Medicine; Visit Provider Internal Medicine
DX: M25.551 Pain in right hip (principal); M25.552 Pain in left hip
CPT/HCPCS: 73522

== ENCOUNTER → 2025-07-13 13:21 | Outpatient (BNV) | payer MEDICARE, SELFPAY | PROVIDERS: PCP Internal Medicine; Visit Provider Radiology Diagnostic Ultrasound | DX: M16.0 Bilateral primary osteoarthritis of hip (principal) | CPT/HCPCS: 73522 ==

== ENCOUNTER 2025-07-17 08:53 | Outpatient (REF) | payer MEDICARE, SELFPAY ==
[2025-07-17 10:36] LABS: Prostate Specific Antigen 0.19 ng/mL (<0.05-4.0)
== END 2025-07-17 08:54 | disposition home or self-care (01) ==
LOC: HO.LAB 08:53
PROVIDERS: PCP Internal Medicine; Visit Provider Urology
DX: Z12.5 Encounter for screening for malignant neoplasm of prostate (principal)
CPT/HCPCS: 36415; 84153

== ENCOUNTER 2025-08-01 09:55 | Outpatient (AMB) | payer MEDICARE, SELFPAY ==
--- NOTE | 2025-08-01 09:59 | A.OFFVIS_ITS ---
Intake Visit Reasons: 6M PSA/PVR(set) Intake Note: Reason for Visit: PSA/PVR Follow Up Urology Meds: Oxybutynin, Myrbetriq, Sildenafil Blood Thinners: None Labs: PSA- 0.17 (04/14/2025) A1C- 6.0 (04/14/2025) Imaging: None Last PVR: 0ml PVR: 0ml Allergies bee pollen (BEE STINGS) Allergy (Severe, Verified 07/12/25 10:40) ANAPHYLAXIS HPI Comments Details: Mike is a pleasant French gentleman. He is a patient of Dr. Llamas. He is seen for the following urologic conditions - lower urinary tract symptoms - combination obstructive and irritative Accompanied by Has remained on Myrbetriq and oxybutynin Today's PVR 0 cc, prior PVR 24 cc Does wake 4 times at night - discussed elevating legs in the afternoon to allow lower leg drainage Trial Eleve 1 po PSA low. Does not need to be checked again. Lower Urinary Tract Symptoms:??Predominant storage symptoms ?Current visit is for further evaluation of, lower urinary tract symptoms, predominate irritative storage symptoms ? Still smoking.?Current treatment includes oxybutynin 15 mg ? - 05/12 TUIP.?Prior treatments include 06/08 medication, alpha blockers, flomax/tamsulosin ? 07/09 alpha rich, terazosin 5mg, oxybutynin with dry mouth ?Prostate Symptom Score 07/09 Moderate (9-19), Bother 4 ? 10/12 , Moderate (9-19), Bother 3.?Symptoms include weak stream, nocturia (>2), and are progressing.?Results from testing include? cystoscopy? no abnormality seen 07/09 - small prostate, mild trabeculation ?Prior Prostate Score moderate.?PSA 06/08 , < 2.5, 04/13 0.13 ?Prostate volume 30-50gm.?Testing at next visit will include bladder scan [facility] Medical History Bronchitis Schizoaffective disorder, depressive type ETOH abuse HTN (hypertension) Hyperlipemia Pulmonary sarcoidosis COPD (chronic obstructive pulmonary disease) Nicotine dependence, cigarettes, uncomplicated Cough Hyperglycemia Overweight Hepatic steatosis Depression Painful arc syndrome of left shoulder Surgical History History of hernia repair History of cystoscopy H/O colonoscopy Family History Father Glaucoma Mother No problems noted. Social History Household Members: Spouse Housing: House Do you presently have visiting nurse or other home services: No Alcohol intake: current Alcohol intake frequency: 0-2 drinks per day Alcohol type: hard liquor Comment: Amb. Indep. with steady gait. Patient Tobacco Use Status: Current everyday Tobacco user Tobacco use type: Cigarette Cigarettes Per Day: 1 Years Smoked: onset 21yo, 1/2ppd x 58yrs, now 1/4ppd, 28pyh e-Cigarette/Vaping Use: Never Used Second Hand Smoke Exposure: No service: No Current occupational status: retired Current occupation: rt handed Sexual orientation: Straight/Heterosexual Cognitive needs: No Hearing needs: No Vision needs: Yes Review of Systems Const Denies chills and Denies fever(s) Card Reports no additional complaints and Denies syncope Resp Denies cough GI Denies abdominal pain and Denies heartburn Reports as per HPI and Denies change in libido Neuro Denies syncope Psych Denies change in libido Endo Denies change in libido Physical Exam Const General: cooperative, healthy appearing, comfortable and no acute distress Orientation/consciousness: patient oriented x3 HEENT Face and sinus: Yes normal facial exam Mouth: moist mucous membranes Neck Neck: Yes normal visual inspection, Yes full ROM and Yes trachea midline Chest Chest palpation & inspection: normal inspection of the chest Resp Effort & Inspection: normal respiratory effort, able to speak in complete sentences and no respiratory distress GI Inspection: Yes normal to inspection Back/Spine/Pelvis Cervical Spine: normal cervical lordosis Thoracic/Lumbar Spine: thoracic and lumbar spine normal to inspection Skin General skin exam: no rashes or lesions noted Neuro General: patient oriented x3, gait normal, tone normal and moves all extremities Extrem General: Yes normal to inspection and Yes capillary refill normal Office Procedures Post Void Residual Post Residual Void Post Void Residual (PVR): 0 [id number] Void Residual by ultrasound Results AMB Urinalysis, Automated UA Leukoctes 0 Flynn/uL Last Edit by Homa Allan [facility] on 08/01/25 10:11 UA Nitrite Negative Last Edit by Homa Allan, A on 08/01/25 10:11 UA Urobilinogen 0.2 mg/dL Last Edit by Homa Allan, A on 08/01/25 10:1 1 UA Protein 0 mg/dL Last Edit by Homa Allan, A on 08/01/25 10:11 UA pH 7.0 Last Edit by Homa Allan, A on 08/01/25 10:11 UA Blood 0 Kennedy/uL Last Edit by Homa Allan, A on 08/01/25 10:11 UA Specific [place] 1.000 Last Edit by Homa Allan, A on 08/01/25 10: 11 UA Ketone Negative Last Edit by Homa Allan, [facility] on 08/01/25 10:11 UA Bilirubin 0 mg/dL Last Edit by Homa Allan, A on 08/01/25 10:11 UA Glucose 0 mg/dL Last Edit by Homa Allan, [facility] on 08/01/25 10:11 Results Reviewed Results Reviewed: Laboratory Last Values Urine pH (Auto) 7.0 08/01/25 10:03 Specific [place] (Auto) 1.000 08/01/25 10:03 Urine Protein (Auto) 0 mg/dL 08/01/25 10:03 Glucose (UA)(Auto) 0 mg/dL 08/01/25 10:03 Urine Ketones (Auto) Negative 08/01/25 10:03 Urine Blood (Auto) 0 Kennedy/uL 08/01/25 10:03 Urine Nitrite (Auto) Negative 08/01/25 10:03 Urine Bilirubin (Auto) 0 mg/dL 08/01/25 10:03 Urine Urobilinogen (Auto) 0.2 mg/dL 08/01/25 10:03 Leukocyte Esterase (Auto) 0 Flynn/uL 08/01/25 10:03 Assessment & Plan Assessment & Plan (1) Overactive bladder: Comment: Oxybutynin Code(s): N32.81 - Overactive bladder Category: Medical (2) BPH loc w urin obs/LUTS: Code(s): N40.1 - Benign prostatic hyperplasia with lower urinary tract symptoms Category: Medical Plan Continue medication Orders: Orders AMB Urinalysis Automated Today Z13.9 - Encounter for screening, unspecified AMB Post Void Residual by ultrasound Today N40.1 - Benign prostatic hyperplasia with lower urinary tract symptoms Medications: Refilled oxybutynin chloride ER 10 mg PO BEDTIME 90 tabs 1RF 90 days N32.81 - Overactive bladder mirabegron ER 25 mg PO DAILY 90 tabs 1RF Patient Instructions: This note is constructed using voice recognition software. While every effort has been made to ensure accuracy upholstery cutter errors may have been included. Imaging studies, laboratory and physical exam results were discussed and reviewed in detail. No major barriers to patient understanding were identified. An opportunity to ask questions regarding the treatment plan was provided. All questions were answered. The patient expressed understanding and agreement with the above treatment plan. The patient is aware they should contact our office by phone for worsening of their current condition or the appearance of new urologic symptoms. Compliance is encouraged with any medications and followup testing that is ordered. It is a privilege to participate in the urologic care of your patient. If you have any questions or concerns regarding treatment for the above conditions, or other urologic issues, please do not hesitate to contact me. The office telephone contact is [phone]. Sincerely, Dr Van Reardon MD, [facility] - Urology Compassionate Specialist Care for the Genitourinary System Coding Level of Care Code Est Pt Level 3 (78774) Add On Problem Visit Only Diagnoses Overactive bladder N32.81 BPH loc w urin obs/LUTS N40.1 CPT Codes Post Residual Void - PVR CPT Code: [id number] Void Residual by ultrasound ([id number])
== END 2025-08-01 10:43 | disposition home or self-care (01) ==
LOC: HO.HUSH 09:56
PROVIDERS: PCP Internal Medicine; Visit Provider Urology
DX: N32.81 Overactive bladder (principal); N40.1 Benign prostatic hyperplasia with lower urinary tract symptoms; Z13.9 Encounter for screening, unspecified
CPT/HCPCS: 99213; G2211

== ENCOUNTER → 2025-08-01 09:55 | Outpatient (BNVA) | payer MEDICARE, SELFPAY | PROVIDERS: PCP Internal Medicine; Visit Provider Urology | DX: N40.1 Benign prostatic hyperplasia with lower urinary tract symptoms (principal); N32.81 Overactive bladder | CPT/HCPCS: 51798; 81003; 99212 ==